=== PATIENT | male | born 1935 | race Caucasian/White ===

== ENCOUNTER 2016-10-23 12:46 | Inpatient (IN) | payer OTHER ==
[2016-10-23 12:52] VITALS: BMI 22.9
--- NOTE | 2016-10-23 13:26 | PDOC ---
History of Present Illness - General Chief Complaint: Pain, Acute Stated Complaint: WEAKNESS Time Seen by Provider: 10/23/16 13:25 History Source: Patient Exam Limitations: No Limitations - History of Present Illness Initial Comments: 10/23/16 13:48 Patient is a 81-year-old male with past medical history of CAD s/p stent placement in 2012 on Plavix, HLD, HTN, who presents to the emergency department today complaining of generalized weakness, and headache. Patient states his headache started on Sunday and it was a generalized headache. He states that the pain was dull and persistent. He tried taking Tylenol for his headache with little relief. Patient states he has also been feeling weak overall. Admits to fevers, chills and night sweats. He also admits to fatigue, and shortness of breath with exertion. Denies nausea, vomiting, diarrhea, constipation, chest tightness, palpitations, edema, chest pain and cough. Past History - Travel Traveled outside of the country in the last 30 days: No Close contact w/someone who was outside of country & ill: No - Past Medical History Allergies/Adverse Reactions: Allergies Allergy/AdvReac Type Severity Reaction Status Date / Time morphine Allergy Vomiting Verified 10/23/16 12:52 Penicillins Allergy Swelling Verified 10/23/16 12:52 Home Medications: Ambulatory Orders Aspirin [Luisito Chewable Aspirin] 81 mg PO DAILY 11/13/13 Clopidogrel Bisulfate [Plavix -] 75 mg PO DAILY 11/13/13 Simvastatin [Zocor -] 20 mg PO HS 11/13/13 Metoprolol Succinate [Toprol XL -] 25 mg PO DAILY 09/17/14 Esomeprazole Magnesium [Nexium 24Hr] 0 mg PO DAILY 10/23/16 Isosorbide Dinitrate [Isordil -] 0 mg PO DAILY 10/23/16 Anemia: No Asthma: No Cancer: No Cardiac Disorders: Yes (Stent placement w/ complication 02/2015) CVA: No COPD: Yes CHF: No Dementia: No Diabetes: No GI Disorders: No Disorders: No HTN: Yes Hypercholesterolemia: Yes Liver Disease: No Seizures: No Thyroid Disease: No - Surgical History Abdominal Surgery: No Appendectomy: Yes Cardiac Surgery: Yes (cardiac stent 2005 and 2014) Cholecystectomy: No Lung Surgery: No Neurologic Surgery: No Orthopedic Surgery: Yes (right knee replacement) - Psycho/Social/Smoking Cessation Hx Suicidal Ideation: No Smoking History: Former smoker Have you smoked in the past 12 months: No If you are a former smoker, when did you quit?: 30 YRS AGO Information on smoking cessation initiated: No Hx Alcohol Use: No Drug/Substance Use Hx: No Substance Use Type: Alcohol Hx Substance Use Treatment: No Review of Systems - Review of Systems Constitutional: Yes: Chills, Fever, Malaise, Night Sweats, Weakness Respiratory: Yes: SOB with Exertion. No: Cough, SOB at Rest, Wheezing Cardiac (ROS): No: Chest Pain, Edema, Lightheadedness, Palpitations, Chest Tightness ABD/GI: No: Diarrhea, Nausea, Vomiting : Yes: Burning, Dysuria. No: Frequency, Hematuria Neurological: Yes: Headache, Weakness. No: Numbness, Paresthesia, Unsteady Gait All Other Systems: Reviewed and Negative *Physical Exam - Vital Signs Last Vital Signs Temp Pulse Resp BP Pulse Ox 98.4 F 95 H 16 124/69 98 10/23/16 12:49 10/23/16 12:49 10/23/16 12:49 10/23/16 12:49 10/23/16 12:49 - Physical Exam Comments: 10/23/16 13:49 GENERAL: Well developed, well nourished. Awake and alert. No acute distress. HEENT: Normocephalic, atraumatic. PERRLA, EOMI. No conjunctival pallor. Sclera are non- icteric. Moist mucous membranes. Oropharynx is clear. NECK: Supple. Full ROM. No JVD. Carotid pulses 2+ and symmetric, without bruits. No thyromegaly. No lymphadenopathy. CARDIOVASCULAR: Regular rate and rhythm. No murmurs, rubs, or gallops. Distal pulses are 2+ and symmetric. PULMONARY: No evidence of respiratory distress. Lungs clear to auscultation bilaterally. No wheezing, rales or rhonchi. ABDOMINAL: Soft. Non-tender. Non-distended. No rebound or guarding. No organomegaly. Normoactive bowel sounds. MUSCULOSKELETAL Normal range of motion at all joints. No bony deformities or tenderness. No CVA tenderness. EXTREMITIES: No cyanosis. No clubbing. No edema. No calf tenderness. SKIN: Warm and dry. Normal capillary refill. No rashes. No jaundice. NEUROLOGICAL: Alert, awake, appropriate. Cranial nerves 2-12 intact. No deficits to light touch and temperature in face, upper extremities and lower extremities. No motor deficits in the in face, upper extremities and lower extremities. Normoreflexic in the upper and lower extremities. Normal speech. Toes are down- going bilaterally. Gait is normal without ataxia. PSYCHIATRIC: Cooperative. Good eye contact. Appropriate mood and affect. ED Treatment Course - LABORATORY CBC & Chemistry Diagram: 10/23/16 14:00 10/23/16 14:20 Medical Decision Making - Medical Decision Making 10/23/16 13:49 Patient is a 81-year-old male with past medical history of CAD s/p stent placement in 2013 on Plavix, HLD, HTN, who presents to the emergency department today complaining of generalized weakness, and headache. Patient complains of very generalized symptoms and is very vague on his duration of symptoms. Will obtain broad workup at this time. Possible neurologic component versus ACS, versus sepsis. 1.CBC, CMP, lactic acid, blood cultures, PT/INR, cardiac labs 2.EKG, fluids, chest x-ray, head CT 3.reevaluate 10/23/16 14:29 EKG shows: Sinus rhythm with occasional PVCs left axis deviation, right bundle branch block, sinus rhythm with a rate of 87, normal intervals, inverted T waves in lead 1 and aVL. CXR: Left upper lobe pneumonia. Head CT: White blood cells are elevated to 14 at this point patient is tachycardic, afebrile in Most likely sepsis due to pneumonia. Troponins are mildly elevated at 0.47, probable demand ischemia with elevated BUN and creatinine as well. We' ll give IV fluids at this time. We will repeat the troponin in 4 [address] Will consult with Dr[address] So for admission. 10/23/16 14:35 Spoke with and discussed case area and will admit patient to telemetry at this time given elevated troponin. We will start Levaquin at this time. 10/23/16 15:48 Made aware by nurse that patient had reaction to Levaquin, itching and redness at the IV site. Localized reaction, and symptoms went away once Levaquin was turned off. We will switch antibiotics to azithromycin and ceftriaxone at this time. 10/23/16 17:02 Patient complaining of chest pain at this time we'll obtain repeat EKG. Aspirin is given at this time as well as sublingual nitroglycerin. Troponin redrawn. 07/23/16 17:14 EKG is unchanged from first. Sinus tachycardia with a rate of 106 left axis deviation, right bundle branch block, occasional PVCs normal intervals. T-wave inversions in lead 1 and aVL. 10/23/16 17:28 Patient states that he is feeling much better with 1 dose of sublingual nitroglycerin *DC/Admit/Observation/Transfer Diagnosis at time of Disposition: Pneumonia Qualifiers: Pneumonia type: due to unspecified organism Laterality: left Lung location: upper lobe of lung Qualified Code(s): J18.1 - Lobar pneumonia, unspecified organism Sepsis Qualifiers: Sepsis type: sepsis due to unspecified organism Qualified Code(s): A41.9 - Sepsis, unspecified organism - Discharge Dispostion Condition at time of disposition: Stable Admit: Yes
[2016-10-23] MEDS ORDERED: SODIUM CHLORIDE 500 ML IV STA (13:50)
[2016-10-23 14:32] LABS: BASOPHIL 0.4 % (0-2.0); EOSINOPHIL 0.6 % (0-4.5); MCH 30.8 pg (25.7-33.7); MCHC 33.2 g/dl (32.0-35.9); MEAN CELL VOLUME 92.7 fl (80-96); MEAN PLT VOLUME 10.5 fl (7.5-11.1); NEUTROPHILS 85.9 % (42.8-82.8); PLATELET COUNT 152 K/MM3 (134-434); RDW 14.2 % (11.9-15.9); WHITE BLOOD COUNT 14.2 K/mm3 (4.0-10.0)
[2016-10-23 14:45] LABS: INR 1.31 (0.82-1.09); PROTHROMBIN TIME (PATIENT) 14.5 SEC (9.98-11.88)
[2016-10-23 14:53] LABS: TROPONIN I 0.47 ng/ml (0.00-0.05)
[2016-10-23 14:53] LABS: ANION GAP 11 (8-16); BILIRUBIN,TOTAL 0.7 mg/dL (0.2-1.0); CALCIUM 8.5 mg/dL (8.5-10.1); CO2 26 mmol/L (21-32); CREATININE 1.4 mg/dL (0.7-1.3); GLUCOSE,RANDOM 109 mg/dL (74-106); SGOT/AST 24 U/L (15-37); SGPT/ALT 18 U/L (12-78); TOT PROT 7.3 g/dl (6.4-8.2)
[2016-10-23 14:55] LABS: ALK PHOS 89 U/L (45-117); CPK 112 IU/L (39-308); TROPONIN I 0.46 ng/ml (0.00-0.05)
[2016-10-23] MEDS ORDERED: LEVOFLOXACIN 750 MG IVPB 150 ML IVPB ONE ×2 (15:55→16:57)
[2016-10-23] MEDS ORDERED: ONDANSETRON 4 MG/2 ML VIAL IVPB PRN (16:54)
--- NOTE | 2016-10-23 16:54 | HP ---
Admitting History and Physical - Primary Care Physician PCP: George Swenson - Admission Chief Complaint: I feel sick History of Present Illness: Mr Schwarz is a very pleasant 81 year old male who comes in complaining of feeling sick. He says it began on Sunday with a decrease in appetite. He says he started eating and drinking a lot less. Then on Sunday he said he began to feel really sick. He says he started having shortness of breath but no cough. He had lightheadedness and was swaying on walking but did not pass out or fall. He says he had fevers as high as 102. He had night sweats and soaked his bed last night. He had malaise and myalgias. He had general weakness associated with this well. He is not having chest pain. He denies nausea, vomiting, abdominal pain, diarrhea, constipation, difficulty or pain on urination, or swelling. History Source: Patient Limitations to Obtaining History: No Limitations - Past Medical History Cardiovascular: Yes: CAD - Past Surgical History Past Surgical History: Yes: Joint Replacement, Stent - Smoking History Smoking history: Former smoker Have you smoked in the past 12 months: No If you are a former smoker, when did you quit?: 30 YRS AGO - Alcohol/Substance Use Hx Alcohol Use: No History of Substance Use: reports: None - Social History Usual Living Arrangement: Yes: With Spouse ADL: Independent History of Recent Travel: No Home Medications - Allergies Allergies/Adverse Reactions: Allergies Allergy/AdvReac Type Severity Reaction Status Date / Time morphine Allergy Vomiting Verified 10/23/16 12:52 Penicillins Allergy Swelling Verified 10/23/16 12:52 - Home Medications Home Medications: Ambulatory Orders Aspirin [Luisito Chewable Aspirin] 81 mg PO DAILY 11/13/13 Clopidogrel Bisulfate [Plavix -] 75 mg PO DAILY 11/13/13 Simvastatin [Zocor -] 20 mg PO HS 11/13/13 Metoprolol Succinate [Toprol XL -] 25 mg PO DAILY 09/17/14 Esomeprazole Magnesium [Nexium 24Hr] 0 mg PO DAILY 10/23/16 Isosorbide Dinitrate [Isordil -] 0 mg PO DAILY 10/23/16 Family Disease History - Family Disease History Family Disease History: Heart Disease: Father, [place]: Mother, Brother Review of Systems Findings/Remarks: Full review of systems obtained, as per HPI and otherwise negative Physical Examination Vital Signs: Vital Signs Temperature 36.9 C 10/23/16 12:49 Pulse Rate 95 H 10/23/16 12:49 Respiratory Rate 16 10/23/16 12:49 Blood Pressure 124/69 10/23/16 12:49 O2 Sat by Pulse Oximetry (%) 98 10/23/16 12:49 Constitutional: Yes: Well Nourished, No Distress, Calm Eyes: Yes: Conjunctiva Clear, EOM Intact, PERRL Cardiovascular: Yes: Regular Rate and Rhythm. No: Gallop, Murmur, Rub Respiratory: Yes: Regular, Rales, Rhonchi. No: CTA Bilaterally, Wheezes Gastrointestinal: Yes: Normal Bowel Sounds, Soft. No: Distention, Tenderness Extremities: Yes: WNL Edema: No Labs: Laboratory Results - last 24 hr 10/23/16 10/23/16 10/23/16 14:00 14:00 14:00 WBC 14.2 H D RBC 4.67 Hgb 14.4 Hct 43.3 MCV 92.7 MCH 30.8 MCHC 33.2 RDW 14.2 Plt Count 152 MPV 10.5 Neutrophils % 85.9 H D Lymphocytes % 3.6 L D Monocytes % 9.5 Eosinophils % 0.6 D Basophils % 0.4 INR 1.31 H Sodium Potassium Chloride Carbon Dioxide Anion Gap BUN Creatinine Creat Clearance w eGFR Random Glucose Lactic Acid Calcium Total Bilirubin AST ALT Alkaline Phosphatase Creatine Kinase 112 Troponin I 0.47 H Total Protein Albumin 10/23/16 10/23/16 10/23/16 14:00 14:00 14:20 WBC RBC Hgb Hct MCV MCH MCHC RDW Plt Count MPV Neutrophils % Lymphocytes % Monocytes % Eosinophils % Basophils % INR Sodium Cancelled 137 Potassium Cancelled 4.1 Chloride Cancelled 100 Carbon Dioxide Cancelled 26 Anion Gap Cancelled 11 BUN Cancelled 25 H D Creatinine Cancelled 1.4 H D Creat Clearance w eGFR Cancelled 48.40 Random Glucose Cancelled 109 H Lactic Acid 1.6 Calcium Cancelled 8.5 Total Bilirubin Cancelled 0.7 D AST Cancelled 24 D ALT Cancelled 18 Alkaline Phosphatase Cancelled 89 D Creatine Kinase 112 Troponin I 0.46 H Total Protein Cancelled 7.3 Albumin Cancelled 3.0 L Imaging - Results Chest X-ray: Report Reviewed, Image Reviewed Cat Scan: Report Reviewed Problem List - Problems (1) Pneumonia Assessment/Plan: -patient presents with CAP -considering risk factors, needs inpatient admission with IV antibiotics -has swelling allergy to penicillin as a child, will avoid cephalosporins at this time -received levaquin in the ED, continue -lactobacillus Code(s): J18.9 - PNEUMONIA, UNSPECIFIED ORGANISM Qualifiers: Pneumonia type: due to unspecified organism Laterality: left Lung location: upper lobe of lung Qualified Code(s): J18.1 - Lobar pneumonia, unspecified organism (2) Sepsis Assessment/Plan: -as evidenced by fevers, leukocytosis, and KAROL -hydrate with IVF -continue antibiotics as above Code(s): A41.9 - SEPSIS, UNSPECIFIED ORGANISM Qualifiers: Sepsis type: sepsis due to unspecified organism Qualified Code(s): A41.9 - Sepsis, unspecified organism (3) Weakness Assessment/Plan: -suspect secondary to sepsis -CT scan of head reviewed -considering weakness and possible abnormality, will consult neurology -however very low suspicion for stroke -PT consult Code(s): R53.1 - WEAKNESS (4) Elevated troponin Assessment/Plan: -consult cardiology -suspect stress induced -will hold on heparin gtt at this time -trend Code(s): R74.8 - ABNORMAL LEVELS OF OTHER SERUM ENZYMES (5) CAD (coronary artery disease) Assessment/Plan: -continue home regimen -cardiology consult Code(s): I25.10 - ATHSCL HEART DISEASE OF [place] CORONARY ARTERY W/O ANG PCTRS (6) RAINE (acute kidney injury) Assessment/Plan: -secondary to sepsis -hydration Code(s): N17.9 - ACUTE KIDNEY FAILURE, UNSPECIFIED
[2016-10-23] MEDS ORDERED: PNEUMOC 13-VAL CONJ-DIP CRM/PF 0.5 ML DISP.SYRIN IM ONE (17:25)
[2016-10-23] MEDS ORDERED: AZITHROMYCIN IVPB 500 MG in DEXTROSE 5%-WATER - 250 ML IVPB ONE (17:26)
[2016-10-23] MEDS ORDERED: CEFTRIAXONE 1 GM in DEXTROSE 5%-WATER - 50 ML IVPB ONE (17:32)
[2016-10-23] MEDS ORDERED: ASPIRIN 81 MG CHEWABLE TABLETS PO ONE (17:43)
[2016-10-23 17:45] LABS: THYROID STIMULATING HORMONE 1.09 uIU/ml (0.358-3.74)
[2016-10-23] MEDS ORDERED: NITROGLYCERIN SUBLINGUAL 1/150 0.4 MG TAB SL ONE (17:46)
[2016-10-23] MEDS ORDERED: ASPIRIN 81 MG CHEWABLE TABLETS ONE (17:50)
[2016-10-23 19:14] LABS: TROPONIN I 0.32 ng/ml (0.00-0.05)
[2016-10-23] MEDS ORDERED: AZITHROMYCIN IVPB 250 ML IVPB ONE (19:38)
[2016-10-23] MEDS ORDERED: CEFTRIAXONE 50 ML ONE (19:39)
[2016-10-23] MEDS: HEPARIN NA (PORCINE) 5,000 UNITS/ML 1ML VIAL SQ SCH (19:46)
[2016-10-23] MEDS: ATORVASTATIN CA 10 MG TABLET (FP) PO SCH (22:47)
[2016-10-24 00:50] LABS: URINE APPEARANCE CLOUDY; URINE BILIRUBIN NEGATIVE (NEGATIVE); URINE BLOOD 2+ (NEGATIVE); URINE COLOR AMBER; URINE GLUCOSE (UA) NEGATIVE (NEGATIVE); URINE KETONE NEGATIVE (NEGATIVE); URINE LEUK ESTERASE NEGATIVE (NEGATIVE); URINE NITRITE NEGATIVE (NEGATIVE)
[2016-10-24 00:56] LABS: URINE PROTEIN 2+ (NEGATIVE)
[2016-10-24 00:58] LABS: URINE BACTERIA RARE /hpf (NONE SEEN); URINE MUCUS FEW; URINE RBC 5 /hpf (0-3); URINE WBC 3 /hpf (3-5)
[2016-10-24] MEDS: HEPARIN NA (PORCINE) 5,000 UNITS/ML 1ML VIAL SQ SCH ×3 (01:11→18:16)
[2016-10-24] MEDS: ACETAMINOPHEN 325 MG TABLET (FP) PO PRN ×2 (03:32→21:07)
[2016-10-24 08:16] LABS: BASOPHIL 0.3 % (0-2.0); EOSINOPHIL 1.5 % (0-4.5); MCH 31.1 pg (25.7-33.7); MCHC 33.8 g/dl (32.0-35.9); MEAN CELL VOLUME 91.9 fl (80-96); MEAN PLT VOLUME 10.1 fl (7.5-11.1); NEUTROPHILS 75.8 % (42.8-82.8); PLATELET COUNT 161 K/MM3 (134-434); RDW 14.1 % (11.9-15.9); WHITE BLOOD COUNT 9.7 K/mm3 (4.0-10.0)
[2016-10-24 08:23] LABS: ANION GAP 11 (8-16); CALCIUM 8.2 mg/dL (8.5-10.1); CO2 24 mmol/L (21-32); GLUCOSE,RANDOM 111 mg/dL (74-106); MAGNESIUM 2.1 mg/dL (1.8-2.4)
[2016-10-24 08:25] LABS: CREATININE 1.1 mg/dL (0.7-1.3)
--- NOTE | 2016-10-24 09:43 | CONSULT ---
Consult - text type - Consultation Consultation Note: Neurology History of Present Illness 81-year-old male with past medical history of CAD s/p stent placement in 2012 on Plavix, HLD, HTN, who presented to the emergency department complaining of generalized weakness, and headache. His headache started last Sunday, generalized, dull and persistent. He tried taking Tylenol for his headache with little relief. Patient states he has also been feeling weak overall. Admits to fevers, chills and night sweats. He also admits to fatigue, and shortness of breath with exertion. Denies nausea, vomiting, diarrhea, constipation, chest tightness, palpitations, edema, chest pain and cough. He was admitted and found to have left upper lobe PNA. He is being treated with Abx and still reports generalized fatigue but no focal weakness. CT head was completed and did not show acute changes. Past History - Travel Traveled outside of the country in the last 30 days: No Close contact w/someone who was outside of country & ill: No - Past Medical History Allergies/Adverse Reactions: Allergies Allergy/AdvReac Type Severity Reaction Status Date / Time morphine Allergy Vomiting Verified 10/23/16 12:52 Penicillins Allergy Swelling Verified 10/23/16 12:52 Home Medications: Ambulatory Orders Aspirin [Luisito Chewable Aspirin] 81 mg PO DAILY 11/13/13 Clopidogrel Bisulfate [Plavix -] 75 mg PO DAILY 11/13/13 Simvastatin [Zocor -] 20 mg PO HS 11/13/13 Metoprolol Succinate [Toprol XL -] 25 mg PO DAILY 09/17/14 Esomeprazole Magnesium [Nexium 24Hr] 0 mg PO DAILY 10/23/16 Isosorbide Dinitrate [Isordil -] 0 mg PO DAILY 10/23/16 Anemia: No Asthma: No Cancer: No Cardiac Disorders: Yes (Stent placement w/ complication 02/2015) CVA: No COPD: Yes CHF: No Dementia: No Diabetes: No GI Disorders: No Disorders: No HTN: Yes Hypercholesterolemia: Yes Liver Disease: No Seizures: No Thyroid Disease: No - Surgical History Abdominal Surgery: No Appendectomy: Yes Cardiac Surgery: Yes (cardiac stent 2005 and 2014) Cholecystectomy: No Lung Surgery: No Neurologic Surgery: No Orthopedic Surgery: Yes (right knee replacement) - Psycho/Social/Smoking Cessation Hx Suicidal Ideation: No Smoking History: Former smoker Have you smoked in the past 12 months: No If you are a former smoker, when did you quit?: 30 YRS AGO Information on smoking cessation initiated: No Hx Alcohol Use: No Drug/Substance Use Hx: No Substance Use Type: Alcohol Hx Substance Use Treatment: No Review of Systems - Review of Systems Constitutional: Yes: Chills, Fever, Malaise, Night Sweats, Weakness Respiratory: Yes: SOB with Exertion. No: Cough, SOB at Rest, Wheezing Cardiac (ROS): No: Chest Pain, Edema, Lightheadedness, Palpitations, Chest Tightness ABD/GI: No: Diarrhea, Nausea, Vomiting : Yes: Burning, Dysuria. No: Frequency, Hematuria Neurological: Yes: Headache, Weakness. No: Numbness, Paresthesia, Unsteady Gait All Other Systems: Reviewed and Negative *Physical Exam Vital Signs Temperature 98.3 F 10/24/16 06:00 Pulse Rate 86 10/24/16 06:00 Respiratory Rate 18 10/24/16 06:00 Blood Pressure 144/65 10/24/16 06:00 O2 Sat by Pulse Oximetry (%) 95 10/23/16 22:00 - Physical Exam GENERAL: Well developed, well nourished. Awake and alert. No acute distress. HEENT: Normocephalic, atraumatic. PERRLA, EOMI. No conjunctival pallor. Sclera are non- icteric. Moist mucous membranes. Oropharynx is clear. NECK: Supple. Full ROM. No JVD. Carotid pulses 2+ and symmetric, without bruits. No thyromegaly. No lymphadenopathy. CARDIOVASCULAR: Regular rate and rhythm. No murmurs, rubs, or gallops. Distal pulses are 2+ and symmetric. PULMONARY: No evidence of respiratory distress. Lungs clear to auscultation bilaterally. No wheezing, rales or rhonchi. ABDOMINAL: Soft. Non-tender. Non-distended. No rebound or guarding. No organomegaly. Normoactive bowel sounds. MUSCULOSKELETAL Normal range of motion at all joints. No bony deformities or tenderness. No CVA tenderness. EXTREMITIES: No cyanosis. No clubbing. No edema. No calf tenderness. SKIN: Warm and dry. Normal capillary refill. No rashes. No jaundice. NEUROLOGICAL: Alert, awake, appropriate. Cranial nerves 2-12 intact. No deficits to light touch and temperature in face, upper extremities and lower extremities. No motor deficits in the in face, upper extremities and lower extremities. Normoreflexic in the upper and lower extremities. Normal speech. Toes are down- going bilaterally. Gait is normal without ataxia. PSYCHIATRIC: Cooperative. Good eye contact. Appropriate mood and affect. CBCD WBC 9.7 K/mm3 (4.0-10.0) D 10/24/16 05:35 RBC 4.24 M/mm3 (4.00-5.60) 10/24/16 05:35 Hgb 13.2 GM/dL (11.7-16.9) 10/24/16 05:35 Hct 38.9 % (35.4-49) 10/24/16 05:35 MCV 91.9 fl (80-96) 10/24/16 05:35 MCHC 33.8 g/dl (32.0-35.9) 10/24/16 05:35 RDW 14.1 % (11.9-15.9) 10/24/16 05:35 Plt Count 161 K/MM3 (134-434) 10/24/16 05:35 MPV 10.1 fl (7.5-11.1) 10/24/16 05:35 CMP Sodium 139 mmol/L (136-145) 10/24/16 05:35 Potassium 3.8 mmol/L (3.5-5.1) 10/24/16 05:35 Chloride 104 mmol/L (98-107) 10/24/16 05:35 Carbon Dioxide 24 mmol/L (21-32) 10/24/16 05:35 Anion Gap 11 (8-16) 10/24/16 05:35 BUN 22 mg/dL (7-18) H 10/24/16 05:35 Creatinine 1.1 mg/dL (0.7-1.3) D 10/24/16 05:35 Creat Clearance w eGFR 48.40 (>60) 10/23/16 14:20 Calcium 8.2 mg/dL (8.5-10.1) L 10/24/16 05:35 Total Bilirubin 0.7 mg/dL (0.2-1.0) D 10/23/16 14:20 AST 24 U/L (15-37) D 10/23/16 14:20 ALT 18 U/L (12-78) 10/23/16 14:20 Alkaline Phosphatase 89 U/L (45-117) D 10/23/16 14:20 Total Protein 7.3 g/dl (6.4-8.2) 10/23/16 14:20 Albumin 3.0 g/dl (3.4-5.0) L 10/23/16 14:20 Medical Decision Making 81-year-old male with past medical history of CAD s/p stent placement in 2012 on Plavix, HLD, HTN, who presented to the emergency department complaining of generalized weakness, and headache. His headache started last Sunday, generalized, dull and persistent. He tried taking Tylenol for his headache with little relief. Patient states he has also been feeling weak overall. Found to have left upper lobe PNA. He is being treated with Abx and still reports generalized fatigue but no focal weakness. CT head was completed and did not show acute changes. Would recommend continued treatment of systemic infection, IV Abx. No focal deficits and would not require further imaging. Continued hydration recommended. For tension headache, Fioricet can be given as needed but would limit intake to once or twice a day (will defer to primary if he desires to start medication). Expect improvement as infection clears.
[2016-10-24] MEDS: LACTOBACILLUS ACIDOPHILUS 1 EACH TAB (FP) PO SCH (09:58)
[2016-10-24] MEDS: ASPIRIN 81 MG CHEWABLE TABLETS PO SCH (09:58)
[2016-10-24] MEDS: METOPROLOL SUCCINATE 25 MG TAB.SR.24H (FP) PO SCH (09:59)
[2016-10-24] MEDS: CLOPIDOGREL BISULFATE 75 MG TABLET (FP) PO SCH (09:59)
[2016-10-24] MEDS ORDERED: LEVOFLOXACIN 250 MG IVPB 50 ML IVPB SCH (10:00)
[2016-10-24] MEDS ORDERED: PNEUMOC 13-VAL CONJ-DIP CRM/PF 0.5 ML DISP.SYRIN IM ONE (11:45)
[2016-10-24] MEDS: ACETAMINOPHEN/CAFFEINE/BUTALBITAL 1 TAB PO PRN (11:58)
--- NOTE | 2016-10-24 12:59 | CON.CARD ---
Cardiology Consult (text) - Consultation Consultation Note: CC: cad/abnormal troponin 81 yo with pmhx of CAD s/p multiple PCI (most recent 2014) with chronic stable angina, mild ischemic cardiomyopathy, HTN, HL, COPD, depression p/w pna. + decreased appetite. cough, weakness, fever 102, sweats, malaise and myalgias. + dysphagia --> plan for esophogram tomorrow. no chills. nausea, vomiting, abdominal pain, diarrhea, constipation, rashes, congestion. + having shortness of breath, lightheadedness no cp. palps, orthopnea, pnd, le edema, bleeding transient neurologic symptoms. thought to have pna based on imaging. also noted to have mildly elevated troponin. at baseline has chronic stable anginal symptoms for which he uses SL nitro on average 2-3x/week --> no increase in frequency. sx's at rest/with turning in bed or with movement but can still walk up one flight of stairs without anginal symptoms. PMhx/PShx: per hpi Social hx: Former smoker Family Disease History: Heart Disease: Father, CA: Mother, Brother ROS: per hpi Ambulatory Orders Aspirin [Luisito Chewable Aspirin] 81 mg PO DAILY 11/13/13 Clopidogrel Bisulfate [Plavix -] 75 mg PO DAILY 11/13/13 Simvastatin [Zocor -] 20 mg PO HS 11/13/13 Metoprolol Succinate [Toprol XL -] 25 mg PO DAILY 09/17/14 Esomeprazole Magnesium [Nexium 24Hr] 0 mg PO DAILY 10/23/16 Isosorbide Dinitrate [Isordil -] 30 mg PO DAILY 10/23/16 also recently restarted ranexa [address] aparicio. Current Medications Acetaminophen (Tylenol -) 650 mg PO Q4H PRN PRN Reason: FEVER OR PAIN Last Admin: 10/24/16 03:32 Dose: 650 mg Acetaminophen/Butalbital/Caffeine (Fioricet -) 1 tablet PO Q6H PRN PRN Reason: HEADACHE Last Admin: 10/24/16 11:58 Dose: 1 tablet Aspirin (Asa -) 81 mg PO DAILY [facility] Last Admin: 10/24/16 09:58 Dose: 81 mg Atorvastatin Calcium (Lipitor -) 10 mg PO HS [facility] Last Admin: 10/23/16 22:47 Dose: 10 mg Clopidogrel Bisulfate (Plavix -) 75 mg PO DAILY [facility] Last Admin: 10/24/16 09:59 Dose: 75 mg Heparin Sodium (Porcine) (Heparin -) 5,000 unit SQ Q8H-IV [facility] Last Admin: 10/24/16 09:59 Dose: 5,000 unit Azithromycin (Zithromax 500mg Ivpb (Pre-Docked)) 250 mls @ 250 mls/hr IVPB DAILY [facility] Lactobacillus Acidophilus (Bacid -) 1 tab PO DAILY [facility] Last Admin: 10/24/16 09:58 Dose: 1 tab Metoprolol Succinate (Toprol Xl -) 25 mg PO DAILY [facility] Last Admin: 10/24/16 09:59 Dose: 25 mg Vital Signs - 24 hr 10/23/16 10/23/16 10/24/16 17:14 22:00 02:00 Temperature 99.4 F 100.1 F H Pulse Rate 65 98 H 91 H Respiratory 18 18 18 Rate Blood Pressure 153/92 158/77 95/60 O2 Sat by Pulse 97 95 Oximetry (%) 10/24/16 10/24/16 06:00 08:05 Temperature 98.3 F 98.2 F Pulse Rate 86 82 Respiratory 18 16 Rate Blood Pressure 144/65 134/72 O2 Sat by Pulse Oximetry (%) Intake & Output 10/22/16 10/23/16 10/24/16 10/25/16 07:59 07:59 07:59 07:59 Intake Total 610 Output Total 600 Balance 10 Weight 160 lb nad, calm jvd flat, neck supple bibasilar crackles, nl effort RRR nl s1, s2 no mrg + bs soft nt nd ext without e/c/c + dp/pt aaox3 no carotid bruits CBC, BMP 10/24/16 05:35 10/24/16 05:35 Laboratory Tests 10/23/16 10/23/16 10/23/16 14:00 14:00 14:20 Creatinine 1.4 H D Lactic Acid 1.6 Magnesium Creatine Kinase 112 112 Troponin I 0.47 H 0.46 H TSH 1.09 10/23/16 10/24/16 17:45 05:35 Creatinine Lactic Acid Magnesium 2.1 Creatine Kinase 78 Troponin I 0.32 H D TSH tele: sr, pv's ekg: reviewed. no acute ischemic changes. [facility] 02/23: patent mRCA stent (mild ISR); 30-50% dRCA; 80-90% pLAD--BMS (covered stent after perf'd with PTCA); 30-50% mLAD bridge; 30-50% D1; 30-50% OM1; 30-50 % prox Ramus; (PTCA OF LAD COMPLICATED BY PERF--COVERED STENT PLACED, OCCLUDING THE DIAG--LARGE TROPONIN LEAK WITH SMALL RWMA ON ECHO THEN) [facility] 04/27 (pers): no STs; large, fixed anteroapical defect; small inferoapical defect partially reversible c/w vito-infarct ischemia in LAD territory; severe HK of mid and apical AW, and apex akinetic; EF 41% Echo 03/2016: 1. The left ventricular size is normal. 2. Overall left ventricular systolic function appears mildly reduced, with a visually estimated EF of 45%. 3. The diastolic filling pattern indicates impaired relaxation. Normal LA pressure. 4. Apical inferior, apical lateral, and apical anterior segments appear hypokinetic. Mid anterior wall is not well seen, and appears possibly hypokinetic in the available images. 5. The right ventricle is normal in size and function. 6. Left atrium is normal size by volume. 7. [id number] mitral regurgitation is present. 81 yo with pmhx of CAD s/p multiple PCI (most recent 2014) with chronic stable angina, mild ischemic cardiomyopathy, HTN, HL, COPD, depression p/w pna. CAD - s/p JOAO to mid RCA 11/15 ISR of JOAO treated with second JOAO 06/16. Most recent PCI of LAD was complicated by perf --> BMS placed occluding the diag. - intermediate troponin elevation, flat trend. No anginal symptoms. ekg without acute ischemic changes. No concern for ACS at this time. - con't ranexa, imdur, statin, bb, dapt. intoleratnt of acei. - lyte repletion prn. Mild ischemic cardiomyopathy - EF mildly reduced (45%) wiht apical wma's. no clinical chf. con't bb. intolerant of acei. HTN - labile here, overall reasonable control for age. monitor hl - on statin pre-op clearance - dysphagia evaluation ongoing, possible need for intervention - rcri 2 with advanced age/reasonable exercise capacity. estimated vito- operative cardiovascular risk for this low risk procedure is intermediate. Last JOAO was placed 2014 therefore plavix may be held for procedure, but should continue on un-interrupted aspirin. - stable from CV perspective. no further testing required prior to intervention. PNA - ongoing mgm't per pmd/pulm
--- NOTE | 2016-10-24 13:00 | PN ---
Teaching Attending Note Name of Resident: Jose Guadalupe Martines ATTENDING PHYSICIAN STATEMENT I saw and evaluated the patient. I reviewed the resident's note and discussed the case with the resident. I agree with the resident's findings and plan as documented. SUBJECTIVE: fever chills to Sunday no cough vomiting one time difficulty swallowing 12 pound weight loss persistent headache for last 3 weeks pen allergy - blows up levaquin given in ED with redness and itching of arm no recent antibiotics OBJECTIVE: Vital Signs Period Temp Pulse Resp BP Sys/Garcia Pulse Ox Last 24 Hr 98.2 F-100.1 F 65-98 16-18 95-158/60-92 95-97 neck supple cor-rrr lungs clear abd soft, diffuse discomfort to palpation ext no edema CBC, BMP 10/24/16 05:35 10/24/16 05:35 ASSESSMENT AND PLAN: CAP severe pen allergy levaquin allergy positive troponins weight loss/difficulty swallowing chest ct to evaluate pneumonia/ r/o malignancy vancomycin/zithromax d/w Dr Swenson
--- NOTE | 2016-10-24 13:07 | PN ---
Progress Note, Physician Chief Complaint: Weakness and some coughing. History of Present Illness: Patient with a past history of ASHD S/P stenting and right knee replacement with revision comes to the ER Sunday with complaints of several days of weakness , fevers,headache,loss of appetite and dysphagia with coughing. No Hemoptysis. ER evaluation revealed ELÍAS infiltrate and mildly increased Troponin levels.Initial WBC 14,000. He had Penicillin allergy and during an infusion of IV Levaquin had pruritus of the arm.He is being seen by ID andPulmonary and Cardiology MD's. ? weight loss of 12lbs but I will check office weight on his last visit. - Current Medication List Current Medications: Active Medications Acetaminophen (Tylenol -) 650 mg PO Q4H PRN PRN Reason: FEVER OR PAIN Last Admin: 10/24/16 03:32 Dose: 650 mg Acetaminophen/Butalbital/Caffeine (Fioricet -) 1 tablet PO Q6H PRN PRN Reason: HEADACHE Last Admin: 10/24/16 11:58 Dose: 1 tablet Aspirin (Asa -) 81 mg PO DAILY [facility] Last Admin: 10/24/16 09:58 Dose: 81 mg Atorvastatin Calcium (Lipitor -) 10 mg PO HS [facility] Last Admin: 10/23/16 22:47 Dose: 10 mg Clopidogrel Bisulfate (Plavix -) 75 mg PO DAILY [facility] Last Admin: 10/24/16 09:59 Dose: 75 mg Heparin Sodium (Porcine) (Heparin -) 5,000 unit SQ Q8H-IV [facility] Last Admin: 10/24/16 09:59 Dose: 5,000 unit Azithromycin (Zithromax 500mg Ivpb (Pre-Docked)) 250 mls @ 250 mls/hr IVPB DAILY [facility] Lactobacillus Acidophilus (Bacid -) 1 tab PO DAILY [facility] Last Admin: 10/24/16 09:58 Dose: 1 tab Metoprolol Succinate (Toprol Xl -) 25 mg PO DAILY [facility] Last Admin: 10/24/16 09:59 Dose: 25 mg - Objective Vital Signs: Vital Signs Temperature 98.2 F 10/24/16 08:05 Pulse Rate 82 10/24/16 08:05 Respiratory Rate 16 10/24/16 08:05 Blood Pressure 134/72 10/24/16 08:05 O2 Sat by Pulse Oximetry (%) 95 10/23/16 22:00 Constitutional: Yes: Calm Eyes: Yes: Conjunctiva Clear Cardiovascular: Yes: Regular Rate and Rhythm Respiratory: Yes: Diminished. No: Rales Gastrointestinal: Yes: Soft. No: Tenderness Genitourinary: No: Martinez Present Edema: No Integumentary: No: Bruising Neurological: Yes: Alert, Oriented Labs: CBC, BMP 10/24/16 05:35 10/24/16 05:35 INR, PTT INR 1.31 (0.82-1.09) H 10/23/16 14:00 - ....Imaging Chest X-ray: Report Reviewed Problem List - Problems (1) Pneumonia Assessment/Plan: ELÍAS infiltrate; now on Antibiotics; Seen by ID and Pulmonary MD's. CAT chest ordered. Code(s): J18.9 - PNEUMONIA, UNSPECIFIED ORGANISM Qualifiers: Pneumonia type: due to unspecified organism Laterality: left Lung location: upper lobe of lung Qualified Code(s): J18.1 - Lobar pneumonia, unspecified organism (2) CAD (coronary artery disease) Assessment/Plan: Await F/U Cardiology MD for advice on elevated troponins. Code(s): I25.10 - ATHSCL HEART DISEASE OF [place] CORONARY ARTERY W/O ANG PCTRS (3) Elevated troponin Assessment/Plan: Await visit from Cardiology Hx Coronary artery stents. Code(s): R74.8 - ABNORMAL LEVELS OF OTHER SERUM ENZYMES (4) Dysphagia Assessment/Plan: Recently even had difficulty swallowing water; GI consult placed. Code(s): R13.10 - DYSPHAGIA, UNSPECIFIED
--- NOTE | 2016-10-24 13:14 | CON.PULM ---
Consult Consult Specialty:: PULMONARY Referred by:: Dr. Swenson Reason for Consultation:: pneumonia - History of Present Illness Chief Complaint: fevers History of Present Illness: 81yo male with h/o HTN, hyperlipidemia, CAD s/p stent placement who presents with generalized weakness, malaise x 4 days. He reports subjective and recorded fevers, chills and sweats. Reports nausea, vomiting and abdominal pain. No shortness of breath or wheezing but mild nonproductive cough. No sick contacts or recent travel. Does report a decreased appetite and weight loss. Last hospitalization was in 2012 when he had his stent placed and has not been on antibiotics recently. He reports swelling from penicillins and received levaquin in the ER yesterday with developing rash. He is a remote smoker, quit 30 years ago and is a retired loan servicing officer. Has always been PPD negative during his career. - History Source History Provided By: Patient, Medical Record Limitations to Obtaining History: No Limitations - Past Medical History Cardio/Vascular: Yes: CAD, HTN - Past Surgical History Past Surgical History: Yes: Joint Replacement, Stent - Alcohol/Substance Use Hx Alcohol Use: No History of Substance Use: reports: None - Smoking History Smoking history: Former smoker Have you smoked in the past 12 months: No If you are a former smoker, when did you quit?: 30 YRS AGO - Social History ADL: Independent History of Recent Travel: No Home Medications - Allergies Allergies/Adverse Reactions: Allergies Allergy/AdvReac Type Severity Reaction Status Date / Time levofloxacin [From Levaquin] Allergy Intermediate rash and Verified 10/24/16 12: 40 itching in arm of infusion morphine Allergy Vomiting Verified 10/23/16 12:52 Penicillins Allergy Swelling Verified 10/23/16 12:52 - Home Medications Home Medications: Ambulatory Orders Aspirin [Luisito Chewable Aspirin] 81 mg PO DAILY 11/13/13 Clopidogrel Bisulfate [Plavix -] 75 mg PO DAILY 11/13/13 Simvastatin [Zocor -] 20 mg PO HS 11/13/13 Metoprolol Succinate [Toprol XL -] 25 mg PO DAILY 09/17/14 Esomeprazole Magnesium [Nexium 24Hr] 0 mg PO DAILY 10/23/16 Isosorbide Dinitrate [Isordil -] 0 mg PO DAILY 10/23/16 Family Disease History - Family Disease History Family Disease History: Heart Disease: Father, CA: Mother, Brother Review of Systems - Review of Systems Constitutional: reports: Chills, Fever, Loss of Appetite, Malaise, Night Sweats , Weakness Eyes: denies: Recent Change in Vision HENT: denies: Nasal Congestion, Throat Pain Neck: denies: Stiffness, Tenderness Cardiovascular: denies: Chest Pain, Edema, Palpitations, Shortness of Breath Respiratory: reports: Cough. denies: Hemoptysis, SOB, SOB on Exertion, Wheezing Gastrointestinal: reports: Abdominal Pain, Nausea, Vomiting Genitourinary: denies: Dysuria, Hematuria Neurological: reports: Headache. denies: Dizziness Physical Exam Vital Sings: Vital Signs Temperature 98.2 F 10/24/16 08:05 Pulse Rate 82 10/24/16 08:05 Respiratory Rate 16 10/24/16 08:05 Blood Pressure 134/72 10/24/16 08:05 O2 Sat by Pulse Oximetry (%) 95 10/23/16 22:00 Constitutional: Yes: Calm Eyes: Yes: Conjunctiva Clear, EOM Intact HENT: Yes: Atraumatic, Normocephalic Neck: Yes: Supple, Trachea Midline Cardiovascular: Yes: Regular Rate and Rhythm Respiratory: Yes: Regular, Rales (left sided) ...Clubbing: No Gastrointestinal: Yes: Normal Bowel Sounds, Soft. No: Tenderness Edema: No Neurological: Yes: Alert, Oriented Labs: CBC, BMP 10/24/16 05:35 10/24/16 05:35 Imaging - Results Chest X-ray: Report Reviewed, Image Reviewed (left upper lobe infiltrate/ consolidation) Problem List - Problems (1) Pneumonia Code(s): J18.9 - PNEUMONIA, UNSPECIFIED ORGANISM Qualifiers: Pneumonia type: due to unspecified organism Laterality: left Lung location: upper lobe of lung Qualified Code(s): J18.1 - Lobar pneumonia, unspecified organism (2) RAINE (acute kidney injury) Code(s): N17.9 - ACUTE KIDNEY FAILURE, UNSPECIFIED (3) CAD (coronary artery disease) Code(s): I25.10 - ATHSCL HEART DISEASE OF [place] CORONARY ARTERY W/O ANG PCTRS (4) Elevated troponin Code(s): R74.8 - ABNORMAL LEVELS OF OTHER SERUM ENZYMES (5) Sepsis Code(s): A41.9 - SEPSIS, UNSPECIFIED ORGANISM Qualifiers: Sepsis type: sepsis due to unspecified organism Qualified Code(s): A41.9 - Sepsis, unspecified organism Assessment/Plan Pneumonia Sepsis +Troponins likely Demand Ischemia CAD HTN Hypercholesterolemia - IV antibiotics - f/u cultures - urinary antigens - received IVF - monitor urine output, creatinine - for CT chest noncontrast - DVT prophylaxis Thank you for this consult Leonid Bello MD
--- NOTE | 2016-10-24 13:50 | CONSULT ---
Consultation: REQUESTING PROVIDER: CONSULT REQUEST: We have been asked to medically evaluate this patient for ( specify). HISTORY OF PRESENT ILLNESS: 81 yo M with a history of CAD s/p stent placement in 2012 on plavix, admitted with complaints of nausea, weakness and generalized severe headache since . He took motrin and tylenol with no relief. He also complains of Fatigue, feeling tired, fevers, chills and night sweats that also started around the same time. He states he lost 12 pounds in the past month. He also has had difficulty swallowing solids and liquids the past week. When he drinks water, he feels as if it gets stuck in his throat. He denies chest pain, diarrhea, constipation and cough. - Past Medical History Cardio/Vascular: Yes: CAD, HTN Plantar fasciitis - Past Surgical History Past Surgical History: Yes: Joint Replacement, Stent - Alcohol/Substance Use Hx Alcohol Use: No History of Substance Use: reports: None - Smoking History Smoking history: Former smoker Have you smoked in the past 12 months: No If you are a former smoker, when did you quit?: 30 YRS AGO Family History - Brother with colon cancer -Brother with CAD - Social History ADL: Independent History of Recent Travel: No Allergies: Penecillin, morphine, levofloxacin REVIEW OF SYSTEMS: CONSTITUTIONAL: + fever, chills, diaphoresis, generalized weakness, malaise, weight change, and loss of appetite. HEENT: difficulty swallowing Absent: rhinorrhea, nasal congestion, throat pain, throat swelling, mouth swelling, ear pain, eye pain, visual changes CARDIOVASCULAR: Absent: chest pain, syncope, palpitations, irregular heart rate, lightheadedness , peripheral edema RESPIRATORY: Absent: cough, shortness of breath, dyspnea with exertion, orthopnea, wheezing, stridor, hemoptysis GASTROINTESTINAL: Absent: abdominal pain, abdominal distension, nausea, vomiting, diarrhea, constipation, melena, hematochezia GENITOURINARY: Absent: dysuria, frequency, urgency, hesitancy, hematuria, flank pain, genital pain MUSCULOSKELETAL: Absent: myalgia, arthralgia, joint swelling, back pain, neck pain SKIN: Absent: rash, itching, pallor HEMATOLOGIC/IMMUNOLOGIC: Absent: easy bleeding, easy bruising, lymphadenopathy, frequent infections ENDOCRINE: 12 pound weight loss Absent: unexplained weight gain, heat intolerance, cold intolerance NEUROLOGIC: severe headache Absent: focal weakness or paresthesias, dizziness, unsteady gait, seizure, mental status changes, bladder or bowel incontinence PSYCHIATRIC: Absent: anxiety, depression, suicidal or homicidal ideation, hallucinations. PHYSICAL EXAMINATION Vital Signs - 24 hr 10/23/16 10/23/16 10/24/16 17:14 22:00 02:00 Temperature 99.4 F 100.1 F H Pulse Rate 65 98 H 91 H Respiratory 18 18 18 Rate Blood Pressure 153/92 158/77 95/60 O2 Sat by Pulse 97 95 Oximetry (%) 10/24/16 10/24/16 06:00 08:05 Temperature 98.3 F 98.2 F Pulse Rate 86 82 Respiratory 18 16 Rate Blood Pressure 144/65 134/72 O2 Sat by Pulse Oximetry (%) GENERAL: Awake, alert, and fully oriented, in no acute distress. HEAD: Normal with no signs of trauma. EYES: Pupils equal, round and reactive to light, extraocular movements intact, sclera anicteric, conjunctiva clear. No lid lag. EARS, NOSE, THROAT: oropharynx clear without exudates. Moist mucous membranes. NECK: supple without lymphadenopathy, JVD, or masses. LUNGS: Breath sounds equal, clear to auscultation bilaterally. No wheezes, and no crackles. No accessory muscle use. HEART: Regular rate and rhythm, normal S1 and S2 without murmur, rub or gallop. ABDOMEN: Tenderness in all quadrants, Soft, not distended, normoactive bowel sounds, no guarding, no rebound, no masses. No hepatomegaly or splenomegaly. UPPER EXTREMITIES: 2+ pulses, warm, well-perfused. No cyanosis. No clubbing. Cap refill <2 seconds. No peripheral edema. LOWER EXTREMITIES: 2+ pulses, warm, well-perfused. No calf tenderness. No peripheral edema. NEUROLOGICAL: Cranial nerves II-XII intact. Normal speech. Normal gait. PSYCHIATRIC: Cooperative. Good eye contact. Appropriate mood and affect. SKIN: Warm, dry, normal turgor, no rashes or lesions noted. Laboratory Results - last 24 hr 10/23/16 10/23/16 10/24/16 16:17 17:45 05:35 WBC 9.7 D RBC 4.24 Hgb 13.2 Hct 38.9 MCV 91.9 MCH 31.1 MCHC 33.8 RDW 14.1 Plt Count 161 MPV 10.1 Neutrophils % 75.8 Lymphocytes % 8.5 D Monocytes % 13.9 H Eosinophils % 1.5 D Basophils % 0.3 PTT (Actin FS) Sodium Potassium Chloride Carbon Dioxide Anion Gap BUN Creatinine Random Glucose Calcium Magnesium Creatine Kinase 78 Troponin I 0.32 H D Urine Color Gwendolyn Urine Appearance Cloudy Urine pH 5.0 Ur Specific Linneus >= 1.030 H Urine Protein 2+ H Urine Glucose (UA) Negative Urine Ketones Negative Urine Blood 2+ H Urine Nitrite Negative Urine Bilirubin Negative Urine Urobilinogen 2.0 Ur Leukocyte Esterase Negative Urine RBC 5 Urine WBC 3 Ur Epithelial Cells Rare Urine Bacteria Rare Urine Mucus Few 10/24/16 10/24/16 05:35 05:35 WBC RBC Hgb Hct MCV MCH MCHC RDW Plt Count MPV Neutrophils % Lymphocytes % Monocytes % Eosinophils % Basophils % PTT (Actin FS) 29.9 Sodium 139 Potassium 3.8 Chloride 104 Carbon Dioxide 24 Anion Gap 11 BUN 22 H Creatinine 1.1 D Random Glucose 111 H Calcium 8.2 L Magnesium 2.1 Creatine Kinase Troponin I Urine Color Urine Appearance Urine pH Ur Specific Linneus Urine Protein Urine Glucose (UA) Urine Ketones Urine Blood Urine Nitrite Urine Bilirubin Urine Urobilinogen Ur Leukocyte Esterase Urine RBC Urine WBC Ur Epithelial Cells Urine Bacteria Urine Mucus Active Medications Generic Name Dose Route Start Last Admin Trade Name Puneet PRN Reason Stop Dose Admin Acetaminophen 650 mg 10/23/16 16:54 10/24/16 03:32 Tylenol - PO 650 mg Q4H PRN Administration FEVER OR PAIN Acetaminophen/Butalbital/Caffeine 1 tablet 10/24/16 11:00 10/24/16 11:58 Fioricet - PO 1 tablet Q6H PRN Administration HEADACHE Aspirin 81 mg 10/24/16 10:00 10/24/16 09:58 Asa - PO 81 mg DAILY [facility] Administration Atorvastatin Calcium 10 mg 10/23/16 22:00 10/23/16 22:47 Lipitor - PO 10 mg HS [facility] Administration Clopidogrel Bisulfate 75 mg 10/24/16 10:00 10/24/16 09:59 Plavix - PO 75 mg DAILY [facility] Administration Heparin Sodium (Porcine) 5,000 unit 10/23/16 18:00 10/24/16 09:59 Heparin - SQ 5,000 unit Q8H-IV [facility] Administration Azithromycin 250 mls @ 250 mls/hr 10/24/16 12:45 Zithromax 500mg Ivpb (Pre-Docked) IVPB DAILY [facility] Lactobacillus Acidophilus 1 tab 10/24/16 10:00 10/24/16 09:58 Bacid - PO 1 tab DAILY [facility] Administration Metoprolol Succinate 25 mg 10/24/16 10:00 10/24/16 09:59 Toprol Xl - PO 25 mg DAILY [facility] Administration Vancomycin HCl 1,000 mg 10/24/16 14:00 Vancomycin (Pre-Docked) IVPB DAILY@1400 [facility] Protocol ASSESSMENT/PLAN: 1) CAP - Chest CT w/o contrast to evaluate pneumonia and r/o malignancy -Start Vancomycin and Azithromycin (allergic to Levaquin and penicillin) -Weight loss, dysphagia Chelsea Martines MD Dispo: We will continue to follow the patient. Thank you for this consultative opportunity. Visit type - Emergency Visit Emergency Visit: No - New Patient This patient is new to me today: Yes Date on this admission: 10/24/16 - Critical Care Critical Care patient: No
[2016-10-24] MEDS: AZITHROMYCIN IVPB 250 ML IVPB SCH (14:15)
[2016-10-24] MEDS: VANCOMYCIN 1 GRAM (PRE-DOCKED) 1,000 MG/250 ML BAG IVPB SCH (14:16)
--- NOTE | 2016-10-24 16:35 | CON.GI ---
Consult Consult Specialty:: GI Referred by:: Dr. George Swenson Reason for Consultation:: Dysphagia - History of Present Illness Chief Complaint: "I had alot of things going on" History of Present Illness: 81M admitted through [facility] ER yesterday foir evaluation of headache, nausea, lightheadedness and diminished appetite. This all started to occur this past sunday and progressed through the weekend. His called Dr. Swenson Sunday prompting Mr. Schwarz's ER visit. Prior to this, he was in his usual state of health. He described his dysphagia as "water not wanting to stay down and a strange feeling when it went down". He alludes to an intentional 10 pound weight loss over the last month (trying to lose weight given that his granddaughter is getting ). He denies vomiting, change in bowel habits, dysphagia to food, difficulty swallowing or choking when swallowing, change in bowel habits, rectal bleeding, melena, change in stool caliber. He tells me that he may have been "coughing a little more of late" He has never had an upper endoscopy. He has had colonoscopies in the past and follows with Dr. Kim. His last colonoscopy performed by Dr. Kim was about 8 years ago and he believes that it was "Ok". Mr. Schwarz does allude to possibly having been told of colon polyps in the past. Two of his four brothers from colon cancer complications. During his hospitalization, it appears as though he had a reaction to levaquin (rash/SOB) developed chest pain at that time that was relieved by NTG. Troponins are elevated as well and he is being evaluated by cardiology, pulmonary and neurology. He has been able to eat while admitted. CXR reveals a possible ELÍAS consolidation in the lung. - Past Medical History Cardio/Vascular: Yes: CAD, HTN Gastrointestinal: Yes: GERD Musculoskeletal: Yes: Other (plantar fasciitis) - Past Surgical History Past Surgical History: Yes: Appendectomy, Joint Replacement (right knee), Stent - Alcohol/Substance Use Hx Alcohol Use: No History of Substance Use: reports: None - Smoking History Smoking history: Former smoker Have you smoked in the past 12 months: No If you are a former smoker, when did you quit?: 30 YRS AGO - Social History Usual Living Arrangement: With Spouse ADL: Independent Place of : [facility] History of Recent Travel: No Home Medications - Allergies Allergies/Adverse Reactions: Allergies Allergy/AdvReac Type Severity Reaction Status Date / Time levofloxacin [From Levaquin] Allergy Intermediate rash and Verified 10/24/16 12: 40 itching in arm of infusion morphine Allergy Vomiting Verified 10/23/16 12:52 Penicillins Allergy Swelling Verified 10/23/16 12:52 - Home Medications Home Medications: Ambulatory Orders Aspirin [Luisito Chewable Aspirin] 81 mg PO DAILY 11/13/13 Clopidogrel Bisulfate [Plavix -] 75 mg PO DAILY 11/13/13 Simvastatin [Zocor -] 20 mg PO HS 11/13/13 Metoprolol Succinate [Toprol XL -] 25 mg PO DAILY 09/17/14 Esomeprazole Magnesium [Nexium 24Hr] 0 mg PO DAILY 10/23/16 Isosorbide Dinitrate [Isordil -] 0 mg PO DAILY 10/23/16 Family Disease History - Family Disease History Family Disease History: Heart Disease: Father (: 79: Obesity/CAD), CA: Mother (: 80: DM II complications), Brother (2 from colon cancer 1 from DM comps, 1 from [place]), Other: Mother, Brother Review of Systems - Review of Systems Constitutional: reports: Loss of Appetite, Malaise. denies: Chills, Fever, Unintentional Wgt. Loss (10 pound weight loss over the last month through daily exercise at a gym and dietary modifications) HENT: reports: Difficult Swallowing Cardiovascular: reports: Chest Pain Respiratory: reports: Cough. denies: SOB Gastrointestinal: reports: Dysphagia, Nausea. denies: Abdominal Pain, Constipation, Diarrhea, Indigestion, Melena, Rectal Bleeding, Vomiting Neurological: reports: Headache, Weakness. denies: Confusion Physical Exam-GI Vital Signs: Vital Signs Temperature 99.2 F 10/24/16 15:49 Pulse Rate 70 10/24/16 15:49 Respiratory Rate 16 10/24/16 15:49 Blood Pressure 143/70 10/24/16 15:49 O2 Sat by Pulse Oximetry (%) 95 10/24/16 09:00 Constitutional: Yes: Calm Eyes: No: Sclera Icterus Cardiovascular: Yes: Regular Rate and Rhythm Respiratory: Yes: Rhonchi (right lung base) Gastrointestinal Inspection: Yes: Scars (RLQ scar). No: Distention ...Auscultate: Yes: Normoactive Bowel Sounds ...Palpate: No: Hepatomegaly, Splenomegaly, Tenderness ...Percussion: No: Tympanitic ...Rectal Exam: Yes: Guaiac Negative (dark brown stool), Other (2 + prostate). No: Mass Edema: No (No LE edema) Neurological: Yes: Alert, Oriented Labs: CBC, BMP 10/24/16 05:35 10/24/16 05:35 INR, PTT INR 1.31 (0.82-1.09) H 10/23/16 14:00 Imaging - Results Chest X-ray: Report Reviewed Problem List - Problems (1) Dysphagia Assessment/Plan: Sounds to be new in onset from this past sunday: For esophagram / UGIS in AM Prior to invasive testing, would need cardiac clearance and Plavix would need to be held for 5 days. If there is significant pathology such as an esophageal stricture requiring possible dilation, aspirin would need to be held as well for 7 days. Code(s): R13.10 - DYSPHAGIA, UNSPECIFIED (2) Family history of colon cancer Assessment/Plan: Strong family history with two siblings. When acute issues are resolved, would advise follow-up with Dr. Kim to discuss screening colonoscopy. Code(s): Z80.0 - FAMILY HISTORY OF MALIGNANT NEOPLASM OF DIGESTIVE ORGANS
[2016-10-24 20:41] LABS: URINE APPEARANCE SLCLOUDY; URINE BILIRUBIN NEGATIVE (NEGATIVE); URINE BLOOD 1+ (NEGATIVE); URINE COLOR DKYELLOW; URINE GLUCOSE (UA) NEGATIVE (NEGATIVE); URINE KETONE NEGATIVE (NEGATIVE); URINE LEUK ESTERASE NEGATIVE (NEGATIVE); URINE NITRITE NEGATIVE (NEGATIVE); URINE UROBILINOGEN 4.0 E.U/dl mg/dL (0.2-1.0)
[2016-10-24 20:56] LABS: URINE PROTEIN 1+ (NEGATIVE)
[2016-10-24] MEDS: ATORVASTATIN CA 10 MG TABLET (FP) PO SCH (21:07)
[2016-10-24 21:45] LABS: URINE BACTERIA RARE /hpf (NONE SEEN); URINE MUCUS RARE; URINE RBC 2 /hpf (0-3); URINE WBC 1 /hpf (3-5)
[2016-10-25] MEDS: HEPARIN NA (PORCINE) 5,000 UNITS/ML 1ML VIAL SQ SCH ×3 (02:00→17:40)
[2016-10-25 07:56] LABS: MCH 31.3 pg (25.7-33.7); MCHC 33.7 g/dl (32.0-35.9); MEAN PLT VOLUME 9.9 fl (7.5-11.1); PLATELET COUNT 213 K/MM3 (134-434); WHITE BLOOD COUNT 7.9 K/mm3 (4.0-10.0)
[2016-10-25 08:39] LABS: ANION GAP 10 (8-16); CALCIUM 8.5 mg/dL (8.5-10.1); CO2 26 mmol/L (21-32); CREATININE 1.2 mg/dL (0.7-1.3); GLUCOSE,RANDOM 109 mg/dL (74-106)
--- NOTE | 2016-10-25 08:56 | PN ---
Progress Note, Physician Chief Complaint: Occ. coughing; no hemoptysis. History of Present Illness: Patient admitted for weakness, cough and dysphagia is on IV antibiotics and was seen by ID, PUlmonary, Gi and Cardiology MD's. Awaiting CAT chest report and GI series. Walking no SOB or chest pain overnight. - Current Medication List Current Medications: Active Medications Acetaminophen (Tylenol -) 650 mg PO Q4H PRN PRN Reason: FEVER OR PAIN Last Admin: 10/24/16 21:07 Dose: 650 mg Acetaminophen/Butalbital/Caffeine (Fioricet -) 1 tablet PO Q6H PRN PRN Reason: HEADACHE Last Admin: 10/24/16 11:58 Dose: 1 tablet Aspirin (Asa -) 81 mg PO DAILY [facility] Last Admin: 10/24/16 09:58 Dose: 81 mg Atorvastatin Calcium (Lipitor -) 10 mg PO HS [facility] Last Admin: 10/24/16 21:07 Dose: 10 mg Clopidogrel Bisulfate (Plavix -) 75 mg PO DAILY [facility] Last Admin: 10/24/16 09:59 Dose: 75 mg Heparin Sodium (Porcine) (Heparin -) 5,000 unit SQ Q8H-IV [facility] Last Admin: 10/25/16 02:00 Dose: Not Given Azithromycin (Zithromax 500mg Ivpb (Pre-Docked)) 250 mls @ 250 mls/hr IVPB DAILY [facility] Last Admin: 10/24/16 14:15 Dose: 250 mls/hr Isosorbide Mononitrate (Imdur -) 30 mg PO DAILY [facility] Lactobacillus Acidophilus (Bacid -) 1 tab PO DAILY [facility] Last Admin: 10/24/16 09:58 Dose: 1 tab Metoprolol Succinate (Toprol Xl -) 25 mg PO DAILY [facility] Last Admin: 10/24/16 09:59 Dose: 25 mg Ranolazine (Ranexa -) 500 mg PO BID [facility] Vancomycin HCl (Vancomycin (Pre-Docked)) 1,000 mg IVPB DAILY@1400 [facility] PRN Reason: Protocol Last Admin: 10/24/16 14:16 Dose: 1,000 mg - Objective Vital Signs: Vital Signs Temperature 98.4 F 10/25/16 06:57 Pulse Rate 86 10/25/16 06:57 Respiratory Rate 20 10/25/16 06:57 Blood Pressure 150/80 10/25/16 06:57 O2 Sat by Pulse Oximetry (%) 95 10/24/16 20:32 Constitutional: Yes: Calm Eyes: Yes: Conjunctiva Clear Cardiovascular: Yes: Regular Rate and Rhythm Respiratory: Yes: Diminished (a few rales at bases not ELÍAS), Rales Gastrointestinal: Yes: Soft. No: Tenderness Genitourinary: No: Martinez Present Edema: No Neurological: Yes: Alert, Oriented Labs: CBC, BMP 10/25/16 06:00 10/25/16 06:00 INR, PTT INR 1.31 (0.82-1.09) H 10/23/16 14:00 Problem List - Problems (1) Pneumonia Assessment/Plan: On IV antibiotics; await CT Chest report. Code(s): J18.9 - PNEUMONIA, UNSPECIFIED ORGANISM Qualifiers: Pneumonia type: due to unspecified organism Laterality: left Lung location: upper lobe of lung Qualified Code(s): J18.1 - Lobar pneumonia, unspecified organism (2) CAD (coronary artery disease) Assessment/Plan: Seen by Cardiology;no new RX ordered. Code(s): I25.10 - ATHSCL HEART DISEASE OF [place] CORONARY ARTERY W/O ANG PCTRS (3) Elevated troponin Assessment/Plan: Cardiology aware. Code(s): R74.8 - ABNORMAL LEVELS OF OTHER SERUM ENZYMES (4) Dysphagia Assessment/Plan: by GI MD: GI series ordered; ??endoscopy depends on the report. Code(s): R13.10 - DYSPHAGIA, UNSPECIFIED
[2016-10-25] MEDS ORDERED: POLYETHYLENE GLYCOL 3350 119 GM BTL PO ONE (08:57)
[2016-10-25] MEDS: RANOLAZINE E.R. 500 MG TABLET (FP) PO SCH ×2 (09:03→21:36)
[2016-10-25] MEDS: METOPROLOL SUCCINATE 25 MG TAB.SR.24H (FP) PO SCH (09:04)
[2016-10-25] MEDS: LACTOBACILLUS ACIDOPHILUS 1 EACH TAB (FP) PO SCH (09:04)
[2016-10-25] MEDS: AZITHROMYCIN IVPB 250 ML IVPB SCH (09:04)
[2016-10-25] MEDS: ISOSORBIDE MONONITRATE 30 MG TAB.SR.24H (FP) PO SCH (09:04)
[2016-10-25] MEDS: ASPIRIN 81 MG CHEWABLE TABLETS PO SCH (09:04)
[2016-10-25] MEDS: CLOPIDOGREL BISULFATE 75 MG TABLET (FP) PO SCH (09:04)
[2016-10-25] MEDS: ACETAMINOPHEN/CAFFEINE/BUTALBITAL 1 TAB PO PRN (09:05)
[2016-10-25 09:51] LABS: METAMYELOCYTE 2 % (0-2)
--- NOTE | 2016-10-25 09:52 | PN ---
Progress Note (short form) - Note Progress Note: Neurology History of Present Illness 81-year-old male with past medical history of CAD s/p stent placement in 2013 on Plavix, HLD, HTN, who presented to the emergency department complaining of generalized weakness, and headache. His headache started last Sunday, generalized, dull and persistent. He tried taking Tylenol for his headache with little relief. Patient states he has also been feeling weak overall. Admits to fevers, chills and night sweats. He also admits to fatigue, and shortness of breath with exertion. Denies nausea, vomiting, diarrhea, constipation, chest tightness, palpitations, edema, chest pain and cough. He was admitted and found to have left upper lobe PNA. He is being treated with Abx and still reports generalized fatigue but no focal weakness. CT head was completed and did not show acute changes. Well appearing today and on IV Abx. No new neurologic complaints. Active Medications Acetaminophen (Tylenol -) 650 mg PO Q4H PRN PRN Reason: FEVER OR PAIN Last Admin: 10/24/16 21:07 Dose: 650 mg Acetaminophen/Butalbital/Caffeine (Fioricet -) 1 tablet PO Q6H PRN PRN Reason: HEADACHE Last Admin: 10/25/16 09:05 Dose: 1 tablet Aspirin (Asa -) 81 mg PO DAILY [facility] Last Admin: 10/25/16 09:04 Dose: 81 mg Atorvastatin Calcium (Lipitor -) 10 mg PO HS [facility] Last Admin: 10/24/16 21:07 Dose: 10 mg Clopidogrel Bisulfate (Plavix -) 75 mg PO DAILY [facility] Last Admin: 10/25/16 09:04 Dose: 75 mg Heparin Sodium (Porcine) (Heparin -) 5,000 unit SQ Q8H-IV [facility] Last Admin: 10/25/16 09:04 Dose: 5,000 unit Azithromycin (Zithromax 500mg Ivpb (Pre-Docked)) 250 mls @ 250 mls/hr IVPB DAILY [facility] Last Admin: 10/25/16 09:04 Dose: 250 mls/hr Isosorbide Mononitrate (Imdur -) 30 mg PO DAILY [facility] Last Admin: 10/25/16 09:04 Dose: 30 mg Lactobacillus Acidophilus (Bacid -) 1 tab PO DAILY [facility] Last Admin: 10/25/16 09:04 Dose: 1 tab Metoprolol Succinate (Toprol Xl -) 25 mg PO DAILY [facility] Last Admin: 10/25/16 09:04 Dose: 25 mg Ranolazine (Ranexa -) 500 mg PO BID [facility] Last Admin: 10/25/16 09:03 Dose: 500 mg Vancomycin HCl (Vancomycin (Pre-Docked)) 1,000 mg IVPB DAILY@1400 [facility] PRN Reason: Protocol Last Admin: 10/24/16 14:16 Dose: 1,000 mg *Physical Exam Vital Signs Temperature 98.4 F 10/25/16 06:57 Pulse Rate 86 10/25/16 06:57 Respiratory Rate 20 10/25/16 06:57 Blood Pressure 150/80 10/25/16 06:57 O2 Sat by Pulse Oximetry (%) 95 10/24/16 20:32 Well developed, well nourished. Awake and alert. No acute distress. HEENT: Normocephalic, atraumatic. PERRLA, EOMI. No conjunctival pallor. Sclera are non- icteric. Moist mucous membranes. Oropharynx is clear. NECK: Supple. Full ROM. No JVD. Carotid pulses 2+ and symmetric, without bruits. No thyromegaly. No lymphadenopathy. CARDIOVASCULAR: Regular rate and rhythm. No murmurs, rubs, or gallops. Distal pulses are 2+ and symmetric. PULMONARY: No evidence of respiratory distress. Lungs clear to auscultation bilaterally. No wheezing, rales or rhonchi. ABDOMINAL: Soft. Non-tender. Non-distended. No rebound or guarding. No organomegaly. Normoactive bowel sounds. MUSCULOSKELETAL Normal range of motion at all joints. No bony deformities or tenderness. No CVA tenderness. EXTREMITIES: No cyanosis. No clubbing. No edema. No calf tenderness. SKIN: Warm and dry. Normal capillary refill. No rashes. No jaundice. NEUROLOGICAL: Alert, awake, appropriate. Cranial nerves 2-12 intact. No deficits to light touch and temperature in face, upper extremities and lower extremities. No motor deficits in the in face, upper extremities and lower extremities. Normoreflexic in the upper and lower extremities. Normal speech. Toes are down- going bilaterally. Gait is normal without ataxia. PSYCHIATRIC: Cooperative. Good eye contact. Appropriate mood and affect. CBCD WBC 7.9 K/mm3 (4.0-10.0) 10/25/16 06:00 RBC 4.48 M/mm3 (4.00-5.60) 10/25/16 06:00 Hgb 14.0 GM/dL (11.7-16.9) 10/25/16 06:00 Hct 41.7 % (35.4-49) 10/25/16 06:00 MCV 93.0 fl (80-96) 10/25/16 06:00 MCHC 33.7 g/dl (32.0-35.9) 10/25/16 06:00 RDW 14.0 % (11.9-15.9) 10/25/16 06:00 Plt Count 213 K/MM3 (134-434) D 10/25/16 06:00 MPV 9.9 fl (7.5-11.1) 10/25/16 06:00 CMP Sodium 138 mmol/L (136-145) 10/25/16 06:00 Potassium 3.8 mmol/L (3.5-5.1) 10/25/16 06:00 Chloride 102 mmol/L (98-107) 10/25/16 06:00 Carbon Dioxide 26 mmol/L (21-32) 10/25/16 06:00 Anion Gap 10 (8-16) 10/25/16 06:00 BUN 19 mg/dL (7-18) H 10/25/16 06:00 Creatinine 1.2 mg/dL (0.7-1.3) 10/25/16 06:00 Creat Clearance w eGFR 48.40 (>60) 10/23/16 14:20 Calcium 8.5 mg/dL (8.5-10.1) 10/25/16 06:00 Total Bilirubin 0.7 mg/dL (0.2-1.0) D 10/23/16 14:20 AST 24 U/L (15-37) D 10/23/16 14:20 ALT 18 U/L (12-78) 10/23/16 14:20 Alkaline Phosphatase 89 U/L (45-117) D 10/23/16 14:20 Total Protein 7.3 g/dl (6.4-8.2) 10/23/16 14:20 Albumin 3.0 g/dl (3.4-5.0) L 10/23/16 14:20 Medical Decision Making 81-year-old male with past medical history of CAD s/p stent placement in 2012 on Plavix, HLD, HTN, who presented to the emergency department complaining of generalized weakness, and headache. His headache started last Sunday, generalized, dull and persistent. He tried taking Tylenol for his headache with little relief. Patient states he has also been feeling weak overall. Found to have left upper lobe PNA. He is being treated with Abx and still reports generalized fatigue but no focal weakness. CT head was completed and did not show acute changes. Would recommend continued treatment of systemic infection, IV Abx. No focal deficits and would not require further imaging. Continued hydration recommended. For tension headache, Fioricet can be given as needed but would limit intake to once or twice a day (will defer to primary if he desires to start medication). Currently on Tylenol and well appearing. Continued improvement as infection clears.
--- NOTE | 2016-10-25 10:54 | PN ---
Progress Note (short form) - Note Progress Note: s: no cp sob palps dizzy o: Vital Signs Period Temp Pulse Resp BP Sys/Garcia Pulse Ox Last 24 Hr 98 F-99.7 F 70-99 16-20 118-150/67-90 95 nad, calm jvd flat, neck supple cta bl nl effort RRR nl s1, s2 no mrg + bs soft nt nd ext without e/c/c aaox3 Current Medications Generic Name Dose Route Start Last Admin Trade Name Freq PRN Reason Stop Dose Admin Acetaminophen 650 mg 10/23/16 16:54 10/24/16 21:07 Tylenol - PO 650 mg Q4H PRN Administration FEVER OR PAIN Acetaminophen/Butalbital/Caffeine 1 tablet 10/24/16 11:00 10/25/16 09:05 Fioricet - PO 1 tablet Q6H PRN Administration HEADACHE Aspirin 81 mg 10/24/16 10:00 10/25/16 09:04 Asa - PO 81 mg DAILY [facility] Administration Atorvastatin Calcium 10 mg 10/23/16 22:00 10/24/16 21:07 Lipitor - PO 10 mg HS [facility] Administration Clopidogrel Bisulfate 75 mg 10/24/16 10:00 10/25/16 09:04 Plavix - PO 75 mg DAILY [facility] Administration Heparin Sodium (Porcine) 5,000 unit 10/23/16 18:00 10/25/16 09:04 Heparin - SQ 5,000 unit Q8H-IV [facility] Administration Azithromycin 250 mls @ 250 mls/hr 10/24/16 12:45 10/25/16 09:04 Zithromax 500mg Ivpb (Pre-Docked) IVPB 250 mls/hr DAILY [facility] Administration Isosorbide Mononitrate 30 mg 10/25/16 10:00 10/25/16 09:04 Imdur - PO 30 mg DAILY [facility] Administration Lactobacillus Acidophilus 1 tab 10/24/16 10:00 10/25/16 09:04 Bacid - PO 1 tab DAILY [facility] Administration Metoprolol Succinate 25 mg 10/24/16 10:00 10/25/16 09:04 Toprol Xl - PO 25 mg DAILY [facility] Administration Ranolazine 500 mg 10/25/16 10:00 10/25/16 09:03 Ranexa - PO 500 mg BID [facility] Administration Vancomycin HCl 1,000 mg 10/24/16 14:00 10/24/16 14:16 Vancomycin (Pre-Docked) IVPB 1,000 mg DAILY@1400 [facility] Administration Protocol CBC, BMP 10/25/16 06:00 10/25/16 06:00 tele: sr, occ pvc's ekg: reviewed. no acute ischemic changes. [facility] 02/23: patent mRCA stent (mild ISR); 30-50% dRCA; 80-90% pLAD--BMS (covered stent after perf'd with PTCA); 30-50% mLAD bridge; 30-50% D1; 30-50% OM1; 30-50 % prox Ramus; (PTCA OF LAD COMPLICATED BY PERF--COVERED STENT PLACED, OCCLUDING THE DIAG--LARGE TROPONIN LEAK WITH SMALL RWMA ON ECHO THEN) [facility] 04/27 (pers): no STs; large, fixed anteroapical defect; small inferoapical defect partially reversible c/w vito-infarct ischemia in LAD territory; severe HK of mid and apical AW, and apex akinetic; EF 41% Echo 03/2016: 1. The left ventricular size is normal. 2. Overall left ventricular systolic function appears mildly reduced, with a visually estimated EF of 45%. 3. The diastolic filling pattern indicates impaired relaxation. Normal LA pressure. 4. Apical inferior, apical lateral, and apical anterior segments appear hypokinetic. Mid anterior wall is not well seen, and appears possibly hypokinetic in the available images. 5. The right ventricle is normal in size and function. 6. Left atrium is normal size by volume. 7. Euek-hq-[id number] mitral regurgitation is present. a/p: 81 yo with pmhx of CAD s/p multiple PCI (most recent 2014) with chronic stable angina, mild ischemic cardiomyopathy, HTN, HL, COPD, depression p/w pna. CAD - s/p JOAO to mid RCA 11/15 ISR of JOAO treated with second JOAO 06/16. Most recent PCI of LAD was complicated by perf --> BMS placed occluding the diag. - intermediate troponin elevation, flat trend. No anginal symptoms. ekg without acute ischemic changes. No concern for ACS at this time. - con't ranexa, imdur, statin, bb, dapt. intolerant of acei. Mild ischemic cardiomyopathy - EF mildly reduced (45%) wiht apical wma's. no clinical chf. con't bb. intolerant of acei. HTN -overall reasonable control hld - on statin pre-op clearance - dysphagia evaluation ongoing, possible need for intervention - rcri 2 with advanced age/reasonable exercise capacity. estimated vito- operative cardiovascular risk for this low risk procedure is intermediate. Last JOAO was placed 2014 therefore plavix may be held for procedure, but should continue on aspirin (although could be held if absolutely necessary). - stable from CV perspective. no further testing required prior to intervention. PNA - ongoing mgm't per pmd/pulm
--- NOTE | 2016-10-25 12:34 | PN ---
Progress Note (short form) - Note Progress Note: PULMONARY Still with intermittent chills. +nonproductive cough. CT chest showing large consolidation ELÍAS with lymphadenopathy Last Vital Signs Temp Pulse Resp BP Pulse Ox 98.4 F 86 20 150/80 95 10/25/16 06:57 10/25/16 06:57 10/25/16 06:57 10/25/16 06:57 10/24/16 20:32 Gen: NAD at rest Heart: RRR Lung: left upper rales Abd: soft, nontender Ext: no edema CBC, BMP 10/25/16 06:00 10/25/16 06:00 Active Medications Acetaminophen (Tylenol -) 650 mg PO Q4H PRN PRN Reason: FEVER OR PAIN Last Admin: 10/24/16 21:07 Dose: 650 mg Acetaminophen/Butalbital/Caffeine (Fioricet -) 1 tablet PO Q6H PRN PRN Reason: HEADACHE Last Admin: 10/25/16 09:05 Dose: 1 tablet Aspirin (Asa -) 81 mg PO DAILY [facility] Last Admin: 10/25/16 09:04 Dose: 81 mg Atorvastatin Calcium (Lipitor -) 10 mg PO HS [facility] Last Admin: 10/24/16 21:07 Dose: 10 mg Clopidogrel Bisulfate (Plavix -) 75 mg PO DAILY [facility] Last Admin: 10/25/16 09:04 Dose: 75 mg Heparin Sodium (Porcine) (Heparin -) 5,000 unit SQ Q8H-IV [facility] Last Admin: 10/25/16 09:04 Dose: 5,000 unit Azithromycin (Zithromax 500mg Ivpb (Pre-Docked)) 250 mls @ 250 mls/hr IVPB DAILY [facility] Last Admin: 10/25/16 09:04 Dose: 250 mls/hr Isosorbide Mononitrate (Imdur -) 30 mg PO DAILY [facility] Last Admin: 10/25/16 09:04 Dose: 30 mg Lactobacillus Acidophilus (Bacid -) 1 tab PO DAILY [facility] Last Admin: 10/25/16 09:04 Dose: 1 tab Metoprolol Succinate (Toprol Xl -) 25 mg PO DAILY [facility] Last Admin: 10/25/16 09:04 Dose: 25 mg Ranolazine (Ranexa -) 500 mg PO BID [facility] Last Admin: 10/25/16 09:03 Dose: 500 mg Vancomycin HCl (Vancomycin (Pre-Docked)) 1,000 mg IVPB DAILY@1400 [facility] PRN Reason: Protocol Last Admin: 10/24/16 14:16 Dose: 1,000 mg A/P Pneumonia Sepsis +Troponins likely Demand Ischemia CAD HTN Hypercholesterolemia - continue antibiotics - f/u cultures - urinary antigens negative - monitor urine output, creatinine - DVT prophylaxis - will need outpt f/u of chest imaging to ensure resolution of infiltrate Problem List - Problems (1) Pneumonia Code(s): J18.9 - PNEUMONIA, UNSPECIFIED ORGANISM Qualifiers: Pneumonia type: due to unspecified organism Laterality: left Lung location: upper lobe of lung Qualified Code(s): J18.1 - Lobar pneumonia, unspecified organism (2) RAINE (acute kidney injury) Code(s): N17.9 - ACUTE KIDNEY FAILURE, UNSPECIFIED (3) CAD (coronary artery disease) Code(s): I25.10 - ATHSCL HEART DISEASE OF [place] CORONARY ARTERY W/O ANG PCTRS (4) Elevated troponin Code(s): R74.8 - ABNORMAL LEVELS OF OTHER SERUM ENZYMES (5) Sepsis Code(s): A41.9 - SEPSIS, UNSPECIFIED ORGANISM Qualifiers: Sepsis type: sepsis due to unspecified organism Qualified Code(s): A41.9 - Sepsis, unspecified organism
[2016-10-25] MEDS: VANCOMYCIN 1 GRAM (PRE-DOCKED) 1,000 MG/250 ML BAG IVPB SCH (14:09)
--- NOTE | 2016-10-25 14:20 | PN ---
Teaching Attending Note Name of Resident: Jose Guadalupe Martines ATTENDING PHYSICIAN STATEMENT I saw and evaluated the patient. I reviewed the resident's note and discussed the case with the resident. I agree with the resident's findings and plan as documented. SUBJECTIVE: profuse sweats overnight feels better dry cough still cant eat OBJECTIVE: Vital Signs Period Temp Pulse Resp BP Sys/Garcia Pulse Ox Last 24 Hr 98 F-99.7 F 70-99 16-20 118-150/67-90 95 cor-rrr lungs decreased bs at bases abd soft,nt ext no edema ct dense ELÍAS consolidation with adenopathy Microbiology 10/24/16 19:45 Urine For Antigen Detection Legionella Antigen - Final 10/24/16 19:45 Urine For Antigen Detection Streptococcus pneumoniae Antigen (M - Final 10/23/16 16:16 Urine - Urine Clean Catch Urine Culture - Final NO GROWTH OBTAINED 10/23/16 16:16 Blood - Peripheral Venous Blood Culture - Preliminary NO GROWTH OBTAINED AFTER 24 HOURS, INCUBATION TO CONTINUE FOR 4 DAYS. 10/23/16 16:16 Blood - Peripheral Venous Blood Culture - Preliminary NO GROWTH OBTAINED AFTER 24 HOURS, INCUBATION TO CONTINUE FOR 4 DAYS. ASSESSMENT AND PLAN: CAP- continue vanco/zithromax add azactam f/u cultures gi evaluation in progress check quantiferon gold multiple antibiotics allergies
--- NOTE | 2016-10-25 16:46 | EKG ---
Test Reason : Blood Pressure : / mmHG Vent. Rate : 106 BPM Atrial Rate : 106 BPM P-R Int : 176 ms QRS Dur : 114 ms QT Int : 360 ms P-R-T Axes : 017 -65 094 degrees QTc Int : 478 ms SINUS TACHYCARDIA WITH PREMATURE ATRIAL COMPLEXES POSSIBLE LEFT ATRIAL ENLARGEMENT INCOMPLETE RIGHT BUNDLE BRANCH BLOCK LEFT ANTERIOR FASCICULAR BLOCK LEFT VENTRICULAR HYPERTROPHY CANNOT RULE OUT ANTEROSEPTAL INFARCT (CITED ON OR BEFORE 19-JAN-2016) ABNORMAL ECG WHEN COMPARED WITH ECG OF 23-OCT-2016 14:33, PREMATURE VENTRICULAR COMPLEXES ARE NO LONGER PRESENT PREMATURE ATRIAL COMPLEXES ARE NOW PRESENT Confirmed by LIVIER NORTON MD ([id number]) on 10/25/2016 4:46:13 PM Referred By: Confirmed By:LIVIER NORTON MD
--- NOTE | 2016-10-25 16:47 | EKG ---
Test Reason : Blood Pressure : / mmHG Vent. Rate : 087 BPM Atrial Rate : 087 BPM P-R Int : 186 ms QRS Dur : 128 ms QT Int : 370 ms P-R-T Axes : 020 -62 097 degrees QTc Int : 445 ms SINUS RHYTHM WITH OCCASIONAL PREMATURE VENTRICULAR COMPLEXES POSSIBLE LEFT ATRIAL ENLARGEMENT LEFT AXIS DEVIATION LEFT VENTRICULAR HYPERTROPHY WITH QRS WIDENING CANNOT RULE OUT SEPTAL INFARCT (CITED ON OR BEFORE 19-JAN-2016) ABNORMAL ECG WHEN COMPARED WITH ECG OF 19-JAN-2016 10:46, PREMATURE VENTRICULAR COMPLEXES ARE NOW PRESENT QUESTIONABLE CHANGE IN INITIAL FORCES OF SEPTAL LEADS T WAVE INVERSION LESS EVIDENT IN LATERAL LEADS Confirmed by LIVIER NORTON MD ([id number]) on 10/25/2016 4:47:25 PM Referred By: Confirmed By:LIVIER NORTON MD
[2016-10-25] MEDS: AZTREONAM 2 GM in DEXTROSE 5%-WATER - 100 ML IV SCH (17:40)
--- NOTE | 2016-10-25 18:05 | PN ---
Physical Exam: SUBJECTIVE: Patient seen and examined. Says he feels much better today except for severe chills and night sweats overnight. Denies nausea, vomiting, fatigue, and SOB. OBJECTIVE: Vital Signs Period Temp Pulse Resp BP Sys/Garcia Pulse Ox Last 24 Hr 97.8 F-99.6 F 78-99 18-20 118-154/60-90 95-96 GENERAL: The patient is awake, alert, and fully oriented, in no acute distress. HEAD: Normal with no signs of trauma. EYES: sclera anicteric, conjunctiva clear ENT: Ears normal, nares patent, oropharynx clear without exudates, moist mucous membranes. NECK: supple. LUNGS: Breath sounds equal, clear to auscultation bilaterally, no wheezes, no crackles, no accessory muscle use. HEART: Regular rate and rhythm, S1, S2 without murmur, rub or gallop. ABDOMEN: Soft, nontender, nondistended, normoactive bowel sounds, no guarding, no rebound, no hepatosplenomegaly, no masses. EXTREMITIES: 2+ pulses, warm, well-perfused, no edema. PSYCH: Normal mood, normal affect. SKIN: Warm, dry, normal turgor, no rashes or lesions noted Laboratory Results - last 24 hr 10/24/16 10/25/16 10/25/16 19:45 06:00 06:00 WBC 7.9 RBC 4.48 Hgb 14.0 Hct 41.7 MCV 93.0 MCH 31.3 MCHC 33.7 RDW 14.0 Plt Count 213 D MPV 9.9 Neutrophils % Y Neutrophils % (Manual) 76 Band Neuts % (Manual) No Result Required. Lymphocytes % Y Lymphocytes % (Manual) 12 Monocytes % (Manual) 9 Eosinophils % (Manual) 1 Other Cell Type No Result Required. Poikilocytosis No Result Required. Sodium 138 Potassium 3.8 Chloride 102 Carbon Dioxide 26 Anion Gap 10 BUN 19 H Creatinine 1.2 Random Glucose 109 H Calcium 8.5 Urine Color Dkyellow Urine Appearance Slcloudy Urine pH 5.0 Ur Specific [place] 1.020 Urine Protein 1+ H Urine Glucose (UA) Negative Urine Ketones Negative Urine Blood 1+ H Urine Nitrite Negative Urine Bilirubin Negative Urine Urobilinogen 4.0 e.u/dl Ur Leukocyte Esterase Negative Urine RBC 2 Urine WBC 1 Ur Epithelial Cells Rare Urine Bacteria Rare Urine Mucus Rare Active Medications Generic Name Dose Route Start Last Admin Trade Name Puneet PRN Reason Stop Dose Admin Acetaminophen 650 mg 10/23/16 16:54 10/24/16 21:07 Tylenol - PO 650 mg Q4H PRN Administration FEVER OR PAIN Acetaminophen/Butalbital/Caffeine 1 tablet 10/24/16 11:00 10/25/16 09:05 Fioricet - PO 1 tablet Q6H PRN Administration HEADACHE Aspirin 81 mg 10/24/16 10:00 10/25/16 09:04 Asa - PO 81 mg DAILY [facility]CA Administration Atorvastatin Calcium 10 mg 10/23/16 22:00 10/24/16 21:07 Lipitor - PO 10 mg HS [facility]ESCA Administration Clopidogrel Bisulfate 75 mg 10/24/16 10:00 10/25/16 09:04 Plavix - PO 75 mg DAILY [facility] Administration Heparin Sodium (Porcine) 5,000 unit 10/23/16 18:00 10/25/16 17:40 Heparin - SQ 5,000 unit Q8H-IV [facility]CA Administration Azithromycin 250 mls @ 250 mls/hr 10/24/16 12:45 10/25/16 09:04 Zithromax 500mg Ivpb (Pre-Docked) IVPB 250 mls/hr DAILY [facility] Administration Aztreonam 2 gm/ Dextrose 100 mls @ 100 mls/hr 10/25/16 16:30 10/25/16 17:40 IV 100 mls/hr Q8H-IV FR[facility]ESCA Administration Protocol Isosorbide Mononitrate 30 mg 10/25/16 10:00 10/25/16 09:04 Imdur - PO 30 mg DAILY [facility]CA Administration Lactobacillus Acidophilus 1 tab 10/24/16 10:00 10/25/16 09:04 Bacid - PO 1 tab DAILY [facility] Administration Metoprolol Succinate 25 mg 10/24/16 10:00 10/25/16 09:04 Toprol Xl - PO 25 mg DAILY [facility] Administration Ranolazine 500 mg 10/25/16 10:00 10/25/16 09:03 Ranexa - PO 500 mg BID [facility]CA Administration Vancomycin HCl 1,000 mg 10/24/16 14:00 10/25/16 14:09 Vancomycin (Pre-Docked) IVPB 1,000 mg DAILY@1400 FR[facility]ESCA Administration Protocol ASSESSMENT/PLAN: 1) Community Acquired Pneumonia -continue Vancomycin and Zithromax -add Azactam (multiple antibiotic allergies) -F/U cultures -quantiferon gold pending 2) Dysphagia - GI evaluation Visit type - Emergency Visit Emergency Visit: Yes ED Registration Date: 10/23/16 Care time: The patient presented to the Emergency Department on the above date and was hospitalized for further evaluation of their emergent condition. - New Patient This patient is new to me today: No - Critical Care Critical Care patient: No
[2016-10-25] MEDS ORDERED: MAGNESIUM HYDROX 2400MG/30ML ORAL SUSPENSION 30 ML CUP PO ONE (20:00)
[2016-10-25] MEDS: ACETAMINOPHEN 325 MG TABLET (FP) PO PRN (20:34)
[2016-10-25] MEDS: ATORVASTATIN CA 10 MG TABLET (FP) PO SCH (21:36)
[2016-10-26] MEDS: HEPARIN NA (PORCINE) 5,000 UNITS/ML 1ML VIAL SQ SCH ×3 (01:03→17:19)
[2016-10-26] MEDS: AZTREONAM 2 GM in DEXTROSE 5%-WATER - 100 ML IV SCH ×3 (01:03→17:18)
[2016-10-26 07:41] LABS: ANION GAP 8 (8-16); CALCIUM 8.1 mg/dL (8.5-10.1); CO2 27 mmol/L (21-32); GLUCOSE,RANDOM 106 mg/dL (74-106)
--- NOTE | 2016-10-26 08:56 | PN ---
Progress Note, Physician Chief Complaint: coughing and nite sweating. History of Present Illness: Patient still having coughing and nite sweats. CAT Chest: Extensive Pneumonia with nodule. Patient aware. Await UGI ( machine out of order). Seen by multiple consultants. Still with probable essential tremor but tolerating diet better. - Current Medication List Current Medications: Active Medications Acetaminophen (Tylenol -) 650 mg PO Q4H PRN PRN Reason: FEVER OR PAIN Last Admin: 10/25/16 20:34 Dose: 650 mg Acetaminophen/Butalbital/Caffeine (Fioricet -) 1 tablet PO Q6H PRN PRN Reason: HEADACHE Last Admin: 10/25/16 09:05 Dose: 1 tablet Aspirin (Asa -) 81 mg PO DAILY [facility] Last Admin: 10/25/16 09:04 Dose: 81 mg Atorvastatin Calcium (Lipitor -) 10 mg PO HS [facility] Last Admin: 10/25/16 21:36 Dose: 10 mg Clopidogrel Bisulfate (Plavix -) 75 mg PO DAILY [facility] Last Admin: 10/25/16 09:04 Dose: 75 mg Heparin Sodium (Porcine) (Heparin -) 5,000 unit SQ Q8H-IV [facility] Last Admin: 10/26/16 01:03 Dose: 5,000 unit Azithromycin (Zithromax 500mg Ivpb (Pre-Docked)) 250 mls @ 250 mls/hr IVPB DAILY [facility] Last Admin: 10/25/16 09:04 Dose: 250 mls/hr Aztreonam 2 gm/ Dextrose 100 mls @ 100 mls/hr IV Q8H-IV [facility] PRN Reason: Protocol Last Admin: 10/26/16 01:03 Dose: 100 mls/hr Isosorbide Mononitrate (Imdur -) 30 mg PO DAILY [facility] Last Admin: 10/25/16 09:04 Dose: 30 mg Lactobacillus Acidophilus (Bacid -) 1 tab PO DAILY [facility] Last Admin: 10/25/16 09:04 Dose: 1 tab Metoprolol Succinate (Toprol Xl -) 25 mg PO DAILY [facility] Last Admin: 10/25/16 09:04 Dose: 25 mg Ranolazine (Ranexa -) 500 mg PO BID [facility] Last Admin: 10/25/16 21:36 Dose: 500 mg Vancomycin HCl (Vancomycin (Pre-Docked)) 1,000 mg IVPB DAILY@1400 [facility] PRN Reason: Protocol Last Admin: 10/25/16 14:09 Dose: 1,000 mg - Objective Vital Signs: Vital Signs Temperature 97.4 F L 10/26/16 06:00 Pulse Rate 72 10/26/16 06:00 Respiratory Rate 20 10/26/16 06:00 Blood Pressure 101/65 10/26/16 06:00 O2 Sat by Pulse Oximetry (%) 95 10/25/16 21:00 Constitutional: Yes: Calm Eyes: Yes: Conjunctiva Clear Cardiovascular: Yes: Regular Rate and Rhythm Respiratory: Yes: Rales (at both bases) Gastrointestinal: Yes: Soft. No: Tenderness Genitourinary: No: Martinez Present Edema: No Neurological: Yes: Alert, Oriented Labs: CBC, BMP 10/25/16 06:00 10/26/16 05:35 INR, PTT INR 1.31 (0.82-1.09) H 10/23/16 14:00 - ....Imaging Cat Scan: Report Reviewed Problem List - Problems (1) Pneumonia Assessment/Plan: Extensive infiltrate on CT scan with nodule; patient aware Code(s): J18.9 - PNEUMONIA, UNSPECIFIED ORGANISM Qualifiers: Pneumonia type: due to unspecified organism Laterality: left Lung location: upper lobe of lung Qualified Code(s): J18.1 - Lobar pneumonia, unspecified organism (2) CAD (coronary artery disease) Assessment/Plan: Followed by Cardiology; no chest pain. Code(s): I25.10 - ATHSCL HEART DISEASE OF [place] CORONARY ARTERY W/O ANG PCTRS (3) Elevated troponin Code(s): R74.8 - ABNORMAL LEVELS OF OTHER SERUM ENZYMES (4) Dysphagia Assessment/Plan: Await GI series. Code(s): R13.10 - DYSPHAGIA, UNSPECIFIED
[2016-10-26] MEDS ORDERED: PT OWN MED DRAWER 7, Y5N ONE ×2 (10:16→17:18)
[2016-10-26] MEDS: ASPIRIN 81 MG CHEWABLE TABLETS PO SCH (10:20)
[2016-10-26] MEDS: RANOLAZINE E.R. 500 MG TABLET (FP) PO SCH ×2 (10:20→21:34)
[2016-10-26] MEDS: LACTOBACILLUS ACIDOPHILUS 1 EACH TAB (FP) PO SCH (10:20)
[2016-10-26] MEDS: METOPROLOL SUCCINATE 25 MG TAB.SR.24H (FP) PO SCH (10:20)
[2016-10-26] MEDS: CLOPIDOGREL BISULFATE 75 MG TABLET (FP) PO SCH (10:20)
[2016-10-26] MEDS: ISOSORBIDE MONONITRATE 30 MG TAB.SR.24H (FP) PO SCH (10:20)
--- NOTE | 2016-10-26 10:29 | PN ---
Progress Note (short form) - Note Progress Note: s: no cp sob palps dizzy o: Vital Signs Period Temp Pulse Resp BP Sys/Garcia Pulse Ox Last 24 Hr 97.4 F-100.4 F 72-87 18-20 101-144/60-82 95 nad, calm jvd flat, neck supple cta bl nl effort RRR nl s1, s2 no mrg + bs soft nt nd ext without e/c/c aaox3 Current Medications Generic Name Dose Route Start Last Admin Trade Name Freq PRN Reason Stop Dose Admin Acetaminophen 650 mg 10/23/16 16:54 10/25/16 20:34 Tylenol - PO 650 mg Q4H PRN Administration FEVER OR PAIN Acetaminophen/Butalbital/Caffeine 1 tablet 10/24/16 11:00 10/25/16 09:05 Fioricet - PO 1 tablet Q6H PRN Administration HEADACHE Aspirin 81 mg 10/24/16 10:00 10/26/16 10:20 Asa - PO 81 mg DAILY FRANCESCA Administration Atorvastatin Calcium 10 mg 10/23/16 22:00 10/25/16 21:36 Lipitor - PO 10 mg HS FRANCESCA Administration Clopidogrel Bisulfate 75 mg 10/24/16 10:00 10/26/16 10:20 Plavix - PO 75 mg DAILY FR[facility]CA Administration Heparin Sodium (Porcine) 5,000 unit 10/23/16 18:00 10/26/16 10:21 Heparin - SQ 5,000 unit Q8H-IV FR[facility]ESCA Administration Azithromycin 250 mls @ 250 mls/hr 10/24/16 12:45 10/25/16 09:04 Zithromax 500mg Ivpb (Pre-Docked) IVPB 250 mls/hr DAILY [facility]CA Administration Aztreonam 2 gm/ Dextrose 100 mls @ 100 mls/hr 10/25/16 16:30 10/26/16 01:03 IV 100 mls/hr Q8H-IV FRANCESCA Administration Protocol Isosorbide Mononitrate 30 mg 10/25/16 10:00 10/26/16 10:20 Imdur - PO 30 mg DAILY FR[facility]CA Administration Lactobacillus Acidophilus 1 tab 10/24/16 10:00 10/26/16 10:20 Bacid - PO 1 tab DAILY FR[facility]ESCA Administration Metoprolol Succinate 25 mg 10/24/16 10:00 10/26/16 10:20 Toprol Xl - PO 25 mg DAILY FRANCESCA Administration Ranolazine 500 mg 10/25/16 10:00 10/26/16 10:20 Ranexa - PO 500 mg BID FRANCESCA Administration Vancomycin HCl 1,000 mg 10/24/16 14:00 10/25/16 14:09 Vancomycin (Pre-Docked) IVPB 1,000 mg DAILY@1400 FRANCESCA Administration Protocol CBC, BMP 10/25/16 06:00 10/26/16 05:35 tele: sr, occ pvc's ekg: reviewed. no acute ischemic changes. [facility] 02/23: patent mRCA stent (mild ISR); 30-50% dRCA; 80-90% pLAD--BMS (covered stent after perf'd with PTCA); 30-50% mLAD bridge; 30-50% D1; 30-50% OM1; 30-50 % prox Ramus; (PTCA OF LAD COMPLICATED BY PERF--COVERED STENT PLACED, OCCLUDING THE DIAG--LARGE TROPONIN LEAK WITH SMALL RWMA ON ECHO THEN) [facility] 04/27 (pers): no STs; large, fixed anteroapical defect; small inferoapical defect partially reversible c/w vito-infarct ischemia in LAD territory; severe HK of mid and apical AW, and apex akinetic; EF 41% Echo 03/2016: 1. The left ventricular size is normal. 2. Overall left ventricular systolic function appears mildly reduced, with a visually estimated EF of 45%. 3. The diastolic filling pattern indicates impaired relaxation. Normal LA pressure. 4. Apical inferior, apical lateral, and apical anterior segments appear hypokinetic. Mid anterior wall is not well seen, and appears possibly hypokinetic in the available images. 5. The right ventricle is normal in size and function. 6. Left atrium is normal size by volume. 7. Onoz-sn-yquykgwe mitral regurgitation is present. a/p: 81 yo with pmhx of CAD s/p multiple PCI (most recent 2014) with chronic stable angina, mild ischemic cardiomyopathy, HTN, HL, COPD, depression p/w pna. CAD - s/p JOAO to mid RCA 11/15 ISR of JOAO treated with second JOAO 06/16. Most recent PCI of LAD was complicated by perf --> BMS placed occluding the diag. - intermediate troponin elevation, flat trend. No anginal symptoms. ekg without acute ischemic changes. No concern for ACS at this time. - con't ranexa, imdur, statin, bb, dapt. intolerant of acei. Mild ischemic cardiomyopathy - EF mildly reduced (45%) wiht apical wma's. no clinical chf. con't bb. intolerant of acei. HTN -overall reasonable control hld - on statin pre-op clearance - dysphagia evaluation ongoing, possible need for intervention - rcri 2 with advanced age/reasonable exercise capacity. estimated vito- operative cardiovascular risk for this low risk procedure is intermediate. Last JOAO was placed 2014 therefore plavix may be held for procedure, but should continue on aspirin (although could be held if absolutely necessary). - stable from CV perspective. no further testing required prior to intervention. PNA - ongoing mgm't per pmd/pulm can dc tele
--- NOTE | 2016-10-26 10:34 | PN ---
Progress Note (short form) - Note Progress Note: Neurology History of Present Illness 81-year-old male with past medical history of CAD s/p stent placement in 2013 on Plavix, HLD, HTN, who presented to the emergency department complaining of generalized weakness, and headache. His headache started last Sunday, generalized, dull and persistent. He tried taking Tylenol for his headache with little relief. Patient states he has also been feeling weak overall. Admits to fevers, chills and night sweats. He also admits to fatigue, and shortness of breath with exertion. Denies nausea, vomiting, diarrhea, constipation, chest tightness, palpitations, edema, chest pain and cough. He was admitted and found to have left upper lobe PNA. He is being treated with Abx and still reports generalized fatigue but no focal weakness. CT head was completed and did not show acute changes. Well appearing today and on IV Abx. We discussed a benign resting tremor that he has been exhibiting. He does not have bradykinesia or cogwheeling and therefore not concerned about Parkinson's. His resting tremor appears to be benign but I encouraged outpatient follow up to further monitor. Active Medications Acetaminophen (Tylenol -) 650 mg PO Q4H PRN PRN Reason: FEVER OR PAIN Last Admin: 10/25/16 20:34 Dose: 650 mg Acetaminophen/Butalbital/Caffeine (Fioricet -) 1 tablet PO Q6H PRN PRN Reason: HEADACHE Last Admin: 10/25/16 09:05 Dose: 1 tablet Aspirin (Asa -) [address] [facility] Last Admin: 10/26/16 10:20 Dose: 81 mg Atorvastatin Calcium (Lipitor -) [address] [facility] Last Admin: 10/25/16 21:36 Dose: 10 mg Clopidogrel Bisulfate (Plavix -) [address] [facility] Last Admin: 10/26/16 10:20 Dose: 75 mg Heparin Sodium (Porcine) (Heparin -) 5,000 unit SQ Q8H-IV [facility] Last Admin: 10/26/16 10:21 Dose: 5,000 unit Azithromycin (Zithromax 500mg Ivpb (Pre-Docked)) 250 mls @ 250 mls/hr IVPB DAILY [facility] Last Admin: 10/25/16 09:04 Dose: 250 mls/hr Aztreonam 2 gm/ Dextrose 100 mls @ 100 mls/hr IV Q8H-IV FR[facility]ESCA PRN Reason: Protocol Last Admin: 10/26/16 01:03 Dose: 100 mls/hr Isosorbide Mononitrate (Imdur -) [address] [facility] Last Admin: 10/26/16 10:20 Dose: 30 mg Lactobacillus Acidophilus (Bacid -) [address] [facility] Last Admin: 10/26/16 10:20 Dose: 1 tab Metoprolol Succinate (Toprol Xl -) [address] [facility] Last Admin: 10/26/16 10:20 Dose: 25 mg Ranolazine (Ranexa -) [address] [facility] Last Admin: 10/26/16 10:20 Dose: 500 mg Vancomycin HCl (Vancomycin (Pre-Docked)) 1,000 mg IVPB DAILY@1400 [facility] PRN Reason: Protocol Last Admin: 10/25/16 14:09 Dose: 1,000 mg *Physical Exam Last Vital Signs Temp Pulse Resp BP Pulse Ox 97.4 F L 72 20 101/65 95 10/26/16 06:00 10/26/16 06:00 10/26/16 06:00 10/26/16 06:00 10/25/16 21:00 Well developed, well nourished. Awake and alert. No acute distress. HEENT: Normocephalic, atraumatic. PERRLA, EOMI. No conjunctival pallor. Sclera are non- icteric. Moist mucous membranes. Oropharynx is clear. NECK: Supple. Full ROM. No JVD. Carotid pulses 2+ and symmetric, without bruits. No thyromegaly. No lymphadenopathy. CARDIOVASCULAR: Regular rate and rhythm. No murmurs, rubs, or gallops. Distal pulses are 2+ and symmetric. PULMONARY: No evidence of respiratory distress. Lungs clear to auscultation bilaterally. No wheezing, rales or rhonchi. ABDOMINAL: Soft. Non-tender. Non-distended. No rebound or guarding. No organomegaly. Normoactive bowel sounds. MUSCULOSKELETAL Normal range of motion at all joints. No bony deformities or tenderness. No CVA tenderness. EXTREMITIES: No cyanosis. No clubbing. No edema. No calf tenderness. SKIN: Warm and dry. Normal capillary refill. No rashes. No jaundice. NEUROLOGICAL: Alert, awake, appropriate. Cranial nerves 2-12 intact. No deficits to light touch and temperature in face, upper extremities and lower extremities. No motor deficits in the in face, upper extremities and lower extremities. Normoreflexic in the upper and lower extremities. Normal speech. Toes are down- going bilaterally. Gait is normal without ataxia. PSYCHIATRIC: Cooperative. Good eye contact. Appropriate mood and affect. CBCD WBC 7.9 K/mm3 (4.0-10.0) 10/25/16 06:00 RBC 4.48 M/mm3 (4.00-5.60) 10/25/16 06:00 Hgb 14.0 GM/dL (11.7-16.9) 10/25/16 06:00 Hct 41.7 % (35.4-49) 10/25/16 06:00 MCV 93.0 fl (80-96) 10/25/16 06:00 MCHC 33.7 g/dl (32.0-35.9) 10/25/16 06:00 RDW 14.0 % (11.9-15.9) 10/25/16 06:00 Plt Count 213 K/MM3 (134-434) D 10/25/16 06:00 MPV 9.9 fl (7.5-11.1) 10/25/16 06:00 CMP Sodium 139 mmol/L (136-145) 10/26/16 05:35 Potassium 4.0 mmol/L (3.5-5.1) 10/26/16 05:35 Chloride 104 mmol/L (98-107) 10/26/16 05:35 Carbon Dioxide 27 mmol/L (21-32) 10/26/16 05:35 Anion Gap 8 (8-16) 10/26/16 05:35 BUN 21 mg/dL (7-18) H 10/26/16 05:35 Creatinine 1.0 mg/dL (0.7-1.3) 10/26/16 05:35 Creat Clearance w eGFR 48.40 (>60) 10/23/16 14:20 Calcium 8.1 mg/dL (8.5-10.1) L 10/26/16 05:35 Total Bilirubin 0.7 mg/dL (0.2-1.0) D 10/23/16 14:20 AST 24 U/L (15-37) D 10/23/16 14:20 ALT 18 U/L (12-78) 10/23/16 14:20 Alkaline Phosphatase 89 U/L (45-117) D 10/23/16 14:20 Total Protein 7.3 g/dl (6.4-8.2) 10/23/16 14:20 Albumin 3.0 g/dl (3.4-5.0) L 10/23/16 14:20 Medical Decision Making 81-year-old male with past medical history of CAD s/p stent placement in 2012 on Plavix, HLD, HTN, who presented to the emergency department complaining of generalized weakness, and headache. His headache started last Sunday, generalized, dull and persistent. He tried taking Tylenol for his headache with little relief. Patient states he has also been feeling weak overall. Found to have left upper lobe PNA. He is being treated with Abx and still reports generalized fatigue but no focal weakness. CT head was completed and did not show acute changes. Would recommend continued treatment of systemic infection, IV Abx. No focal deficits and would not require further imaging. Continued hydration recommended. For tension headache, Fioricet can be given as needed but would limit intake to once or twice a day (will defer to primary if he desires to start medication). Currently on Tylenol and well appearing. Continued improvement as infection clears. Outpatient follow up for benign tremor.
--- NOTE | 2016-10-26 11:24 | PN ---
Physical Exam: SUBJECTIVE: Patient seen and examined. He says nothing has changed since yesterday. He was awaken last night because of severe night sweats. He does not report any new complaints. He denies n/v, diarrhea, fever and chest pain. OBJECTIVE: Vital Signs Period Temp Pulse Resp BP Sys/Garcia Pulse Ox Last 24 Hr 97.4 F-100.4 F 72-87 18-20 101-144/60-82 95 GENERAL: The patient is awake, alert, and fully oriented, in no acute distress. HEAD: Normal with no signs of trauma. EYES: sclera anicteric, conjunctiva clear. ENT: Ears normal, nares patent, oropharynx clear without exudates, moist mucous membranes. NECK: Trachea midline, full range of motion, supple. LUNGS: Breath sounds equal, clear to auscultation bilaterally, no wheezes, no crackles, no accessory muscle use. HEART: Regular rate and rhythm, S1, S2 without murmur, rub or gallop. ABDOMEN: Soft, nontender, nondistended, normoactive bowel sounds, no guarding, no rebound, no hepatosplenomegaly, no masses. EXTREMITIES: 2+ pulses, warm, well-perfused, no edema. PSYCH: Normal mood, normal affect. SKIN: Warm, dry, normal turgor, no rashes or lesions noted Laboratory Results - last 24 hr 10/25/16 10/26/16 06:00 05:35 Sodium 139 Potassium 4.0 Chloride 104 Carbon Dioxide 27 Anion Gap 8 BUN 21 H Creatinine 1.0 Random Glucose 106 Calcium 8.1 L Prostate Specific Ag 3.40 Active Medications Generic Name Dose Route Start Last Admin Trade Name Puneet PRN Reason Stop Dose Admin Acetaminophen 650 mg 10/23/16 16:54 10/25/16 20:34 Tylenol - PO 650 mg Q4H PRN Administration FEVER OR PAIN Acetaminophen/Butalbital/Caffeine 1 tablet 10/24/16 11:00 10/25/16 09:05 Fioricet - PO 1 tablet Q6H PRN Administration HEADACHE Aspirin 81 mg 10/24/16 10:00 10/26/16 10:20 Asa - PO 81 mg DAILY [facility] Administration Atorvastatin Calcium 10 mg 10/23/16 22:00 10/25/16 21:36 Lipitor - PO 10 mg HS FRANCESCA Administration Clopidogrel Bisulfate 75 mg 10/24/16 10:00 10/26/16 10:20 Plavix - PO 75 mg DAILY [facility] Administration Heparin Sodium (Porcine) 5,000 unit 10/23/16 18:00 10/26/16 10:21 Heparin - SQ 5,000 unit Q8H-IV FR[facility]ESCA Administration Azithromycin 250 mls @ 250 mls/hr 10/24/16 12:45 10/25/16 09:04 Zithromax 500mg Ivpb (Pre-Docked) IVPB 250 mls/hr DAILY [facility] Administration Aztreonam 2 gm/ Dextrose 100 mls @ 100 mls/hr 10/25/16 16:30 10/26/16 01:03 IV 100 mls/hr Q8H-IV FRANCESCA Administration Protocol Isosorbide Mononitrate 30 mg 10/25/16 10:00 10/26/16 10:20 Imdur - PO 30 mg DAILY [facility] Administration Lactobacillus Acidophilus 1 tab 10/24/16 10:00 10/26/16 10:20 Bacid - PO 1 tab DAILY [facility] Administration Metoprolol Succinate 25 mg 10/24/16 10:00 10/26/16 10:20 Toprol Xl - PO 25 mg DAILY [facility] Administration Ranolazine 500 mg 10/25/16 10:00 10/26/16 10:20 Ranexa - PO 500 mg BID [facility]CA Administration Vancomycin HCl 1,000 mg 10/24/16 14:00 10/25/16 14:09 Vancomycin (Pre-Docked) IVPB 1,000 mg DAILY@1400 [facility] Administration Protocol Microbiology 10/24/16 19:45 Urine For Antigen Detection Legionella Antigen - Final 10/24/16 19:45 Urine For Antigen Detection Streptococcus pneumoniae Antigen (M - Final 10/23/16 16:16 Urine - Urine Clean Catch Urine Culture - Final NO GROWTH OBTAINED 10/23/16 16:16 Blood - Peripheral Venous Blood Culture - Preliminary NO GROWTH OBTAINED AFTER 48 HOURS, INCUBATION TO CONTINUE FOR 3 DAYS. ASSESSMENT/PLAN: 1) Community Acquired Pneumonia -continue Vancomycin and Zithromax - continue Azactam (multiple antibiotic allergies) -awaiting quantiferon gold 2) Dysphagia - awaiting GI series (machine down) Visit type - Emergency Visit Emergency Visit: Yes ED Registration Date: 10/23/16 Care time: The patient presented to the Emergency Department on the above date and was hospitalized for further evaluation of their emergent condition. - New Patient This patient is new to me today: No - Critical Care Critical Care patient: No
[2016-10-26] MEDS: ACETAMINOPHEN/CAFFEINE/BUTALBITAL 1 TAB PO PRN ×2 (12:05→23:22)
--- NOTE | 2016-10-26 12:47 | PN ---
Progress Note (short form) - Note Progress Note: PULMONARY Feels about the same. Had low grade fever overnight. Still with night sweats. Last Vital Signs Temp Pulse Resp BP Pulse Ox 97.4 F L 72 20 101/65 95 10/26/16 06:00 10/26/16 06:00 10/26/16 06:00 10/26/16 06:00 10/25/16 21:00 Gen: NAD at rest Heart: RRR Lung: less left upper rales Abd: soft, nontender Ext: no edema CBC, BMP 10/25/16 06:00 10/26/16 05:35 Active Medications Acetaminophen (Tylenol -) 650 mg PO Q4H PRN PRN Reason: FEVER OR PAIN Last Admin: 10/25/16 20:34 Dose: 650 mg Acetaminophen/Butalbital/Caffeine (Fioricet -) 1 tablet PO Q6H PRN PRN Reason: HEADACHE Last Admin: 10/26/16 12:05 Dose: 1 tablet Aspirin (Asa -) 81 mg PO DAILY [facility] Last Admin: 10/26/16 10:20 Dose: 81 mg Atorvastatin Calcium (Lipitor -) 10 mg PO HS [facility] Last Admin: 10/25/16 21:36 Dose: 10 mg Clopidogrel Bisulfate (Plavix -) 75 mg PO DAILY [facility] Last Admin: 10/26/16 10:20 Dose: 75 mg Heparin Sodium (Porcine) (Heparin -) 5,000 unit SQ Q8H-IV [facility] Last Admin: 10/26/16 10:21 Dose: 5,000 unit Azithromycin (Zithromax 500mg Ivpb (Pre-Docked)) 250 mls @ 250 mls/hr IVPB DAILY [facility] Last Admin: 10/25/16 09:04 Dose: 250 mls/hr Aztreonam 2 gm/ Dextrose 100 mls @ 100 mls/hr IV Q8H-IV [facility] PRN Reason: Protocol Last Admin: 10/26/16 12:02 Dose: 100 mls/hr Isosorbide Mononitrate (Imdur -) 30 mg PO DAILY [facility] Last Admin: 10/26/16 10:20 Dose: 30 mg Lactobacillus Acidophilus (Bacid -) 1 tab PO DAILY [facility] Last Admin: 10/26/16 10:20 Dose: 1 tab Metoprolol Succinate (Toprol Xl -) 25 mg PO DAILY [facility] Last Admin: 10/26/16 10:20 Dose: 25 mg Ranolazine (Ranexa -) 500 mg PO BID [facility] Last Admin: 10/26/16 10:20 Dose: 500 mg Vancomycin HCl (Vancomycin (Pre-Docked)) 1,000 mg IVPB DAILY@1400 [facility] PRN Reason: Protocol Last Admin: 10/25/16 14:09 Dose: 1,000 mg A/P Pneumonia Sepsis +Troponins likely Demand Ischemia CAD HTN Hypercholesterolemia - continue antibiotics - f/u cultures, quantiferon gold - urinary antigens negative - monitor urine output, creatinine - DVT prophylaxis - will need outpt f/u of chest imaging to ensure resolution of infiltrate Problem List - Problems (1) Pneumonia Code(s): J18.9 - PNEUMONIA, UNSPECIFIED ORGANISM Qualifiers: Pneumonia type: due to unspecified organism Laterality: left Lung location: upper lobe of lung Qualified Code(s): J18.1 - Lobar pneumonia, unspecified organism (2) RAINE (acute kidney injury) Code(s): N17.9 - ACUTE KIDNEY FAILURE, UNSPECIFIED (3) CAD (coronary artery disease) Code(s): I25.10 - ATHSCL HEART DISEASE OF [place] CORONARY ARTERY W/O ANG PCTRS (4) Elevated troponin Code(s): R74.8 - ABNORMAL LEVELS OF OTHER SERUM ENZYMES (5) Sepsis Code(s): A41.9 - SEPSIS, UNSPECIFIED ORGANISM Qualifiers: Sepsis type: sepsis due to unspecified organism Qualified Code(s): A41.9 - Sepsis, unspecified organism
[2016-10-26] MEDS: AZITHROMYCIN IVPB 250 ML IVPB SCH (13:07)
[2016-10-26] MEDS: VANCOMYCIN 1 GRAM (PRE-DOCKED) 1,000 MG/250 ML BAG IVPB SCH (14:46)
--- NOTE | 2016-10-26 16:33 | PN ---
Teaching Attending Note Name of Resident: Jose Guadalupe Martines ATTENDING PHYSICIAN STATEMENT I saw and evaluated the patient. I reviewed the resident's note and discussed the case with the resident. I agree with the resident's findings and plan as documented. SUBJECTIVE: dry cough, no headaches eating improved sweats last night OBJECTIVE: Vital Signs Period Temp Pulse Resp BP Sys/Garcia Pulse Ox Last 24 Hr 97.4 F-100.4 F 72-89 18-20 101-147/65-82 95-96 cor-rrr lungs clear abd soft,nt ext no edema CBC, BMP 10/25/16 06:00 10/26/16 05:35 Microbiology 10/23/16 16:16 Blood - Peripheral Venous Blood Culture - Preliminary NO GROWTH OBTAINED AFTER 48 HOURS, INCUBATION TO CONTINUE FOR 3 DAYS. 10/23/16 16:16 Blood - Peripheral Venous Blood Culture - Preliminary NO GROWTH OBTAINED AFTER 48 HOURS, INCUBATION TO CONTINUE FOR 3 DAYS. 10/24/16 19:45 Urine For Antigen Detection Legionella Antigen - Final 10/24/16 19:45 Urine For Antigen Detection Streptococcus pneumoniae Antigen (M - Final 10/23/16 16:16 Urine - Urine Clean Catch Urine Culture - Final NO GROWTH OBTAINED Laboratory Tests 10/26/16 13:20 Vancomycin Pre-Dose 4.642 L ASSESSMENT AND PLAN: pneumonia- repeat cxray quant pending pen/levaquin allergy increase vancomycin dosing to bid continue azactam and zithromax esr/crp in am cxray pa/lateral
--- NOTE | 2016-10-26 17:20 | PN ---
Progress Note (short form) - Note Progress Note: Still hasn't had UGIS yet. machine not working. UGIS when able Problem List - Problems (1) Dysphagia Code(s): R13.10 - DYSPHAGIA, UNSPECIFIED (2) Family history of colon cancer Code(s): Z80.0 - FAMILY HISTORY OF MALIGNANT NEOPLASM OF DIGESTIVE ORGANS
[2016-10-26] MEDS: ATORVASTATIN CA 10 MG TABLET (FP) PO SCH (21:34)
[2016-10-27] MEDS ORDERED: PT OWN MED DRAWER 7, Y5N ONE (00:42)
[2016-10-27] MEDS: AZTREONAM 2 GM in DEXTROSE 5%-WATER - 100 ML IV SCH ×2 (01:06→11:09)
[2016-10-27] MEDS: HEPARIN NA (PORCINE) 5,000 UNITS/ML 1ML VIAL SQ SCH ×3 (01:23→18:24)
[2016-10-27] MEDS: VANCOMYCIN 1 GRAM (PRE-DOCKED) 1,000 MG/250 ML BAG IVPB SCH ×2 (01:24→14:42)
[2016-10-27 09:07] LABS: ANION GAP 11 (8-16); CALCIUM 8.2 mg/dL (8.5-10.1); CO2 25 mmol/L (21-32); CREATININE 1.1 mg/dL (0.7-1.3); GLUCOSE,RANDOM 156 mg/dL (74-106)
--- NOTE | 2016-10-27 10:03 | PN ---
Progress Note, Physician Chief Complaint: Still having nite sweats. History of Present Illness: Patient with significant infilrtate still having nite sweats. On 3 IV antibiotics. Seen by ID and Pulmonry MD's. Tolerating diet. - Current Medication List Current Medications: Active Medications Acetaminophen (Tylenol -) 650 mg PO Q4H PRN PRN Reason: FEVER OR PAIN Last Admin: 10/25/16 20:34 Dose: 650 mg Acetaminophen/Butalbital/Caffeine (Fioricet -) 1 tablet PO Q6H PRN PRN Reason: HEADACHE Last Admin: 10/26/16 23:22 Dose: 1 tablet Aspirin (Asa -) 81 mg PO DAILY [facility] Last Admin: 10/26/16 10:20 Dose: 81 mg Atorvastatin Calcium (Lipitor -) 10 mg PO HS [facility] Last Admin: 10/26/16 21:34 Dose: 10 mg Clopidogrel Bisulfate (Plavix -) 75 mg PO DAILY [facility] Last Admin: 10/26/16 10:20 Dose: 75 mg Heparin Sodium (Porcine) (Heparin -) 5,000 unit SQ Q8H-IV [facility] Last Admin: 10/27/16 01:23 Dose: 5,000 unit Azithromycin (Zithromax 500mg Ivpb (Pre-Docked)) 250 mls @ 250 mls/hr IVPB DAILY [facility] Last Admin: 10/26/16 13:07 Dose: 250 mls/hr Aztreonam 2 gm/ Dextrose 100 mls @ 100 mls/hr IV Q8H-IV [facility] PRN Reason: Protocol Last Admin: 10/27/16 01:06 Dose: 100 mls/hr Isosorbide Mononitrate (Imdur -) 30 mg PO DAILY [facility] Last Admin: 10/26/16 10:20 Dose: 30 mg Lactobacillus Acidophilus (Bacid -) 1 tab PO DAILY [facility] Last Admin: 10/26/16 10:20 Dose: 1 tab Metoprolol Succinate (Toprol Xl -) 25 mg PO DAILY [facility] Last Admin: 10/26/16 10:20 Dose: 25 mg Ranolazine (Ranexa -) 500 mg PO BID [facility] Last Admin: 10/26/16 21:34 Dose: 500 mg Vancomycin HCl (Vancomycin (Pre-Docked)) 1,000 mg IVPB Q12H [facility] PRN Reason: Protocol Last Admin: 10/27/16 01:24 Dose: 1,000 mg - Objective Vital Signs: Vital Signs Temperature 98.3 F 10/27/16 05:05 Pulse Rate 82 10/27/16 05:05 Respiratory Rate 18 10/27/16 05:05 Blood Pressure 125/81 10/27/16 05:05 O2 Sat by Pulse Oximetry (%) 94 L 10/26/16 21:00 Constitutional: Yes: Calm Eyes: Yes: Conjunctiva Clear Cardiovascular: Yes: Regular Rate and Rhythm Respiratory: Yes: Diminished, Rhonchi (rare rhonchi. No post-tussive rales.). No: Rales, Wheezes Gastrointestinal: Yes: Soft. No: Tenderness Genitourinary: No: Martinez Present Edema: No Neurological: Yes: Alert, Oriented Labs: CBC, BMP 10/25/16 06:00 10/27/16 08:30 INR, PTT INR 1.31 (0.82-1.09) H 10/23/16 14:00 Problem List - Problems (1) Pneumonia Assessment/Plan: Still not markedly improved. Eleanor waddell. On 3 antibiotics. Code(s): J18.9 - PNEUMONIA, UNSPECIFIED ORGANISM Qualifiers: Pneumonia type: due to unspecified organism Laterality: left Lung location: upper lobe of lung Qualified Code(s): J18.1 - Lobar pneumonia, unspecified organism (2) CAD (coronary artery disease) Assessment/Plan: Stable; followed by Cardiology. Code(s): I25.10 - ATHSCL HEART DISEASE OF [place] CORONARY ARTERY W/O ANG PCTRS (3) Elevated troponin Code(s): R74.8 - ABNORMAL LEVELS OF OTHER SERUM ENZYMES (4) Dysphagia Assessment/Plan: Await GI series Code(s): R13.10 - DYSPHAGIA, UNSPECIFIED
--- NOTE | 2016-10-27 10:19 | PN ---
Progress Note (short form) - Note Progress Note: Neurology History of Present Illness 81-year-old male with past medical history of CAD s/p stent placement in 2013 on Plavix, HLD, HTN, who presented to the emergency department complaining of generalized weakness, and headache. His headache started last Sunday, generalized, dull and persistent. He tried taking Tylenol for his headache with little relief. Patient states he has also been feeling weak overall. Admits to fevers, chills and night sweats. He also admits to fatigue, and shortness of breath with exertion. Denies nausea, vomiting, diarrhea, constipation, chest tightness, palpitations, edema, chest pain and cough. He was admitted and found to have left upper lobe PNA. He is being treated with Abx and still reports generalized fatigue but no focal weakness. CT head was completed and did not show acute changes. Well appearing today and on IV Abx. We discussed a benign resting tremor that he has been exhibiting. He does not have bradykinesia or cogwheeling and therefore not concerned about Parkinson's. His resting tremor appears to be benign but I encouraged outpatient follow up to further monitor. Awaiting GI series and completing Abx course, possible discharge over weekend. Active Medications Acetaminophen (Tylenol -) 650 mg PO Q4H PRN PRN Reason: FEVER OR PAIN Last Admin: 10/25/16 20:34 Dose: 650 mg Acetaminophen/Butalbital/Caffeine (Fioricet -) 1 tablet PO Q6H PRN PRN Reason: HEADACHE Last Admin: 10/26/16 23:22 Dose: 1 tablet Aspirin (Asa -) 81 mg PO DAILY [facility] Last Admin: 10/26/16 10:20 Dose: 81 mg Atorvastatin Calcium (Lipitor -) 10 mg PO HS [facility] Last Admin: 10/26/16 21:34 Dose: 10 mg Clopidogrel Bisulfate (Plavix -) 75 mg PO DAILY [facility] Last Admin: 10/26/16 10:20 Dose: 75 mg Heparin Sodium (Porcine) (Heparin -) 5,000 unit SQ Q8H-IV [facility] Last Admin: 10/27/16 01:23 Dose: 5,000 unit Azithromycin (Zithromax 500mg Ivpb (Pre-Docked)) 250 mls @ 250 mls/hr IVPB DAILY [facility] Last Admin: 10/26/16 13:07 Dose: 250 mls/hr Aztreonam 2 gm/ Dextrose 100 mls @ 100 mls/hr IV Q8H-IV [facility] PRN Reason: Protocol Last Admin: 10/27/16 01:06 Dose: 100 mls/hr Isosorbide Mononitrate (Imdur -) 30 mg PO DAILY [facility] Last Admin: 10/26/16 10:20 Dose: 30 mg Lactobacillus Acidophilus (Bacid -) 1 tab PO DAILY [facility] Last Admin: 10/26/16 10:20 Dose: 1 tab Metoprolol Succinate (Toprol Xl -) 25 mg PO DAILY [facility] Last Admin: 10/26/16 10:20 Dose: 25 mg Polyethylene Glycol (Miralax (For Daily Use) -) 17 gm PO DAILY [facility] Ranolazine (Ranexa -) 500 mg PO BID [facility] Last Admin: 10/26/16 21:34 Dose: 500 mg Vancomycin HCl (Vancomycin (Pre-Docked)) 1,000 mg IVPB Q12H [facility] PRN Reason: Protocol Last Admin: 10/27/16 01:24 Dose: 1,000 mg *Physical Exam Vital Signs Temperature 98.3 F 10/27/16 05:05 Pulse Rate 82 10/27/16 05:05 Respiratory Rate 18 10/27/16 05:05 Blood Pressure 125/81 10/27/16 05:05 O2 Sat by Pulse Oximetry (%) 94 L 10/26/16 21:00 Well developed, well nourished. Awake and alert. No acute distress. HEENT: Normocephalic, atraumatic. PERRLA, EOMI. No conjunctival pallor. Sclera are non- icteric. Moist mucous membranes. Oropharynx is clear. NECK: Supple. Full ROM. No JVD. Carotid pulses 2+ and symmetric, without bruits. No thyromegaly. No lymphadenopathy. CARDIOVASCULAR: Regular rate and rhythm. No murmurs, rubs, or gallops. Distal pulses are 2+ and symmetric. PULMONARY: No evidence of respiratory distress. Lungs clear to auscultation bilaterally. No wheezing, rales or rhonchi. ABDOMINAL: Soft. Non-tender. Non-distended. No rebound or guarding. No organomegaly. Normoactive bowel sounds. MUSCULOSKELETAL Normal range of motion at all joints. No bony deformities or tenderness. No CVA tenderness. EXTREMITIES: No cyanosis. No clubbing. No edema. No calf tenderness. SKIN: Warm and dry. Normal capillary refill. No rashes. No jaundice. NEUROLOGICAL: Alert, awake, appropriate. Cranial nerves 2-12 intact. No deficits to light touch and temperature in face, upper extremities and lower extremities. No motor deficits in the in face, upper extremities and lower extremities. Normoreflexic in the upper and lower extremities. Normal speech. Toes are down- going bilaterally. Gait is normal without ataxia. PSYCHIATRIC: Cooperative. Good eye contact. Appropriate mood and affect. CBCD WBC 7.9 K/mm3 (4.0-10.0) 10/25/16 06:00 RBC 4.48 M/mm3 (4.00-5.60) 10/25/16 06:00 Hgb 14.0 GM/dL (11.7-16.9) 10/25/16 06:00 Hct 41.7 % (35.4-49) 10/25/16 06:00 MCV 93.0 fl (80-96) 10/25/16 06:00 MCHC 33.7 g/dl (32.0-35.9) 10/25/16 06:00 RDW 14.0 % (11.9-15.9) 10/25/16 06:00 Plt Count 213 K/MM3 (134-434) D 10/25/16 06:00 MPV 9.9 fl (7.5-11.1) 10/25/16 06:00 CMP Sodium 139 mmol/L (136-145) 10/27/16 08:30 Potassium 3.8 mmol/L (3.5-5.1) 10/27/16 08:30 Chloride 103 mmol/L (98-107) 10/27/16 08:30 Carbon Dioxide 25 mmol/L (21-32) 10/27/16 08:30 Anion Gap 11 (8-16) 10/27/16 08:30 BUN 19 mg/dL (7-18) H 10/27/16 08:30 Creatinine 1.1 mg/dL (0.7-1.3) 10/27/16 08:30 Creat Clearance w eGFR 48.40 (>60) 10/23/16 14:20 Calcium 8.2 mg/dL (8.5-10.1) L 10/27/16 08:30 Total Bilirubin 0.7 mg/dL (0.2-1.0) D 10/23/16 14:20 AST 24 U/L (15-37) D 10/23/16 14:20 ALT 18 U/L (12-78) 10/23/16 14:20 Alkaline Phosphatase 89 U/L (45-117) D 10/23/16 14:20 Total Protein 7.3 g/dl (6.4-8.2) 10/23/16 14:20 Albumin 3.0 g/dl (3.4-5.0) L 10/23/16 14:20 Medical Decision Making 81-year-old male with past medical history of CAD s/p stent placement in 2012 on Plavix, HLD, HTN, who presented to the emergency department complaining of generalized weakness, and headache. His headache started last Sunday, generalized, dull and persistent. He tried taking Tylenol for his headache with little relief. Patient states he has also been feeling weak overall. Found to have left upper lobe PNA. He is being treated with Abx and still reports generalized fatigue but no focal weakness. CT head was completed and did not show acute changes. Would recommend continued treatment of systemic infection, IV Abx. No focal deficits and would not require further imaging. Continued hydration recommended. For tension headache, Fioricet can be given as needed but would limit intake to once or twice a day (will defer to primary if he desires to start medication). Currently on Tylenol and well appearing. Continued improvement as infection clears. Outpatient follow up for benign tremor.
--- NOTE | 2016-10-27 10:45 | PN ---
Physical Exam: SUBJECTIVE: Patient seen and examined. He says he feels the same and does not feel an improvement in his symptoms. Last night he experienced another event of night sweats. He has a dry cough and denies fevers, dizziness, chills, diarrhea , abdominal pain and urinary symptoms. OBJECTIVE: Vital Signs Period Temp Pulse Resp BP Sys/Garcia Pulse Ox Last 24 Hr 97.8 F-98.7 F 81-89 18-20 116-145/65-81 94-96 GENERAL: The patient is awake, alert, and fully oriented, in no acute distress. HEAD: Normal with no signs of trauma. EYES: PERRL, extraocular movements intact, sclera anicteric, conjunctiva clear. No ptosis. ENT: Ears normal, nares patent, oropharynx clear without exudates, moist mucous membranes. NECK: supple. LUNGS: Breath sounds equal, clear to auscultation bilaterally, no wheezes, no crackles, no accessory muscle use. HEART: Regular rate and rhythm, S1, S2 without murmur, rub or gallop. ABDOMEN: Soft, nontender, nondistended, normoactive bowel sounds, no guarding, no rebound, no hepatosplenomegaly, no masses. EXTREMITIES: 2+ pulses, warm, well-perfused, no edema. PSYCH: Normal mood, normal affect. SKIN: Warm, dry, normal turgor, no rashes or lesions noted Laboratory Results - last 24 hr 10/26/16 10/27/16 10/27/16 13:20 08:30 08:30 Sodium 139 Potassium 3.8 Chloride 103 Carbon Dioxide 25 Anion Gap 11 BUN 19 H Creatinine 1.1 Random Glucose 156 H D Calcium 8.2 L C-Reactive Protein 15.7 H Vancomycin Pre-Dose 4.642 L Active Medications Generic Name Dose Route Start Last Admin Trade Name Freq PRN Reason Stop Dose Admin Acetaminophen 650 mg 10/23/16 16:54 10/25/16 20:34 Tylenol - PO 650 mg Q4H PRN Administration FEVER OR PAIN Acetaminophen/Butalbital/Caffeine 1 tablet 10/24/16 11:00 10/26/16 23:22 Fioricet - PO 1 tablet Q6H PRN Administration HEADACHE Aspirin 81 mg 10/24/16 10:00 10/26/16 10:20 Asa - PO 81 mg DAILY [facility] Administration Atorvastatin Calcium 10 mg 10/23/16 22:00 10/26/16 21:34 Lipitor - PO 10 mg HS [facility] Administration Clopidogrel Bisulfate 75 mg 10/24/16 10:00 10/26/16 10:20 Plavix - PO 75 mg DAILY [facility] Administration Heparin Sodium (Porcine) 5,000 unit 10/23/16 18:00 10/27/16 01:23 Heparin - SQ 5,000 unit Q8H-IV [facility] Administration Azithromycin 250 mls @ 250 mls/hr 10/24/16 12:45 10/26/16 13:07 Zithromax 500mg Ivpb (Pre-Docked) IVPB 250 mls/hr DAILY [facility] Administration Aztreonam 2 gm/ Dextrose 100 mls @ 100 mls/hr 10/25/16 16:30 10/27/16 01:06 IV 100 mls/hr Q8H-IV [facility] Administration Protocol Isosorbide Mononitrate 30 mg 10/25/16 10:00 10/26/16 10:20 Imdur - PO 30 mg DAILY [facility] Administration Lactobacillus Acidophilus 1 tab 10/24/16 10:00 10/26/16 10:20 Bacid - PO 1 tab DAILY [facility] Administration Metoprolol Succinate 25 mg 10/24/16 10:00 10/26/16 10:20 Toprol Xl - PO 25 mg DAILY [facility] Administration Polyethylene Glycol 17 gm 10/27/16 10:15 Miralax (For Daily Use) - PO DAILY [facility] Ranolazine 500 mg 10/25/16 10:00 10/26/16 21:34 Ranexa - PO 500 mg BID [facility] Administration Vancomycin HCl 1,000 mg 10/27/16 02:00 10/27/16 01:24 Vancomycin (Pre-Docked) IVPB 1,000 mg Q12H [facility] Administration Protocol Chest X ray: Left upper lobe infiltrate may have decreased slightly. ASSESSMENT/PLAN: 1) Pneumonia -continue Vancomycin and Zithromax (Day 4) - continue Azactam (multiple antibiotic allergies) -awaiting quantiferon gold 2) Dysphagia - awaiting GI series (machine down) Visit type - Emergency Visit Emergency Visit: Yes ED Registration Date: 10/23/16 Care time: The patient presented to the Emergency Department on the above date and was hospitalized for further evaluation of their emergent condition. - New Patient This patient is new to me today: No - Critical Care Critical Care patient: No
[2016-10-27] MEDS: METOPROLOL SUCCINATE 25 MG TAB.SR.24H (FP) PO SCH (11:05)
[2016-10-27] MEDS: POLYETHYLENE GLYCOL 3350 119 GM BTL PO SCH (11:06)
[2016-10-27] MEDS: CLOPIDOGREL BISULFATE 75 MG TABLET (FP) PO SCH (11:09)
[2016-10-27] MEDS: LACTOBACILLUS ACIDOPHILUS 1 EACH TAB (FP) PO SCH (11:09)
[2016-10-27] MEDS: ASPIRIN 81 MG CHEWABLE TABLETS PO SCH (11:09)
[2016-10-27] MEDS: RANOLAZINE E.R. 500 MG TABLET (FP) PO SCH ×2 (11:09→21:02)
[2016-10-27] MEDS: ISOSORBIDE MONONITRATE 30 MG TAB.SR.24H (FP) PO SCH (11:09)
[2016-10-27] MEDS: AZITHROMYCIN IVPB 250 ML IVPB SCH (11:10)
[2016-10-27] MEDS ORDERED: MAGNESIUM HYDROX 2400MG/30ML ORAL SUSPENSION 30 ML CUP PO ONE (11:30)
--- NOTE | 2016-10-27 14:02 | PN ---
Progress Note (short form) - Note Progress Note: PULMONARY VSS/AFEBRILE SUBJECTIVE IMPROVEMENT ANICTERIC CLEAR S1S2 BS+ SOFT NO EDEMA LABS/MEDS/NOTES/IMAGING/MICRO REVIEWED A/P Pneumonia Sepsis +Troponins likely Demand Ischemia CAD HTN Hypercholesterolemia - continue antibiotics - f/u cultures, quantiferon gold - urinary antigens negative - monitor urine output, creatinine - DVT prophylaxis - will need outpt f/u of chest imaging to ensure resolution of infiltrate Problem List - Problems (1) Pneumonia Code(s): J18.9 - PNEUMONIA, UNSPECIFIED ORGANISM Qualifiers: Pneumonia type: due to unspecified organism Laterality: left Lung location: upper lobe of lung Qualified Code(s): J18.1 - Lobar pneumonia, unspecified organism (2) RAINE (acute kidney injury) Code(s): N17.9 - ACUTE KIDNEY FAILURE, UNSPECIFIED (3) CAD (coronary artery disease) Code(s): I25.10 - ATHSCL HEART DISEASE OF [place] CORONARY ARTERY W/O ANG PCTRS (4) Elevated troponin Code(s): R74.8 - ABNORMAL LEVELS OF OTHER SERUM ENZYMES (5) Sepsis Code(s): A41.9 - SEPSIS, UNSPECIFIED ORGANISM Qualifiers: Sepsis type: sepsis due to unspecified organism Qualified Code(s): A41.9 - Sepsis, unspecified organism Edouard PATRICK MD
--- NOTE | 2016-10-27 16:44 | PN ---
Teaching Attending Note Name of Resident: Jose Guadalupe Martines ATTENDING PHYSICIAN STATEMENT I saw and evaluated the patient. I reviewed the resident's note and discussed the case with the resident. I agree with the resident's findings and plan as documented. SUBJECTIVE: feels better appetite improving dry cough only OBJECTIVE: Vital Signs Period Temp Pulse Resp BP Sys/Garcia Pulse Ox Last 24 Hr 97.8 F-98.7 F 75-88 18-20 119-150/66-81 94-96 cor-rrr lungs clear abd soft,nt ext no edema CBC, BMP 10/25/16 06:00 10/27/16 08:30 Microbiology 10/26/16 13:20 Blood - Peripheral Venous TB Test (QFT) (MIGDALIA) - Preliminary 10/23/16 16:16 Blood - Peripheral Venous Blood Culture - Preliminary NO GROWTH OBTAINED AFTER 72 HOURS, INCUBATION TO CONTINUE FOR 2 DAYS. 10/23/16 16:16 Blood - Peripheral Venous Blood Culture - Preliminary NO GROWTH OBTAINED AFTER 72 HOURS, INCUBATION TO CONTINUE FOR 2 DAYS. 10/24/16 19:45 Urine For Antigen Detection Legionella Antigen - Final 10/24/16 19:45 Urine For Antigen Detection Streptococcus pneumoniae Antigen (M - Final 10/23/16 16:16 Urine - Urine Clean Catch Urine Culture - Final NO GROWTH OBTAINED ASSESSMENT AND PLAN: pneumonia pen/levaquin allergy continue vanco/azactam/zithromax quant gold extensive pneumonia- requires hospitalization for multiple iv antibiotics given allergies at least through the weekend
[2016-10-27] MEDS: AZTREONAM 2 GM in DEXTROSE 5%-WATER - 100 ML IVPB SCH (18:21)
[2016-10-27] MEDS: ACETAMINOPHEN/CAFFEINE/BUTALBITAL 1 TAB PO PRN (18:23)
[2016-10-27] MEDS: ATORVASTATIN CA 10 MG TABLET (FP) PO SCH (21:02)
[2016-10-28] MEDS ORDERED: PT OWN MED DRAWER 7, Y5N ONE ×3 (02:18→17:54)
[2016-10-28] MEDS: HEPARIN NA (PORCINE) 5,000 UNITS/ML 1ML VIAL SQ SCH ×3 (02:30→18:09)
[2016-10-28] MEDS: AZTREONAM 2 GM in DEXTROSE 5%-WATER - 100 ML IVPB SCH ×3 (02:30→18:08)
[2016-10-28] MEDS: VANCOMYCIN 1 GRAM (PRE-DOCKED) 1,000 MG/250 ML BAG IVPB SCH ×2 (02:31→15:09)
[2016-10-28] MEDS: ACETAMINOPHEN 325 MG TABLET (FP) PO PRN (02:44)
--- NOTE | 2016-10-28 08:33 | PN ---
Progress Note, Physician Chief Complaint: PNA, sob History of Present Illness: no sob or coughing (not active here) no cp here no palp, syncope - Current Medication List Current Medications: Active Medications Acetaminophen (Tylenol -) 650 mg PO Q4H PRN PRN Reason: FEVER OR PAIN Last Admin: 10/28/16 02:44 Dose: 650 mg Acetaminophen/Butalbital/Caffeine (Fioricet -) 1 tablet PO Q6H PRN PRN Reason: HEADACHE Last Admin: 10/27/16 18:23 Dose: 1 tablet Aspirin (Asa -) 81 mg PO DAILY [facility] Atorvastatin Calcium (Lipitor -) 10 mg PO HS [facility] Last Admin: 10/27/16 21:02 Dose: 10 mg Clopidogrel Bisulfate (Plavix -) 75 mg PO DAILY [facility] Heparin Sodium (Porcine) (Heparin -) 5,000 unit SQ Q8H-IV [facility] Last Admin: 10/28/16 02:30 Dose: 5,000 unit Aztreonam 2 gm/ Dextrose 100 mls @ 100 mls/hr IVPB Q8H-IV [facility] PRN Reason: Protocol Last Admin: 10/28/16 02:30 Dose: 100 mls/hr Azithromycin (Zithromax 500mg Ivpb (Pre-Docked)) 250 mls @ 250 mls/hr IVPB DAILY [facility] Isosorbide Mononitrate (Imdur -) 30 mg PO DAILY [facility] Lactobacillus Acidophilus (Bacid -) 1 tab PO DAILY [facility] Metoprolol Succinate (Toprol Xl -) 25 mg PO DAILY [facility] Polyethylene Glycol (Miralax (For Daily Use) -) 17 gm PO DAILY [facility] Last Admin: 10/27/16 11:06 Dose: 17 gm Ranolazine (Ranexa -) 500 mg PO BID [facility] Last Admin: 10/27/16 21:02 Dose: 500 mg Vancomycin HCl (Vancomycin (Pre-Docked)) 1,000 mg IVPB Q12H [facility] PRN Reason: Protocol Last Admin: 10/28/16 02:31 Dose: 1,000 mg - Objective Vital Signs: Vital Signs Temperature 98.4 F 10/28/16 06:00 Pulse Rate 81 10/28/16 06:00 Respiratory Rate 18 10/28/16 06:00 Blood Pressure 144/81 10/28/16 06:00 O2 Sat by Pulse Oximetry (%) 93 L 10/27/16 21:00 Constitutional: Yes: Well Nourished, No Distress, Calm Cardiovascular: Yes: Regular Rate and Rhythm, S1, S2. No: JVD, Gallop, Murmur Respiratory: Yes: Regular, Rales (R base). No: Accessory Muscle Use, Wheezes Extremities: No: Cold Edema: No Neurological: Yes: Alert, Oriented Psychiatric: No: Agitated Labs: CBC, BMP 10/25/16 06:00 10/27/16 08:30 INR, PTT INR 1.31 (0.82-1.09) H 10/23/16 14:00 Assessment/Plan [facility] 02/23: patent mRCA stent (mild ISR); 30-50% dRCA; 80-90% pLAD--BMS (covered stent after perf'd with PTCA); 30-50% mLAD bridge; 30-50% D1; 30-50% OM1; 30-50 % prox Ramus; (PTCA OF LAD COMPLICATED BY PERF--COVERED STENT PLACED, OCCLUDING THE DIAG--LARGE TROPONIN LEAK WITH SMALL RWMA ON ECHO THEN) [facility] 04/27 (pers): no STs; large, fixed anteroapical defect; small inferoapical defect partially reversible c/w vito-infarct ischemia in LAD territory; severe HK of mid and apical AW, and apex akinetic; EF 41% Echo 03/2016: 1. The left ventricular size is normal. 2. Overall left ventricular systolic function appears mildly reduced, with a visually estimated EF of 45%. 3. The diastolic filling pattern indicates impaired relaxation. Normal LA pressure. 4. Apical inferior, apical lateral, and apical anterior segments appear hypokinetic. Mid anterior wall is not well seen, and appears possibly hypokinetic in the available images. 5. The right ventricle is normal in size and function. 6. Left atrium is normal size by volume. 7. [id number] mitral regurgitation is present. a/p: 81 yo with pmhx of CAD s/p multiple PCI (most recent 2014) with chronic stable angina, mild ischemic cardiomyopathy, HTN, HL, COPD, depression p/w pna. dysphagia - seen by GI - plan is for UGIS when machine is repaired CAD - s/p JOAO to mid RCA 2005, then ISR of JOAO treated with second JOAO 2006. - 2014 new angina sx's, had PCI of LAD which was complicated by perf -->covered stent placed occluding the diag. - has residual chronic, stable (frequent) angina pattern since, suspect restenosis--pt has deferred cath and sx's have been stable with med mgmt - intermediate troponin elevation, flat trend, with no ischemic ecg changes and no anginal symptoms--troponins are secondary to known residual myocardial ischemic substrate, not ACS - con't imdur, metopr, statin, dapt (BB and statin doses limited by profound med intolerances in past). intolerant of acei previously. Mild ischemic cardiomyopathy - EF mildly reduced (45%) wiht apical wma's. - no clinical chf. - con't bb. intolerant of acei. HTN -controlled -same meds pre-op clearance - dysphagia evaluation ongoing, possible need for intervention - rcri 2 with advanced age/reasonable exercise capacity. estimated vito- operative cardiovascular risk for this low risk procedure is intermediate. Last JOAO was placed 2014 therefore plavix may be held for procedure, but should continue on aspirin (although could be held if absolutely necessary). - stable from CV perspective. no further testing required prior to intervention. PNA - ongoing mgm't per pulm - appears clinically stable
[2016-10-28 09:10] LABS: MCH 31.6 pg (25.7-33.7); MCHC 34.4 g/dl (32.0-35.9); MEAN PLT VOLUME 9.1 fl (7.5-11.1); PLATELET COUNT 237 K/MM3 (134-434); RDW 14.4 % (11.9-15.9); WHITE BLOOD COUNT 6.1 K/mm3 (4.0-10.0)
[2016-10-28 09:13] LABS: ANION GAP 7 (8-16); CALCIUM 8.2 mg/dL (8.5-10.1); CO2 28 mmol/L (21-32); CREATININE 1.1 mg/dL (0.7-1.3); GLUCOSE,RANDOM 93 mg/dL (74-106)
[2016-10-28] MEDS: CLOPIDOGREL BISULFATE 75 MG TABLET (FP) PO SCH (10:00)
[2016-10-28] MEDS: METOPROLOL SUCCINATE 25 MG TAB.SR.24H (FP) PO SCH (10:00)
[2016-10-28] MEDS: LACTOBACILLUS ACIDOPHILUS 1 EACH TAB (FP) PO SCH (10:00)
[2016-10-28] MEDS: RANOLAZINE E.R. 500 MG TABLET (FP) PO SCH ×2 (10:00→21:41)
[2016-10-28] MEDS: ASPIRIN 81 MG CHEWABLE TABLETS PO SCH (10:00)
[2016-10-28] MEDS: ISOSORBIDE MONONITRATE 30 MG TAB.SR.24H (FP) PO SCH (10:00)
[2016-10-28] MEDS: AZITHROMYCIN IVPB 250 ML IVPB SCH (10:02)
[2016-10-28] MEDS: POLYETHYLENE GLYCOL 3350 119 GM BTL PO SCH (10:15)
--- NOTE | 2016-10-28 11:37 | PN ---
Progress Note, Physician Chief Complaint: Still awakening at nite with bed soaking nite sweats. History of Present Illness: Patient with extensive pneumonia is still having marked bed soaking nite sweats. Coughing off and on with scant sputum production. Appetite still not back to normal and awaiting UGI ordered on 10/25. Plavix will have to be stopped temporarily if an EGD is then required. He continues on 3 IV antibiotics. Quantiferon Gold TB test in lab. - Current Medication List Current Medications: Active Medications Acetaminophen (Tylenol -) 650 mg PO Q4H PRN PRN Reason: FEVER OR PAIN Last Admin: 10/28/16 02:44 Dose: 650 mg Acetaminophen/Butalbital/Caffeine (Fioricet -) 1 tablet PO Q6H PRN PRN Reason: HEADACHE Last Admin: 10/27/16 18:23 Dose: 1 tablet Aspirin (Asa -) 81 mg PO DAILY [facility] Last Admin: 10/28/16 10:00 Dose: 81 mg Atorvastatin Calcium (Lipitor -) 10 mg PO HS [facility] Last Admin: 10/27/16 21:02 Dose: 10 mg Clopidogrel Bisulfate (Plavix -) 75 mg PO DAILY [facility] Last Admin: 10/28/16 10:00 Dose: 75 mg Heparin Sodium (Porcine) (Heparin -) 5,000 unit SQ Q8H-IV [facility] Last Admin: 10/28/16 10:00 Dose: 5,000 unit Aztreonam 2 gm/ Dextrose 100 mls @ 100 mls/hr IVPB Q8H-IV [facility] PRN Reason: Protocol Last Admin: 10/28/16 02:30 Dose: 100 mls/hr Azithromycin (Zithromax 500mg Ivpb (Pre-Docked)) 250 mls @ 250 mls/hr IVPB DAILY [facility] Last Admin: 10/28/16 10:02 Dose: 250 mls/hr Isosorbide Mononitrate (Imdur -) 30 mg PO DAILY [facility] Last Admin: 10/28/16 10:00 Dose: 30 mg Lactobacillus Acidophilus (Bacid -) 1 tab PO DAILY [facility] Last Admin: 10/28/16 10:00 Dose: 1 tab Metoprolol Succinate (Toprol Xl -) 25 mg PO DAILY [facility] Last Admin: 10/28/16 10:00 Dose: 25 mg Polyethylene Glycol (Miralax (For Daily Use) -) 17 gm PO DAILY [facility] Last Admin: 10/28/16 10:15 Dose: Not Given Ranolazine (Ranexa -) 500 mg PO BID [facility] Last Admin: 10/28/16 10:00 Dose: 500 mg Vancomycin HCl (Vancomycin (Pre-Docked)) 1,000 mg IVPB Q12H [facility] PRN Reason: Protocol Last Admin: 10/28/16 02:31 Dose: 1,000 mg - Objective Vital Signs: Vital Signs Temperature 98.4 F 10/28/16 06:00 Pulse Rate 81 10/28/16 06:00 Respiratory Rate 18 10/28/16 06:00 Blood Pressure 144/81 10/28/16 06:00 O2 Sat by Pulse Oximetry (%) 93 L 10/27/16 21:00 Constitutional: Yes: Calm Eyes: Yes: Conjunctiva Clear Cardiovascular: Yes: Regular Rate and Rhythm Respiratory: Yes: Diminished, Rhonchi (scattered rhonchi.) Gastrointestinal: Yes: Soft (Had BM) Genitourinary: No: [place] Present Edema: No Neurological: Yes: Alert, Oriented Labs: CBC, BMP 10/28/16 08:00 10/28/16 08:00 INR, PTT INR 1.31 (0.82-1.09) H 10/23/16 14:00 - ....Imaging Chest X-ray: Report Reviewed Problem List - Problems (1) Pneumonia Assessment/Plan: Still on 3 IV antibiotics and having marked nite sweats which awaken him from sleep. Code(s): J18.9 - PNEUMONIA, UNSPECIFIED ORGANISM Qualifiers: Pneumonia type: due to unspecified organism Laterality: left Lung location: upper lobe of lung Qualified Code(s): J18.1 - Lobar pneumonia, unspecified organism (2) CAD (coronary artery disease) Assessment/Plan: Followed by Cardiology with advice if EGD needed. Code(s): I25.10 - ATHSCL HEART DISEASE OF [place] CORONARY ARTERY W/O ANG PCTRS (3) Elevated troponin Assessment/Plan: evaluated by Cardiology. Code(s): R74.8 - ABNORMAL LEVELS OF OTHER SERUM ENZYMES (4) Dysphagia Assessment/Plan: Still awaiting UGI series. Appetite and swallowing somewhat improved. Code(s): R13.10 - DYSPHAGIA, UNSPECIFIED (5) BPH (benign prostatic hyperplasia) Assessment/Plan: 3.4 PSA A few RBC's in urine; to repeat. Code(s): N40.0 - BENIGN PROSTATIC HYPERPLASIA WITHOUT LOWER URINRY TRACT SYMP
[2016-10-28 12:49] LABS: TOTAL CELLS COUNTED 100
[2016-10-28 12:50] LABS: METAMYELOCYTE 3 % (0-2); MYELOCYTE 2 % (0-2)
--- NOTE | 2016-10-28 14:12 | PN ---
Progress Note (short form) - Note Progress Note: PULMONARY Feels better. +nonproductive cough. Still with night sweats. CXR yesterday shows some improvement in ELÍAS infiltrate. Last Vital Signs Temp Pulse Resp BP Pulse Ox 97.5 F L 81 20 134/92 97 10/28/16 10:00 10/28/16 10:00 10/28/16 10:00 10/28/16 10:00 10/28/16 09:00 Gen: NAD at rest Heart: RRR Lung: less left upper rales Abd: soft, nontender Ext: no edema CBC, BMP 10/28/16 08:00 10/28/16 08:00 Active Medications Acetaminophen (Tylenol -) 650 mg PO Q4H PRN PRN Reason: FEVER OR PAIN Last Admin: 10/28/16 02:44 Dose: 650 mg Acetaminophen/Butalbital/Caffeine (Fioricet -) 1 tablet PO Q6H PRN PRN Reason: HEADACHE Last Admin: 10/27/16 18:23 Dose: 1 tablet Aspirin (Asa -) 81 mg PO DAILY [facility] Last Admin: 10/28/16 10:00 Dose: 81 mg Atorvastatin Calcium (Lipitor -) 10 mg PO HS [facility] Last Admin: 10/27/16 21:02 Dose: 10 mg Clopidogrel Bisulfate (Plavix -) 75 mg PO DAILY [facility] Last Admin: 10/28/16 10:00 Dose: 75 mg Heparin Sodium (Porcine) (Heparin -) 5,000 unit SQ Q8H-IV [facility] Last Admin: 10/28/16 10:00 Dose: 5,000 unit Aztreonam 2 gm/ Dextrose 100 mls @ 100 mls/hr IVPB Q8H-IV [facility] PRN Reason: Protocol Last Admin: 10/28/16 11:30 Dose: 100 mls/hr Azithromycin (Zithromax 500mg Ivpb (Pre-Docked)) 250 mls @ 250 mls/hr IVPB DAILY [facility] Last Admin: 10/28/16 10:02 Dose: 250 mls/hr Isosorbide Mononitrate (Imdur -) 30 mg PO DAILY [facility] Last Admin: 10/28/16 10:00 Dose: 30 mg Lactobacillus Acidophilus (Bacid -) 1 tab PO DAILY [facility] Last Admin: 10/28/16 10:00 Dose: 1 tab Metoprolol Succinate (Toprol Xl -) 25 mg PO DAILY [facility] Last Admin: 10/28/16 10:00 Dose: 25 mg Polyethylene Glycol (Miralax (For Daily Use) -) 17 gm PO DAILY [facility] Last Admin: 10/28/16 10:15 Dose: Not Given Ranolazine (Ranexa -) 500 mg PO BID [facility] Last Admin: 10/28/16 10:00 Dose: 500 mg Vancomycin HCl (Vancomycin (Pre-Docked)) 1,000 mg IVPB Q12H [facility] PRN Reason: Protocol Last Admin: 10/28/16 02:31 Dose: 1,000 mg A/P Pneumonia Sepsis +Troponins likely Demand Ischemia CAD HTN Hypercholesterolemia - continue antibiotics - f/u cultures, quantiferon gold - urinary antigens negative - monitor urine output, creatinine - DVT prophylaxis - will need outpt f/u of chest imaging to ensure resolution of infiltrate Problem List - Problems (1) Pneumonia Code(s): J18.9 - PNEUMONIA, UNSPECIFIED ORGANISM Qualifiers: Pneumonia type: due to unspecified organism Laterality: left Lung location: upper lobe of lung Qualified Code(s): J18.1 - Lobar pneumonia, unspecified organism (2) RAINE (acute kidney injury) Code(s): N17.9 - ACUTE KIDNEY FAILURE, UNSPECIFIED (3) CAD (coronary artery disease) Code(s): I25.10 - ATHSCL HEART DISEASE OF [place] CORONARY ARTERY W/O ANG PCTRS (4) Elevated troponin Code(s): R74.8 - ABNORMAL LEVELS OF OTHER SERUM ENZYMES (5) Sepsis Code(s): A41.9 - SEPSIS, UNSPECIFIED ORGANISM Qualifiers: Sepsis type: sepsis due to unspecified organism Qualified Code(s): A41.9 - Sepsis, unspecified organism
[2016-10-28 15:06] LABS: URINE APPEARANCE CLEAR; URINE BILIRUBIN NEGATIVE (NEGATIVE); URINE BLOOD NEGATIVE (NEGATIVE); URINE COLOR YELLOW; URINE GLUCOSE (UA) NEGATIVE (NEGATIVE); URINE KETONE NEGATIVE (NEGATIVE); URINE LEUK ESTERASE NEGATIVE (NEGATIVE); URINE NITRITE NEGATIVE (NEGATIVE); URINE PROTEIN NEGATIVE (NEGATIVE); URINE UROBILINOGEN NEGATIVE mg/dL (0.2-1.0)
[2016-10-28 19:10] LABS: TOTAL CELLS COUNTED 100
[2016-10-28] MEDS: ATORVASTATIN CA 10 MG TABLET (FP) PO SCH (21:41)
[2016-10-28] MEDS: ACETAMINOPHEN/CAFFEINE/BUTALBITAL 1 TAB PO PRN (22:46)
[2016-10-29] MEDS: AZTREONAM 2 GM in DEXTROSE 5%-WATER - 100 ML IVPB SCH ×3 (01:47→18:19)
[2016-10-29] MEDS: VANCOMYCIN 1 GRAM (PRE-DOCKED) 1,000 MG/250 ML BAG IVPB SCH (02:31)
[2016-10-29] MEDS: HEPARIN NA (PORCINE) 5,000 UNITS/ML 1ML VIAL SQ SCH ×3 (06:43→22:37)
[2016-10-29 08:10] LABS: MCH 31.9 pg (25.7-33.7); MCHC 34.2 g/dl (32.0-35.9); MEAN CELL VOLUME 93.2 fl (80-96); MEAN PLT VOLUME 8.9 fl (7.5-11.1); PLATELET COUNT 272 K/MM3 (134-434); RDW 13.9 % (11.9-15.9)
[2016-10-29 09:05] LABS: BASOPHIL (MANUAL) 1 % (0-2.0); METAMYELOCYTE 5 % (0-2); MYELOCYTE 8 % (0-2); TOTAL CELLS COUNTED 100
[2016-10-29 09:06] LABS: PLATELET ESTIMATE ADEQUATE
[2016-10-29] MEDS ORDERED: PT OWN MED DRAWER 7, Y5N ONE ×2 (09:20→18:03)
[2016-10-29] MEDS: LACTOBACILLUS ACIDOPHILUS 1 EACH TAB (FP) PO SCH (09:23)
[2016-10-29] MEDS: RANOLAZINE E.R. 500 MG TABLET (FP) PO SCH ×2 (09:23→22:37)
[2016-10-29] MEDS: ISOSORBIDE MONONITRATE 30 MG TAB.SR.24H (FP) PO SCH (09:23)
[2016-10-29] MEDS: CLOPIDOGREL BISULFATE 75 MG TABLET (FP) PO SCH (09:23)
[2016-10-29] MEDS: ASPIRIN 81 MG CHEWABLE TABLETS PO SCH (09:23)
[2016-10-29] MEDS: POLYETHYLENE GLYCOL 3350 119 GM BTL PO SCH (09:25)
[2016-10-29] MEDS: METOPROLOL SUCCINATE 25 MG TAB.SR.24H (FP) PO SCH (09:25)
--- NOTE | 2016-10-29 10:09 | PN ---
Progress Note (short form) - Note Progress Note: not coughing but continues to have night sweats quantiferon still pending Vital Signs Period Temp Pulse Resp BP Sys/Garcia Pulse Ox Last 24 Hr 98.1 F-99.1 F 72-79 17-20 135-150/74-85 97 cor-rrr lungs decreased bs at bases abd soft,nt ext no edema CBC, BMP 10/29/16 07:10 10/28/16 08:00 Microbiology 10/23/16 16:16 Blood - Peripheral Venous Blood Culture - Final NO GROWTH AFTER 5 DAYS INCUBATION 10/23/16 16:16 Blood - Peripheral Venous Blood Culture - Final NO GROWTH AFTER 5 DAYS INCUBATION 10/26/16 13:20 Blood - Peripheral Venous TB Test (QFT) (MIGDALIA) - Preliminary 10/24/16 19:45 Urine For Antigen Detection Legionella Antigen - Final 10/24/16 19:45 Urine For Antigen Detection Streptococcus pneumoniae Antigen (M - Final 10/23/16 16:16 Urine - Urine Clean Catch Urine Culture - Final NO GROWTH OBTAINED a/p given continued night sweats, willl place in isolation- consider bronch, ? malignancy, ?afb disease quantiferon still pending no cough will need bronch if ct scan is not improved continue antibiotics vancomycin/zithromax/azactam vancomycin trough is high, adjust meds
[2016-10-29] MEDS: AZITHROMYCIN IVPB 250 ML IVPB SCH (11:01)
--- NOTE | 2016-10-29 11:02 | PN ---
Progress Note (short form) - Note Progress Note: Patient had less sweating last nite but still having a cough basically non productive.Remains on 3 IV antibiotics. WBC improved but sed rate and CRP are extremely elevated. ID MD called to tell me she would prefer respiratory isolation and repeat Chest CT. They are ordered and the patient was informed. Appetite fair; had a BM. On Exam: Vital Signs Period Temp Pulse Resp BP Sys/Garcia Pulse Ox Last 24 Hr 98.1 F-99.1 F 72-79 17-20 135-150/74-85 97 Alert Chest: scattered rhonchi on both sides today; no wheezes Cor: Reg Abd; Soft with mild suprapubic discomfort Ext: No edema Abnormal Lab Results 10/28/16 10/28/16 10/29/16 08:00 14:50 07:10 RBC 3.79 L 3.99 L Hct 34.9 L D Neutrophils % (Manual) 36 L D Monocytes % (Manual) 16 H* Eosinophils % (Manual) 6 H D 8 H Myelocytes % (Man) 8 H D LD Total Vancomycin Pre-Dose 17.942 H* D 10/29/16 07:10 RBC Hct Neutrophils % (Manual) Monocytes % (Manual) Eosinophils % (Manual) Myelocytes % (Man) LD Total 244 H Vancomycin Pre-Dose IMP: Extensive Pneumonia ASHD S/P Stent Dysphagia BPH Hypertension Gerd Plan: Repeat Chest CT. Isolation pending Quantiferon Gold test F/U Lab ?Bronchoscopy Continue current antibiotics Problem List - Problems (1) Pneumonia Code(s): J18.9 - PNEUMONIA, UNSPECIFIED ORGANISM Qualifiers: Pneumonia type: due to unspecified organism Laterality: left Lung location: upper lobe of lung Qualified Code(s): J18.1 - Lobar pneumonia, unspecified organism (2) CAD (coronary artery disease) Code(s): I25.10 - ATHSCL HEART DISEASE OF [place] CORONARY ARTERY W/O ANG PCTRS (3) Elevated troponin Code(s): R74.8 - ABNORMAL LEVELS OF OTHER SERUM ENZYMES (4) Dysphagia Code(s): R13.10 - DYSPHAGIA, UNSPECIFIED (5) BPH (benign prostatic hyperplasia) Code(s): N40.0 - BENIGN PROSTATIC HYPERPLASIA WITHOUT LOWER URINRY TRACT SYMP
--- NOTE | 2016-10-29 12:09 | PN ---
Progress Note (short form) - Note Progress Note: PULMONARY +nonproductive cough. Still with night sweats. Quantiferon gold reportedly positive. Last Vital Signs Temp Pulse Resp BP Pulse Ox 98.1 F 77 20 137/76 97 10/29/16 06:00 10/29/16 06:00 10/29/16 06:00 10/29/16 06:00 10/28/16 21:00 Gen: NAD at rest Heart: RRR Lung: less left upper rales Abd: soft, nontender Ext: no edema CBC, BMP 10/29/16 07:10 10/28/16 08:00 Active Medications Acetaminophen (Tylenol -) 650 mg PO Q4H PRN PRN Reason: FEVER OR PAIN Last Admin: 10/28/16 02:44 Dose: 650 mg Acetaminophen/Butalbital/Caffeine (Fioricet -) 1 tablet PO Q6H PRN PRN Reason: HEADACHE Last Admin: 10/28/16 22:46 Dose: 1 tablet Aspirin (Asa -) 81 mg PO DAILY [facility] Last Admin: 10/29/16 09:23 Dose: 81 mg Atorvastatin Calcium (Lipitor -) 10 mg PO HS [facility] Last Admin: 10/28/16 21:41 Dose: 10 mg Clopidogrel Bisulfate (Plavix -) 75 mg PO DAILY [facility] Last Admin: 10/29/16 09:23 Dose: 75 mg Heparin Sodium (Porcine) (Heparin -) 5,000 unit SQ TID [facility] Last Admin: 10/29/16 06:43 Dose: 5,000 unit Aztreonam 2 gm/ Dextrose 100 mls @ 100 mls/hr IVPB Q8H-IV [facility] PRN Reason: Protocol Last Admin: 10/29/16 09:23 Dose: 100 mls/hr Azithromycin (Zithromax 500mg Ivpb (Pre-Docked)) 250 mls @ 250 mls/hr IVPB DAILY [facility] Last Admin: 10/29/16 11:01 Dose: 250 mls/hr Isosorbide Mononitrate (Imdur -) 30 mg PO DAILY [facility] Last Admin: 10/29/16 09:23 Dose: 30 mg Lactobacillus Acidophilus (Bacid -) 1 tab PO DAILY [facility] Last Admin: 10/29/16 09:23 Dose: 1 tab Metoprolol Succinate (Toprol Xl -) 25 mg PO DAILY [facility] Last Admin: 10/29/16 09:25 Dose: 25 mg Polyethylene Glycol (Miralax (For Daily Use) -) 17 gm PO DAILY [facility] Last Admin: 10/29/16 09:25 Dose: 17 gm Ranolazine (Ranexa -) 500 mg PO BID [facility] Last Admin: 10/29/16 09:23 Dose: 500 mg A/P Pneumonia Sepsis +Troponins likely [place]and Ischemia CAD HTN Hypercholesterolemia - will need bronchoscopy and BAL for AFB sampling, will schedule for 10/31 - continue antibiotics, will stop azithromycin - f/u cultures, quantiferon gold final result - urinary antigens negative - monitor urine output, creatinine - DVT prophylaxis - will need outpt f/u of chest imaging to ensure resolution of infiltrate Problem List - Problems (1) Pneumonia Code(s): J18.9 - PNEUMONIA, UNSPECIFIED ORGANISM Qualifiers: Pneumonia type: due to unspecified organism Laterality: left Lung location: upper lobe of lung Qualified Code(s): J18.1 - Lobar pneumonia, unspecified organism (2) RAINE (acute kidney injury) Code(s): N17.9 - ACUTE KIDNEY FAILURE, UNSPECIFIED (3) CAD (coronary artery disease) Code(s): I25.10 - ATHSCL HEART DISEASE OF [place] CORONARY ARTERY W/O ANG PCTRS (4) Elevated troponin Code(s): R74.8 - ABNORMAL LEVELS OF OTHER SERUM ENZYMES (5) Sepsis Code(s): A41.9 - SEPSIS, UNSPECIFIED ORGANISM Qualifiers: Sepsis type: sepsis due to unspecified organism Qualified Code(s): A41.9 - Sepsis, unspecified organism
[2016-10-29] MEDS: ATORVASTATIN CA 10 MG TABLET (FP) PO SCH (22:37)
[2016-10-30] MEDS: AZTREONAM 2 GM in DEXTROSE 5%-WATER - 100 ML IVPB SCH ×3 (02:08→17:54)
[2016-10-30] MEDS: HEPARIN NA (PORCINE) 5,000 UNITS/ML 1ML VIAL SQ SCH ×2 (07:03→14:00)
[2016-10-30 09:21] LABS: MCH 31.4 pg (25.7-33.7); MCHC 34.1 g/dl (32.0-35.9); MEAN CELL VOLUME 92.2 fl (80-96); MEAN PLT VOLUME 8.6 fl (7.5-11.1); PLATELET COUNT 279 K/MM3 (134-434); RDW 13.9 % (11.9-15.9); WHITE BLOOD COUNT 6.6 K/mm3 (4.0-10.0)
[2016-10-30] MEDS ORDERED: PT OWN MED DRAWER 7, Y5N ONE ×3 (09:23→19:18)
--- NOTE | 2016-10-30 09:34 | PN ---
Progress Note (short form) - Note Progress Note: Patient worried and feels down about the nite sweats and the + Quantiferon gold test. I am delaying the AM GI series from today and he is scheduled for Bronchoscopy Sunday. Still nite sweats last nite. On Exam: Vital Signs Temp 98.1 F 10/30/16 06:00 Pulse 73 10/30/16 06:00 Resp 20 10/30/16 06:00 BP 139/74 10/30/16 06:00 Pulse Ox 97 10/29/16 21:00 Intake & Output 10/29/16 10/29/16 10/30/16 11:59 23:59 11:59 Intake Total 700 600 100 Balance 700 600 100 Weight 159 lb 9 oz 158 lb 12.8 oz Intake: IVPB 700 100 100 Oral 500 Other: Voiding Method Toilet Toilet Toilet # Unmeasured Voids Void 1 1 1 Bowel Movement Yes # Bowel Movements 1 Weight Measurement Method Standing Scale Standing Scale Alert Chest: a few rhonchi Cor Reg Abd; Increased bowels sounds IMP: Pneumonia possible AFB ASHD S/P CABG Knee Replacement Dysphagia Plan: Await F/U lab Bronchoscopy ? Start TB RX Problem List - Problems (1) Pneumonia Code(s): J18.9 - PNEUMONIA, UNSPECIFIED ORGANISM Qualifiers: Pneumonia type: due to unspecified organism Laterality: left Lung location: upper lobe of lung Qualified Code(s): J18.1 - Lobar pneumonia, unspecified organism (2) CAD (coronary artery disease) Code(s): I25.10 - ATHSCL HEART DISEASE OF [place] CORONARY ARTERY W/O ANG PCTRS (3) Elevated troponin Code(s): R74.8 - ABNORMAL LEVELS OF OTHER SERUM ENZYMES (4) Dysphagia Code(s): R13.10 - DYSPHAGIA, UNSPECIFIED (5) BPH (benign prostatic hyperplasia) Code(s): N40.0 - BENIGN PROSTATIC HYPERPLASIA WITHOUT LOWER URINRY TRACT SYMP
[2016-10-30] MEDS: METOPROLOL SUCCINATE 25 MG TAB.SR.24H (FP) PO SCH (09:56)
[2016-10-30] MEDS: ISOSORBIDE MONONITRATE 30 MG TAB.SR.24H (FP) PO SCH (09:56)
[2016-10-30] MEDS: RANOLAZINE E.R. 500 MG TABLET (FP) PO SCH ×2 (09:56→21:04)
[2016-10-30] MEDS: LACTOBACILLUS ACIDOPHILUS 1 EACH TAB (FP) PO SCH (09:56)
--- NOTE | 2016-10-30 09:56 | PN ---
Progress Note (short form) - Note Progress Note: Neurology History of Present Illness 81-year-old male with past medical history of CAD s/p stent placement in 2013 on Plavix, HLD, HTN, who presented to the emergency department complaining of generalized weakness, and headache. His headache started last Sunday, generalized, dull and persistent. He tried taking Tylenol for his headache with little relief. Patient states he has also been feeling weak overall. Admits to fevers, chills and night sweats. He also admits to fatigue, and shortness of breath with exertion. Denies nausea, vomiting, diarrhea, constipation, chest tightness, palpitations, edema, chest pain and cough. He was admitted and found to have left upper lobe PNA. He is being treated with Abx and still reports generalized fatigue but no focal weakness. CT head was completed and did not show acute changes. Well appearing today and on IV Abx. Awaiting bronchoscopy for tomorrow. Resting tremor minimal, does not have significant features of PD. Active Medications Acetaminophen (Tylenol -) 650 mg PO Q4H PRN PRN Reason: FEVER OR PAIN Last Admin: 10/28/16 02:44 Dose: 650 mg Acetaminophen/Butalbital/Caffeine (Fioricet -) 1 tablet PO Q6H PRN PRN Reason: HEADACHE Last Admin: 10/28/16 22:46 Dose: 1 tablet Aspirin (Asa -) 81 mg PO DAILY [facility] Last Admin: 10/29/16 09:23 Dose: 81 mg Atorvastatin Calcium (Lipitor -) 10 mg PO HS [facility] Last Admin: 10/29/16 22:37 Dose: 10 mg Clopidogrel Bisulfate (Plavix -) 75 mg PO DAILY [facility] Last Admin: 10/29/16 09:23 Dose: 75 mg Heparin Sodium (Porcine) (Heparin -) 5,000 unit SQ TID [facility] Last Admin: 10/30/16 07:03 Dose: 5,000 unit Aztreonam 2 gm/ Dextrose 100 mls @ 100 mls/hr IVPB Q8H-IV [facility] PRN Reason: Protocol Last Admin: 10/30/16 02:08 Dose: 100 mls/hr Isosorbide Mononitrate (Imdur -) 30 mg PO DAILY [facility] Last Admin: 10/29/16 09:23 Dose: 30 mg Lactobacillus Acidophilus (Bacid -) 1 tab PO DAILY [facility] Last Admin: 10/29/16 09:23 Dose: 1 tab Metoprolol Succinate (Toprol Xl -) 25 mg PO DAILY [facility] Last Admin: 10/29/16 09:25 Dose: 25 mg Polyethylene Glycol (Miralax (For Daily Use) -) 17 gm PO DAILY [facility] Last Admin: 10/29/16 09:25 Dose: 17 gm Ranolazine (Ranexa -) 500 mg PO BID [facility] Last Admin: 10/29/16 22:37 Dose: 500 mg *Physical Exam Vital Signs Temperature 98.1 F 10/30/16 06:00 Pulse Rate 73 10/30/16 06:00 Respiratory Rate 20 10/30/16 06:00 Blood Pressure 139/74 10/30/16 06:00 O2 Sat by Pulse Oximetry (%) 97 10/29/16 21:00 Well developed, well nourished. Awake and alert. No acute distress. HEENT: Normocephalic, atraumatic. PERRLA, EOMI. No conjunctival pallor. Sclera are non- icteric. Moist mucous membranes. Oropharynx is clear. NECK: Supple. Full ROM. No JVD. Carotid pulses 2+ and symmetric, without bruits. No thyromegaly. No lymphadenopathy. CARDIOVASCULAR: Regular rate and rhythm. No murmurs, rubs, or gallops. Distal pulses are 2+ and symmetric. PULMONARY: No evidence of respiratory distress. Lungs clear to auscultation bilaterally. No wheezing, rales or rhonchi. ABDOMINAL: Soft. Non-tender. Non-distended. No rebound or guarding. No organomegaly. Normoactive bowel sounds. MUSCULOSKELETAL Normal range of motion at all joints. No bony deformities or tenderness. No CVA tenderness. EXTREMITIES: No cyanosis. No clubbing. No edema. No calf tenderness. SKIN: Warm and dry. Normal capillary refill. No rashes. No jaundice. NEUROLOGICAL: Alert, awake, appropriate. Cranial nerves 2-12 intact. No deficits to light touch and temperature in face, upper extremities and lower extremities. No motor deficits in the in face, upper extremities and lower extremities. Normoreflexic in the upper and lower extremities. Normal speech. Toes are down- going bilaterally. Gait is normal without ataxia. PSYCHIATRIC: Cooperative. Good eye contact. Appropriate mood and affect. CBCD WBC 6.6 K/mm3 (4.0-10.0) 10/30/16 08:50 RBC 4.03 M/mm3 (4.00-5.60) 10/30/16 08:50 Hgb 12.7 GM/dL (11.7-16.9) 10/30/16 08:50 Hct 37.2 % (35.4-49) 10/30/16 08:50 MCV 92.2 fl (80-96) 10/30/16 08:50 MCHC 34.1 g/dl (32.0-35.9) 10/30/16 08:50 RDW 13.9 % (11.9-15.9) 10/30/16 08:50 Plt Count 279 K/MM3 (134-434) 10/30/16 08:50 MPV 8.6 fl (7.5-11.1) 10/30/16 08:50 CMP Sodium 140 mmol/L (136-145) 10/28/16 08:00 Potassium 4.4 mmol/L (3.5-5.1) 10/28/16 08:00 Chloride 105 mmol/L (98-107) 10/28/16 08:00 Carbon Dioxide 28 mmol/L (21-32) 10/28/16 08:00 Anion Gap 7 (8-16) L 10/28/16 08:00 BUN 19 mg/dL (7-18) H 10/28/16 08:00 Creatinine 1.1 mg/dL (0.7-1.3) 10/28/16 08:00 Creat Clearance w eGFR 48.40 (>60) 10/23/16 14:20 Calcium 8.2 mg/dL (8.5-10.1) L 10/28/16 08:00 Total Bilirubin 0.7 mg/dL (0.2-1.0) D 10/23/16 14:20 AST 24 U/L (15-37) D 10/23/16 14:20 ALT 18 U/L (12-78) 10/23/16 14:20 Alkaline Phosphatase 89 U/L (45-117) D 10/23/16 14:20 Total Protein 7.3 g/dl (6.4-8.2) 10/23/16 14:20 Albumin 3.0 g/dl (3.4-5.0) L 10/23/16 14:20 Medical Decision Making 81-year-old male with past medical history of CAD s/p stent placement in 2012 on Plavix, HLD, HTN, who presented to the emergency department complaining of generalized weakness, and headache. His headache started last Sunday, generalized, dull and persistent. He tried taking Tylenol for his headache with little relief. Patient states he has also been feeling weak overall. Found to have left upper lobe PNA. He is being treated with Abx and still reports generalized fatigue but no focal weakness. CT head was completed and did not show acute changes. Would recommend continued treatment of systemic infection, IV Abx. No focal deficits and would not require further imaging. Continued hydration recommended. For tension headache, Awaiting bronchoscopy. Reassures provided to patient as he was hopeful to have work up completed and discharged by now. On respiratory precautions. Outpatient follow up for benign tremor.
[2016-10-30 09:57] LABS: TOTAL CELLS COUNTED 100
[2016-10-30] MEDS: POLYETHYLENE GLYCOL 3350 119 GM BTL PO SCH (09:57)
[2016-10-30 09:58] LABS: METAMYELOCYTE 3 % (0-2); MYELOCYTE 12 % (0-2); PLATELET ESTIMATE ADEQUATE
--- NOTE | 2016-10-30 12:23 | PN ---
Progress Note (short form) - Note Progress Note: Awaiting esophagram Problem List - Problems (1) Dysphagia Code(s): R13.10 - DYSPHAGIA, UNSPECIFIED (2) Family history of colon cancer Code(s): Z80.0 - FAMILY HISTORY OF MALIGNANT NEOPLASM OF DIGESTIVE ORGANS
--- NOTE | 2016-10-30 13:33 | PN ---
Progress Note (short form) - Note Progress Note: PULMONARY Still with night sweats and dry cough. Last Vital Signs Temp Pulse Resp BP Pulse Ox 98.5 F 71 18 144/73 97 10/30/16 10:00 10/30/16 10:00 10/30/16 10:00 10/30/16 10:00 10/30/16 10:00 Gen: NAD at rest Heart: RRR Lung: less left upper rales Abd: soft, nontender Ext: no edema CBC, BMP 10/30/16 08:50 10/28/16 08:00 Active Medications Acetaminophen (Tylenol -) 650 mg PO Q4H PRN PRN Reason: FEVER OR PAIN Last Admin: 10/28/16 02:44 Dose: 650 mg Acetaminophen/Butalbital/Caffeine (Fioricet -) 1 tablet PO Q6H PRN PRN Reason: HEADACHE Last Admin: 10/28/16 22:46 Dose: 1 tablet Aspirin (Asa -) [address] [facility] Last Admin: 10/29/16 09:23 Dose: 81 mg Atorvastatin Calcium (Lipitor -) [address] [facility] Last Admin: 10/29/16 22:37 Dose: 10 mg Clopidogrel Bisulfate (Plavix -) [address] [facility] Last Admin: 10/29/16 09:23 Dose: 75 mg Heparin Sodium (Porcine) (Heparin -) 5,[address] [facility] Last Admin: 10/30/16 07:03 Dose: 5,000 unit Aztreonam 2 gm/ Dextrose 100 mls @ 100 mls/hr IVPB Q8H-IV [facility] PRN Reason: Protocol Last Admin: 10/30/16 09:56 Dose: 100 mls/hr Isosorbide Mononitrate (Imdur -) [address] [facility] Last Admin: 10/30/16 09:56 Dose: 30 mg Lactobacillus Acidophilus (Bacid -) [address] [facility] Last Admin: 10/30/16 09:56 Dose: 1 tab Metoprolol Succinate (Toprol Xl -) [address] [facility] Last Admin: 10/30/16 09:56 Dose: 25 mg Polyethylene Glycol (Miralax (For Daily Use) -) [address] [facility] Last Admin: 10/30/16 09:57 Dose: 17 gm Ranolazine (Ranexa -) [address] [facility] Last Admin: 10/30/16 09:56 Dose: 500 mg A/P Pneumonia Sepsis +Troponins likely Demand Ischemia CAD HTN Hypercholesterolemia - scheduled for bronchoscopy 10/31 at 10AM - NPO after midnight - continue antibiotics - f/u cultures - urinary antigens negative - monitor urine output, creatinine - DVT prophylaxis - will need outpt f/u of chest imaging to ensure resolution of infiltrate Problem List - Problems (1) Pneumonia Code(s): J18.9 - PNEUMONIA, UNSPECIFIED ORGANISM Qualifiers: Pneumonia type: due to unspecified organism Laterality: left Lung location: upper lobe of lung Qualified Code(s): J18.1 - Lobar pneumonia, unspecified organism (2) RAINE (acute kidney injury) Code(s): N17.9 - ACUTE KIDNEY FAILURE, UNSPECIFIED (3) CAD (coronary artery disease) Code(s): I25.10 - ATHSCL HEART DISEASE OF [place] CORONARY ARTERY W/O ANG PCTRS (4) Elevated troponin Code(s): R74.8 - ABNORMAL LEVELS OF OTHER SERUM ENZYMES (5) Sepsis Code(s): A41.9 - SEPSIS, UNSPECIFIED ORGANISM Qualifiers: Sepsis type: sepsis due to unspecified organism Qualified Code(s): A41.9 - Sepsis, unspecified organism
--- NOTE | 2016-10-30 17:59 | PN ---
Progress Note, Physician History of Present Illness: Awake, alert No complaints No cough/ sputum production no fever/ chills - Current Medication List Current Medications: Active Medications Acetaminophen (Tylenol -) 650 mg PO Q4H PRN PRN Reason: FEVER OR PAIN Last Admin: 10/28/16 02:44 Dose: 650 mg Acetaminophen/Butalbital/Caffeine (Fioricet -) 1 tablet PO Q6H PRN PRN Reason: HEADACHE Last Admin: 10/28/16 22:46 Dose: 1 tablet Aspirin (Asa -) 81 mg PO DAILY [facility] Last Admin: 10/29/16 09:23 Dose: 81 mg Atorvastatin Calcium (Lipitor -) 10 mg PO HS [facility] Last Admin: 10/29/16 22:37 Dose: 10 mg Clopidogrel Bisulfate (Plavix -) 75 mg PO DAILY [facility] Last Admin: 10/29/16 09:23 Dose: 75 mg Heparin Sodium (Porcine) (Heparin -) 5,000 unit SQ TID [facility] Last Admin: 10/30/16 07:03 Dose: 5,000 unit Aztreonam 2 gm/ Dextrose 100 mls @ 100 mls/hr IVPB Q8H-IV [facility] PRN Reason: Protocol Last Admin: 10/30/16 17:54 Dose: 100 mls/hr Vancomycin HCl 1,000 mg/ (Dextrose) 250 mls @ 200 mls/hr IVPB Q24H [facility] Stop: 10/31/16 17:59 Isosorbide Mononitrate (Imdur -) 30 mg PO DAILY [facility] Last Admin: 10/30/16 09:56 Dose: 30 mg Lactobacillus Acidophilus (Bacid -) 1 tab PO DAILY [facility] Last Admin: 10/30/16 09:56 Dose: 1 tab Metoprolol Succinate (Toprol Xl -) 25 mg PO DAILY [facility] Last Admin: 10/30/16 09:56 Dose: 25 mg Polyethylene Glycol (Miralax (For Daily Use) -) 17 gm PO DAILY [facility] Last Admin: 10/30/16 09:57 Dose: 17 gm Ranolazine (Ranexa -) 500 mg PO BID [facility] Last Admin: 10/30/16 09:56 Dose: 500 mg - Objective Vital Signs: Vital Signs Temperature 98 F 10/30/16 13:50 Pulse Rate 80 10/30/16 13:50 Respiratory Rate 20 10/30/16 13:50 Blood Pressure 115/60 10/30/16 13:50 O2 Sat by Pulse Oximetry (%) 97 10/30/16 10:00 Constitutional: Yes: No Distress, Cachectic Cardiovascular: Yes: Regular Rate and Rhythm, S1, S2 Respiratory: Yes: Diminished Gastrointestinal: Yes: Normal Bowel Sounds, Soft Edema: No Labs: CBC, BMP 10/30/16 08:50 10/28/16 08:00 INR, PTT INR 1.31 (0.82-1.09) H 10/23/16 14:00 Assessment/Plan Pneumonia Multiple antibiotic allergies For bronch am Continue vancomycin/ aztreonam
[2016-10-30] MEDS ORDERED: VANCOMYCIN 1 GRAM (PRE-DOCKED) 250 ML IVPB SCH (18:00)
[2016-10-30] MEDS ORDERED: INSULIN (NOVOLOG) ASPART 100 UNITS/ML 10ML VIAL ONE (19:18)
[2016-10-30] MEDS: ATORVASTATIN CA 10 MG TABLET (FP) PO SCH (21:04)
[2016-10-31] MEDS: AZTREONAM 2 GM in DEXTROSE 5%-WATER - 100 ML IVPB SCH ×4 (01:42→18:56)
[2016-10-31 07:50] LABS: MCH 30.9 pg (25.7-33.7); MCHC 33.4 g/dl (32.0-35.9); MEAN CELL VOLUME 92.6 fl (80-96); MEAN PLT VOLUME 8.5 fl (7.5-11.1); PLATELET COUNT 276 K/MM3 (134-434); RDW 14.1 % (11.9-15.9); WHITE BLOOD COUNT 8.1 K/mm3 (4.0-10.0)
[2016-10-31 08:06] LABS: INR 1.17 (0.82-1.09); PROTHROMBIN TIME (PATIENT) 12.9 SEC (9.98-11.88)
[2016-10-31 08:09] LABS: ACTIVATED PTT 29.4 SECONDS (26.9-34.4)
[2016-10-31 10:32] LABS: METAMYELOCYTE 11 % (0-2); MYELOCYTE 10 % (0-2); PLATELET ESTIMATE ADEQUATE (NORMAL); TOTAL CELLS COUNTED 100
[2016-10-31] MEDS: LACTOBACILLUS ACIDOPHILUS 1 EACH TAB (FP) PO SCH ×2 (10:46→15:31)
[2016-10-31] MEDS: ASPIRIN 81 MG CHEWABLE TABLETS PO SCH ×2 (10:46→15:32)
[2016-10-31] MEDS: POLYETHYLENE GLYCOL 3350 119 GM BTL PO SCH ×2 (10:46→15:32)
[2016-10-31] MEDS: CLOPIDOGREL BISULFATE 75 MG TABLET (FP) PO SCH ×2 (10:46→15:29)
[2016-10-31] MEDS: ISOSORBIDE MONONITRATE 30 MG TAB.SR.24H (FP) PO SCH ×2 (10:46→15:31)
[2016-10-31] MEDS: METOPROLOL SUCCINATE 25 MG TAB.SR.24H (FP) PO SCH ×2 (10:47→15:30)
[2016-10-31] MEDS: RANOLAZINE E.R. 500 MG TABLET (FP) PO SCH ×3 (10:47→21:04)
--- NOTE | 2016-10-31 10:57 | PN ---
Progress Note (short form) - Note Progress Note: Neurology History of Present Illness 81-year-old male with past medical history of CAD s/p stent placement in 2013 on Plavix, HLD, HTN, who presented to the emergency department complaining of generalized weakness, and headache. His headache started last Sunday, generalized, dull and persistent. He tried taking Tylenol for his headache with little relief. Patient states he has also been feeling weak overall. Admits to fevers, chills and night sweats. He also admits to fatigue, and shortness of breath with exertion. Denies nausea, vomiting, diarrhea, constipation, chest tightness, palpitations, edema, chest pain and cough. He was admitted and found to have left upper lobe PNA. He is being treated with Abx and still reports generalized fatigue but no focal weakness. CT head was completed and did not show acute changes. Well appearing today and on IV Abx. For bronchoscopy.. Resting tremor minimal, does not have significant features of PD. Active Medications Acetaminophen (Tylenol -) 650 mg PO Q4H PRN PRN Reason: FEVER OR PAIN Last Admin: 10/28/16 02:44 Dose: 650 mg Acetaminophen/Butalbital/Caffeine (Fioricet -) 1 tablet PO Q6H PRN PRN Reason: HEADACHE Last Admin: 10/28/16 22:46 Dose: 1 tablet Aspirin (Asa -) 81 mg PO DAILY [facility] Last Admin: 10/31/16 10:46 Dose: Not Given Atorvastatin Calcium (Lipitor -) 10 mg PO HS [facility] Last Admin: 10/30/16 21:04 Dose: 10 mg Clopidogrel Bisulfate (Plavix -) 75 mg PO DAILY [facility] Last Admin: 10/31/16 10:46 Dose: Not Given Heparin Sodium (Porcine) (Heparin -) 5,000 unit SQ TID [facility] Last Admin: 10/30/16 07:03 Dose: 5,000 unit Aztreonam 2 gm/ Dextrose 100 mls @ 100 mls/hr IVPB Q8H-IV [facility] PRN Reason: Protocol Last Admin: 10/31/16 10:46 Dose: Not Given Vancomycin HCl (Vancomycin (Pre-Docked)) 250 mls @ 166.667 mls/hr IVPB Q24H [facility] Stop: 10/31/16 17:59 Last Admin: 10/30/16 19:07 Dose: 166.667 mls/hr Isosorbide Mononitrate (Imdur -) 30 mg PO DAILY [facility] Last Admin: 10/31/16 10:46 Dose: Not Given Lactobacillus Acidophilus (Bacid -) 1 tab PO DAILY [facility] Last Admin: 10/31/16 10:46 Dose: Not Given Metoprolol Succinate (Toprol Xl -) 25 mg PO DAILY [facility] Last Admin: 10/31/16 10:47 Dose: Not Given Polyethylene Glycol (Miralax (For Daily Use) -) 17 gm PO DAILY [facility] Last Admin: 10/31/16 10:46 Dose: Not Given Ranolazine (Ranexa -) 500 mg PO BID [facility] Last Admin: 10/31/16 10:47 Dose: Not Given *Physical Exam Last Vital Signs Temp Pulse Resp BP Pulse Ox 98.2 F 74 18 127/55 97 10/31/16 06:00 10/31/16 06:00 10/31/16 06:00 10/31/16 06:00 10/31/16 09:00 Well developed, well nourished. Awake and alert. No acute distress. HEENT: Normocephalic, atraumatic. PERRLA, EOMI. No conjunctival pallor. Sclera are non- icteric. Moist mucous membranes. Oropharynx is clear. NECK: Supple. Full ROM. No JVD. Carotid pulses 2+ and symmetric, without bruits. No thyromegaly. No lymphadenopathy. CARDIOVASCULAR: Regular rate and rhythm. No murmurs, rubs, or gallops. Distal pulses are 2+ and symmetric. PULMONARY: No evidence of respiratory distress. Lungs clear to auscultation bilaterally. No wheezing, rales or rhonchi. ABDOMINAL: Soft. Non-tender. Non-distended. No rebound or guarding. No organomegaly. Normoactive bowel sounds. MUSCULOSKELETAL Normal range of motion at all joints. No bony deformities or tenderness. No CVA tenderness. EXTREMITIES: No cyanosis. No clubbing. No edema. No calf tenderness. SKIN: Warm and dry. Normal capillary refill. No rashes. No jaundice. NEUROLOGICAL: Alert, awake, appropriate. Cranial nerves 2-12 intact. No deficits to light touch and temperature in face, upper extremities and lower extremities. No motor deficits in the in face, upper extremities and lower extremities. Normoreflexic in the upper and lower extremities. Normal speech. Toes are down- going bilaterally. Gait is normal without ataxia. PSYCHIATRIC: Cooperative. Good eye contact. Appropriate mood and affect. CBCD WBC 8.1 K/mm3 (4.0-10.0) 10/31/16 06:00 RBC 4.06 M/mm3 (4.00-5.60) 10/31/16 06:00 Hgb 12.6 GM/dL (11.7-16.9) 10/31/16 06:00 Hct 37.7 % (35.4-49) 10/31/16 06:00 MCV 92.6 fl (80-96) 10/31/16 06:00 MCHC 33.4 g/dl (32.0-35.9) 10/31/16 06:00 RDW 14.1 % (11.9-15.9) 10/31/16 06:00 Plt Count 276 K/MM3 (134-434) 10/31/16 06:00 MPV 8.5 fl (7.5-11.1) 10/31/16 06:00 CMP Sodium 140 mmol/L (136-145) 10/28/16 08:00 Potassium 4.4 mmol/L (3.5-5.1) 10/28/16 08:00 Chloride 105 mmol/L (98-107) 10/28/16 08:00 Carbon Dioxide 28 mmol/L (21-32) 10/28/16 08:00 Anion Gap 7 (8-16) L 10/28/16 08:00 BUN 19 mg/dL (7-18) H 10/28/16 08:00 Creatinine 1.1 mg/dL (0.7-1.3) 10/28/16 08:00 Creat Clearance w eGFR 48.40 (>60) 10/23/16 14:20 Calcium 8.2 mg/dL (8.5-10.1) L 10/28/16 08:00 Total Bilirubin 0.7 mg/dL (0.2-1.0) D 10/23/16 14:20 AST 24 U/L (15-37) D 10/23/16 14:20 ALT 18 U/L (12-78) 10/23/16 14:20 Alkaline Phosphatase 89 U/L (45-117) D 10/23/16 14:20 Total Protein 7.3 g/dl (6.4-8.2) 10/23/16 14:20 Albumin 3.0 g/dl (3.4-5.0) L 10/23/16 14:20 Medical Decision Making 81-year-old male with past medical history of CAD s/p stent placement in 2012 on Plavix, HLD, HTN, who presented to the emergency department complaining of generalized weakness, and headache. His headache started last Sunday, generalized, dull and persistent. He tried taking Tylenol for his headache with little relief. Patient states he has also been feeling weak overall. Found to have left upper lobe PNA. He is being treated with Abx and still reports generalized fatigue but no focal weakness. CT head was completed and did not show acute changes. Would recommend continued treatment of systemic infection, IV Abx. No focal deficits and would not require further imaging. Continued hydration recommended. For tension headache, Awaiting bronchoscopy. Reassures provided to patient as he was hopeful to have work up completed and discharged by now. On respiratory precautions. Outpatient follow up for benign tremor.
[2016-10-31] MEDS ORDERED: GLYCOPYRROLATE 0.2 MG/1 ML VIAL ONE (11:21)
[2016-10-31] MEDS ORDERED: ONDANSETRON 4 MG/2 ML VIAL IVPUSH PRN (11:43)
[2016-10-31] MEDS ORDERED: ALBUTEROL SO4 0.083% IH SOL 2.5 MG/3 ML VIAL.NEB. NEB PRN (11:44)
[2016-10-31] MEDS ORDERED: LACTATED RINGERS SOLUTION 1,000 ML IV SCH (11:45)
--- NOTE | 2016-10-31 13:21 | PN ---
Progress Note (short form) - Note Progress Note: PULMONARY s/p bronchoscopy which did not show any endobronchial lesions. Last Vital Signs Temp Pulse Resp BP Pulse Ox 98.1 F 72 18 124/64 96 10/31/16 12:55 10/31/16 12:55 10/31/16 12:55 10/31/16 12:55 10/31/16 12:55 Gen: NAD at rest Heart: RRR Lung: less left upper rales Abd: soft, nontender Ext: no edema CBC, BMP 10/31/16 06:00 10/28/16 08:00 Active Medications Acetaminophen (Tylenol -) 650 mg PO Q4H PRN PRN Reason: FEVER OR PAIN Last Admin: 10/28/16 02:44 Dose: 650 mg Acetaminophen/Butalbital/Caffeine (Fioricet -) 1 tablet PO Q6H PRN PRN Reason: HEADACHE Last Admin: 10/28/16 22:46 Dose: 1 tablet Albuterol Sulfate (Ventolin 0.083% Nebulizer Soln -) 1 amp NEB Q4H PRN PRN Reason: SHORT OF BREATH/WHEEZING Last Admin: 10/31/16 11:50 Dose: 1 amp Aspirin (Asa -) 81 mg PO DAILY [facility] Last Admin: 10/31/16 10:46 Dose: Not Given Atorvastatin Calcium (Lipitor -) 10 mg PO HS [facility] Last Admin: 10/30/16 21:04 Dose: 10 mg Clopidogrel Bisulfate (Plavix -) 75 mg PO DAILY [facility] Last Admin: 10/31/16 10:46 Dose: Not Given Fentanyl (Sublimaze Injection -) 25 mcg IVPUSH [id number] PRN PRN Reason: PAIN Stop: 11/03/16 11:44 Heparin Sodium (Porcine) (Heparin -) 5,000 unit SQ TID [facility] Last Admin: 10/30/16 07:03 Dose: 5,000 unit Aztreonam 2 gm/ Dextrose 100 mls @ 100 mls/hr IVPB Q8H-IV [facility] PRN Reason: Protocol Last Admin: 10/31/16 10:46 Dose: Not Given Vancomycin HCl (Vancomycin (Pre-Docked)) 250 mls @ 166.667 mls/hr IVPB Q24H [facility] Stop: 10/31/16 17:59 Last Admin: 10/30/16 19:07 Dose: 166.667 mls/hr Lactated Ringer's (Lactated Ringers Solution) 1,000 mls @ 75 mls/hr IV [facility] Isosorbide Mononitrate (Imdur -) 30 mg PO DAILY [facility] Last Admin: 10/31/16 10:46 Dose: Not Given Lactobacillus Acidophilus (Bacid -) 1 tab PO DAILY [facility] Last Admin: 10/31/16 10:46 Dose: Not Given Metoprolol Succinate (Toprol Xl -) 25 mg PO DAILY [facility] Last Admin: 10/31/16 10:47 Dose: Not Given Ondansetron HCl (Zofran Injection) 4 mg IVPUSH Q6H PRN PRN Reason: NAUSEA AND/OR VOMITING Stop: 10/31/16 17:44 Polyethylene Glycol (Miralax (For Daily Use) -) 17 gm PO DAILY [facility] Last Admin: 10/31/16 10:46 Dose: Not Given Ranolazine (Ranexa -) 500 mg PO BID [facility] Last Admin: 10/31/16 10:47 Dose: Not Given A/P Pneumonia Sepsis +Troponins likely Demand Ischemia CAD HTN Hypercholesterolemia - continue antibiotics - f/u BAL cultures - urinary antigens negative - monitor urine output, creatinine - DVT prophylaxis - will need outpt f/u of chest imaging to ensure resolution of infiltrate Problem List - Problems (1) Pneumonia Code(s): J18.9 - PNEUMONIA, UNSPECIFIED ORGANISM Qualifiers: Pneumonia type: due to unspecified organism Laterality: left Lung location: upper lobe of lung Qualified Code(s): J18.1 - Lobar pneumonia, unspecified organism (2) RAINE (acute kidney injury) Code(s): N17.9 - ACUTE KIDNEY FAILURE, UNSPECIFIED (3) CAD (coronary artery disease) Code(s): I25.10 - ATHSCL HEART DISEASE OF [place] CORONARY ARTERY W/O ANG PCTRS (4) Elevated troponin Code(s): R74.8 - ABNORMAL LEVELS OF OTHER SERUM ENZYMES (5) Sepsis Code(s): A41.9 - SEPSIS, UNSPECIFIED ORGANISM Qualifiers: Sepsis type: sepsis due to unspecified organism Qualified Code(s): A41.9 - Sepsis, unspecified organism
--- NOTE | 2016-10-31 13:25 | PROC ---
Procedure Note Procedure: BRONCHOSCOPY NOTE After discussing the risks and benefits of the procedure, informed consent was obtained. Pt was placed under general anesthesia and intubated with size 8.0 ETT by anesthesia. [employer] video bronchoscope was passed via the ETT and the airways were examined down to the subsegmental level. The el was sharp, there were no endobronchial lesions noted in either lung. There were scattered small mucous plugs in the airways. Transbronchial biopsies and brushings were taken from the left upper lobe lingular segment under fluoroscopic guidance. The lingula was then wedged and BAL performed. Bronchoscope then withdrawn and procedure terminated. No immediate complications. Post bronchoscopy CXR without evidence of pneumothorax. Pre-op Dx: pneumonia r/o TB Post-op Dx: same Plan: - f/u BAL washings for culture and cytology - f/u pathology Leonid Bello MD
--- NOTE | 2016-10-31 13:40 | PN ---
Progress Note, Physician Chief Complaint: Mild cough but no complaints Re: Bronchoscopy done this AM. History of Present Illness: Patient with ELÍAS pneumonia had bronchoscopy this AM which did not reveal any occult lesions. Specimens and washings for AFB, C/S and cytology were obtained. The consultants feel that since his infiltrate is slowly resolving on CAT scan of chest the Quantiferon Gold + test may be a issue to be addressed but not the ultimate cause of his pneumonia. Hopefully his test this AM will solve those questions. he has tolerated the procedure well and is comfortable and in better spirits in his room. - Current Medication List Current Medications: Active Medications Acetaminophen (Tylenol -) 650 mg PO Q4H PRN PRN Reason: FEVER OR PAIN Last Admin: 10/28/16 02:44 Dose: 650 mg Acetaminophen/Butalbital/Caffeine (Fioricet -) 1 tablet PO Q6H PRN PRN Reason: HEADACHE Last Admin: 10/28/16 22:46 Dose: 1 tablet Albuterol Sulfate (Ventolin 0.083% Nebulizer Soln -) 1 amp NEB Q4H PRN PRN Reason: SHORT OF BREATH/WHEEZING Last Admin: 10/31/16 11:50 Dose: 1 amp Aspirin (Asa -) 81 mg PO DAILY [facility] Last Admin: 10/31/16 10:46 Dose: Not Given Atorvastatin Calcium (Lipitor -) 10 mg PO HS [facility] Last Admin: 10/30/16 21:04 Dose: 10 mg Clopidogrel Bisulfate (Plavix -) 75 mg PO DAILY [facility] Last Admin: 10/31/16 10:46 Dose: Not Given Fentanyl (Sublimaze Injection -) 25 mcg IVPUSH [id number] PRN PRN Reason: PAIN Stop: 11/03/16 11:44 Heparin Sodium (Porcine) (Heparin -) 5,000 unit SQ TID FRANCES[facility] Last Admin: 10/30/16 07:03 Dose: 5,000 unit Aztreonam 2 gm/ Dextrose 100 mls @ 100 mls/hr IVPB Q8H-IV FRANCESCA PRN Reason: Protocol Last Admin: 10/31/16 10:46 Dose: Not Given Vancomycin HCl (Vancomycin (Pre-Docked)) 250 mls @ 166.667 mls/hr IVPB Q24H [facility] Stop: 10/31/16 17:59 Last Admin: 10/30/16 19:07 Dose: 166.667 mls/hr Lactated Ringer's (Lactated Ringers Solution) 1,000 mls @ 75 mls/hr IV ASDIR [facility] Isosorbide Mononitrate (Imdur -) 30 mg PO DAILY [facility] Last Admin: 10/31/16 10:46 Dose: Not Given Lactobacillus Acidophilus (Bacid -) 1 tab PO DAILY [facility] Last Admin: 10/31/16 10:46 Dose: Not Given Metoprolol Succinate (Toprol Xl -) 25 mg PO DAILY [facility] Last Admin: 10/31/16 10:47 Dose: Not Given Ondansetron HCl (Zofran Injection) 4 mg IVPUSH Q6H PRN PRN Reason: NAUSEA AND/OR VOMITING Stop: 10/31/16 17:44 Polyethylene Glycol (Miralax (For Daily Use) -) 17 gm PO DAILY [facility] Last Admin: 10/31/16 10:46 Dose: Not Given Ranolazine (Ranexa -) 500 mg PO BID [facility] Last Admin: 10/31/16 10:47 Dose: Not Given - Objective Vital Signs: Vital Signs Temperature 98.4 F 10/31/16 13:00 Pulse Rate 76 10/31/16 13:00 Respiratory Rate 20 10/31/16 13:00 Blood Pressure 142/64 10/31/16 13:00 O2 Sat by Pulse Oximetry (%) 95 10/31/16 13:00 Constitutional: Yes: Calm Eyes: Yes: Conjunctiva Clear Cardiovascular: Yes: Regular Rate and Rhythm Respiratory: Yes: Diminished, Rhonchi (few scattered rhonchi.) Gastrointestinal: Yes: Soft. No: Tenderness Genitourinary: No: Martinez Present Edema: No Neurological: Yes: Alert, Oriented Labs: CBC, BMP 10/31/16 06:00 10/28/16 08:00 INR, PTT INR 1.17 (0.82-1.09) H 10/31/16 06:00 - ....Imaging Chest X-ray: Report Reviewed Problem List - Problems (1) Pneumonia Assessment/Plan: On IV antibiotics; some resolution of infiltrated on recent CT scan of chest. Code(s): J18.9 - PNEUMONIA, UNSPECIFIED ORGANISM Qualifiers: Pneumonia type: due to unspecified organism Laterality: left Lung location: upper lobe of lung Qualified Code(s): J18.1 - Lobar pneumonia, unspecified organism (2) CAD (coronary artery disease) Assessment/Plan: Followed by Cardiology Code(s): I25.10 - ATHSCL HEART DISEASE OF [place] CORONARY ARTERY W/O ANG PCTRS (3) Elevated troponin Code(s): R74.8 - ABNORMAL LEVELS OF OTHER SERUM ENZYMES (4) Dysphagia Assessment/Plan: Have delayed GI series for bronchoscopy; to reschedule. Code(s): R13.10 - DYSPHAGIA, UNSPECIFIED (5) BPH (benign prostatic hyperplasia) Assessment/Plan: PSA 3.4 Repeat urine clear. 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 Code(s): R76.12 - NONSPEC REACTION TO GAMMA INTRFRN RESPNS W/O ACTV TUBRCLOSIS
[2016-10-31] MEDS ORDERED: PT OWN MED DRAWER 7, Y5N ONE ×2 (15:15→18:52)
[2016-10-31] MEDS: LACTATED RINGERS SOLUTION 1,000 ML IV SCH (15:27)
[2016-10-31] MEDS: HEPARIN NA (PORCINE) 5,000 UNITS/ML 1ML VIAL SQ SCH (15:29)
[2016-10-31] MEDS ORDERED: MAG HYDROX/AL HYDROX/SIMETH 30 ML UNIT-DOSE CUP PO ONE (15:45)
[2016-10-31] MEDS: VANCOMYCIN 1 GRAM (PRE-DOCKED) 250 ML IVPB SCH (16:53)
[2016-10-31] MEDS: ATORVASTATIN CA 10 MG TABLET (FP) PO SCH (21:04)
[2016-10-31] MEDS: MAG HYDROX/AL HYDROX/SIMETH 30 ML UNIT-DOSE CUP PO PRN (22:41)
[2016-11-01] MEDS: AZTREONAM 2 GM in DEXTROSE 5%-WATER - 100 ML IVPB SCH ×4 (01:05→17:20)
[2016-11-01 07:32] LABS: MCH 30.5 pg (25.7-33.7); MCHC 33.2 g/dl (32.0-35.9); MEAN CELL VOLUME 91.9 fl (80-96); MEAN PLT VOLUME 8.8 fl (7.5-11.1); PLATELET COUNT 270 K/MM3 (134-434); RDW 14.1 % (11.9-15.9); WHITE BLOOD COUNT 11.3 K/mm3 (4.0-10.0)
[2016-11-01 08:10] LABS: ANION GAP 9 (8-16); CALCIUM 8.6 mg/dL (8.5-10.1); CO2 25 mmol/L (21-32); GLUCOSE,RANDOM 104 mg/dL (74-106)
--- NOTE | 2016-11-01 09:11 | PN ---
Progress Note (short form) - Note Progress Note: No nite sweats last nite but a recurrence of vomiting and he had to have cath passed for urinary retention probably based on Bronchoscopy anesthesia. Also headache but improved today. After vomiting deep cough wigth a lot of colored sputum with trace of blood. On exam: Vital Signs Temp 98.2 F 10/31/16 20:57 Pulse 97 H 10/31/16 20:57 Resp 20 10/31/16 20:57 BP 132/90 10/31/16 20:57 Pulse Ox 96 10/31/16 20:34 Intake & Output 10/31/16 10/31/16 11/01/16 11:59 23:59 11:59 Intake Total 600 1312 Output Total 1500 Balance 600 -188 Weight 158 lb 3.2 oz Intake: IV 500 402 Lactated Ringers Solution 252 1,000 ml @ 42 mls/hr IV ASDIR [facility] Rx#:[id number] IVPB 100 550 Oral 360 Output: Urine 1500 Straight Cath 1500 Other: Voiding Method Toilet # Unmeasured Voids Void 1 Bowel Movement No Weight Measurement Method Standing Scale Alert No SOB Chest:No rales heard Cor: Reg Abd: slight periumbilical tenderness Ext: No edema Abnormal Lab Results 10/31/16 11/01/16 06:00 06:00 WBC 11.3 H D RBC 3.79 L Hgb 11.6 L Hct 34.8 L Myelocytes % (Man) 10 H IMP: ELÍAS Pneumonia R/O AFB Acute Gastritis Urinary retention BPH ASHD Plan: Await decision on Esophagram/GI series which radiology has reservations on completely because of possible TB IV Antibiotics May need F/U alb Problem List - Problems (1) Pneumonia Code(s): J18.9 - PNEUMONIA, UNSPECIFIED ORGANISM Qualifiers: Pneumonia type: due to unspecified organism Laterality: left Lung location: upper lobe of lung Qualified Code(s): J18.1 - Lobar pneumonia, unspecified organism (2) CAD (coronary artery disease) Code(s): I25.10 - ATHSCL HEART DISEASE OF [place] CORONARY ARTERY W/O ANG PCTRS (3) Elevated troponin Code(s): R74.8 - ABNORMAL LEVELS OF OTHER SERUM ENZYMES (4) Dysphagia Code(s): R13.10 - DYSPHAGIA, UNSPECIFIED (5) BPH (benign prostatic hyperplasia) Code(s): N40.0 - BENIGN PROSTATIC HYPERPLASIA WITHOUT LOWER URINRY TRACT SYMP (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
[2016-11-01 09:42] LABS: BASOPHIL (MANUAL) 1 % (0-2.0); METAMYELOCYTE 3 % (0-2); PLATELET ESTIMATE ADEQUATE (NORMAL); TOTAL CELLS COUNTED 100
[2016-11-01 09:43] LABS: MYELOCYTE 5 % (0-2)
[2016-11-01] MEDS: ASPIRIN 81 MG CHEWABLE TABLETS PO SCH (09:53)
[2016-11-01] MEDS: RANOLAZINE E.R. 500 MG TABLET (FP) PO SCH ×2 (09:53→21:06)
[2016-11-01] MEDS: LACTOBACILLUS ACIDOPHILUS 1 EACH TAB (FP) PO SCH (09:53)
[2016-11-01] MEDS: CLOPIDOGREL BISULFATE 75 MG TABLET (FP) PO SCH (09:53)
[2016-11-01] MEDS: ISOSORBIDE MONONITRATE 30 MG TAB.SR.24H (FP) PO SCH (09:53)
[2016-11-01] MEDS: POLYETHYLENE GLYCOL 3350 119 GM BTL PO SCH (09:54)
[2016-11-01] MEDS: METOPROLOL SUCCINATE 25 MG TAB.SR.24H (FP) PO SCH (10:01)
--- NOTE | 2016-11-01 10:26 | PN ---
Progress Note (short form) - Note Progress Note: Neurology History of Present Illness 81-year-old male with past medical history of CAD s/p stent placement in 2013 on Plavix, HLD, HTN, who presented to the emergency department complaining of generalized weakness, and headache. His headache started last Sunday, generalized, dull and persistent. He tried taking Tylenol for his headache with little relief. Patient states he has also been feeling weak overall. Admits to fevers, chills and night sweats. He also admits to fatigue, and shortness of breath with exertion. Denies nausea, vomiting, diarrhea, constipation, chest tightness, palpitations, edema, chest pain and cough. He was admitted and found to have left upper lobe PNA. He is being treated with Abx and still reports generalized fatigue but no focal weakness. CT head was completed and did not show acute changes. Well appearing today and on IV Abx. Bronchoscopy completed. Resting tremor minimal, does not have significant features of PD. Patient was having episodic headaches and feels better this morning. Discussed increased hydration. Active Medications Acetaminophen (Tylenol -) 650 mg PO Q4H PRN PRN Reason: FEVER OR PAIN Last Admin: 10/28/16 02:44 Dose: 650 mg Acetaminophen/Butalbital/Caffeine (Fioricet -) 1 tablet PO Q6H PRN PRN Reason: HEADACHE Last Admin: 10/28/16 22:46 Dose: 1 tablet Al Hydroxide/Mg Hydroxide (Mylanta Oral Suspension -) 30 ml PO Q6H PRN PRN Reason: INDIGESTION Last Admin: 10/31/16 22:41 Dose: 30 ml Albuterol Sulfate (Ventolin 0.083% Nebulizer Soln -) 1 amp NEB Q4H PRN PRN Reason: SHORT OF BREATH/WHEEZING Last Admin: 10/31/16 11:50 Dose: 1 amp Aspirin (Asa -) 81 mg PO DAILY [facility] Last Admin: 11/01/16 09:53 Dose: 81 mg Atorvastatin Calcium (Lipitor -) 10 mg PO HS [facility] Last Admin: 10/31/16 21:04 Dose: 10 mg Clopidogrel Bisulfate (Plavix -) 75 mg PO DAILY [facility] Last Admin: 11/01/16 09:53 Dose: 75 mg Fentanyl (Sublimaze Injection -) 25 mcg IVPUSH [id number] PRN PRN Reason: PAIN Stop: 11/03/16 11:44 Heparin Sodium (Porcine) (Heparin -) 5,000 unit SQ TID [facility] Last Admin: 10/31/16 15:29 Dose: Not Given Aztreonam 2 gm/ Dextrose 100 mls @ 100 mls/hr IVPB Q8H-IV FR[facility]ESCA PRN Reason: Protocol Last Admin: 11/01/16 01:05 Dose: 100 mls/hr Lactated Ringer's (Lactated Ringers Solution) 1,000 mls @ 42 mls/hr IV ASDIR [facility] Last Admin: 10/31/16 15:27 Dose: 42 mls/hr Vancomycin HCl (Vancomycin (Pre-Docked)) 250 mls @ 200 mls/hr IVPB Q24H [facility] Last Admin: 10/31/16 16:53 Dose: 200 mls/hr Isosorbide Mononitrate (Imdur -) 30 mg PO DAILY [facility] Last Admin: 11/01/16 09:53 Dose: 30 mg Lactobacillus Acidophilus (Bacid -) 1 tab PO DAILY [facility] Last Admin: 11/01/16 09:53 Dose: 1 tab Metoprolol Succinate (Toprol Xl -) 25 mg PO DAILY [facility] Last Admin: 11/01/16 10:01 Dose: 25 mg Polyethylene Glycol (Miralax (For Daily Use) -) 17 gm PO DAILY [facility] Last Admin: 11/01/16 09:54 Dose: Not Given Ranolazine (Ranexa -) 500 mg PO BID [facility] Last Admin: 11/01/16 09:53 Dose: 500 mg *Physical Exam Last Vital Signs Temp Pulse Resp BP Pulse Ox 98.2 F 97 H 20 132/90 96 10/31/16 20:57 10/31/16 20:57 10/31/16 20:57 10/31/16 20:57 10/31/16 20:34 Well developed, well nourished. Awake and alert. No acute distress. HEENT: Normocephalic, atraumatic. PERRLA, EOMI. No conjunctival pallor. Sclera are non- icteric. Moist mucous membranes. Oropharynx is clear. NECK: Supple. Full ROM. No JVD. Carotid pulses 2+ and symmetric, without bruits. No thyromegaly. No lymphadenopathy. CARDIOVASCULAR: Regular rate and rhythm. No murmurs, rubs, or gallops. Distal pulses are 2+ and symmetric. PULMONARY: No evidence of respiratory distress. Lungs clear to auscultation bilaterally. No wheezing, rales or rhonchi. ABDOMINAL: Soft. Non-tender. Non-distended. No rebound or guarding. No organomegaly. Normoactive bowel sounds. MUSCULOSKELETAL Normal range of motion at all joints. No bony deformities or tenderness. No CVA tenderness. EXTREMITIES: No cyanosis. No clubbing. No edema. No calf tenderness. SKIN: Warm and dry. Normal capillary refill. No rashes. No jaundice. NEUROLOGICAL: Alert, awake, appropriate. Cranial nerves 2-12 intact. No deficits to light touch and temperature in face, upper extremities and lower extremities. No motor deficits in the in face, upper extremities and lower extremities. Normoreflexic in the upper and lower extremities. Normal speech. Toes are down- going bilaterally. Gait is normal without ataxia. PSYCHIATRIC: Cooperative. Good eye contact. Appropriate mood and affect. CBCD WBC 11.3 K/mm3 (4.0-10.0) H D 11/01/16 06:00 RBC 3.79 M/mm3 (4.00-5.60) L 11/01/16 06:00 Hgb 11.6 GM/dL (11.7-16.9) L 11/01/16 06:00 Hct 34.8 % (35.4-49) L 11/01/16 06:00 MCV 91.9 fl (80-96) 11/01/16 06:00 MCHC 33.2 g/dl (32.0-35.9) 11/01/16 06:00 RDW 14.1 % (11.9-15.9) 11/01/16 06:00 Plt Count 270 K/MM3 (134-434) 11/01/16 06:00 MPV 8.8 fl (7.5-11.1) 11/01/16 06:00 CMP Sodium 136 mmol/L (136-145) 11/01/16 05:35 Potassium 4.5 mmol/L (3.5-5.1) 11/01/16 05:35 Chloride 102 mmol/L (98-107) 11/01/16 05:35 Carbon Dioxide 25 mmol/L (21-32) 11/01/16 05:35 Anion Gap 9 (8-16) 11/01/16 05:35 BUN 22 mg/dL (7-18) H 11/01/16 05:35 Creatinine 1.0 mg/dL (0.7-1.3) 11/01/16 05:35 Creat Clearance w eGFR 48.40 (>60) 10/23/16 14:20 Calcium 8.6 mg/dL (8.5-10.1) 11/01/16 05:35 Total Bilirubin 0.7 mg/dL (0.2-1.0) D 10/23/16 14:20 AST 24 U/L (15-37) D 10/23/16 14:20 ALT 18 U/L (12-78) 10/23/16 14:20 Alkaline Phosphatase 89 U/L (45-117) D 10/23/16 14:20 Total Protein 7.3 g/dl (6.4-8.2) 10/23/16 14:20 Albumin 3.0 g/dl (3.4-5.0) L 10/23/16 14:20 Medical Decision Making 81-year-old male with past medical history of CAD s/p stent placement in 2012 on Plavix, HLD, HTN, who presented to the emergency department complaining of generalized weakness, and headache. His headache started last Sunday, generalized, dull and persistent. He tried taking Tylenol for his headache with little relief. Patient states he has also been feeling weak overall. Found to have left upper lobe PNA. He is being treated with Abx and still reports generalized fatigue but no focal weakness. CT head was completed and did not show acute changes. Would recommend continued treatment of systemic infection, IV Abx. No focal deficits and would not require further imaging. Continued hydration recommended. For tension headache, completed bronchoscopy. On respiratory precautions, increased hydration for headache, can take tylenol as needed, oputpatient follow up for benign tremor.
[2016-11-01] MEDS ORDERED: TAMSULOSIN HCL 0.4 MG CAP.ER.24H (FP) PO SCH (11:15)
--- NOTE | 2016-11-01 11:35 | PN ---
Progress Note (short form) - Note Progress Note: stilll with night sweats now productive cough- yellow and white- blood tinged vomiting last pm -resolved +urinary retention last night as well still with difficulty urinating today alert OOB Vital Signs Period Temp Pulse Resp BP Sys/Garcia Pulse Ox Last 24 Hr 98.1 F-98.6 F 64-97 18-32 117-150/52-90 95-100 cor-rrr lungs clear abd soft,nt ext no edema CBC, BMP 11/01/16 06:00 11/01/16 05:35 Laboratory Tests 10/26/16 10/27/16 10/27/16 13:20 08:30 08:30 ESR 115 H C-Reactive Protein 15.7 H Vancomycin Pre-Dose 4.642 L a/p s/p bronch f/u results now productive sputum, collect 3 afb continue vanco/azactam esr/crp noted ?malignancy r/o TB with positive quantiferon and upper lobe pneumonia
[2016-11-01] MEDS: HEPARIN NA (PORCINE) 5,000 UNITS/ML 1ML VIAL SQ SCH ×3 (12:10→21:06)
[2016-11-01 12:44] LABS: ERYTHROCYTE SEDIMENTATION RATE 70 mm/hr (0-20)
--- NOTE | 2016-11-01 14:30 | PN ---
Progress Note (short form) - Note Progress Note: PULMONARY STABLE POST BRONCHO NO CHANGE IN EXAM LABS/MEDS/NOTES/IMAGING/MICRO REVIEWED A/P Pneumonia vs tbc Sepsis CAD HTN Hypercholesterolemia - awaiting results of broncho - continue antibiotics - quantiferon gold positive - urinary antigens negative - monitor urine output, creatinine - DVT prophylaxis Problem List - Problems (1) Pneumonia Code(s): J18.9 - PNEUMONIA, UNSPECIFIED ORGANISM Qualifiers: Pneumonia type: due to unspecified organism Laterality: left Lung location: upper lobe of lung Qualified Code(s): J18.1 - Lobar pneumonia, unspecified organism (2) RAINE (acute kidney injury) Code(s): N17.9 - ACUTE KIDNEY FAILURE, UNSPECIFIED (3) CAD (coronary artery disease) Code(s): I25.10 - ATHSCL HEART DISEASE OF [place] CORONARY ARTERY W/O ANG PCTRS (4) Elevated troponin Code(s): R74.8 - ABNORMAL LEVELS OF OTHER SERUM ENZYMES (5) Sepsis Code(s): A41.9 - SEPSIS, UNSPECIFIED ORGANISM Qualifiers: Sepsis type: sepsis due to unspecified organism Qualified Code(s): A41.9 - Sepsis, unspecified organism Edouard PATRICK MD
[2016-11-01] MEDS: LACTATED RINGERS SOLUTION 1,000 ML IV SCH (16:29)
--- NOTE | 2016-11-01 16:35 | PATH ---
Surgical Pathology Report Patient Name: CRICKET DOVER [facility]. Rec. #: [id number] /Age/Gender: 1935 (Age: 81) / M Account: [id number] Location: 4 W TELEMETRY U Taken: 10/31/2016 Received: 10/31/2016 Reported: 11/01/2016 Physicians: Shelly Thompson M.D. Specimen(s) Received BRONCHIAL BIOPSY ELÍAS Clinical History Pneumonia, r/o tuberculosis Final Diagnosis LUNG, LEFT UPPER LOBE, BRONCHIAL BIOPSY: FRAGMENTS OF BENIGN BRONCHOPULMONARY TISSUE WITH FOCAL HEMORRHAGE. FRAGMENT OF BENIGN SKELETAL MUSCLE. NO GRANULOMAS IDENTIFIED. NO MALIGNANCY IDENTIFIED. Comment: No acid-fast bacilli identified with AFB stain; no fungal organisms identified with GMS stain. Correlations with microbiology studies are suggested. Also refer to D79-341 and J17-342. Electronically Signed Jeremy Saleh M.D. Gross Description Received in formalin, labeled "bronchial biopsy left upper lobe" are 4 fisher, irregular portions of soft tissue measuring 0.1-0.2 cm. in greatest dimension. The specimens are submitted in toto in one cassette. [facility]/10/31/2016 [facility]/10/31/2016
--- NOTE | 2016-11-01 16:36 | PATH ---
Cytology Non-Gynecological Report Patient Name: CRICKET DOVER Med. Rec. #: [id number] /Age/Gender: 1935 (Age: 81) / M Account: [id number] Location: 4 W TELEMETRY U Taken: 10/31/2016 Received: 10/31/2016 Reported: 11/01/2016 Physicians: Shelly Thompson M.D. Specimen(s) Received BRONCHIAL WASHINGS ELÍAS Clinical History Pneumonia, r/o TB Final Diagnosis LUNG, LEFT UPPER LOBE, BRONCHIAL WASHINGS: SATISFACTORY FOR EVALUATION. NO MALIGNANT CELLS IDENTIFIED. REACTIVE BRONCHIAL CELLS, MACROPHAGES AND ACUTE INFLAMMATION. NO ACID FAST BACILLI IDENTIFIED WITH AFB STAIN. NO FUNGAL ORGANISMS IDENTIFIED WITH GMS STAIN. Comment: Also refer to [id number] and [id number]. Electronically Signed Jeremy Saleh M.D. Gross Description Received is 50 cc of cloudy fluid in 50% alcohol. Two cytofunnel slides and one cell block are made.
--- NOTE | 2016-11-01 16:36 | PATH ---
Cytology Non-Gynecological Report Patient Name: CRICKET DOVER [facility]. Rec. #: [id number] /Age/Gender: 1935 (Age: 81) / M Account: [id number] Location: 4 W TELEMETRY U Taken: 10/31/2016 Received: 10/31/2016 Reported: 11/01/2016 Physicians: Shelly Thompson M.D. Specimen(s) Received BRONCHIAL BRUSHINGS ELÍAS Clinical History Pneumonia, r/o TB Final Diagnosis LUNG, LEFT UPPER LOBE, BRONCHIAL BRUSHING: SATISFACTORY FOR EVALUATION. NO MALIGNANT CELLS IDENTIFIED. REACTIVE BRONCHIAL CELLS, MACROPHAGES AND INFLAMMATORY CELLS. Comment: Also refer to [id number] and [id number]. Electronically Signed Jeremy Saleh M.D. Gross Description Received tube rashes in 50% alcohol. Two Pap stained direct smear slides are made.
[2016-11-01] MEDS: VANCOMYCIN 1 GRAM (PRE-DOCKED) 250 ML IVPB SCH (18:55)
[2016-11-01] MEDS: MAG HYDROX/AL HYDROX/SIMETH 30 ML UNIT-DOSE CUP PO PRN (20:00)
[2016-11-01] MEDS: TAMSULOSIN HCL 0.4 MG CAP.ER.24H (FP) PO SCH (21:06)
[2016-11-01] MEDS: ATORVASTATIN CA 10 MG TABLET (FP) PO SCH (21:06)
[2016-11-02] MEDS ORDERED: PT OWN MED DRAWER 7, Y5N ONE ×3 (01:17→17:33)
[2016-11-02] MEDS: AZTREONAM 2 GM in DEXTROSE 5%-WATER - 100 ML IVPB SCH ×3 (01:23→18:01)
[2016-11-02] MEDS: HEPARIN NA (PORCINE) 5,000 UNITS/ML 1ML VIAL SQ SCH ×3 (06:10→21:44)
[2016-11-02 08:14] LABS: MCH 31.3 pg (25.7-33.7); MEAN PLT VOLUME 8.7 fl (7.5-11.1); PLATELET COUNT 262 K/MM3 (134-434); RDW 14.1 % (11.9-15.9); WHITE BLOOD COUNT 8.7 K/mm3 (4.0-10.0)
[2016-11-02 08:50] LABS: ANION GAP 8 (8-16); CALCIUM 8.5 mg/dL (8.5-10.1); CO2 24 mmol/L (21-32); GLUCOSE,RANDOM 89 mg/dL (74-106)
--- NOTE | 2016-11-02 09:00 | PN ---
Progress Note (short form) - Note Progress Note: Patient needed sargent cath yesterday because of difficulty with urination post Bronchoscopy. Path report for Bronchoscopy: AFB stains negative and no malignant cells. Still GI sxs and heartburn and await UGI series as was ordered over a week ago. Sed fell from oover 100 to 70. On Exam: Vital Signs Temp 99.2 F 11/02/16 02:00 Pulse 77 11/02/16 02:00 Resp 20 11/02/16 02:00 BP 126/68 11/02/16 02:00 Pulse Ox 96 11/01/16 21:00 Intake & Output 11/01/16 11/01/16 11/02/16 11:59 23:59 11:59 Intake Total 400 550 Output Total 1000 1200 Balance -600 -650 Weight 161 lb 6.4 oz 160 lb 12.8 oz Intake: IV 500 Lactated Ringers Solution 500 1,000 ml @ 42 mls/hr IV ASDIR [facility] Rx#:[id number] IVPB 50 Oral 400 Output: Urine 1000 1200 Sargent 1000 1200 Other: Voiding Method Toilet Toilet Toilet Weight Measurement Method Standing Scale Standing Scale Alert Sad Chest: Left rales only Cor; reg Abd: Some mild Epigastric tenderness Ext: No edema Abnormal Lab Results 11/01/16 11/01/16 11/02/16 05:35 06:00 05:50 WBC 11.3 H D RBC 3.79 L 3.77 L Hgb 11.6 L Hct 34.8 L 34.7 L Myelocytes % (Man) 5 H D ESR 70 H BUN 22 H 11/02/16 05:50 WBC RBC Hgb Hct Myelocytes % (Man) ESR BUN 19 H IMP: Left Upper Lobe Pneumonia + Quantyiferon Gold test ASHD S/P stent BPH Mild depression Plan: GI series Continue IV antibiotics OOB Antidepressant Problem List - Problems (1) Pneumonia Code(s): J18.9 - PNEUMONIA, UNSPECIFIED ORGANISM Qualifiers: Pneumonia type: due to unspecified organism Laterality: left Lung location: upper lobe of lung Qualified Code(s): J18.1 - Lobar pneumonia, unspecified organism (2) CAD (coronary artery disease) Code(s): I25.10 - ATHSCL HEART DISEASE OF [place] CORONARY ARTERY W/O ANG PCTRS (3) Elevated troponin Code(s): R74.8 - ABNORMAL LEVELS OF OTHER SERUM ENZYMES (4) Dysphagia Code(s): R13.10 - DYSPHAGIA, UNSPECIFIED (5) BPH (benign prostatic hyperplasia) Code(s): N40.0 - BENIGN PROSTATIC HYPERPLASIA WITHOUT LOWER URINRY TRACT SYMP (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
[2016-11-02 09:48] LABS: METAMYELOCYTE 3 % (0-2); MYELOCYTE 8 % (0-2); PLATELET ESTIMATE ADEQUATE (NORMAL); TOTAL CELLS COUNTED 100
--- NOTE | 2016-11-02 09:54 | PN ---
Progress Note (short form) - Note Progress Note: Neurology History of Present Illness 81-year-old male with past medical history of CAD s/p stent placement in 2013 on Plavix, HLD, HTN, who presented to the emergency department complaining of generalized weakness, and headache. His headache started last Sunday, generalized, dull and persistent. He tried taking Tylenol for his headache with little relief. Patient states he has also been feeling weak overall. Admits to fevers, chills and night sweats. He also admits to fatigue, and shortness of breath with exertion. Denies nausea, vomiting, diarrhea, constipation, chest tightness, palpitations, edema, chest pain and cough. He was admitted and found to have left upper lobe PNA. He is being treated with Abx and still reports generalized fatigue but no focal weakness. CT head was completed and did not show acute changes. Well appearing today and on IV Abx. Bronchoscopy completed. Resting tremor minimal, does not have significant features of PD. Patient was having episodic headaches and feels better this morning. Discussed increased hydration. Had some difficulty with urination post procedure, required Martinez insertion. Active Medications Acetaminophen (Tylenol -) 650 mg PO Q4H PRN PRN Reason: FEVER OR PAIN Last Admin: 10/28/16 02:44 Dose: 650 mg Acetaminophen/Butalbital/Caffeine (Fioricet -) 1 tablet PO Q6H PRN PRN Reason: HEADACHE Last Admin: 10/28/16 22:46 Dose: 1 tablet Al Hydroxide/Mg Hydroxide (Mylanta Oral Suspension -) 30 ml PO Q6H PRN PRN Reason: INDIGESTION Last Admin: 11/01/16 20:00 Dose: 30 ml Albuterol Sulfate (Ventolin 0.083% Nebulizer Soln -) 1 amp NEB Q4H PRN PRN Reason: SHORT OF BREATH/WHEEZING Last Admin: 10/31/16 11:50 Dose: 1 amp Aspirin (Asa -) 81 mg PO DAILY [facility] Last Admin: 11/01/16 09:53 Dose: 81 mg Atorvastatin Calcium (Lipitor -) 10 mg PO HS [facility] Last Admin: 11/01/16 21:06 Dose: 10 mg Clopidogrel Bisulfate (Plavix -) 75 mg PO DAILY [facility] Last Admin: 11/01/16 09:53 Dose: 75 mg Escitalopram Oxalate (Lexapro -) 10 mg PO DAILY [facility] Fentanyl (Sublimaze Injection -) 25 mcg IVPUSH [id number] PRN PRN Reason: PAIN Stop: 11/03/16 11:44 Heparin Sodium (Porcine) (Heparin -) 5,000 unit SQ TID [facility] Last Admin: 11/02/16 06:10 Dose: 5,000 unit Aztreonam 2 gm/ Dextrose 100 mls @ 100 mls/hr IVPB Q8H-IV [facility] PRN Reason: Protocol Last Admin: 11/02/16 01:23 Dose: 100 mls/hr Lactated Ringer's (Lactated Ringers Solution) 1,000 mls @ 42 mls/hr IV ASDIR [facility] Last Admin: 11/01/16 16:29 Dose: Not Given Vancomycin HCl (Vancomycin (Pre-Docked)) 250 mls @ 200 mls/hr IVPB Q24H [facility] Last Admin: 11/01/16 18:55 Dose: 200 mls/hr Isosorbide Mononitrate (Imdur -) 30 mg PO DAILY [facility] Last Admin: 11/01/16 09:53 Dose: 30 mg Lactobacillus Acidophilus (Bacid -) 1 tab PO DAILY [facility] Last Admin: 11/01/16 09:53 Dose: 1 tab Metoprolol Succinate (Toprol Xl -) 25 mg PO DAILY [facility] Last Admin: 11/01/16 10:01 Dose: 25 mg Polyethylene Glycol (Miralax (For Daily Use) -) 17 gm PO DAILY [facility] Last Admin: 11/01/16 09:54 Dose: Not Given Ranolazine (Ranexa -) 500 mg PO BID [facility] Last Admin: 11/01/16 21:06 Dose: 500 mg Tamsulosin HCl (Flomax -) 0.4 mg PO BID [facility] Last Admin: 11/01/16 21:06 Dose: 0.4 mg *Physical Exam Vital Signs Temperature 99.2 F 11/02/16 02:00 Pulse Rate 77 11/02/16 02:00 Respiratory Rate 20 11/02/16 02:00 Blood Pressure 126/68 11/02/16 02:00 O2 Sat by Pulse Oximetry (%) 96 11/01/16 21:00 Well developed, well nourished. Awake and alert. No acute distress. HEENT: Normocephalic, atraumatic. PERRLA, EOMI. No conjunctival pallor. Sclera are non- icteric. Moist mucous membranes. Oropharynx is clear. NECK: Supple. Full ROM. No JVD. Carotid pulses 2+ and symmetric, without bruits. No thyromegaly. No lymphadenopathy. CARDIOVASCULAR: Regular rate and rhythm. No murmurs, rubs, or gallops. Distal pulses are 2+ and symmetric. PULMONARY: No evidence of respiratory distress. Lungs clear to auscultation bilaterally. No wheezing, rales or rhonchi. ABDOMINAL: Soft. Non-tender. Non-distended. No rebound or guarding. No organomegaly. Normoactive bowel sounds. MUSCULOSKELETAL Normal range of motion at all joints. No bony deformities or tenderness. No CVA tenderness. EXTREMITIES: No cyanosis. No clubbing. No edema. No calf tenderness. SKIN: Warm and dry. Normal capillary refill. No rashes. No jaundice. NEUROLOGICAL: Alert, awake, appropriate. Cranial nerves 2-12 intact. No deficits to light touch and temperature in face, upper extremities and lower extremities. No motor deficits in the in face, upper extremities and lower extremities. Normoreflexic in the upper and lower extremities. Normal speech. Toes are down- going bilaterally. Gait is normal without ataxia. PSYCHIATRIC: Cooperative. Good eye contact. Appropriate mood and affect. CBCD WBC 8.7 K/mm3 (4.0-10.0) 11/02/16 05:50 RBC 3.77 M/mm3 (4.00-5.60) L 11/02/16 05:50 Hgb 11.8 GM/dL (11.7-16.9) 11/02/16 05:50 Hct 34.7 % (35.4-49) L 11/02/16 05:50 MCV 92.0 fl (80-96) 11/02/16 05:50 MCHC 34.0 g/dl (32.0-35.9) 11/02/16 05:50 RDW 14.1 % (11.9-15.9) 11/02/16 05:50 Plt Count 262 K/MM3 (134-434) 11/02/16 05:50 MPV 8.7 fl (7.5-11.1) 11/02/16 05:50 CMP Sodium 138 mmol/L (136-145) 11/02/16 05:50 Potassium 4.6 mmol/L (3.5-5.1) 11/02/16 05:50 Chloride 106 mmol/L (98-107) 11/02/16 05:50 Carbon Dioxide 24 mmol/L (21-32) 11/02/16 05:50 Anion Gap 8 (8-16) 11/02/16 05:50 BUN 19 mg/dL (7-18) H 11/02/16 05:50 Creatinine 1.0 mg/dL (0.7-1.3) 11/02/16 05:50 Creat Clearance w eGFR 48.40 (>60) 10/23/16 14:20 Calcium 8.5 mg/dL (8.5-10.1) 11/02/16 05:50 Total Bilirubin 0.7 mg/dL (0.2-1.0) D 10/23/16 14:20 AST 24 U/L (15-37) D 10/23/16 14:20 ALT 18 U/L (12-78) 10/23/16 14:20 Alkaline Phosphatase 89 U/L (45-117) D 10/23/16 14:20 Total Protein 7.3 g/dl (6.4-8.2) 10/23/16 14:20 Albumin 3.0 g/dl (3.4-5.0) L 10/23/16 14:20 Medical Decision Making 81-year-old male with past medical history of CAD s/p stent placement in 2012 on Plavix, HLD, HTN, who presented to the emergency department complaining of generalized weakness, and headache. His headache started last Sunday, generalized, dull and persistent. He tried taking Tylenol for his headache with little relief. Patient states he has also been feeling weak overall. Found to have left upper lobe PNA. He is being treated with Abx and still reports generalized fatigue but no focal weakness. CT head was completed and did not show acute changes. Would recommend continued treatment of systemic infection, IV Abx. No focal deficits and would not require further imaging. Continued hydration recommended. For tension headache, completed bronchoscopy. On respiratory precautions, increased hydration for headache, can take tylenol as needed, oputpatient follow up for benign tremor.
[2016-11-02] MEDS: ASPIRIN 81 MG CHEWABLE TABLETS PO SCH (10:35)
[2016-11-02] MEDS: LACTOBACILLUS ACIDOPHILUS 1 EACH TAB (FP) PO SCH (10:35)
[2016-11-02] MEDS: TAMSULOSIN HCL 0.4 MG CAP.ER.24H (FP) PO SCH ×2 (10:36→21:44)
[2016-11-02] MEDS: ISOSORBIDE MONONITRATE 30 MG TAB.SR.24H (FP) PO SCH (10:36)
[2016-11-02] MEDS: ESCITALOPRAM OXALATE 10 MG TABLET (FP) PO SCH (10:36)
[2016-11-02] MEDS: RANOLAZINE E.R. 500 MG TABLET (FP) PO SCH ×2 (10:37→21:44)
[2016-11-02] MEDS: METOPROLOL SUCCINATE 25 MG TAB.SR.24H (FP) PO SCH (10:37)
[2016-11-02] MEDS: CLOPIDOGREL BISULFATE 75 MG TABLET (FP) PO SCH (10:37)
[2016-11-02] MEDS: POLYETHYLENE GLYCOL 3350 119 GM BTL PO SCH (10:37)
[2016-11-02] MEDS: MAG HYDROX/AL HYDROX/SIMETH 30 ML UNIT-DOSE CUP PO PRN (10:49)
--- NOTE | 2016-11-02 11:09 | PN ---
Progress Note, Physician History of Present Illness: pulmonary alert,nad,-sob, bx -granuloma,-AFB - Current Medication List Current Medications: Active Medications Acetaminophen (Tylenol -) 650 mg PO Q4H PRN PRN Reason: FEVER OR PAIN Last Admin: 10/28/16 02:44 Dose: 650 mg Acetaminophen/Butalbital/Caffeine (Fioricet -) 1 tablet PO Q6H PRN PRN Reason: HEADACHE Last Admin: 10/28/16 22:46 Dose: 1 tablet Al Hydroxide/Mg Hydroxide (Mylanta Oral Suspension -) 30 ml PO Q6H PRN PRN Reason: INDIGESTION Last Admin: 11/02/16 10:49 Dose: 30 ml Albuterol Sulfate (Ventolin 0.083% Nebulizer Soln -) 1 amp NEB Q4H PRN PRN Reason: SHORT OF BREATH/WHEEZING Last Admin: 10/31/16 11:50 Dose: 1 amp Aspirin (Asa -) 81 mg PO DAILY [facility] Last Admin: 11/02/16 10:35 Dose: 81 mg Atorvastatin Calcium (Lipitor -) 10 mg PO HS [facility] Last Admin: 11/01/16 21:06 Dose: 10 mg Clopidogrel Bisulfate (Plavix -) 75 mg PO DAILY [facility] Last Admin: 11/02/16 10:37 Dose: 75 mg Escitalopram Oxalate (Lexapro -) 10 mg PO DAILY [facility] Last Admin: 11/02/16 10:36 Dose: 10 mg Fentanyl (Sublimaze Injection -) 25 mcg IVPUSH [id number] PRN PRN Reason: PAIN Stop: 11/03/16 11:44 Heparin Sodium (Porcine) (Heparin -) 5,000 unit SQ TID [facility] Last Admin: 11/02/16 06:10 Dose: 5,000 unit Aztreonam 2 gm/ Dextrose 100 mls @ 100 mls/hr IVPB Q8H-IV [facility] PRN Reason: Protocol Last Admin: 11/02/16 10:35 Dose: 100 mls/hr Lactated Ringer's (Lactated Ringers Solution) 1,000 mls @ 42 mls/hr IV ASDIR [facility] Last Admin: 11/01/16 16:29 Dose: Not Given Vancomycin HCl (Vancomycin (Pre-Docked)) 250 mls @ 200 mls/hr IVPB Q24H [facility] Last Admin: 11/01/16 18:55 Dose: 200 mls/hr Isosorbide Mononitrate (Imdur -) 30 mg PO DAILY [facility] Last Admin: 11/02/16 10:36 Dose: 30 mg Lactobacillus Acidophilus (Bacid -) 1 tab PO DAILY [facility] Last Admin: 11/02/16 10:35 Dose: 1 tab Metoprolol Succinate (Toprol Xl -) 25 mg PO DAILY [facility] Last Admin: 11/02/16 10:37 Dose: 25 mg Polyethylene Glycol (Miralax (For Daily Use) -) 17 gm PO DAILY [facility] Last Admin: 11/02/16 10:37 Dose: Not Given Ranolazine (Ranexa -) 500 mg PO BID [facility] Last Admin: 11/02/16 10:37 Dose: 500 mg Tamsulosin HCl (Flomax -) 0.4 mg PO BID [facility] Last Admin: 11/02/16 10:36 Dose: 0.4 mg - Objective Vital Signs: Vital Signs Temperature 99.2 F 11/02/16 02:00 Pulse Rate 77 11/02/16 02:00 Respiratory Rate 20 11/02/16 02:00 Blood Pressure 126/68 11/02/16 02:00 O2 Sat by Pulse Oximetry (%) 96 11/01/16 21:00 Constitutional: Yes: Calm, Thin Eyes: Yes: WNL HENT: Yes: WNL Cardiovascular: Yes: Regular Rate and Rhythm, S1, S2 Respiratory: Yes: Diminished Gastrointestinal: Yes: Normal Bowel Sounds, Soft Extremities: Yes: WNL Edema: No Labs: CBC, BMP 11/02/16 05:50 11/02/16 05:50 INR, PTT INR 1.17 (0.82-1.09) H 10/31/16 06:00 Assessment/Plan A/P Pneumonia Sepsis +Troponins likely Demand Ischemia CAD HTN Hypercholesterolemia - continue antibiotics as peer ID - f/u BAL cultures - monitor urine output, creatinine - DVT prophylaxis DR PABLO Problem List - Problems (1) Pneumonia Code(s): J18.9 - PNEUMONIA, UNSPECIFIED ORGANISM Qualifiers: Pneumonia type: due to unspecified organism Laterality: left Lung location: upper lobe of lung Qualified Code(s): J18.1 - Lobar pneumonia, unspecified organism (2) RAINE (acute kidney injury) Code(s): N17.9 - ACUTE KIDNEY FAILURE, UNSPECIFIED (3) CAD (coronary artery disease) Code(s): I25.10 - ATHSCL HEART DISEASE OF [place] CORONARY ARTERY W/O ANG PCTRS (4) Elevated troponin Code(s): R74.8 - ABNORMAL LEVELS OF OTHER SERUM ENZYMES (5) Sepsis Code(s): A41.9 - SEPSIS, UNSPECIFIED ORGANISM Qualifiers: Sepsis type: sepsis due to unspecified organism Qualified Code(s): A41.9 - Sepsis, unspecified organism
--- NOTE | 2016-11-02 13:22 | CON.GU ---
Consult - History of Present Illness History of Present Illness: 81 yo male admitted with headache,nausea,decreased appetite. Developed acute urinary retention after recent Bronchoscopy. Has a remote h/o urinary retention , but has not required any meds in recent history and has never had a prostate procedyre. Currenlty on flomax - Past Medical History Cardio/Vascular: Yes: CAD, HTN Gastrointestinal: Yes: GERD Musculoskeletal: Yes: Other (plantar fasciitis) - Past Surgical History Past Surgical History: Yes: Appendectomy, Joint Replacement (right knee), Stent - Alcohol/Substance Use Hx Alcohol Use: No History of Substance Use: reports: None - Smoking History Smoking history: Former smoker Have you smoked in the past 12 months: No If you are a former smoker, when did you quit?: 30 YRS AGO - Social History Usual Living Arrangement: With Spouse ADL: Independent History of Recent Travel: No Home Medications - Allergies Allergies/Adverse Reactions: Allergies Allergy/AdvReac Type Severity Reaction Status Date / Time levofloxacin [From Levaquin] Allergy Intermediate rash and Verified 10/24/16 12: 40 itching in arm of infusion morphine Allergy Vomiting Verified 10/23/16 12:52 Penicillins Allergy Swelling Verified 10/23/16 12:52 - Home Medications Home Medications: Ambulatory Orders Aspirin [Luisito Chewable Aspirin] 81 mg PO DAILY 11/13/13 Clopidogrel Bisulfate [Plavix -] 75 mg PO DAILY 11/13/13 Simvastatin [Zocor -] 20 mg PO HS 11/13/13 Metoprolol Succinate [Toprol XL -] 25 mg PO DAILY 09/17/14 Esomeprazole Magnesium [Nexium 24Hr] 0 mg PO DAILY 10/23/16 Isosorbide Dinitrate [Isordil -] 0 mg PO DAILY 10/23/16 Family Disease History - Family Disease History Family Disease History: Heart Disease: Father (: 79: Obesity/CAD), CA: Mother (: 80: DM II complications), Brother (2 from colon cancer 1 from DM comps, 1 from [place]), Other: Mother, Brother Review of Systems - Review of Systems Genitourinary: reports: Other (retention) Physical Exam- Vital Signs: Vital Signs Temperature 98.7 F 11/02/16 10:00 Pulse Rate 73 11/02/16 10:10 Respiratory Rate 20 11/02/16 10:00 Blood Pressure 142/76 11/02/16 10:00 O2 Sat by Pulse Oximetry (%) 96 11/02/16 10:10 Renal/: Yes: Martinez Present (urine pink tinged) Labs: CBC, BMP 11/02/16 05:50 11/02/16 05:50 Problem List - Problems (1) Urinary retention Assessment/Plan: agree with flomax, will give voiding trial in am tomorrow Code(s): R33.9 - RETENTION OF URINE, UNSPECIFIED
[2016-11-02] MEDS: ACETAMINOPHEN/CAFFEINE/BUTALBITAL 1 TAB PO PRN (16:17)
[2016-11-02] MEDS: VANCOMYCIN 1 GRAM (PRE-DOCKED) 250 ML IVPB SCH (16:17)
[2016-11-02] MEDS: ATORVASTATIN CA 10 MG TABLET (FP) PO SCH (21:44)
[2016-11-02] MEDS: LACTATED RINGERS SOLUTION 1,000 ML IV SCH (21:44)
[2016-11-03] MEDS ORDERED: PT OWN MED DRAWER 7, Y5N ONE (00:36)
[2016-11-03] MEDS: AZTREONAM 2 GM in DEXTROSE 5%-WATER - 100 ML IVPB SCH ×2 (01:03→09:57)
[2016-11-03] MEDS: HEPARIN NA (PORCINE) 5,000 UNITS/ML 1ML VIAL SQ SCH ×3 (05:49→21:52)
--- NOTE | 2016-11-03 09:37 | PN ---
Progress Note (short form) - Note Progress Note: Patient is feeling better with no nite sweats. Preliminary results from Path Dept. from Bronchoscopy are noted and encouraging ; C/S for [facility] at [facility]. Our goal may be continuing IV antibiotics till satisfactory clearing of his pulmonary infiltrate and waiting at home for final AFB C/S. Trial of Martinez cath out today: seen by Urology MD. On Exam: Vital Signs Temp 97.9 F 11/03/16 06:09 Pulse 87 11/03/16 06:09 Resp 18 11/03/16 06:09 BP 137/74 11/03/16 06:09 Pulse Ox 95 11/02/16 21:00 Intake & Output 11/02/16 11/02/16 11/03/16 11:59 23:59 11:59 Intake Total 550 1562 634 Output Total 6510 291 1640 Balance -650 1062 -616 Weight 160 lb 12.8 oz 159 lb 6.4 oz Intake: IV 500 672 294 Lactated Ringers Solution 500 672 294 1,000 ml @ 42 mls/hr IV ASDIR [facility] Rx#:[id number] IVPB 50 350 100 Oral 540 240 Output: Urine 0739 [id number] Martinez 4813 [id number] Other: Voiding Method Toilet Toilet Toilet Bowel Movement No Weight Measurement Method Standing Scale Standing Scale Alert Few rales left side posterior mid lung field Cor reg Abd: Soft Ext: No edema Abnormal Lab Results 11/02/16 05:50 RBC 3.77 L Hct 34.7 L Myelocytes % (Man) 8 H D IMP: ELÍAS Pneumonia + Quantiferon Gold test ASHD with Stent BPH Dysphagia with normal GI series. Plan: IV antibiotics as per ID MD F/U CXR PT F/U GI MD Await AFB C/S. Problem List - Problems (1) Pneumonia Code(s): J18.9 - PNEUMONIA, UNSPECIFIED ORGANISM Qualifiers: Pneumonia type: due to unspecified organism Laterality: left Lung location: upper lobe of lung Qualified Code(s): J18.1 - Lobar pneumonia, unspecified organism (2) CAD (coronary artery disease) Code(s): I25.10 - ATHSCL HEART DISEASE OF [place] CORONARY ARTERY W/O ANG PCTRS (3) Elevated troponin Code(s): R74.8 - ABNORMAL LEVELS OF OTHER SERUM ENZYMES (4) Dysphagia Code(s): R13.10 - DYSPHAGIA, UNSPECIFIED (5) BPH (benign prostatic hyperplasia) Code(s): N40.0 - BENIGN PROSTATIC HYPERPLASIA WITHOUT LOWER URINRY TRACT SYMP (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
--- NOTE | 2016-11-03 09:46 | PN ---
Progress Note (short form) - Note Progress Note: Neurology History of Present Illness 81-year-old male with past medical history of CAD s/p stent placement in 2013 on Plavix, HLD, HTN, who presented to the emergency department complaining of generalized weakness, and headache. His headache started last Sunday, generalized, dull and persistent. He tried taking Tylenol for his headache with little relief. Patient states he has also been feeling weak overall. Admits to fevers, chills and night sweats. He also admits to fatigue, and shortness of breath with exertion. Denies nausea, vomiting, diarrhea, constipation, chest tightness, palpitations, edema, chest pain and cough. He was admitted and found to have left upper lobe PNA. He is being treated with Abx and still reports generalized fatigue but no focal weakness. CT head was completed and did not show acute changes. Well appearing today and on IV Abx. Bronchoscopy completed. Resting tremor minimal, does not have significant features of PD. Patient was having episodic headaches and feels better this morning. Discussed increased hydration. Had some difficulty with urination post procedure, required Martinez insertion. Today, remains well appearing. No acute issues. Anxious to have work up completed. Active Medications Acetaminophen (Tylenol -) 650 mg PO Q4H PRN PRN Reason: FEVER OR PAIN Last Admin: 10/28/16 02:44 Dose: 650 mg Acetaminophen/Butalbital/Caffeine (Fioricet -) 1 tablet PO Q6H PRN PRN Reason: HEADACHE Last Admin: 11/02/16 16:17 Dose: 1 tablet Al Hydroxide/Mg Hydroxide (Mylanta Oral Suspension -) 30 ml PO Q6H PRN PRN Reason: INDIGESTION Last Admin: 11/02/16 10:49 Dose: 30 ml Albuterol Sulfate (Ventolin 0.083% Nebulizer Soln -) 1 amp NEB Q4H PRN PRN Reason: SHORT OF BREATH/WHEEZING Last Admin: 10/31/16 11:50 Dose: 1 amp Aspirin (Asa -) 81 mg PO DAILY [facility] Last Admin: 11/02/16 10:35 Dose: 81 mg Atorvastatin Calcium (Lipitor -) 10 mg PO HS [facility] Last Admin: 11/02/16 21:44 Dose: 10 mg Clopidogrel Bisulfate (Plavix -) 75 mg PO DAILY [facility] Last Admin: 11/02/16 10:37 Dose: 75 mg Escitalopram Oxalate (Lexapro -) 10 mg PO DAILY [facility] Last Admin: 11/02/16 10:36 Dose: 10 mg Fentanyl (Sublimaze Injection -) 25 mcg IVPUSH [id number] PRN PRN Reason: PAIN Stop: 11/03/16 11:44 Heparin Sodium (Porcine) (Heparin -) 5,000 unit SQ TID [facility] Last Admin: 11/03/16 05:49 Dose: 5,000 unit Aztreonam 2 gm/ Dextrose 100 mls @ 100 mls/hr IVPB Q8H-IV [facility] PRN Reason: Protocol Last Admin: 11/03/16 01:03 Dose: 100 mls/hr Vancomycin HCl (Vancomycin (Pre-Docked)) 250 mls @ 200 mls/hr IVPB Q24H [facility] Last Admin: 11/02/16 16:17 Dose: 200 mls/hr Isosorbide Mononitrate (Imdur -) 30 mg PO DAILY [facility] Last Admin: 11/02/16 10:36 Dose: 30 mg Lactobacillus Acidophilus (Bacid -) 1 tab PO DAILY [facility] Last Admin: 11/02/16 10:35 Dose: 1 tab Metoprolol Succinate (Toprol Xl -) 25 mg PO DAILY [facility] Last Admin: 11/02/16 10:37 Dose: 25 mg Polyethylene Glycol (Miralax (For Daily Use) -) 17 gm PO DAILY [facility] Last Admin: 11/02/16 10:37 Dose: Not Given Ranolazine (Ranexa -) 500 mg PO BID [facility] Last Admin: 11/02/16 21:44 Dose: 500 mg Tamsulosin HCl (Flomax -) 0.4 mg PO BID [facility] Last Admin: 11/02/16 21:44 Dose: 0.4 mg *Physical Exam Last Vital Signs Temp Pulse Resp BP Pulse Ox 97.9 F 87 18 137/74 95 11/03/16 06:09 11/03/16 06:09 11/03/16 06:09 11/03/16 06:09 11/02/16 21:00 Well developed, well nourished. Awake and alert. No acute distress. HEENT: Normocephalic, atraumatic. PERRLA, EOMI. No conjunctival pallor. Sclera are non- icteric. Moist mucous membranes. Oropharynx is clear. NECK: Supple. Full ROM. No JVD. Carotid pulses 2+ and symmetric, without bruits. No thyromegaly. No lymphadenopathy. CARDIOVASCULAR: Regular rate and rhythm. No murmurs, rubs, or gallops. Distal pulses are 2+ and symmetric. PULMONARY: No evidence of respiratory distress. Lungs clear to auscultation bilaterally. No wheezing, rales or rhonchi. ABDOMINAL: Soft. Non-tender. Non-distended. No rebound or guarding. No organomegaly. Normoactive bowel sounds. MUSCULOSKELETAL Normal range of motion at all joints. No bony deformities or tenderness. No CVA tenderness. EXTREMITIES: No cyanosis. No clubbing. No edema. No calf tenderness. SKIN: Warm and dry. Normal capillary refill. No rashes. No jaundice. NEUROLOGICAL: Alert, awake, appropriate. Cranial nerves 2-12 intact. No deficits to light touch and temperature in face, upper extremities and lower extremities. No motor deficits in the in face, upper extremities and lower extremities. Normoreflexic in the upper and lower extremities. Normal speech. Toes are down- going bilaterally. Gait is normal without ataxia. PSYCHIATRIC: Cooperative. Good eye contact. Appropriate mood and affect. CBCD WBC 8.7 K/mm3 (4.0-10.0) 11/02/16 05:50 RBC 3.77 M/mm3 (4.00-5.60) L 11/02/16 05:50 Hgb 11.8 GM/dL (11.7-16.9) 11/02/16 05:50 Hct 34.7 % (35.4-49) L 11/02/16 05:50 MCV 92.0 fl (80-96) 11/02/16 05:50 MCHC 34.0 g/dl (32.0-35.9) 11/02/16 05:50 RDW 14.1 % (11.9-15.9) 11/02/16 05:50 Plt Count 262 K/MM3 (134-434) 11/02/16 05:50 MPV 8.7 fl (7.5-11.1) 11/02/16 05:50 CMP Sodium 138 mmol/L (136-145) 11/02/16 05:50 Potassium 4.6 mmol/L (3.5-5.1) 11/02/16 05:50 Chloride 106 mmol/L (98-107) 11/02/16 05:50 Carbon Dioxide 24 mmol/L (21-32) 11/02/16 05:50 Anion Gap 8 (8-16) 11/02/16 05:50 BUN 19 mg/dL (7-18) H 11/02/16 05:50 Creatinine 1.0 mg/dL (0.7-1.3) 11/02/16 05:50 Creat Clearance w eGFR 48.40 (>60) 10/23/16 14:20 Calcium 8.5 mg/dL (8.5-10.1) 11/02/16 05:50 Total Bilirubin 0.7 mg/dL (0.2-1.0) D 10/23/16 14:20 AST 24 U/L (15-37) D 10/23/16 14:20 ALT 18 U/L (12-78) 10/23/16 14:20 Alkaline Phosphatase 89 U/L (45-117) D 10/23/16 14:20 Total Protein 7.3 g/dl (6.4-8.2) 10/23/16 14:20 Albumin 3.0 g/dl (3.4-5.0) L 10/23/16 14:20 Medical Decision Making 81-year-old male with past medical history of CAD s/p stent placement in 2012 on Plavix, HLD, HTN, who presented to the emergency department complaining of generalized weakness, and headache. His headache started last Sunday, generalized, dull and persistent. He tried taking Tylenol for his headache with little relief. Patient states he has also been feeling weak overall. Found to have left upper lobe PNA. CT head was completed and did not show acute changes. Getting continued treatment of systemic infection, IV Abx. Continued hydration recommended. On respiratory precautions, increased hydration for headache, remains stable. Can take tylenol as needed, oputpatient follow up for benign tremor.
[2016-11-03] MEDS: ESCITALOPRAM OXALATE 10 MG TABLET (FP) PO SCH (09:57)
[2016-11-03] MEDS: ASPIRIN 81 MG CHEWABLE TABLETS PO SCH (09:57)
[2016-11-03] MEDS: METOPROLOL SUCCINATE 25 MG TAB.SR.24H (FP) PO SCH (09:57)
[2016-11-03] MEDS: POLYETHYLENE GLYCOL 3350 119 GM BTL PO SCH (09:58)
[2016-11-03] MEDS: RANOLAZINE E.R. 500 MG TABLET (FP) PO SCH ×2 (09:58→21:52)
[2016-11-03] MEDS: CLOPIDOGREL BISULFATE 75 MG TABLET (FP) PO SCH (09:58)
[2016-11-03] MEDS: LACTOBACILLUS ACIDOPHILUS 1 EACH TAB (FP) PO SCH (09:58)
[2016-11-03] MEDS: ISOSORBIDE MONONITRATE 30 MG TAB.SR.24H (FP) PO SCH (09:58)
[2016-11-03] MEDS: TAMSULOSIN HCL 0.4 MG CAP.ER.24H (FP) PO SCH ×2 (09:58→21:52)
--- NOTE | 2016-11-03 14:16 | PN ---
Progress Note (short form) - Note Progress Note: no sweats urinating freely minimal cough Vital Signs Period Temp Pulse Resp BP Sys/Garcia Pulse Ox Last 24 Hr 0.2 F-98.6 F 72-87 16-20 106-140/65-77 95-96 cor-rrr lungs clear abd soft,nt ext no edema CBC, BMP 11/02/16 05:50 // 05:50 sputum afb negative times 2 bal afb negative bonch biopsy no afb a/p day #11 antibiotics for pneumonia- infiltrate is improved s/p bronch-infiltrate resolving afb negative, no malignancy noted day #11 vancomycin and azactam will d/c antibiotics no need for po antibiotics on discharge no objection to d/c home with outpt f/u will d/w Dr Swenson
--- NOTE | 2016-11-03 19:14 | PN ---
Progress Note (short form) - Note Progress Note: this is an addendum from this morning's note. ID physician called saying patient is not at risk to go home off current antibiotics and does not need isolation and is not contagious. Unless fevers sweats or other complications overnight he can be discharged Sunday morning. Problem List - Problems (1) Pneumonia Code(s): J18.9 - PNEUMONIA, UNSPECIFIED ORGANISM Qualifiers: Pneumonia type: due to unspecified organism Laterality: left Lung location: upper lobe of lung Qualified Code(s): J18.1 - Lobar pneumonia, unspecified organism (2) CAD (coronary artery disease) Code(s): I25.10 - ATHSCL HEART DISEASE OF [place] CORONARY ARTERY W/O ANG PCTRS (3) Elevated troponin Code(s): R74.8 - ABNORMAL LEVELS OF OTHER SERUM ENZYMES (4) Dysphagia Code(s): R13.10 - DYSPHAGIA, UNSPECIFIED (5) BPH (benign prostatic hyperplasia) Code(s): N40.0 - BENIGN PROSTATIC HYPERPLASIA WITHOUT LOWER URINRY TRACT SYMP (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
[2016-11-03] MEDS: ATORVASTATIN CA 10 MG TABLET (FP) PO SCH (21:51)
[2016-11-04] MEDS: HEPARIN NA (PORCINE) 5,000 UNITS/ML 1ML VIAL SQ SCH (06:35)
[2016-11-04 07:52] LABS: MCH 31.3 pg (25.7-33.7); MCHC 34.3 g/dl (32.0-35.9); MEAN CELL VOLUME 91.3 fl (80-96); MEAN PLT VOLUME 8.6 fl (7.5-11.1); PLATELET COUNT 300 K/MM3 (134-434); RDW 13.9 % (11.9-15.9); WHITE BLOOD COUNT 7.9 K/mm3 (4.0-10.0)
[2016-11-04 07:55] VITALS: BP 154/67; PULSE 71; TEMP 98.4
[2016-11-04 08:07] LABS: CALCIUM 8.6 mg/dL (8.5-10.1)
[2016-11-04 08:10] LABS: ANION GAP 6 (8-16); CO2 27 mmol/L (21-32); CREATININE 0.9 mg/dL (0.7-1.3); GLUCOSE,RANDOM 91 mg/dL (74-106)
[2016-11-04 09:25] LABS: ERYTHROCYTE SEDIMENTATION RATE 70 mm/hr (0-20)
[2016-11-04 09:33] LABS: PLATELET COMMENT2 NO CLOTTING DETECTED; PLATELET ESTIMATE ADEQUATE (NORMAL); REACTIVE LYMPHOCYTES 2 % (0-80); TOTAL CELLS COUNTED 100
[2016-11-04 09:34] LABS: SMUDGE CELLS FEW
[2016-11-04] MEDS: TAMSULOSIN HCL 0.4 MG CAP.ER.24H (FP) PO SCH (09:55)
[2016-11-04] MEDS: RANOLAZINE E.R. 500 MG TABLET (FP) PO SCH (09:55)
[2016-11-04] MEDS: LACTOBACILLUS ACIDOPHILUS 1 EACH TAB (FP) PO SCH (09:55)
[2016-11-04] MEDS: ISOSORBIDE MONONITRATE 30 MG TAB.SR.24H (FP) PO SCH (09:55)
[2016-11-04] MEDS: CLOPIDOGREL BISULFATE 75 MG TABLET (FP) PO SCH (09:55)
[2016-11-04] MEDS: METOPROLOL SUCCINATE 25 MG TAB.SR.24H (FP) PO SCH (09:55)
[2016-11-04] MEDS: ASPIRIN 81 MG CHEWABLE TABLETS PO SCH (09:55)
[2016-11-04] MEDS: POLYETHYLENE GLYCOL 3350 119 GM BTL PO SCH (09:55)
[2016-11-04] MEDS: ESCITALOPRAM OXALATE 10 MG TABLET (FP) PO SCH (09:55)
--- NOTE | 2016-11-04 11:04 | DS ---
Physical Exam: SUBJECTIVE: Patient seen and examined. Uneventful overnight and afebrile/no chills. Feeling well OBJECTIVE: Vital Signs Period Temp Pulse Resp BP Sys/Garcia Pulse Ox Last 24 Hr 98 F-98.4 F 71-78 18-20 116-154/63-74 96-99 PHYSICAL EXAM GENERAL: The patient is awake, alert, and fully oriented, in no acute distress. HEAD: Normal with no signs of trauma. EYES: PERRL, extraocular movements intact, sclera anicteric, conjunctiva clear. ENT: Ears normal, nares patent, oropharynx clear without exudates, moist mucous membranes. NECK: Trachea midline, full range of motion, supple. LUNGS: Breath sounds equal, clear to auscultation bilaterally, no wheezes, no crackles, no accessory muscle use. HEART: Regular rate and rhythm, S1, S2 without murmur, rub or gallop. ABDOMEN: Soft, nontender, nondistended, normoactive bowel sounds, no guarding, no rebound, no hepatosplenomegaly, no masses. EXTREMITIES: 2+ pulses, warm, well-perfused, no edema. NEUROLOGICAL: Cranial nerves II through XII grossly intact. Normal speech, gait not observed. PSYCH: Normal mood, normal affect. SKIN: Warm, dry, normal turgor, no rashes or lesions noted. LABS Laboratory Results - last 24 hr 11/04/16 11/04/16 07:10 07:10 WBC 7.9 RBC 3.72 L Hgb 11.6 L Hct 33.9 L MCV 91.3 MCH 31.3 MCHC 34.3 RDW 13.9 Plt Count 300 MPV 8.6 Total Counted 100 Neutrophils % Y Neutrophils % (Manual) 53 Band Neuts % (Manual) 4 D Lymphocytes % Y Lymphocytes % (Manual) 26 D Monocytes % (Manual) 7 Eosinophils % (Manual) 8 H D Smudge Cells Few Platelet Estimate Adequate Platelet Comment No clotting detected ESR 70 H Sodium 138 Potassium 4.2 Chloride 105 Carbon Dioxide 27 Anion Gap 6 L BUN 16 Creatinine 0.9 Random Glucose 91 Calcium 8.6 HOSPITAL COURSE: Date of Admission:10/23/16 Date of Discharge: 11/04/16 Patient is a 81-year-old male with past medical history of CAD s/p stent placement in 2012 on Plavix, HLD, HTN, who presents to the emergency department today complaining of generalized weakness, and headache. He was admitted for further evaluation and work up of pneumonia. During his course of stay, he was followed by Pulmonary who did a bronchoscopy and washing with cx sent. No finding of TB. ID followed pt with ABT treatment course and completion. Incidently pt required a sargent for urinary retention. He has a hx of BPH. consult evaluated and sargent then d/c'd with return of urine free flow. Flomax administered. Pt now cleared to be discharged to home with his as he feels well and does not require further antibiotic use. 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 Continue regular medication but no antibiotics required as per the directions of the infectious disease physician. As you are still having some abdominal pains please followup with the dairy hand: Dr. Kim [phone]. Dr. Swenson office visit within 2 weeks Referrals: George Swenson MD [Primary Care Provider] - Jade Kim MD [Staff Physician] - Disposition: HOME - Home Medications Comprehensive Discharge Medication List: Ambulatory Orders Aspirin [Luisito Chewable Aspirin] 81 mg PO DAILY 11/13/13 Clopidogrel Bisulfate [Plavix -] 75 mg PO DAILY 11/13/13 Simvastatin [Zocor -] 20 mg PO HS 11/13/13 Metoprolol Succinate [Toprol XL -] 25 mg PO DAILY 09/17/14 Esomeprazole Magnesium [Nexium 24Hr] 0 mg PO DAILY 10/23/16 Acetaminophen [Tylenol .Regular Strength -] 650 mg PO Q4H PRN #0 tablet Escitalopram Oxalate [Lexapro -] 10 mg PO DAILY #30 tablet 11/03/16 Isosorbide Mononitrate [Imdur -] 30 mg PO DAILY #30 cap 11/03/16 Mag Hydrox/Al Hydrox/Simeth [Mylanta Oral Suspension -] 30 ml PO Q6H PRN #8 oz 11/03/16 Polyethylene Glycol 3350 [Miralax 119 gm Btl -] 17 gm PO DAILY bottle 11/03/16 Ranolazine [Ranexa -] 500 mg PO BID #60 tab 11/03/16 Tamsulosin HCl [Flomax -] 0.4 mg PO BID #30 cap 11/03/16 Problem List - Problems (1) Pneumonia Code(s): J18.9 - PNEUMONIA, UNSPECIFIED ORGANISM Qualifiers: Pneumonia type: due to unspecified organism Laterality: left Lung location: upper lobe of lung Qualified Code(s): J18.1 - Lobar pneumonia, unspecified organism This patient is new to me today: Yes Date on this admission: 11/04/16 Emergency Visit: No Critical Care patient: No - Discharge Referral Referred to [facility] No
[2016-11-08 00:10] LABS: C-ANCA <1:20 titer (Neg:<1:20); MYELOPEROXIDASE ANTIBODY <9.0 U/mL (0.0-9.0); P-ANCA <1:20 titer (Neg:<1:20); PROTEINASE-3 ANTIBODY <3.5 U/mL (0.0-3.5)
== END 2016-11-04 11:00 | disposition home or self-care (01) | DRG 853 ==
LOC: JER 12:46 → JERBED 16:06 → J4W 20:54 → J5S 10-27 10:33 → J4W 10-31 19:39
PROVIDERS: ADMIT Internal Medicine; ATTEND Internal Medicine
PROC: 0BB88ZX Excision of Left Upper Lobe Bronchus, Via Natural or Artificial Opening Endoscopic, Diagnostic (ICD-10-PCS; 2016-10-31)
PROC: 0B9G8ZX Drainage of Left Upper Lung Lobe, Via Natural or Artificial Opening Endoscopic, Diagnostic (ICD-10-PCS; principal; 2016-10-31 10:00)
DX: A41.9 Sepsis, unspecified organism (principal); J18.9 Pneumonia, unspecified organism; N17.9 Acute kidney failure, unspecified; R53.1 Weakness; E78.5 Hyperlipidemia, unspecified; N40.0 Benign prostatic hyperplasia without lower urinary tract symptoms; R13.10 Dysphagia, unspecified; K21.9 Gastro-esophageal reflux disease without esophagitis; R33.9 Retention of urine, unspecified; K29.00 Acute gastritis without bleeding; I25.5 Ischemic cardiomyopathy; Z87.891 Personal history of nicotine dependence; I25.10 Atherosclerotic heart disease of native coronary artery without angina pectoris; Z98.61 Coronary angioplasty status
CPT/HCPCS: 36415; 70450-TC; 71010-TC; 71020-TC; 71250-TC; 74220-TC; 74240-TC; 76000-TC; 80048; 80053; 81003; 81015; 82378; 83520; 83605; 83615; 83735; 84153; 84443; 84484; 85025; 85610; 85651; 85730; 86140; 86256; 86301; 86480; 87040; 87070; 87086; 87102; 87116; 87205; 87206; 87210; 87899; 88104; 88108; 88305-TC; 90670; 93005; 93010; 94010; 94760; 97116-GP; 97161-GP; 99283-25; G0480; J1644

== ENCOUNTER 2018-03-05 09:21 | Inpatient (IN) | payer OTHER ==
--- NOTE | 2018-03-05 11:25 | PDOC ---
History of Present Illness - General Chief Complaint: Shortness of Breath Stated Complaint: Respiratory Distress Time Seen by Provider: 03/05/18 10:57 - History of Present Illness Initial Comments: 03/05/18 11:27 The patient is an 82-year-old male with a past medical history significant for CAD s/p 3 stents 2005, 2012, 2014, HLD, HTN presenting to ED with cough and SOB x 3 weeks. Pt was sent to the emergency department by Dr. Swenson to r/o Pneumonia. Pt endorses productive cough thats exacerbated with lying down, with mild relief noted sitting up. Pt also endorses sore throat and chest pain. The patient denies fever, states the highest recorded temperature was to the 100.0 couple of days ago and reports having normal temperature at PCPs office yesterday. The patient reports he was tested for the flu, which was negative. Pt denies recent travel or prolonged immobilization. Denies leg swelling. Allergies: morphine, Penicillins and levofloxacin. Social history: Former smoker (quit 30 year ago) Surgical history: Joint Replacement, Stent, Appendectomy PCP: PCP: George Swenson Past History - Past Medical History Allergies/Adverse Reactions: Allergies Allergy/AdvReac Type Severity Reaction Status Date / Time levofloxacin [From Levaquin] Allergy Intermediate rash and Verified 03/05/18 09: 53 itching in arm of infusion morphine Allergy Vomiting Verified 03/05/18 09:53 Penicillins Allergy Swelling Verified 03/05/18 09:53 Home Medications: Ambulatory Orders Aspirin [Luisito Chewable Aspirin] 81 mg PO DAILY 11/13/13 Clopidogrel Bisulfate [Plavix -] 75 mg PO DAILY 11/13/13 Simvastatin [Zocor -] 25 mg PO HS 11/13/13 Metoprolol Succinate [Toprol XL -] 25 mg PO DAILY 09/17/14 Pantoprazole Sodium [Protonix] 40 mg PO DAILY 03/05/18 Anemia: No Asthma: No Cancer: No Cardiac Disorders: Yes (Stent placement w/ complication 02/2015) CVA: No COPD: Yes CHF: No Dementia: No Diabetes: No GI Disorders: No Disorders: No HTN: Yes Hypercholesterolemia: Yes Liver Disease: No Seizures: No Thyroid Disease: No - Surgical History Abdominal Surgery: No Appendectomy: Yes Cardiac Surgery: Yes (cardiac stent 2005 and 2014) Cholecystectomy: No Lung Surgery: No Neurologic Surgery: No Orthopedic Surgery: Yes (right knee replacement) - Suicide/Smoking/Psychosocial Hx Smoking History: Former smoker Have you smoked in the past 12 months: No If you are a former smoker, when did you quit?: 30 YRS AGO Information on smoking cessation initiated: No Hx Alcohol Use: No Drug/Substance Use Hx: No Substance Use Type: Alcohol Hx Substance Use Treatment: No Review of Systems - Review of Systems Comments:: 03/05/18 11:35 GENERAL/CONSTITUTIONAL: No fever or chills. No weakness. HEAD, EYES, EARS, NOSE AND THROAT: No change in vision. No ear pain or discharge. No sore throat. CARDIOVASCULAR: + chest pain, no loss of consciousness RESPIRATORY: + SOB and cough, no wheezing, or hemoptysis. GASTROINTESTINAL: No nausea, vomiting, diarrhea or constipation. GENITOURINARY: No dysuria, frequency, or change in urination. MUSCULOSKELETAL: No joint or muscle swelling or pain. No neck or back pain. SKIN: No rash NEUROLOGIC: No vertigo, no change in strength/sensation. ENDOCRINE: No increased thirst. No abnormal weight change. HEMATOLOGIC/LYMPHATIC: No anemia, easy bleeding, or history of blood clots. ALLERGIC/IMMUNOLOGIC: No hives or skin allergy. *Physical Exam - Vital Signs Last Vital Signs Temp Pulse Resp BP Pulse Ox 98.2 F 77 22 H 134/75 95 03/05/18 09:30 03/05/18 09:30 03/05/18 09:30 03/05/18 09:30 03/05/18 09:30 - Physical Exam Comments: 03/05/18 11:17 GENERAL: Awake, alert, and fully oriented, in no acute distress. HEAD: No signs of trauma EYES: PERRLA, EOMI, sclera anicteric, conjunctiva clear ENT: Auricles normal inspection, hearing grossly normal, nares patent, oropharynx clear without exudates. Moist mucosa NECK: Nontender, no stepoffs, Normal ROM, supple, no lymphadenopathy, JVD, or masses LUNGS: + bibasilar rales HEART: Regular rate and rhythm, normal S1 and S2, no murmurs, rubs or gallops ABDOMEN: Soft, nontender, normoactive bowel sounds. No guarding, no rebound. No masses EXTREMITIES: Normal range of motion, no edema. No clubbing or cyanosis. No cords, erythema, or tenderness NEUROLOGICAL: Cranial nerves II through XII intact. 5/5 strength and sensation in all extremities, Normal speech, normal gait, normal cerebellar function SKIN: Warm, Dry, normal turgor, no rashes or lesions noted. Moderate Sedation - Procedure Monitoring Vital Signs: Procedure Monitoring Vital Signs Temperature 98.2 F 03/05/18 09:30 Pulse Rate 77 03/05/18 09:30 Respiratory Rate 22 H 03/05/18 09:30 Blood Pressure 134/75 03/05/18 09:30 O2 Sat by Pulse Oximetry (%) 95 03/05/18 09:30 Heart Score/ECG Review - ECG Impressions Comment:: 03/05/18 11:36 NSR, no VERNELL/STDs, TWIs in lateral leads (new in V4-V6 since last EKG), 1st degree AV block ED Treatment Course - LABORATORY CBC & Chemistry Diagram: 03/08/18 07:00 03/08/18 07:00 - RADIOLOGY Radiology Studies Ordered: Category Date Time Status CHEST PA & LAT [RAD] Stat Radiology 03/05/18 11:05 Ordered Medical Decision Making - Critical Care Time Total Critical Care Time (minutes): 45 Critical Care Statement: The care of this patient involved high complexity decision making to prevent further life threatening deterioration of the patient 's condition and/or to evaluate & treat vital organ system(s) failure or risk of failure. - Medical Decision Making 03/05/18 11:17 82 M with SOB and cough x 3 weeks. Pt endorses orthopnea and has bibasilar rales on exam. Consistent with possible new CHF. Pt also with new lateral TWIs on EKG, concerning for ACS. Will also evaluate for PNA. - Labs, BNP, trop - CXR 03/05/18 14:17 Labs notable for increased BNP CXR shows increased lung markings, ?consolidation R lung base Will initiate abx for possible PNA as well as diurese 03/05/18 14:42 Pt admitted to hospitalist *DC/Admit/Observation/Transfer Diagnosis at time of Disposition: PNA (pneumonia) - Discharge Dispostion Decision to Admit order: Yes - Referrals - Patient Instructions - Post Discharge Activity - Attestations Physician Attestion: 03/05/18 14:43 I, Dr. Orestes Reis MD, attest that this document has been prepared under my direction and personally reviewed by me in its entirety. I further attest, that it accurately reflects all work, treatment, procedures and medical decision -making performed by me.
[2018-03-05 11:41] LABS: BASO % 1.2 % (0-2.0); EOS % 5.5 % (0-4.5); HEMATOCRIT 38.3 % (35.4-49); HEMOGLOBIN 13.6 GM/dL (11.7-16.9); LYMPH % 15.9 % (8-40); MCH 32.3 pg (25.7-33.7); MCHC 35.4 g/dl (32.0-35.9); MEAN CELL VOLUME 91.3 fl (80-96); MONO % 10.1 % (3.8-10.2); NEUT % 67.3 % (42.8-82.8); PLATELET COUNT 215 K/MM3 (134-434); RDW 13.6 % (11.9-15.9); WHITE BLOOD COUNT 7.9 K/mm3 (4.0-10.0)
[2018-03-05 12:02] LABS: ALBUMIN 3.2 g/dl (3.4-5.0); ALK PHOS 68 U/L (45-117); ANION GAP 7 MMOL/L (8-16); BILIRUBIN,TOTAL 0.5 mg/dL (0.2-1); BLOOD UREA NITROGEN 22 mg/dL (7-18); CALCIUM 8.8 mg/dL (8.5-10.1); CHLORIDE 109 mmol/L (98-107); CO2 24 mmol/L (21-32); CREATININE 1.1 mg/dL (0.55-1.3); GLUCOSE,RANDOM 107 mg/dL (74-106); POTASSIUM 4.3 mmol/L (3.5-5.1); SGOT/AST 25 U/L (15-37); SGPT/ALT 19 U/L (13-61); SODIUM 139 mmol/L (136-145); TOT PROT 6.8 g/dl (6.4-8.2)
[2018-03-05 12:04] LABS: N-TERMINAL BNP 1693.4 pg/ml (5-450)
[2018-03-05 12:56] LABS: ACANTHOCYTES 0; ANISOCYTOSIS 0; HELMET CELLS 0; HOWELL-JOLLY BODIES 0; MACROCYTOSIS 0; OVALOCYTE 0; PLATELET ESTIMATE NORMAL; ROULEAU 0; SICKELED CELLS 0; TARGET CELLS 0; TEAR DROP CELLS 0; TOXIC GRANULATION 0
[2018-03-05] MEDS ORDERED: FUROSEMIDE 40 MG/4 ML INJECTABLE VIAL IVPUSH ONE (14:18)
[2018-03-05] MEDS ORDERED: AZITHROMYCIN IVPB 500 MG in DEXTROSE 5%-WATER - 250 ML IVPB ONE (14:19)
[2018-03-05] MEDS ORDERED: FUROSEMIDE 40 MG/4 ML INJECTABLE VIAL ONE (14:53)
[2018-03-05] MEDS ORDERED: AZITHROMYCIN IVPB 500 MG/250 ML BAG IVPB ONE (14:53)
--- NOTE | 2018-03-05 15:09 | HP ---
CHIEF COMPLAINT: Cough and SOB x 3 weeks PCP: Dr. Swenson Cardiology: Dr. Latham HISTORY OF PRESENT ILLNESS: Patient is an 82 year old male presented to the ED accompanied with his with the chief complaint of " SOB and cough x 3 weeks". As per the patient, he was apparently well until 3 weeks ago, then developed SOB even at rest. No orthopnea or PND. States he has been coughing up whitish phlegm now turning into yellowish color. Had a fever of 100 F at home couple of days ago , saw his PCP yesterday who mentioned he might have pneumonia and recommended to come to the ED for further evaluation. Patient states he also has lower abdominal pain might be related to vigourous coughing. No sick contacts. Denies palpitations, chills, rigors, sweating, headache, numbness, no urinary complaints. Bowel habit normal. Sleep disturbed due to cough. Appetite decreased since illness. ER course was notable for: (1) Afebrile, BNP 1693 (2) CXR; QUestionable right lung base atelectasis vs infiltrate (3) IV Azithromycin, IV Lasix 40mg Recent Travel: None PAST MEDICAL HISTORY: HTN, HLD, CAD s/p stents in 2012, GERD, pneumonia PAST SURGICAL HISTORY: Right knee replacement, appendectomy, CAD s/p stent Social History: Smoking: Quit 30 yrs ago, smoked for 10 yrs about 2 pack/day Alcohol: Occasional, last drink was a week ago Drugs: Denies Family History: Non contributory Allergies levofloxacin [From Levaquin] Allergy (Intermediate, Verified 03/05/18 09:53) rash and itching in arm of infusion palpitations morphine Allergy (Verified 03/05/18 09:53) Vomiting Penicillins Allergy (Verified 03/05/18 09:53) Swelling HOME MEDICATIONS: Home Medications Medication Instructions Recorded Aspirin [Luisito Chewable Aspirin] 81 mg PO DAILY 11/13/13 Clopidogrel Bisulfate [Plavix -] 75 mg PO DAILY 11/13/13 Simvastatin [Zocor -] 25 mg PO HS 11/13/13 Metoprolol Succinate [Toprol XL -] 25 mg PO DAILY 09/17/14 Pantoprazole Sodium [Protonix] 40 mg PO DAILY 03/05/18 REVIEW OF SYSTEMS CONSTITUTIONAL: Absent: fever, chills, diaphoresis, generalized weakness, malaise, loss of appetite, weight change HEENT: Absent: rhinorrhea, nasal congestion, throat pain, throat swelling, difficulty swallowing, mouth swelling, ear pain, eye pain, visual changes CARDIOVASCULAR: Absent: chest pain, syncope, palpitations, irregular heart rate, lightheadedness , peripheral edema RESPIRATORY: Present: cough, shortness of breath, dyspnea with exertion, Absent: orthopnea, wheezing, stridor, hemoptysis GASTROINTESTINAL: Absent: abdominal pain, abdominal distension, nausea, vomiting, diarrhea, constipation, melena, hematochezia GENITOURINARY: Absent: dysuria, frequency, urgency, hesitancy, hematuria, flank pain, genital pain MUSCULOSKELETAL: Absent: myalgia, arthralgia, joint swelling, back pain, neck pain SKIN: Absent: rash, itching, pallor HEMATOLOGIC/IMMUNOLOGIC: Absent: easy bleeding, easy bruising, lymphadenopathy, frequent infections ENDOCRINE: Absent: unexplained weight gain, unexplained weight loss, heat intolerance, cold intolerance NEUROLOGIC: Absent: headache, focal weakness or paresthesias, dizziness, unsteady gait, seizure, mental status changes, bladder or bowel incontinence PSYCHIATRIC: Absent: anxiety, depression, suicidal or homicidal ideation, hallucinations. PHYSICAL EXAMINATION Vital Signs - 24 hr 03/05/18 03/05/18 09:30 10:25 Temperature 98.2 F Pulse Rate 77 Respiratory 22 H Rate Blood Pressure 134/75 O2 Sat by Pulse 95 96 Oximetry (%) GENERAL: Elderly male, lying in bed, coughing, Awake, alert, and fully oriented , in no acute distress. HEAD: Normal with no signs of trauma. EYES: EOM intact, no pallor or icterus. . EARS, NOSE, THROAT: Ears normal. Moist mucous membranes. NECK: Supple. LUNGS: B/L breath sounds equal. Crackles R> L. Occasional wheeze. HEART: Regular rate and rhythm, normal S1 and S2 with soft systolic murmur, rub or gallop. ABDOMEN: Soft, tenderness in the lower quadrants, BS +, no organomegaly. MUSCULOSKELETAL: Normal range of motion at all joints. No bony deformities or tenderness. No CVA tenderness. UPPER EXTREMITIES: 2+ pulses, warm, well-perfused. No cyanosis. No clubbing. No peripheral edema. LOWER EXTREMITIES: 2+ pulses, warm, well-perfused. No calf tenderness. Trace pitting edema. NEUROLOGICAL: No facial droop, power 5/5 in all ext. Sensation intact. Cranial nerves II-XII intact. Normal speech. Gait not observed. PSYCHIATRIC: Cooperative. Good eye contact. Appropriate mood and affect. SKIN: Warm, dry, normal turgor, no rashes or lesions noted, normal capillary refill. Laboratory Results - last 24 hr 03/05/18 03/05/18 03/05/18 11:22 11:22 11:29 WBC 7.9 RBC 4.20 Hgb 13.6 Hct 38.3 MCV 91.3 MCH 32.3 MCHC 35.4 RDW 13.6 Plt Count 215 D MPV 9.0 Absolute Neuts (auto) 5.3 Neutrophils % 67.3 Neutrophils % (Manual) 63.0 Band Neutrophils % 2.0 Lymphocytes % 15.9 D Lymphocytes % (Manual) 15.0 D Monocytes % 10.1 Monocytes % (Manual) 7 Eosinophils % 5.5 H D Eosinophils % (Manual) 11.0 H Basophils % 1.2 D Basophils % (Manual) 0.0 Myelocytes % (Man) 2 D Promyelocytes % (Man) 0 Blast Cells % (Manual) 0 Nucleated RBC % 0 Metamyelocytes 0 D Hypochromia 0 Toxic Granulation 0 Dohle Bodies 0 Platelet Estimate Normal Polychromasia 0 Poikilocytosis 0 Basophilic Stippling 0 Anisocytosis 0 Microcytosis 0 Macrocytosis 0 Spherocytes 0 Sickle Cells 0 Target Cells 0 Tear Drop Cells 0 Ovalocytes 0 Stomatocytes 0 Helmet Cells 0 Frank-[place] Bodies 0 [place] Rings 0 Bronson Cells 0 Acanthocytes (Spur) 0 Rouleaux 0 Fragmented RBCs 0 Schistocytes 0 Sodium 139 Potassium 4.3 Chloride 109 H Carbon Dioxide 24 Anion Gap 7 L BUN 22 H Creatinine 1.1 Creat Clearance w eGFR > 60 Random Glucose 107 H Calcium 8.8 Total Bilirubin 0.5 AST 25 ALT 19 Alkaline Phosphatase 68 Creatine Kinase 88 Troponin I 0.02 B-Natriuretic Peptide 1693.4 H Total Protein 6.8 Albumin 3.2 L Echo 03/2016: 1. The left ventricular size is normal. 2. Overall left ventricular systolic function appears mildly reduced, with a visually estimated EF of 45%. 3. The diastolic filling pattern indicates impaired relaxation. Normal LA pressure. 4. Apical inferior, apical lateral, and apical anterior segments appear hypokinetic. Mid anterior wall is not well seen, and appears possibly hypokinetic in the available images. 5. The right ventricle is normal in size and function. 6. Left atrium is normal size by volume. 7. [id number] mitral regurgitation is present. ASSESSMENT/PLAN: Patient is an 82 year old male with significant past medical history of HTN, HLD , CAD s/p stents in 2012, GERD, pneumonia presented to the ED accompanied with his with the chief complaint of " SOB and cough x 3 weeks". # Community acquired pneumonia c/o SOB, productive cough now yellowish sputum, CXR shows RLL infiltrate vs atelectasis Admit to Med/graham obs Patient is allergic to Levaquin, Penicillin (anaphylaxis), will treat with IV Azithromycin and IV Doxycycline. Albuterol nebs PRN Blood cultures pending R/O flu, urine for legionella Ag ordered CXR in AM # SOB could have been due to CHF exacerbation BNP: 1693 Symptoms improved with IV Lasix 40mg given in the ED Will continue PO Lasix 40mg daily. Cardiology consult requested () I's and O's Daily Weight # CAD s/p stents (2012) Continue aspirin and plavix # HLD Continue Atorvastatin # HTN controlled Continue Metoprolol 25 mg PO daily # FEN Not on IV fluids, was diuresed in the ED with improvemnt Electrolytes WNL Soft diet (hx of dysphagia, can advance diet if tolerated) # Prophylaxis For DVT: On Lovenox 40 sq, early ambulation. For GI On protonix # Code Status: Full Code # Dispo:Admit in Med-Surg. Duration of stay likely 1-2 days. Illness, Investigation and Plan of care explained to the patient and his . They verbalized understanding. Case discussed with Dr. Walter. Visit type - Emergency Visit Emergency Visit: Yes ED Registration Date: 03/05/18 Care time: The patient presented to the Emergency Department on the above date and was hospitalized for further evaluation of their emergent condition. - New Patient This patient is new to me today: Yes Date on this admission: 03/05/18 - Critical Care Critical Care patient: No
--- NOTE | 2018-03-05 16:54 | EKG ---
Test Reason : Blood Pressure : / mmHG Vent. Rate : 069 BPM Atrial Rate : 069 BPM P-R Int : 232 ms QRS Dur : 128 ms QT Int : 416 ms P-R-T Axes : 033 -66 159 degrees QTc Int : 445 ms SINUS RHYTHM WITH 1ST DEGREE A-V BLOCK LEFT AXIS DEVIATION LEFT VENTRICULAR HYPERTROPHY WITH QRS WIDENING CANNOT RULE OUT SEPTAL INFARCT (CITED ON OR BEFORE 19-JAN-2016) T WAVE ABNORMALITY, CONSIDER LATERAL ISCHEMIA ABNORMAL ECG WHEN COMPARED WITH ECG OF 23-OCT-2016 17:55, SIGNIFICANT CHANGES HAVE OCCURRED Confirmed by MD Sandip, ([id number]) on 03/05/2018 4:53:44 PM Referred By: Confirmed By:Daniel Oropeza MD
[2018-03-05] MEDS ORDERED: ALBUTEROL SO4 0.083% IH SOL 2.5 MG/3 ML VIAL.NEB. NEB PRN (16:56)
--- NOTE | 2018-03-05 18:01 | PN ---
Teaching Attending Note Name of Resident: Yanira Pena ATTENDING PHYSICIAN STATEMENT I saw and evaluated the patient. I reviewed the resident's note and discussed the case with the resident. I agree with the resident's findings and plan as documented. SUBJECTIVE: patient is doing well, he has no complaint besides the cough, he denied any fever or chills today. patient stated that he saw his PCP who told him that he is developing pneumonia OBJECTIVE: aaox3 s1 and s2 rrr lungs good air entry, clear to auscultation on the left side, but wheezing and crackles heard over the right lower lobe ASSESSMENT AND PLAN: plan: admit patient to med/surg start the patient on CAP coverage - doxycycline 100mg IVPB Twice a day, azithromycin 500mg daily monitor QTc for the patient obtain an echocardiogram for the patient due to the elevated BNP c/w home medication start the patient on PO furosemide 40mg daily consult cardiology patient has a history of CAD s/p stent placement, he has been on clopidogrel and aspirin for the past few years
[2018-03-05 20:04] VITALS: BMI 22.9
[2018-03-05] MEDS: DOXYCYCLINE INJECTION 100 MG in DEXTROSE 5%-WATER - 100 ML IVPB SCH (21:48)
[2018-03-05] MEDS: ATORVASTATIN CA 10 MG TABLET (FP) PO SCH (21:49)
[2018-03-06 07:29] LABS: BASO % 1.2 % (0-2.0); EOS % 4.5 % (0-4.5); HEMATOCRIT 40.3 % (35.4-49); HEMOGLOBIN 13.4 GM/dL (11.7-16.9); LYMPH % 16.5 % (8-40); MCH 30.8 pg (25.7-33.7); MCHC 33.3 g/dl (32.0-35.9); MEAN CELL VOLUME 92.4 fl (80-96); MEAN PLT VOLUME 9.2 fl (7.5-11.1); MONO % 10.3 % (3.8-10.2); NEUT % 67.5 % (42.8-82.8); PLATELET COUNT 216 K/MM3 (134-434); RBC 4.37 M/mm3 (4.00-5.60); RDW 13.4 % (11.9-15.9); WHITE BLOOD COUNT 7.9 K/mm3 (4.0-10.0)
[2018-03-06 07:59] LABS: ANION GAP 10 MMOL/L (8-16); BLOOD UREA NITROGEN 23 mg/dL (7-18); CALCIUM 8.7 mg/dL (8.5-10.1); CHLORIDE 103 mmol/L (98-107); CO2 25 mmol/L (21-32); CREATININE 1.1 mg/dL (0.55-1.3); GLUCOSE,RANDOM 100 mg/dL (74-106); MAGNESIUM 1.9 mg/dL (1.8-2.4); PHOSPHOROUS 3.7 mg/dL (2.5-4.9); POTASSIUM 3.9 mmol/L (3.5-5.1); SODIUM 138 mmol/L (136-145)
--- NOTE | 2018-03-06 08:49 | PN ---
Progress Note (short form) - Note Progress Note: Dr. So to document today. Clinically Acute Pneumonia but CXR noted. PH Pneumonia; ?AFB consideration in past. ?Pulm MD or CT scan
[2018-03-06] MEDS ORDERED: FUROSEMIDE 40 MG TABLET (FP) PO SCH (10:00)
[2018-03-06] MEDS ORDERED: PT OWN MED DRAWER 7, Y5N ONE ×2 (10:00→21:06)
[2018-03-06] MEDS: metoPROLOL SUCCINATE 25 MG TAB.SR.24H (FP) PO SCH (10:10)
[2018-03-06] MEDS: PANTOPRAZOLE 40 MG TABLET (FP) PO SCH (10:10)
[2018-03-06] MEDS: CLOPIDOGREL BISULFATE 75 MG TABLET (FP) PO SCH (10:10)
[2018-03-06] MEDS: DOXYCYCLINE INJECTION 100 MG in DEXTROSE 5%-WATER - 100 ML IVPB SCH ×2 (10:10→21:12)
[2018-03-06] MEDS: ASPIRIN 81 MG CHEWABLE TABLETS PO SCH (10:10)
[2018-03-06] MEDS: ENOXAPARIN NA (PORCINE) 40 MG/0.4 ML DISP.SYRIN SQ SCH (10:26)
[2018-03-06 10:34] LABS: ANISOCYTOSIS 1+; MACROCYTOSIS 1+; PLATELET ESTIMATE NORMAL
[2018-03-06] MEDS: AZITHROMYCIN IVPB 250 MG in DEXTROSE 5%-WATER - 250 ML IVPB SCH (11:32)
--- NOTE | 2018-03-06 12:06 | CON.CARD ---
Consult Consult Specialty:: Cardiology Referred by:: Saray Reason for Consultation:: elevated BNP - History of Present Illness Chief Complaint: short of breath History of Present Illness: 82M h/o HTN, HLD, CAD s/p stents 2012 p/w dyspnea, cough for 3 weeks, temp 100 F at home. In the ER BNP 1693, CXR possible infiltrate. Started on abx, given IV lasix 40 mg x 1, being treated for PNA. Sees Dr. Latham for cardio. - Past Medical History Cardio/Vascular: Yes: CAD, HTN Gastrointestinal: Yes: GERD Musculoskeletal: Yes: Other (plantar fasciitis) - Past Surgical History Past Surgical History: Yes: Appendectomy, Joint Replacement (right knee), Stent - Alcohol/Substance Use Hx Alcohol Use: No History of Substance Use: reports: None - Smoking History Smoking history: Former smoker Have you smoked in the past 12 months: No If you are a former smoker, when did you quit?: 30 YRS AGO - Social History Usual Living Arrangement: With Spouse ADL: Independent History of Recent Travel: No Home Medications - Allergies Allergies/Adverse Reactions: Allergies Allergy/AdvReac Type Severity Reaction Status Date / Time levofloxacin [From Levaquin] Allergy Intermediate rash and Verified 03/05/18 09: 53 itching in arm of infusion morphine Allergy Vomiting Verified 03/05/18 09:53 Penicillins Allergy Swelling Verified 03/05/18 09:53 - Home Medications Home Medications: Ambulatory Orders Aspirin [Luisito Chewable Aspirin] 81 mg PO DAILY 11/13/13 Clopidogrel Bisulfate [Plavix -] 75 mg PO DAILY 11/13/13 Simvastatin [Zocor -] 25 mg PO HS 11/13/13 Metoprolol Succinate [Toprol XL -] 25 mg PO DAILY 09/17/14 Pantoprazole Sodium [Protonix] 40 mg PO DAILY 03/05/18 Family Disease History - Family Disease History Family Disease History: Heart Disease: Father (: 79: Obesity/CAD), CA: Mother (: 80: DM II complications), Brother (2 from colon cancer 1 from DM comps, 1 from [place]), Other: Mother, Brother Review of Systems - Review of Systems Constitutional: reports: No Symptoms Eyes: reports: No Symptoms HENT: reports: No Symptoms Neck: reports: No Symptoms Cardiovascular: reports: No Symptoms Respiratory: reports: Cough Gastrointestinal: reports: No Symptoms Genitourinary: reports: No Symptoms Musculoskeletal: reports: No Symptoms Integumentary: reports: No Symptoms Neurological: reports: No Symptoms Endocrine: reports: No Symptoms Hematology/Lymphatic: reports: No Symptoms Psychiatric: reports: No Symptoms Vital Signs: Vital Signs Temperature 98.4 F 03/05/18 19:51 Pulse Rate 79 03/05/18 19:51 Respiratory Rate 18 03/05/18 19:51 Blood Pressure 150/76 03/05/18 19:51 O2 Sat by Pulse Oximetry (%) 94 L 03/05/18 19:51 Constitutional: Yes: No Distress, Calm Eyes: Yes: Conjunctiva Clear, EOM Intact HENT: Yes: Atraumatic, Normocephalic Neck: Yes: Supple, Trachea Midline Respiratory: Yes: Regular, CTA Bilaterally Gastrointestinal: Yes: Normal Bowel Sounds, Soft Cardiovascular: Yes: Regular Rate and Rhythm JVD: No Carotid Bruit: No Heart Sounds: Yes: S1, S2 Musculoskeletal: No: Back Pain Extremities: No: Cold Edema: No Peripheral Pulses WNL: Yes Peripheral Pulses: 2+ Left Carotid, 2+ Right Carotid, 2+ Left Doralis Pedis, 2+ Right Dorsalis Pedis Neurological: Yes: Alert, Oriented Psychiatric: Yes: Alert, Oriented - Other Data Labs, Other Data: CBC, BMP 03/06/18 06:30 03/06/18 06:30 Troponin, BNP 03/05/18 11:29 Troponin I 0.02 B-Natriuretic Peptide 1693.4 H Troponin, BNP 03/05/18 11:29 Troponin I 0.02 B-Natriuretic Peptide 1693.4 H Assessment/Plan EKG: sinus, LVH, TWI I, aVL, V4-6 LHC 02/23: patent mRCA stent (mild ISR); 30-50% dRCA; 80-90% pLAD--BMS (covered stent after perf'd with PTCA); 30-50% mLAD bridge; 30-50% D1; 30-50% OM1; 30-50 % prox Ramus; (PTCA OF LAD COMPLICATED BY PERF--COVERED STENT PLACED, OCCLUDING THE DIAG--LARGE TROPONIN LEAK WITH SMALL RWMA ON ECHO THEN) MIBI 04/27 (pers): no STs; large, fixed anteroapical defect; small inferoapical defect partially reversible c/w vito-infarct ischemia in LAD territory; severe HK of mid and apical AW, and apex akinetic; EF 41% Echo 03/2016: 1. The left ventricular size is normal. 2. Overall left ventricular systolic function appears mildly reduced, with a visually estimated EF of 45%. 3. The diastolic filling pattern indicates impaired relaxation. Normal LA pressure. 4. Apical inferior, apical lateral, and apical anterior segments appear hypokinetic. Mid anterior wall is not well seen, and appears possibly hypokinetic in the available images. 5. The right ventricle is normal in size and function. 6. Left atrium is normal size by volume. 7. Ogtw-ls-wxwiovzy mitral regurgitation is present. 81 yo with pmhx of CAD s/p multiple PCI (most recent 2014) with chronic stable angina, mild ischemic cardiomyopathy, HTN, HL, COPD, depression p/w sob sob - likely 2/2 PNA - on abx per primary CAD - s/p JOAO to mid RCA 11/15 ISR of JOAO treated with second JOAO 06/16. Most recent PCI of LAD was complicated by perf --> BMS placed occluding the diag. - con't statin, bb, dapt (per patient was advised to be on dapt indefinitely). intolerant of acei. Mild ischemic cardiomyopathy - EF mildly reduced (45%) with apical wma's noted on echo 03/2016 - received lasix 40 mg IV x 1 in ER, now on lasix 40 mg PO daily - not on lasix at home - BNP 1600 however patient appears euvolemic currently, stop lasix, monitor - repeat echo pending - con't bb. intolerant of acei. HTN - continue bb, stable hl - on statin
--- NOTE | 2018-03-06 13:41 | ECHO ---
Version: 1 Name: CRICKET DOVER Exam: Adult Echocardiogram Study Date: 03/06/2018, 11:13 AM Age: 82 Years MMode/2D Measurements & Calculations IVSd: 0.87 cm LVIDs: 3.7 cm LVIDd: 5.2 cm LVPWd: 0.98 cm Ao root diam: 3.1 cm LA dimension: 3.3 cm Doppler Measurements & Calculations MV E max fabrizio: 49.5 cm/sec Med E/e': 14.2 MV A max fabrizio: 107.7 cm/sec Med Peak E' Fabrizio: 3.5 cm/sec MV E/A: 0.46 Lat E/e': 8.9 Lat Peak E' Fabrizio: 5.5 cm/sec Procedure A two-dimensional transthoracic echocardiogram with color flow and Doppler was performed. The study was technically difficult with many images being suboptimal in quality. Left Ventricle The left ventricle is grossly normal size. The left ventricular ejection fraction is normal. Regiona l wall motion abnormalities cannot be excluded due to limited visualization. Septal motion is consistent wi th conduction abnormality. Right Ventricle The right ventricle is not well visualized. Atria Normal left and right atrial size and function. Mitral Valve There is mild mitral valve thickening. There is no mitral valve stenosis. There is trace to mild robin ral regurgitation. Tricuspid Valve There is mild tricuspid valve thickening. There is no tricuspid stenosis. There was insufficient TR detected to calculate RV systolic pressure. Aortic Valve The aortic valve is not well visualized. No hemodynamically significant valvular aortic stenosis. No aortic regurgitation is present. Pulmonic Valve The pulmonic valve is not well visualized. Great Vessels The aortic root is normal size. Pericardium/Pleura There is no pericardial effusion. Summary Statements The study was technically difficult with many images being suboptimal in quality. The left ventricle is grossly normal size. The left ventricular ejection fraction is normal. Regional wall motion abnormalities cannot be excluded due to limited visualization. There was insufficient TR detected to calculate RV systolic pressure. Septal motion is consistent with conduction abnormality. There is trace to mild mitral regurgitation. MD Jonathan Dahl 03/06/2018, 1:41 PM Ordering Physician: Yanira Pena Performed By: Opal Delacruz
[2018-03-06 16:48] LABS: URINE APPEARANCE CLEAR; URINE BILIRUBIN NEGATIVE (<2.0 mg/dL); URINE COLOR LTYELLOW; URINE GLUCOSE (UA) NEGATIVE (NEGATIVE); URINE KETONE NEGATIVE (NEGATIVE); URINE LEUK ESTERASE NEGATIVE (NEGATIVE); URINE NITRITE NEGATIVE (NEGATIVE); URINE PROTEIN NEGATIVE (NEGATIVE); URINE UROBILINOGEN NEGATIVE mg/dL (0.2-1.0)
[2018-03-06] MEDS: guaiFENesin 200 MG/10 ML 10 ML UNIT-DOSE CUPS PO PRN ×2 (17:11→21:12)
--- NOTE | 2018-03-06 18:00 | PN ---
Physical Exam: SUBJECTIVE: Patient seen and examined at bed side this morning. States his cough and sob is the same. Denies chest pain, palpitations, abdominal pain, nausea or vomiting. No acute overnight events. OBJECTIVE: Vital Signs Period Temp Pulse Resp BP Sys/Garcia Pulse Ox Last 24 Hr 98.0 F-98.4 F 79-88 18-20 145-150/68-76 94-96 GENERAL: Elderly male, lying in bed, coughing, Awake, alert, and fully oriented , in no acute distress. HEAD: Normal with no signs of trauma. EYES: EOM intact, no pallor or icterus. . EARS, NOSE, THROAT: Ears normal. Moist mucous membranes. NECK: Supple. LUNGS: B/L breath sounds equal. Crackles R> L. Occasional wheeze. HEART: Regular rate and rhythm, normal S1 and S2 with soft systolic murmur, rub or gallop. ABDOMEN: Soft, tenderness in the lower quadrants, BS +, no organomegaly. MUSCULOSKELETAL: Normal range of motion at all joints. No bony deformities or tenderness. No CVA tenderness. UPPER EXTREMITIES: 2+ pulses, warm, well-perfused. No cyanosis. No clubbing. No peripheral edema. LOWER EXTREMITIES: 2+ pulses, warm, well-perfused. No calf tenderness. Trace pitting edema. NEUROLOGICAL: No facial droop, power 5/5 in all ext. Sensation intact. Cranial nerves II-XII intact. Normal speech. Gait not observed. PSYCHIATRIC: Cooperative. Good eye contact. Appropriate mood and affect. SKIN: Warm, dry, normal turgor, no rashes or lesions noted, normal capillary refill. Laboratory Results - last 24 hr 03/06/18 03/06/18 03/06/18 06:30 06:30 15:20 WBC 7.9 RBC 4.37 Hgb 13.4 Hct 40.3 MCV 92.4 MCH 30.8 MCHC 33.3 RDW 13.4 Plt Count 216 MPV 9.2 Absolute Neuts (auto) 5.3 Neutrophils % 67.5 Neutrophils % (Manual) 66.3 Band Neutrophils % 0.0 Lymphocytes % 16.5 Lymphocytes % (Manual) 17.4 Monocytes % 10.3 H Monocytes % (Manual) 11 H Eosinophils % 4.5 Eosinophils % (Manual) 1.0 D Basophils % 1.2 Basophils % (Manual) 2.1 H D Myelocytes % (Man) 0 D Promyelocytes % (Man) 0 Blast Cells % (Manual) 0 Nucleated RBC % 0 Metamyelocytes 0 Hypochromia 0 Platelet Estimate Normal Polychromasia 0 Poikilocytosis 0 Anisocytosis 1+ Microcytosis 0 Macrocytosis 1+ Sodium 138 Potassium 3.9 Chloride 103 Carbon Dioxide 25 Anion Gap 10 BUN 23 H Creatinine 1.1 Creat Clearance w eGFR > 60 Random Glucose 100 Calcium 8.7 Phosphorus 3.7 Magnesium 1.9 Urine Color Ltyellow Urine Appearance Clear Urine pH 5.0 Ur Specific [place] 1.011 Urine Protein Negative Urine Glucose (UA) Negative Urine Ketones Negative Urine Blood Negative Urine Nitrite Negative Urine Bilirubin Negative Urine Urobilinogen Negative Ur Leukocyte Esterase Negative Active Medications Generic Name Dose Route Start Last Admin Trade Name Freq PRN Reason Stop Dose Admin Albuterol Sulfate 1 amp 03/05/18 16:56 Ventolin 0.083% Nebulizer Soln - NEB Q4H PRN SHORT OF BREATH/WHEEZING Aspirin 81 mg 03/06/18 10:00 03/06/18 10:10 Asa - PO 81 mg DAILY FRANCESCA Administration Atorvastatin Calcium 10 mg 03/05/18 22:00 03/05/18 21:49 Lipitor - PO 10 mg HS FRANCESCA Administration Clopidogrel Bisulfate 75 mg 03/06/18 10:00 03/06/18 10:10 Plavix - PO 75 mg DAILY FRANCESCA Administration Enoxaparin Sodium 40 mg 03/06/18 10:00 03/06/18 10:26 Lovenox - SQ 40 mg DAILY FARNCESCA Administration Guaifenesin 10 ml 03/06/18 08:50 03/06/18 17:11 Robitussin - PO 10 ml Q4H PRN Administration COUGH Azithromycin 250 mg/ Dextrose 250 mls @ 250 mls/hr 03/06/18 10:00 03/06/18 11 :32 IVPB 250 mls/hr DAILY FRANCESCA Administration Doxycycline Hyclate 100 mg/ 100 mls @ 100 mls/hr 03/05/18 22:00 03/06/18 10: 10 Dextrose IVPB 100 mls/hr BID FRANCESCA Administration Metoprolol Succinate 25 mg 03/06/18 10:00 03/06/18 10:10 Toprol Xl - PO 25 mg DAILY FRANCESCA Administration Pantoprazole Sodium 40 mg 03/06/18 10:00 03/06/18 10:10 Protonix - PO 40 mg DAILY FRANCESCA Administration ASSESSMENT/PLAN: Patient is an 82 year old male with significant past medical history of HTN, HLD , CAD s/p stents in 2012, GERD, pneumonia presented to the ED accompanied with his with the chief complaint of " SOB and cough x 3 weeks". # Community acquired pneumonia c/o SOB, productive cough now yellowish sputum, CXR shows RLL infiltrate vs atelectasis Admit to Med/graham obs Patient is allergic to Levaquin, Penicillin (anaphylaxis), will treat with IV Azithromycin and IV Doxycycline. Albuterol nebs PRN Blood cultures negative R/O flu, urine for legionella Ag ordered CXR in AM CT chest ordered. # SOB could have been due to CHF exacerbation BNP: 1693 Symptoms improved with IV Lasix 40mg given in the ED Will monitor off Lasix I's and O's Daily Weight # CAD s/p stents (2012) Continue aspirin and plavix # HLD Continue Atorvastatin # HTN controlled Continue Metoprolol 25 mg PO daily # FEN Not on IV fluids, was diuresed in the ED with improvemnt Electrolytes WNL Soft diet (hx of dysphagia, can advance diet if tolerated) # Prophylaxis For DVT: On Lovenox 40 sq, early ambulation. For GI On protonix # Code Status: Full Code # Dispo:Admit in Med-Surg. Duration of stay likely 1-2 days. Illness, Investigation and Plan of care explained to the patient and his . They verbalized understanding. Case discussed with Dr. So Visit type - Emergency Visit Emergency Visit: Yes ED Registration Date: 03/05/18 Care time: The patient presented to the Emergency Department on the above date and was hospitalized for further evaluation of their emergent condition. - New Patient This patient is new to me today: No - Critical Care Critical Care patient: No - Discharge Referral Referred to [facility] No
--- NOTE | 2018-03-06 18:30 | PN ---
Teaching Attending Note Name of Resident: Yanira Pena ATTENDING PHYSICIAN STATEMENT I saw and evaluated the patient. I reviewed the resident's note and discussed the case with the resident. I agree with the resident's findings and plan as documented. SUBJECTIVE: Mr Schwarz says he is feeling better today. Shortness of breath and coughing improving. No cp or n/v. OBJECTIVE: Last Vital Signs Temp Pulse Resp BP Pulse Ox 36.7 C 88 20 145/68 96 03/06/18 08:00 03/06/18 08:00 03/06/18 08:00 03/06/18 08:00 03/06/18 08:00 Gen: nad Pulm: minimal bibasilar ronchi CV: rrr w/o m/r/g Abd: +bs, s/nt/nd Ext: no c/c/e Problem List - Problems (1) Pneumonia Assessment/Plan: -continue zithromax and doxycycline Code(s): J18.9 - PNEUMONIA, UNSPECIFIED ORGANISM Qualifiers: (2) BPH (benign prostatic hyperplasia) Assessment/Plan: -without symptoms Code(s): N40.0 - BENIGN PROSTATIC HYPERPLASIA WITHOUT LOWER URINRY TRACT SYMP Qualifiers: Lower urinary tract symptom presence: symptoms absent Qualified Code(s): N40.0 - Benign prostatic hyperplasia without lower urinary tract symptoms (3) CAD (coronary artery disease) Assessment/Plan: -appreciate cardiology assistance -quiescent -continue home regimen Code(s): I25.10 - ATHSCL HEART DISEASE OF [place] CORONARY ARTERY W/O ANG PCTRS (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
[2018-03-06] MEDS: ATORVASTATIN CA 10 MG TABLET (FP) PO SCH (21:12)
--- NOTE | 2018-03-07 09:07 | PN ---
Progress Note (short form) - Note Progress Note: Hospitalist to document today. To add Chest PT. Await sputum sample and urine antigen tests.
[2018-03-07] MEDS: PANTOPRAZOLE 40 MG TABLET (FP) PO SCH (09:36)
[2018-03-07] MEDS: CLOPIDOGREL BISULFATE 75 MG TABLET (FP) PO SCH (09:36)
[2018-03-07] MEDS: DOXYCYCLINE INJECTION 100 MG in DEXTROSE 5%-WATER - 100 ML IVPB SCH (09:36)
[2018-03-07] MEDS: guaiFENesin 200 MG/10 ML 10 ML UNIT-DOSE CUPS PO PRN ×3 (09:36→19:33)
[2018-03-07] MEDS: metoPROLOL SUCCINATE 25 MG TAB.SR.24H (FP) PO SCH (09:36)
[2018-03-07] MEDS: ASPIRIN 81 MG CHEWABLE TABLETS PO SCH (09:36)
[2018-03-07] MEDS: AZITHROMYCIN IVPB 250 MG in DEXTROSE 5%-WATER - 250 ML IVPB SCH (10:46)
[2018-03-07] MEDS: ENOXAPARIN NA (PORCINE) 40 MG/0.4 ML DISP.SYRIN SQ SCH (10:46)
[2018-03-07] MEDS: predniSONE 20 MG TABLET (UD) PO SCH (10:52)
[2018-03-07] MEDS: ALBUTEROL SO4 2.5/IPRATROPIUM 0.5 INH SOL 3 ML VIAL.NEB. NEB SCH ×3 (11:07→20:41)
--- NOTE | 2018-03-07 11:47 | PN ---
Progress Note (short form) - Note Progress Note: s: no cp palps dizzy; +cough and sob o: Vital Signs Period Temp Pulse Resp BP Sys/Garcia Pulse Ox Last 24 Hr 97.3 F-98.7 F 75-89 17-20 120-148/68-85 95-97 Constitutional: Yes: No Distress, Calm Eyes: Yes: Conjunctiva Clear Respiratory: Yes: Regular, scattered rhonchi, nl eff Gastrointestinal: Yes: Normal Bowel Sounds, Soft Cardiovascular: Yes: Regular Rate and Rhythm JVD: No Heart Sounds: Yes: S1, S2 Musculoskeletal: No: Back Pain Extremities: No: Cold Edema: No Peripheral Pulses: 2+ Left Carotid, 2+ Right Carotid, 2+ Left Doralis Pedis, 2+ Right Dorsalis Pedis Neurological: Yes: Alert, Oriented Current Medications Generic Name Dose Route Start Last Admin Trade Name Freq PRN Reason Stop Dose Admin Albuterol Sulfate 1 amp 03/05/18 16:56 Ventolin 0.083% Nebulizer Soln - NEB Q4H PRN SHORT OF BREATH/WHEEZING Albuterol/Ipratropium 1 amp 03/07/18 12:00 03/07/18 11:07 Duoneb - NEB 1 amp RQID FRANCESCA Administration Aspirin 81 mg 03/06/18 10:00 03/07/18 09:36 Asa - PO 81 mg DAILY FRANCESCA Administration Atorvastatin Calcium 10 mg 03/05/18 22:00 03/06/18 21:12 Lipitor - PO 10 mg HS FRANCESCA Administration Clopidogrel Bisulfate 75 mg 03/06/18 10:00 03/07/18 09:36 Plavix - PO 75 mg DAILY FRANCESCA Administration Enoxaparin Sodium 40 mg 03/06/18 10:00 03/07/18 10:46 Lovenox - SQ 40 mg DAILY FRANCESCA Administration Guaifenesin 10 ml 03/06/18 08:50 03/07/18 09:36 Robitussin - PO 10 ml Q4H PRN Administration COUGH Azithromycin 250 mg/ Dextrose 250 mls @ 250 mls/hr 03/06/18 10:00 03/07/18 10 :46 IVPB 250 mls/hr DAILY FRANCESCA Administration Doxycycline Hyclate 100 mg/ 100 mls @ 100 mls/hr 03/05/18 22:00 03/07/18 09: 36 Dextrose IVPB 100 mls/hr BID FRANCESCA Administration Metoprolol Succinate 25 mg 03/06/18 10:00 03/07/18 09:36 Toprol Xl - PO 25 mg DAILY FRANCESCA Administration Pantoprazole Sodium 40 mg 03/06/18 10:00 03/07/18 09:36 Protonix - PO 40 mg DAILY FRANCESCA Administration Prednisone 60 mg 03/07/18 10:45 03/07/18 10:52 Deltasone - PO 60 mg DAILY FRANCESCA Administration CBC, BMP 03/06/18 06:30 03/06/18 06:30 Assessment/Plan EKG: sinus, LVH, TWI I, aVL, V4-6 LHC 02/23: patent mRCA stent (mild ISR); 30-50% dRCA; 80-90% pLAD--BMS (covered stent after perf'd with PTCA); 30-50% mLAD bridge; 30-50% D1; 30-50% OM1; 30-50 % prox Ramus; (PTCA OF LAD COMPLICATED BY PERF--COVERED STENT PLACED, OCCLUDING THE DIAG--LARGE TROPONIN LEAK WITH SMALL RWMA ON ECHO THEN) MIBI 04/27 (pers): no STs; large, fixed anteroapical defect; small inferoapical defect partially reversible c/w vito-infarct ischemia in LAD territory; severe HK of mid and apical AW, and apex akinetic; EF 41% Echo 03/2016: 1. The left ventricular size is normal. 2. Overall left ventricular systolic function appears mildly reduced, with a visually estimated EF of 45%. 3. The diastolic filling pattern indicates impaired relaxation. Normal LA pressure. 4. Apical inferior, apical lateral, and apical anterior segments appear hypokinetic. Mid anterior wall is not well seen, and appears possibly hypokinetic in the available images. 5. The right ventricle is normal in size and function. 6. Left atrium is normal size by volume. 7. Pvty-lf-hrmxgvlb mitral regurgitation is present. echo 02/2018: nl lv, rv tds, no sig valve path 81 yo with pmhx of CAD s/p multiple PCI (most recent 2014) with chronic stable angina, mild ischemic cardiomyopathy, HTN, HL, COPD, depression p/w sob sob, pna - likely 2/2 PNA - on abx per primary - echo unremarkable CAD - s/p JOAO to mid RCA 11/15 ISR of JOAO treated with second JOAO 06/16. Most recent PCI of LAD was complicated by perf --> BMS placed occluding the diag. - nl lvef -con't statin, bb, dapt (per patient was advised to be on dapt indefinitely). intolerant of acei. Mild ischemic cardiomyopathy -EF mildly reduced (45%) with apical wma's noted on echo 03/2016-->echo here with nl lvef - received lasix 40 mg IV x 1 in ER, now on lasix 40 mg PO daily - not on lasix at home - BNP 1600 however patient appears euvolemic currently, stop lasix, monitor - con't bb. intolerant of acei. HTN - continue bb, stable hld - on statin
--- NOTE | 2018-03-07 14:34 | PN ---
Progress Note (short form) - Note Progress Note: ID Consult dictated Community acquired RLL pneumonia Hx + Quantiferon TB w/u in 2017 negative Major PCN allergy Obtain sputum c/s Empiric vancomycin/ aztreonam
--- NOTE | 2018-03-07 15:03 | PN ---
Teaching Attending Note Name of Resident: Yanira Pena ATTENDING PHYSICIAN STATEMENT I saw and evaluated the patient. I reviewed the resident's note and discussed the case with the resident. I agree with the resident's findings and plan as documented. SUBJECTIVE: Mr Schwarz says he is feeling terrible today. Says he is short of breath and worsening cough. No cp or n/v. OBJECTIVE: Last Vital Signs Temp Pulse Resp BP Pulse Ox 36.8 C 87 18 139/74 95 03/07/18 14:36 03/07/18 14:36 03/07/18 09:00 03/07/18 14:36 03/07/18 09:00 Gen: nad Pulm: bibasilar ronchi, louder on right CV: rrr w/o m/r/g Abd: +bs, s/nt/nd Ext: no c/c/e CBC, BMP 03/06/18 06:30 03/06/18 06:30 Plan (1) Pneumonia Assessment/Plan: -noted on CT scan -worsening today -ID consult -on empiric aztreonam and vancomycin -daily prednisone Code(s): J18.9 - PNEUMONIA, UNSPECIFIED ORGANISM Qualifiers: (2) BPH (benign prostatic hyperplasia) Assessment/Plan: -without symptoms Code(s): N40.0 - BENIGN PROSTATIC HYPERPLASIA WITHOUT LOWER URINRY TRACT SYMP Qualifiers: Lower urinary tract symptom presence: symptoms absent Qualified Code(s): N40.0 - Benign prostatic hyperplasia without lower urinary tract symptoms (3) CAD (coronary artery disease) Assessment/Plan: -appreciate cardiology assistance -quiescent -continue home regimen Code(s): I25.10 - ATHSCL HEART DISEASE OF [place] CORONARY ARTERY W/O ANG PCTRS (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 Problem List - Problems (1) Pneumonia Code(s): J18.9 - PNEUMONIA, UNSPECIFIED ORGANISM Qualifiers: (2) BPH (benign prostatic hyperplasia) Code(s): N40.0 - BENIGN PROSTATIC HYPERPLASIA WITHOUT LOWER URINRY TRACT SYMP Qualifiers: Lower urinary tract symptom presence: symptoms absent Qualified Code(s): N40.0 - Benign prostatic hyperplasia without lower urinary tract symptoms (3) CAD (coronary artery disease) Code(s): I25.10 - ATHSCL HEART DISEASE OF [place] CORONARY ARTERY W/O ANG PCTRS (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
[2018-03-07] MEDS: VANCOMYCIN 1 GRAM (PRE-DOCKED) 1,000 MG/250 ML BAG IVPB SCH (15:11)
--- NOTE | 2018-03-07 15:18 | CON.PULM ---
Consult Consult Specialty:: PULM/CCM Referred by:: EYAD Reason for Consultation:: SOB / PNA - History of Present Illness Chief Complaint: SOB History of Present Illness: 82 M, well known to me from the office. GOLD stage 3 COPD due to prolonged smoking history. 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 Had (-) sputum AFB at the time. S/P bronchscopy with (-) AFB as well. Admitted via the ER due to progressive SOB and cough x 3 weeks. No travel history or sick contacts. No hemoptysis or night sweats. CT chest: new RLL infiltrates - History Source History Provided By: Patient Limitations to Obtaining History: No Limitations - Past Medical History Cardio/Vascular: Yes: CAD, HTN Pulmonary: Yes: Bronchitis, COPD, Pneumonia. No: O2 Dependent, Previously Intubated, Pulmonary Embolus, Pulmonary Fibrosis, Sleep Apnea Gastrointestinal: Yes: GERD Musculoskeletal: Yes: Other (plantar fasciitis) - Past Surgical History Past Surgical History: Yes: Appendectomy, Joint Replacement (right knee), Stent - Alcohol/Substance Use Hx Alcohol Use: No History of Substance Use: reports: None - Smoking History Smoking history: Former smoker Have you smoked in the past 12 months: No If you are a former smoker, when did you quit?: 30 YRS AGO - Social History Usual Living Arrangement: With Spouse ADL: Independent History of Recent Travel: No Home Medications - Allergies Allergies/Adverse Reactions: Allergies Allergy/AdvReac Type Severity Reaction Status Date / Time levofloxacin [From Levaquin] Allergy Intermediate rash and Verified 03/05/18 09: 53 itching in arm of infusion morphine Allergy Vomiting Verified 03/05/18 09:53 Penicillins Allergy Swelling Verified 03/05/18 09:53 - Home Medications Home Medications: Ambulatory Orders Aspirin [Luisito Chewable Aspirin] 81 mg PO DAILY 11/13/13 Clopidogrel Bisulfate [Plavix -] 75 mg PO DAILY 11/13/13 Simvastatin [Zocor -] 25 mg PO HS 11/13/13 Metoprolol Succinate [Toprol XL -] 25 mg PO DAILY 09/17/14 Pantoprazole Sodium [Protonix] 40 mg PO DAILY 03/05/18 Family Disease History - Family Disease History Family Disease History: Heart Disease: Father (: 79: Obesity/CAD), CA: Mother (: 80: DM II complications), Brother (2 from colon cancer 1 from DM comps, 1 from [place]), Other: Mother, Brother Review of Systems - Review of Systems Constitutional: reports: Lethargy, Loss of Appetite, Malaise. denies: Chills, Fever, Night Sweats, Unintentional Wgt. Loss Eyes: reports: No Symptoms HENT: reports: No Symptoms Neck: reports: No Symptoms Cardiovascular: reports: Chest Pain, Shortness of Breath. denies: Edema, Palpitations Respiratory: reports: Cough, SOB, SOB on Exertion. denies: Hemoptysis, Snoring , Wheezing Gastrointestinal: reports: No Symptoms Genitourinary: reports: No Symptoms Breasts: reports: No Symptoms Reported Musculoskeletal: reports: No Symptoms Integumentary: reports: No Symptoms Neurological: reports: No Symptoms Endocrine: reports: No Symptoms Hematology/Lymphatic: reports: No Symptoms Psychiatric: reports: No Symptoms Physical Exam Vital Sings: Vital Signs Temperature 98.3 F 03/07/18 14:36 Pulse Rate 87 03/07/18 14:36 Respiratory Rate 18 03/07/18 09:00 Blood Pressure 139/74 03/07/18 14:36 O2 Sat by Pulse Oximetry (%) 95 03/07/18 09:00 Constitutional: Yes: No Distress, Thin Eyes: Yes: Conjunctiva Clear, EOM Intact HENT: Yes: Atraumatic, Normocephalic Neck: Yes: Supple, Trachea Midline Cardiovascular: Yes: Regular Rate and Rhythm Respiratory: Yes: Cough, Diminished, On Nasal O2, Rhonchi, SOB, SOB on Exertion , Tachypnea. No: Accessory Muscle Use, Rales, Stridor, Wheezes ...Inspection: Yes: WNL ...Clubbing: No Gastrointestinal: Yes: Normal Bowel Sounds, Soft Renal/: Yes: WNL Musculoskeletal: Yes: WNL Extremities: Yes: WNL Edema: No Peripheral Pulses WNL: Yes Integumentary: Yes: WNL Neurological: Yes: WNL, Alert, Oriented ...Motor Strength: WNL Psychiatric: Yes: WNL, Alert, Oriented Labs: CBC, BMP 03/06/18 06:30 03/06/18 06:30 Imaging - Results Chest X-ray: Report Reviewed, Image Reviewed Cat Scan: Report Reviewed, Image Reviewed Problem List - Problems (1) COPD (chronic obstructive pulmonary disease) Code(s): J44.9 - CHRONIC OBSTRUCTIVE PULMONARY DISEASE, UNSPECIFIED (2) Pneumonia Code(s): J18.9 - PNEUMONIA, UNSPECIFIED ORGANISM Qualifiers: (3) BPH (benign prostatic hyperplasia) Code(s): N40.0 - BENIGN PROSTATIC HYPERPLASIA WITHOUT LOWER URINRY TRACT SYMP Qualifiers: Lower urinary tract symptom presence: symptoms absent Qualified Code(s): N40.0 - Benign prostatic hyperplasia without lower urinary tract symptoms (4) CAD (coronary artery disease) Code(s): I25.10 - ATHSCL HEART DISEASE OF [place] CORONARY ARTERY W/O ANG PCTRS (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 Dr Bassett
--- NOTE | 2018-03-07 16:14 | PN ---
Physical Exam: SUBJECTIVE: Patient seen and examined at bed side this morning. Still coughing up phlegm. Denies chest pain, sob, palpitation, abdominal pain, nausea or vomiting. No acute overnight events. OBJECTIVE: Vital Signs Period Temp Pulse Resp BP Sys/Garcia Pulse Ox Last 24 Hr 97.3 F-98.7 F 75-89 17-20 120-148/68-85 95-97 GENERAL: Elderly male, lying in bed, coughing, Awake, alert, and fully oriented , in no acute distress. HEAD: Normal with no signs of trauma. EYES: EOM intact, no pallor or icterus. . EARS, NOSE, THROAT: Ears normal. Moist mucous membranes. NECK: Supple. LUNGS: B/L breath sounds equal. Crackles R> L. Occasional wheeze. HEART: Regular rate and rhythm, normal S1 and S2 with soft systolic murmur, rub or gallop. ABDOMEN: Soft, tenderness in the lower quadrants, BS +, no organomegaly. MUSCULOSKELETAL: Normal range of motion at all joints. No bony deformities or tenderness. No CVA tenderness. UPPER EXTREMITIES: 2+ pulses, warm, well-perfused. No cyanosis. No clubbing. No peripheral edema. LOWER EXTREMITIES: 2+ pulses, warm, well-perfused. No calf tenderness. Trace pitting edema. NEUROLOGICAL: No facial droop, power 5/5 in all ext. Sensation intact. Cranial nerves II-XII intact. Normal speech. Gait not observed. PSYCHIATRIC: Cooperative. Good eye contact. Appropriate mood and affect. SKIN: Warm, dry, normal turgor, no rashes or lesions noted, normal capillary refill. Laboratory Results - last 24 hr 03/06/18 15:20 Urine Color Ltyellow Urine Appearance Clear Urine pH 5.0 Ur Specific Brun[place] 1.011 Urine Protein Negative Urine Glucose (UA) Negative Urine Ketones Negative Urine Blood Negative Urine Nitrite Negative Urine Bilirubin Negative Urine Urobilinogen Negative Ur Leukocyte Esterase Negative Active Medications Generic Name Dose Route Start Last Admin Trade Name Freq PRN Reason Stop Dose Admin Albuterol Sulfate 1 amp 03/05/18 16:56 Ventolin 0.083% Nebulizer Soln - NEB Q4H PRN SHORT OF BREATH/WHEEZING Albuterol/Ipratropium 1 amp 03/07/18 12:00 03/07/18 11:07 Duoneb - NEB 1 amp RQID FRANCESCA Administration Aspirin 81 mg 03/06/18 10:00 03/07/18 09:36 Asa - PO 81 mg DAILY FRANCESCA Administration Atorvastatin Calcium 10 mg 03/05/18 22:00 03/06/18 21:12 Lipitor - PO 10 mg HS FRANCESCA Administration Clopidogrel Bisulfate 75 mg 03/06/18 10:00 03/07/18 09:36 Plavix - PO 75 mg DAILY FRANCESCA Administration Enoxaparin Sodium 40 mg 03/06/18 10:00 03/07/18 10:46 Lovenox - SQ 40 mg DAILY FRANCESCA Administration Guaifenesin 10 ml 03/06/18 08:50 03/07/18 13:47 Robitussin - PO 10 ml Q4H PRN Administration COUGH Vancomycin HCl 1,000 mg in 250 mls @ 166.667 mls/hr 03/07/18 14:45 03/07/18 15:11 Vancomycin (Pre-Docked) IVPB 166.667 mls/hr Q12H FRANCESCA Administration Protocol Aztreonam 1 gm/ Dextrose 50 mls @ 100 mls/hr 03/07/18 14:45 IVPB Q8H-IV FRANCESCA Protocol Metoprolol Succinate 25 mg 03/06/18 10:00 03/07/18 09:36 Toprol Xl - PO 25 mg DAILY FRANCESCA Administration Pantoprazole Sodium 40 mg 03/06/18 10:00 03/07/18 09:36 Protonix - PO 40 mg DAILY FRANCESCA Administration Prednisone 60 mg 03/07/18 10:45 03/07/18 10:52 Deltasone - PO 60 mg DAILY FRANCESCA Administration 03/06/18: In comparison to a previous CT study of 10/29/2016 interval development of a right posterior basilar infiltrate is seen. Note is also made of development of mild bronchial wall thickening in association with minimal to mild bronchiectasis within the left lower chest and right middle lobe. There has been interval resolution of a left upper lobe infiltrate. Centrilobular emphysema is again noted which is probably mild to moderate. Stable 1.7 cm left adrenal adenoma. Biochemical evaluation is suggested if not previously performed. Cholelithiasis. Stable chronic moderate L1 and minimal to mild T11 vertebral body compression fractures. ASSESSMENT/PLAN: Patient is an 82 year old male with significant past medical history of HTN, HLD , CAD s/p stents in 2012, GERD, pneumonia presented to the ED accompanied with his with the chief complaint of " SOB and cough x 3 weeks". # Community acquired pneumonia Still has productive cough. Sputum cx pending Blood cultures, urine for legionella nega Abx changed to IV Vancomycin and IV Aztreonam Day 1 CT chest reviewed, report as above. Continue Albuterol/ duoneb nebs Started on Predniosone 60mg PO daily # R/O TB Concerned for TB in the past,(bronch done on 10/31/17) which did not show any endobronchial lesions. AFB sputum x 3 ordered Appreciate pulmonary recommendations # SOB could have been due to CHF exacerbation BNP: 1693 Symptoms improved with IV Lasix 40mg given in the ED Will monitor off Lasix I's and O's Daily Weight # CAD s/p stents (2012) Continue aspirin and plavix # HLD Continue Atorvastatin # HTN controlled Continue Metoprolol 25 mg PO daily # FEN Not on IV fluids, was diuresed in the ED with improvemnt Electrolytes WNL Soft diet (hx of dysphagia, can advance diet if tolerated) # Prophylaxis For DVT: On Lovenox 40 sq, early ambulation. For GI On protonix # Code Status: Full Code # Dispo:Admit in Med-Surg. Duration of stay unknown. Illness, Investigation and Plan of care explained to the patient and his . They verbalized understanding. Case discussed with Dr. So Visit type - Emergency Visit Emergency Visit: Yes ED Registration Date: 03/07/18 Care time: The patient presented to the Emergency Department on the above date and was hospitalized for further evaluation of their emergent condition. - New Patient This patient is new to me today: No - Critical Care Critical Care patient: No - Discharge Referral Referred to [facility] Med P.C.: No
[2018-03-07] MEDS: AZTREONAM 1 GM in DEXTROSE 5%-WATER - 50 ML IVPB SCH ×2 (16:24→21:26)
--- NOTE | 2018-03-07 16:29 | CONS ---
DATE OF CONSULTATION: 03/07/2018 INFECTIOUS DISEASE CONSULTATION HISTORY OF PRESENT ILLNESS: The patient is an 82-year-old male evaluated for right lower lobe pneumonia. He reports developing worsening shortness of breath for the past 3 weeks. It has been associated with a cough productive of yellowish sputum and pleuritic-type chest pain. In addition, the patient complained of sore throat. He presented to the hospital, where a CAT scan of the chest was performed and showed a new right lower lobe pneumonia. In addition, he had a bullous lesion in the right apex, which appears stable compared to previous CAT scans. He was empirically treated with Zithromax and doxycycline. Concern was raised about the possibility of tuberculosis in light of a positive QuantiFERON. 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 He reports having a positive PPD. However, he has not recall for INH prophylaxis. He was hospitalized with pneumonia in October 2016. At that time he underwent a bronchoscopy. Three sputums AFBs were negative for smear and culture. Presently he is awake and alert. He complains of a productive cough. He does not complain of shortness of breath at rest. No reported high-grade fever, shaking chills, night sweats or weight loss. PAST MEDICAL HISTORY: Positive for COPD, coronary artery disease, hypertension, hyperlipidemia, BPH. PAST SURGICAL HISTORY: Status post coronary artery stent, appendectomy. ALLERGIES: PENICILLIN, LEVAQUIN, MORPHINE. THE PATIENT REPORTS DEVELOPING SHORTNESS OF BREATH WITH PENICILLIN AND A LOCALIZED PRURITIC RASH WITH LEVAQUIN. He has tolerated Azactam in the past. MEDICATIONS: Include Zithromax, doxycycline, prednisone, Lovenox, Ventolin, Toprol, Lipitor, aspirin, Plavix, Protonix. SOCIAL HISTORY: He is a former smoker, stopped approximately 30 years ago. He worked in a correctional facility. He lives at home with his significant other. He denies any ill contacts. Last influenza vaccine was 2017. REVIEW OF SYSTEMS: Neurologic: No loss of consciousness, seizure activity, focal weakness. Cardiac: Negative for chest pain or palpitations. Respiratory: As per HPI. Gastrointestinal: Negative for vomiting or diarrhea. Genitourinary: Negative for urinary tract infection. LABORATORY DATA: White count 7.9, hematocrit 40.3, platelet count 216. Creatinine is 1.1. Urine Legionella antigen negative. Urinalysis negative. PHYSICAL EXAMINATION: General: He is awake and alert. He is in no acute distress. Breathing is nonlabored. Vital Signs: Temperature 98.7, blood pressure 136/85, pulse 79 and regular, respirations 18 per minute. HEENT: Sclerae anicteric. Oropharynx negative. Neck: Supple. Cardiac: Heart sounds S1, S2. Lungs: Rales at the bases bilaterally. Abdomen: Soft and nontender. Extremities: Negative for edema. IMPRESSION: 1. Community-acquired right lower lobe pneumonia. 2. HISTORY OF MAJOR PENICILLIN ALLERGY. 3. History of positive QuantiFERON with negative tuberculosis workup. PLAN: Would treat for community-acquired pathogens in this patient with PENICILLIN ALLERGY with vancomycin and Azactam. He does not require isolation for tuberculosis or further workup for tuberculosis. The case was discussed with Pulmonary and CAT scans reviewed with same. The case was discussed with the patient's family present at the time of examination. Thank you for the kind referral. EDWARD GALEANO M.D. [id number]
[2018-03-07] MEDS ORDERED: PT OWN MED DRAWER 7, Y5N ONE (21:03)
[2018-03-07] MEDS: ATORVASTATIN CA 10 MG TABLET (FP) PO SCH (21:13)
[2018-03-08] MEDS: AZTREONAM 1 GM in DEXTROSE 5%-WATER - 50 ML IVPB SCH ×3 (02:02→17:28)
[2018-03-08] MEDS: VANCOMYCIN 1 GRAM (PRE-DOCKED) 1,000 MG/250 ML BAG IVPB SCH ×2 (02:29→14:04)
[2018-03-08] MEDS: ALBUTEROL SO4 2.5/IPRATROPIUM 0.5 INH SOL 3 ML VIAL.NEB. NEB SCH ×3 (07:25→15:30)
[2018-03-08 08:11] LABS: HEMOGLOBIN 13.1 GM/dL (11.7-16.9); MCH 32.1 pg (25.7-33.7); MCHC 34.5 g/dl (32.0-35.9); MEAN CELL VOLUME 93.1 fl (80-96); MEAN PLT VOLUME 9.3 fl (7.5-11.1); PLATELET COUNT 204 K/MM3 (134-434); RBC 4.09 M/mm3 (4.00-5.60); RDW 13.2 % (11.9-15.9); WHITE BLOOD COUNT 10.5 K/mm3 (4.0-10.0)
[2018-03-08 08:30] LABS: ANION GAP 9 MMOL/L (8-16); BLOOD UREA NITROGEN 23 mg/dL (7-18); CALCIUM 8.5 mg/dL (8.5-10.1); CHLORIDE 104 mmol/L (98-107); CO2 24 mmol/L (21-32); CREATININE 1.2 mg/dL (0.55-1.3); GLUCOSE,RANDOM 117 mg/dL (74-106); POTASSIUM 3.9 mmol/L (3.5-5.1); SODIUM 137 mmol/L (136-145)
[2018-03-08] MEDS: ENOXAPARIN NA (PORCINE) 40 MG/0.4 ML DISP.SYRIN SQ SCH (09:18)
[2018-03-08] MEDS: metoPROLOL SUCCINATE 25 MG TAB.SR.24H (FP) PO SCH (09:19)
[2018-03-08] MEDS: ASPIRIN 81 MG CHEWABLE TABLETS PO SCH (09:19)
[2018-03-08] MEDS: guaiFENesin 200 MG/10 ML 10 ML UNIT-DOSE CUPS PO PRN ×3 (09:19→19:57)
[2018-03-08] MEDS: CLOPIDOGREL BISULFATE 75 MG TABLET (FP) PO SCH (09:19)
[2018-03-08] MEDS: PANTOPRAZOLE 40 MG TABLET (FP) PO SCH (09:19)
[2018-03-08] MEDS: predniSONE 20 MG TABLET (UD) PO SCH (09:19)
--- NOTE | 2018-03-08 09:30 | PN ---
Progress Note (short form) - Note Progress Note: Dr. So/GERARDO Riddle to document today. W/U with PULM MDand ID appreciated. New antibiotics noted.
[2018-03-08] MEDS ORDERED: POLYETHYLENE GLYCOL 3350 119 GM BTL PO ONE (09:38)
--- NOTE | 2018-03-08 11:59 | PN ---
Progress Note (short form) - Note Progress Note: s: no cp palps dizzy; +cough and sob, less today o: Vital Signs Period Temp Pulse Resp BP Sys/Garcia Pulse Ox Last 24 Hr 97.9 F-98.6 F 82-96 18-20 130-153/70-82 94-96 Constitutional: Yes: No Distress, Calm Eyes: Yes: Conjunctiva Clear Respiratory: Yes: Regular, scattered rhonchi, nl eff Gastrointestinal: Yes: Normal Bowel Sounds, Soft Cardiovascular: Yes: Regular Rate and Rhythm JVD: No Heart Sounds: Yes: S1, S2 Musculoskeletal: No: Back Pain Extremities: No: Cold Edema: No Peripheral Pulses: 2+ Left Carotid, 2+ Right Carotid, 2+ Left Doralis Pedis, 2+ Right Dorsalis Pedis Neurological: Yes: Alert, Oriented Current Medications Generic Name Dose Route Start Last Admin Trade Name Freq PRN Reason Stop Dose Admin Albuterol Sulfate 1 amp 03/05/18 16:56 Ventolin 0.083% Nebulizer Soln - NEB Q4H PRN SHORT OF BREATH/WHEEZING Albuterol/Ipratropium 1 amp 03/07/18 12:00 03/08/18 11:15 Duoneb - NEB Not Given RQID FRANCESCA Aspirin 81 mg 03/06/18 10:00 03/08/18 09:19 Asa - PO 81 mg DAILY FRANCESCA Administration Atorvastatin Calcium 10 mg 03/05/18 22:00 03/07/18 21:13 Lipitor - PO 10 mg HS FRANCESCA Administration Clopidogrel Bisulfate 75 mg 03/06/18 10:00 03/08/18 09:19 Plavix - PO 75 mg DAILY FRANCESCA Administration Enoxaparin Sodium 40 mg 03/06/18 10:00 03/08/18 09:18 Lovenox - SQ 40 mg DAILY FRANCESCA Administration Guaifenesin 10 ml 03/06/18 08:50 03/08/18 09:19 Robitussin - PO 10 ml Q4H PRN Administration COUGH Vancomycin HCl 1,000 mg in 250 mls @ 166.667 mls/hr 03/07/18 14:45 03/08/18 02:29 Vancomycin (Pre-Docked) IVPB 166.667 mls/hr Q12H FRANCESCA Administration Protocol Aztreonam 1 gm/ Dextrose 50 mls @ 100 mls/hr 03/07/18 14:45 03/08/18 09:19 IVPB 100 mls/hr Q8H-IV FRANCESCA Administration Protocol Metoprolol Succinate 25 mg 03/06/18 10:00 03/08/18 09:19 Toprol Xl - PO 25 mg DAILY FRANCESCA Administration Pantoprazole Sodium 40 mg 03/06/18 10:00 03/08/18 09:19 Protonix - PO 40 mg DAILY FRANCESCA Administration Prednisone 60 mg 03/07/18 10:45 03/08/18 09:19 Deltasone - PO 60 mg DAILY FRANCESCA Administration CBC, BMP 03/08/18 07:00 03/08/18 07:00 Assessment/Plan EKG: sinus, LVH, TWI I, aVL, V4-6 LHC 02/23: patent mRCA stent (mild ISR); 30-50% dRCA; 80-90% pLAD--BMS (covered stent after perf'd with PTCA); 30-50% mLAD bridge; 30-50% D1; 30-50% OM1; 30-50 % prox Ramus; (PTCA OF LAD COMPLICATED BY PERF--COVERED STENT PLACED, OCCLUDING THE DIAG--LARGE TROPONIN LEAK WITH SMALL RWMA ON ECHO THEN) MIBI 04/27 (pers): no STs; large, fixed anteroapical defect; small inferoapical defect partially reversible c/w vito-infarct ischemia in LAD territory; severe HK of mid and apical AW, and apex akinetic; EF 41% Echo 03/2016: 1. The left ventricular size is normal. 2. Overall left ventricular systolic function appears mildly reduced, with a visually estimated EF of 45%. 3. The diastolic filling pattern indicates impaired relaxation. Normal LA pressure. 4. Apical inferior, apical lateral, and apical anterior segments appear hypokinetic. Mid anterior wall is not well seen, and appears possibly hypokinetic in the available images. 5. The right ventricle is normal in size and function. 6. Left atrium is normal size by volume. 7. [id number] mitral regurgitation is present. echo 02/2018: nl lv, rv tds, no sig valve path 81 yo with pmhx of CAD s/p multiple PCI (most recent 2014) with chronic stable angina, mild ischemic cardiomyopathy, HTN, HL, COPD, depression p/w sob sob, pna - likely 2/2 PNA - abx per primary/ID, sxs improving - echo unremarkable CAD - s/p JOAO to mid RCA 11/15 ISR of JOAO treated with second JOAO 06/16. Most recent PCI of LAD was complicated by perf --> BMS placed occluding the diag. - nl lvef -con't statin, bb, dapt (per patient was advised to be on dapt indefinitely). intolerant of acei. Mild ischemic cardiomyopathy -EF mildly reduced (45%) with apical wma's noted on echo 03/2016-->echo here with nl lvef - received lasix 40 mg IV x 1 in ER, now on lasix 40 mg PO daily - not on lasix at home - BNP 1600 however patient appears euvolemic currently, stop lasix, monitor - con't bb. intolerant of acei. HTN - continue bb, stable hld - on statin
--- NOTE | 2018-03-08 12:16 | PN ---
Progress Note (short form) - Note Progress Note: PULMONARY AWAKE/ALERT LESS COUGH PATIENT REPORTS SHAKES AND THROAT DISCOMFORT DURING NEB TREATMENT HE HAS REFUSED FURTHER TREATMENTS VSS/AFEBRILE ANICTERIC RIGHT BASE CRACKLES S1S2 BS+ NO EDEMA LABS/MEDS/IMAGES/REVIEWED - Problems (1) COPD (chronic obstructive pulmonary disease) Code(s): J44.9 - CHRONIC OBSTRUCTIVE PULMONARY DISEASE, UNSPECIFIED (2) Pneumonia Code(s): J18.9 - PNEUMONIA, UNSPECIFIED ORGANISM Qualifiers: (3) BPH (benign prostatic hyperplasia) Code(s): N40.0 - BENIGN PROSTATIC HYPERPLASIA WITHOUT LOWER URINRY TRACT SYMP Qualifiers: Lower urinary tract symptom presence: symptoms absent Qualified Code(s): N40.0 - Benign prostatic hyperplasia without lower urinary tract symptoms (4) CAD (coronary artery disease) Code(s): I25.10 - ATHSCL HEART DISEASE OF [place] CORONARY ARTERY W/O ANG PCTRS (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
--- NOTE | 2018-03-08 16:43 | PN ---
Progress Note, Physician History of Present Illness: Became shaky when receiving nebullizer treatment Tolerated antibiotics + productive cough No fever/ chills - Current Medication List Current Medications: Active Medications Albuterol Sulfate (Ventolin 0.083% Nebulizer Soln -) 1 amp NEB Q4H PRN PRN Reason: SHORT OF BREATH/WHEEZING Albuterol/Ipratropium (Duoneb -) 1 amp NEB RQID [facility] Last Admin: 03/08/18 15:30 Dose: Not Given Aspirin (Asa -) 81 mg PO DAILY [facility] Last Admin: 03/08/18 09:19 Dose: 81 mg Atorvastatin Calcium (Lipitor -) 10 mg PO HS [facility] Last Admin: 03/07/18 21:13 Dose: 10 mg Clopidogrel Bisulfate (Plavix -) 75 mg PO DAILY [facility] Last Admin: 03/08/18 09:19 Dose: 75 mg Enoxaparin Sodium (Lovenox -) 40 mg SQ DAILY [facility] Last Admin: 03/08/18 09:18 Dose: 40 mg Guaifenesin (Robitussin -) 10 ml PO Q4H PRN PRN Reason: COUGH Last Admin: 03/08/18 14:18 Dose: 10 ml Vancomycin HCl (Vancomycin (Pre-Docked)) 1,000 mg in 250 mls @ 166.667 mls/hr IVPB Q12H [facility]; Protocol Last Admin: 03/08/18 14:04 Dose: 166.667 mls/hr Aztreonam 1 gm/ Dextrose 50 mls @ 100 mls/hr IVPB Q8H-IV FRANCESCA; Protocol Last Admin: 03/08/18 09:19 Dose: 100 mls/hr Metoprolol Succinate (Toprol Xl -) 25 mg PO DAILY [facility] Last Admin: 03/08/18 09:19 Dose: 25 mg Pantoprazole Sodium (Protonix -) 40 mg PO DAILY [facility] Last Admin: 03/08/18 09:19 Dose: 40 mg Prednisone (Deltasone -) 60 mg PO DAILY [facility] Last Admin: 03/08/18 09:19 Dose: 60 mg - Objective Vital Signs: Vital Signs Temperature 97.9 F 03/08/18 08:40 Pulse Rate 82 03/08/18 08:40 Respiratory Rate 18 03/08/18 08:40 Blood Pressure 144/70 03/08/18 08:40 O2 Sat by Pulse Oximetry (%) 94 L 03/08/18 08:40 Constitutional: Yes: No Distress, Thin Eyes: Yes: Conjunctiva Clear Cardiovascular: Yes: Regular Rate and Rhythm, S1, S2 Respiratory: Yes: Other (+ crepitations at bases) Gastrointestinal: Yes: Normal Bowel Sounds, Soft. No: Tenderness Edema: No Labs: CBC, BMP 03/08/18 07:00 03/08/18 07:00 Assessment/Plan RLL community acquired pneumonia Hx + Quantiferon Multiple antibiotic allergies Await c/s Continue empiric vancomycin /aztreonam
--- NOTE | 2018-03-08 16:59 | PN ---
Teaching Attending Note Name of Resident: Yanira Pena ATTENDING PHYSICIAN STATEMENT I saw and evaluated the patient. I reviewed the resident's note and discussed the case with the resident. I agree with the resident's findings and plan as documented. SUBJECTIVE: Mr Schwarz said he had an episode of anxiety with shaking after albuterol yesterday. However today he is feeling well. Denies cp, sob, n/v. OBJECTIVE: Last Vital Signs Temp Pulse Resp BP Pulse Ox 36.6 C 82 18 144/70 94 L 03/08/18 08:40 03/08/18 08:40 03/08/18 08:40 03/08/18 08:40 03/08/18 08:40 Gen: nad Pulm: slight bibasilar ronchi CV: rrr w/o m/r/g Abd: +bs, s/nt/nd Ext: no c/c/e CBC, BMP 03/08/18 07:00 03/08/18 07:00 ASSESSMENT AND PLAN: (1) Pneumonia Assessment/Plan: -improved today -ID note reviewed -on empiric aztreonam and vancomycin -daily prednisone Code(s): J18.9 - PNEUMONIA, UNSPECIFIED ORGANISM Qualifiers: (2) BPH (benign prostatic hyperplasia) Assessment/Plan: -without symptoms Code(s): N40.0 - BENIGN PROSTATIC HYPERPLASIA WITHOUT LOWER URINRY TRACT SYMP Qualifiers: Lower urinary tract symptom presence: symptoms absent Qualified Code(s): N40.0 - Benign prostatic hyperplasia without lower urinary tract symptoms (3) CAD (coronary artery disease) Assessment/Plan: -appreciate cardiology assistance -quiescent -continue home regimen Code(s): I25.10 - ATHSCL HEART DISEASE OF [place] CORONARY ARTERY W/O ANG PCTRS (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 Problem List - Problems (1) Pneumonia Code(s): J18.9 - PNEUMONIA, UNSPECIFIED ORGANISM Qualifiers: (2) BPH (benign prostatic hyperplasia) Code(s): N40.0 - BENIGN PROSTATIC HYPERPLASIA WITHOUT LOWER URINRY TRACT SYMP Qualifiers: Lower urinary tract symptom presence: symptoms absent Qualified Code(s): N40.0 - Benign prostatic hyperplasia without lower urinary tract symptoms (3) CAD (coronary artery disease) Code(s): I25.10 - ATHSCL HEART DISEASE OF [place] CORONARY ARTERY W/O ANG PCTRS (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
--- NOTE | 2018-03-08 18:00 | PN ---
Physical Exam: SUBJECTIVE: Patient seen and examined at bed side this morning. States his cough is getting better. Denies chest pain, sob, palpitation, abdominal pain, nausea or vomiting. Last evening, he complained of shaking soon after the albuterol treatment, vitals were stable at that time and symptoms resolved spontaneously. OBJECTIVE: Vital Signs Period Temp Pulse Resp BP Sys/Garcia Pulse Ox Last 24 Hr 97.9 F-98.6 F 82-96 18-20 130-153/70-82 94-96 GENERAL: Elderly male, lying in bed, coughing, Awake, alert, and fully oriented , in no acute distress. HEAD: Normal with no signs of trauma. EYES: EOM intact, no pallor or icterus. . EARS, NOSE, THROAT: Ears normal. Moist mucous membranes. NECK: Supple. LUNGS: B/L breath sounds equal. Crackles R> L. Occasional wheeze. HEART: Regular rate and rhythm, normal S1 and S2 with soft systolic murmur, rub or gallop. ABDOMEN: Soft, tenderness in the lower quadrants, BS +, no organomegaly. MUSCULOSKELETAL: Normal range of motion at all joints. No bony deformities or tenderness. No CVA tenderness. UPPER EXTREMITIES: 2+ pulses, warm, well-perfused. No cyanosis. No clubbing. No peripheral edema. LOWER EXTREMITIES: 2+ pulses, warm, well-perfused. No calf tenderness. Trace pitting edema. NEUROLOGICAL: No facial droop, power 5/5 in all ext. Sensation intact. Cranial nerves II-XII intact. Normal speech. Gait not observed. PSYCHIATRIC: Cooperative. Good eye contact. Appropriate mood and affect. SKIN: Warm, dry, normal turgor, no rashes or lesions noted, normal capillary refill. Laboratory Results - last 24 hr 03/08/18 03/08/18 07:00 07:00 WBC 10.5 H RBC 4.09 Hgb 13.1 Hct 38.0 MCV 93.1 MCH 32.1 MCHC 34.5 RDW 13.2 Plt Count 204 MPV 9.3 Sodium 137 Potassium 3.9 Chloride 104 Carbon Dioxide 24 Anion Gap 9 BUN 23 H Creatinine 1.2 Creat Clearance w eGFR 57.68 Random Glucose 117 H Calcium 8.5 Active Medications Generic Name Dose Route Start Last Admin Trade Name Freq PRN Reason Stop Dose Admin Aspirin 81 mg 03/06/18 10:00 03/08/18 09:19 Asa - PO 81 mg DAILY [facility] Administration Atorvastatin Calcium 10 mg 03/05/18 22:00 03/07/18 21:13 Lipitor - PO 10 mg HS [facility] Administration Clopidogrel Bisulfate 75 mg 03/06/18 10:00 03/08/18 09:19 Plavix - PO 75 mg DAILY [facility] Administration Enoxaparin Sodium 40 mg 03/06/18 10:00 03/08/18 09:18 Lovenox - SQ 40 mg DAILY [facility] Administration Guaifenesin 10 ml 03/06/18 08:50 03/08/18 14:18 Robitussin - PO 10 ml Q4H PRN Administration COUGH Vancomycin HCl 1,000 mg in 250 mls @ 166.667 mls/hr 03/07/18 14:45 03/08/18 14:04 Vancomycin (Pre-Docked) IVPB 166.667 mls/hr Q12H [facility] Administration Protocol Aztreonam 1 gm/ Dextrose 50 mls @ 100 mls/hr 03/07/18 14:45 03/08/18 17:28 IVPB 100 mls/hr Q8H-IV [facility] Administration Protocol Metoprolol Succinate 25 mg 03/06/18 10:00 03/08/18 09:19 Toprol Xl - PO 25 mg DAILY [facility] Administration Pantoprazole Sodium 40 mg 03/06/18 10:00 03/08/18 09:19 Protonix - PO 40 mg DAILY [facility] Administration Prednisone 60 mg 03/07/18 10:45 03/08/18 09:19 Deltasone - PO 60 mg DAILY [facility] Administration ASSESSMENT/PLAN: Patient is an 82 year old male with significant past medical history of HTN, HLD , CAD s/p stents in 2012, GERD, pneumonia presented to the ED accompanied with his with the chief complaint of " SOB and cough x 3 weeks". # Community acquired pneumonia Cough has improved. Continue IV Vancomycin and IV Aztreonam Day 2 Blood cultures, urine for legionella nega CT chest reviewed, report as above. Albuterol/ duoneb nebs discontinued due to tachycardia. Started on Predniosone 60mg PO daily # R/O TB Concerned for TB in the past,(bronch done on 10/31/17) which did not show any endobronchial lesions. AFB sputum x 3 result pending Appreciate pulmonary recommendations # SOB could have been due to CHF exacerbation BNP: 1693 monitor off Lasix I's and O's Daily Weight # CAD s/p stents (2012) Continue aspirin and plavix # HLD Continue Atorvastatin # HTN controlled Continue Metoprolol 25 mg PO daily # FEN Not on IV fluids, was diuresed in the ED with improvemnt Electrolytes WNL Soft diet (hx of dysphagia, can advance diet if tolerated) # Prophylaxis For DVT: On Lovenox 40 sq, early ambulation. For GI On protonix # Code Status: Full Code # Dispo:Admit in Med-Surg. D/c planning if patient feels better in AM. Illness, Investigation and Plan of care explained to the patient and his . They verbalized understanding. Case discussed with Dr. So Problem List - Problems (1) COPD (chronic obstructive pulmonary disease) Code(s): J44.9 - CHRONIC OBSTRUCTIVE PULMONARY DISEASE, UNSPECIFIED (2) Pneumonia Code(s): J18.9 - PNEUMONIA, UNSPECIFIED ORGANISM Qualifiers: (3) BPH (benign prostatic hyperplasia) Code(s): N40.0 - BENIGN PROSTATIC HYPERPLASIA WITHOUT LOWER URINRY TRACT SYMP Qualifiers: Lower urinary tract symptom presence: symptoms absent Qualified Code(s): N40.0 - Benign prostatic hyperplasia without lower urinary tract symptoms (4) CAD (coronary artery disease) Code(s): I25.10 - ATHSCL HEART DISEASE OF [place] CORONARY ARTERY W/O ANG PCTRS (5) Dysphagia Code(s): R13.10 - DYSPHAGIA, UNSPECIFIED (6) Sepsis Code(s): A41.9 - SEPSIS, UNSPECIFIED ORGANISM Qualifiers: Sepsis type: sepsis due to unspecified organism Qualified Code(s): A41.9 - Sepsis, unspecified organism (7) Weakness Code(s): R53.1 - WEAKNESS Visit type - Emergency Visit Emergency Visit: Yes ED Registration Date: 03/07/18 Care time: The patient presented to the Emergency Department on the above date and was hospitalized for further evaluation of their emergent condition. - New Patient This patient is new to me today: No - Critical Care Critical Care patient: No - Discharge Referral Referred to [facility] Med P.C.: No
[2018-03-08] MEDS: ATORVASTATIN CA 10 MG TABLET (FP) PO SCH (21:42)
[2018-03-09] MEDS ORDERED: PT OWN MED DRAWER 7, Y5N ONE ×3 (00:03→16:47)
[2018-03-09] MEDS: AZTREONAM 1 GM in DEXTROSE 5%-WATER - 50 ML IVPB SCH ×3 (01:02→19:17)
[2018-03-09] MEDS: VANCOMYCIN 1 GRAM (PRE-DOCKED) 1,000 MG/250 ML BAG IVPB SCH ×2 (01:49→15:59)
[2018-03-09 08:22] LABS: HEMATOCRIT 39.7 % (35.4-49); MCH 30.3 pg (25.7-33.7); MCHC 32.8 g/dl (32.0-35.9); MEAN CELL VOLUME 92.6 fl (80-96); MEAN PLT VOLUME 9.5 fl (7.5-11.1); PLATELET COUNT 210 K/MM3 (134-434); RBC 4.29 M/mm3 (4.00-5.60); RDW 13.1 % (11.9-15.9); WHITE BLOOD COUNT 12.1 K/mm3 (4.0-10.0)
--- NOTE | 2018-03-09 08:55 | PN ---
Progress Note (short form) - Note Progress Note: reports feeling improved today still coughing white sputum Vital Signs Period Temp Pulse Resp BP Sys/Garcia Pulse Ox Last 24 Hr 97.6 F-98.2 F 76-80 16-20 138-153/70-92 97 cor-rrr lungs crackles right base abd soft,nt ext no edema CBC, BMP 03/09/18 07:15 03/09/18 07:15 Microbiology 03/05/18 15:18 Blood - Peripheral Venous Blood Culture - Preliminary NO GROWTH OBTAINED AFTER 72 HOURS, INCUBATION TO CONTINUE FOR 2 DAYS. 03/05/18 15:18 Blood - Peripheral Venous Blood Culture - Preliminary NO GROWTH OBTAINED AFTER 72 HOURS, INCUBATION TO CONTINUE FOR 2 DAYS. 03/07/18 09:00 Sputum - Expectorated Gram Stain - Final 03/07/18 09:00 Sputum - Expectorated Sputum Culture - Preliminary NORMAL RESPIRATORY VALDEZ 03/07/18 08:30 Urine For Antigen Detection Legionella Antigen - Final 03/07/18 08:30 Urine For Antigen Detection Streptococcus pneumoniae Antigen (M - Final a/p right basilar pneumonia multiple antibiotic allergies continue vanco/azactam vanco trough today- ordered +quantiferon
[2018-03-09 09:39] LABS: BLOOD UREA NITROGEN 23 mg/dL (7-18); CHLORIDE 104 mmol/L (98-107); GLUCOSE,RANDOM 91 mg/dL (74-106); POTASSIUM 4.2 mmol/L (3.5-5.1); SODIUM 138 mmol/L (136-145)
[2018-03-09 09:40] LABS: ANION GAP 8 MMOL/L (8-16); CALCIUM 8.7 mg/dL (8.5-10.1); CO2 26 mmol/L (21-32)
[2018-03-09] MEDS: ENOXAPARIN NA (PORCINE) 40 MG/0.4 ML DISP.SYRIN SQ SCH (10:12)
[2018-03-09] MEDS: predniSONE 20 MG TABLET (UD) PO SCH (10:12)
[2018-03-09] MEDS: ASPIRIN 81 MG CHEWABLE TABLETS PO SCH (10:13)
[2018-03-09] MEDS: metoPROLOL SUCCINATE 25 MG TAB.SR.24H (FP) PO SCH (10:13)
[2018-03-09] MEDS: PANTOPRAZOLE 40 MG TABLET (FP) PO SCH (10:13)
[2018-03-09] MEDS: CLOPIDOGREL BISULFATE 75 MG TABLET (FP) PO SCH (10:13)
[2018-03-09] MEDS: guaiFENesin 200 MG/10 ML 10 ML UNIT-DOSE CUPS PO PRN ×2 (10:20→16:01)
--- NOTE | 2018-03-09 11:39 | PN ---
Progress Note (short form) - Note Progress Note: PULMONARY AWAKE/ALERT LESS COUGH PATIENT REPORTS SHAKES AND THROAT DISCOMFORT DURING NEB TREATMENT HE HAS REFUSED FURTHER TREATMENTS VSS/AFEBRILE ANICTERIC RIGHT BASE CRACKLES S1S2 BS+ NO EDEMA LABS/MEDS/IMAGES/REVIEWED - Problems (1) COPD (chronic obstructive pulmonary disease) Code(s): J44.9 - CHRONIC OBSTRUCTIVE PULMONARY DISEASE, UNSPECIFIED (2) Pneumonia Code(s): J18.9 - PNEUMONIA, UNSPECIFIED ORGANISM Qualifiers: (3) BPH (benign prostatic hyperplasia) Code(s): N40.0 - BENIGN PROSTATIC HYPERPLASIA WITHOUT LOWER URINRY TRACT SYMP Qualifiers: Lower urinary tract symptom presence: symptoms absent Qualified Code(s): N40.0 - Benign prostatic hyperplasia without lower urinary tract symptoms (4) CAD (coronary artery disease) Code(s): I25.10 - ATHSCL HEART DISEASE OF [place] CORONARY ARTERY W/O ANG PCTRS (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
--- NOTE | 2018-03-09 12:57 | PN ---
Progress Note, Physician Chief Complaint: Mr Schwarz says he is feeling better but complains of cough. No cp, sob, n/v. - Current Medication List Current Medications: Active Medications Aspirin (Asa -) 81 mg PO DAILY [facility] Last Admin: 03/09/18 10:13 Dose: 81 mg Atorvastatin Calcium (Lipitor -) 10 mg PO HS [facility] Last Admin: 03/08/18 21:42 Dose: 10 mg Clopidogrel Bisulfate (Plavix -) 75 mg PO DAILY [facility] Last Admin: 03/09/18 10:13 Dose: 75 mg Enoxaparin Sodium (Lovenox -) 40 mg SQ DAILY [facility] Last Admin: 03/09/18 10:12 Dose: 40 mg Guaifenesin (Robitussin -) 10 ml PO Q4H PRN PRN Reason: COUGH Last Admin: 03/09/18 10:20 Dose: 10 ml Vancomycin HCl (Vancomycin (Pre-Docked)) 1,000 mg in 250 mls @ 166.667 mls/hr IVPB Q12H [facility]; Protocol Last Admin: 03/09/18 01:49 Dose: 166.667 mls/hr Aztreonam 1 gm/ Dextrose 50 mls @ 100 mls/hr IVPB Q8H-IV [facility]; Protocol Last Admin: 03/09/18 10:14 Dose: 100 mls/hr Metoprolol Succinate (Toprol Xl -) 25 mg PO DAILY [facility] Last Admin: 03/09/18 10:13 Dose: 25 mg Pantoprazole Sodium (Protonix -) 40 mg PO DAILY [facility] Last Admin: 03/09/18 10:13 Dose: 40 mg Prednisone (Deltasone -) 60 mg PO DAILY [facility] Last Admin: 03/09/18 10:12 Dose: 60 mg - Objective Vital Signs: Vital Signs Temperature 36.4 C 03/09/18 08:07 Pulse Rate 80 03/09/18 08:07 Respiratory Rate 16 03/09/18 08:07 Blood Pressure 150/90 03/09/18 08:07 O2 Sat by Pulse Oximetry (%) 97 03/09/18 09:00 Constitutional: Yes: Well Nourished, No Distress, Calm Cardiovascular: Yes: Regular Rate and Rhythm. No: Gallop, Murmur, Rub Respiratory: Yes: Regular, CTA Bilaterally, Cough. No: Rales, Rhonchi, Wheezes Gastrointestinal: Yes: Normal Bowel Sounds, Soft. 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 Assessment/Plan (1) Pneumonia Assessment/Plan: -continues to improve but still with cough -case d/w pulmonary -ID note reviewed -on empiric aztreonam and vancomycin -decrease prednisone to 40mg tomorrow Code(s): J18.9 - PNEUMONIA, UNSPECIFIED ORGANISM Qualifiers: (2) BPH (benign prostatic hyperplasia) Assessment/Plan: -without symptoms Code(s): N40.0 - BENIGN PROSTATIC HYPERPLASIA WITHOUT LOWER URINRY TRACT SYMP Qualifiers: Lower urinary tract symptom presence: symptoms absent Qualified Code(s): N40.0 - Benign prostatic hyperplasia without lower urinary tract symptoms (3) CAD (coronary artery disease) Assessment/Plan: -appreciate cardiology assistance -quiescent -continue home regimen Code(s): I25.10 - ATHSCL HEART DISEASE OF [place] CORONARY ARTERY W/O ANG PCTRS (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
[2018-03-09] MEDS: ATORVASTATIN CA 10 MG TABLET (FP) PO SCH (21:05)
[2018-03-10] MEDS ORDERED: PT OWN MED DRAWER 7, Y5N ONE ×4 (01:48→18:18)
[2018-03-10] MEDS: AZTREONAM 1 GM in DEXTROSE 5%-WATER - 50 ML IVPB SCH ×3 (01:59→18:19)
[2018-03-10] MEDS: VANCOMYCIN 1 GRAM (PRE-DOCKED) 1,000 MG/250 ML BAG IVPB SCH ×2 (02:32→15:45)
[2018-03-10 07:46] LABS: BASO % 0.9 % (0-2.0); EOS % 0.7 % (0-4.5); HEMATOCRIT 36.5 % (35.4-49); HEMOGLOBIN 13.1 GM/dL (11.7-16.9); MCH 32.5 pg (25.7-33.7); MCHC 35.8 g/dl (32.0-35.9); MEAN CELL VOLUME 90.8 fl (80-96); MEAN PLT VOLUME 9.5 fl (7.5-11.1); MONO % 8.8 % (3.8-10.2); NEUT % 71.6 % (42.8-82.8); PLATELET COUNT 219 K/MM3 (134-434); RBC 4.02 M/mm3 (4.00-5.60); RDW 13.2 % (11.9-15.9); WHITE BLOOD COUNT 11.1 K/mm3 (4.0-10.0)
[2018-03-10 08:35] LABS: ANION GAP 8 MMOL/L (8-16); BLOOD UREA NITROGEN 20 mg/dL (7-18); CALCIUM 8.7 mg/dL (8.5-10.1); CHLORIDE 104 mmol/L (98-107); CO2 25 mmol/L (21-32); GLUCOSE,RANDOM 93 mg/dL (74-106); MAGNESIUM 2.2 mg/dL (1.8-2.4); PHOSPHOROUS 2.9 mg/dL (2.5-4.9); POTASSIUM 3.9 mmol/L (3.5-5.1); SODIUM 138 mmol/L (136-145)
[2018-03-10] MEDS: ENOXAPARIN NA (PORCINE) 40 MG/0.4 ML DISP.SYRIN SQ SCH (09:45)
[2018-03-10] MEDS: predniSONE 20 MG TABLET (UD) PO SCH (09:46)
[2018-03-10] MEDS: CLOPIDOGREL BISULFATE 75 MG TABLET (FP) PO SCH (09:46)
[2018-03-10] MEDS: PANTOPRAZOLE 40 MG TABLET (FP) PO SCH (09:46)
[2018-03-10] MEDS: metoPROLOL SUCCINATE 25 MG TAB.SR.24H (FP) PO SCH (09:48)
[2018-03-10] MEDS: ASPIRIN 81 MG CHEWABLE TABLETS PO SCH (09:48)
[2018-03-10] MEDS: guaiFENesin 200 MG/10 ML 10 ML UNIT-DOSE CUPS PO PRN ×2 (09:52→22:46)
[2018-03-10 10:36] LABS: ANISOCYTOSIS 0; MACROCYTOSIS 0; PLATELET ESTIMATE NORMAL
--- NOTE | 2018-03-10 13:15 | PN ---
Progress Note, Physician Chief Complaint: Mr Schwarz still complains of productive cough. Denies cp, sob, n/v. - Current Medication List Current Medications: Active Medications Aspirin (Asa -) 81 mg PO DAILY [facility] Last Admin: 03/10/18 09:48 Dose: 81 mg Atorvastatin Calcium (Lipitor -) 10 mg PO HS [facility] Last Admin: 03/09/18 21:05 Dose: 10 mg Clopidogrel Bisulfate (Plavix -) 75 mg PO DAILY [facility] Last Admin: 03/10/18 09:46 Dose: 75 mg Enoxaparin Sodium (Lovenox -) 40 mg SQ DAILY [facility] Last Admin: 03/10/18 09:45 Dose: 40 mg Guaifenesin (Robitussin -) 10 ml PO Q4H PRN PRN Reason: COUGH Last Admin: 03/10/18 09:52 Dose: 10 ml Vancomycin HCl (Vancomycin (Pre-Docked)) 1,000 mg in 250 mls @ 166.667 mls/hr IVPB Q12H [facility]; Protocol Last Admin: 03/10/18 02:32 Dose: 166.667 mls/hr Aztreonam 1 gm/ Dextrose 50 mls @ 100 mls/hr IVPB Q8H-IV [facility]; Protocol Last Admin: 03/10/18 09:45 Dose: 100 mls/hr Metoprolol Succinate (Toprol Xl -) 25 mg PO DAILY [facility] Last Admin: 03/10/18 09:48 Dose: 25 mg Pantoprazole Sodium (Protonix -) 40 mg PO DAILY [facility] Last Admin: 03/10/18 09:46 Dose: 40 mg Prednisone (Deltasone -) 40 mg PO DAILY [facility] Last Admin: 03/10/18 09:46 Dose: 40 mg - Objective Vital Signs: Vital Signs Temperature 37.0 C 03/10/18 05:52 Pulse Rate 69 03/10/18 05:52 Respiratory Rate 18 03/10/18 05:52 Blood Pressure 136/79 03/10/18 05:52 O2 Sat by Pulse Oximetry (%) 96 03/09/18 21:00 Constitutional: Yes: Well Nourished, No Distress, Calm Cardiovascular: Yes: Regular Rate and Rhythm. No: Gallop, Murmur, Rub Respiratory: Yes: Regular, Cough. No: Rales, Rhonchi, Wheezes Gastrointestinal: Yes: Normal Bowel Sounds, Soft. 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 Assessment/Plan (1) Pneumonia Assessment/Plan: -cough remains, otherwise without complaint -case d/w pulmonary -ID note reviewed -on empiric aztreonam and vancomycin -continue prednisone 40mg day 1 Code(s): J18.9 - PNEUMONIA, UNSPECIFIED ORGANISM Qualifiers: (2) BPH (benign prostatic hyperplasia) Assessment/Plan: -without symptoms Code(s): N40.0 - BENIGN PROSTATIC HYPERPLASIA WITHOUT LOWER URINRY TRACT SYMP Qualifiers: Lower urinary tract symptom presence: symptoms absent Qualified Code(s): N40.0 - Benign prostatic hyperplasia without lower urinary tract symptoms (3) CAD (coronary artery disease) Assessment/Plan: -appreciate cardiology assistance -quiescent -continue home regimen Code(s): I25.10 - ATHSCL HEART DISEASE OF [place] CORONARY ARTERY W/O ANG PCTRS (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
--- NOTE | 2018-03-10 13:17 | PN ---
Progress Note (short form) - Note Progress Note: PULMONARY AWAKE/ALERT LESS COUGH PATIENT REPORTS SHAKES AND THROAT DISCOMFORT DURING NEB TREATMENT HE HAS REFUSED FURTHER TREATMENTS VSS/AFEBRILE ANICTERIC RIGHT BASE CRACKLES S1S2 BS+ NO EDEMA LABS/MEDS/IMAGES/REVIEWED - Problems (1) COPD (chronic obstructive pulmonary disease) Code(s): J44.9 - CHRONIC OBSTRUCTIVE PULMONARY DISEASE, UNSPECIFIED (2) Pneumonia Code(s): J18.9 - PNEUMONIA, UNSPECIFIED ORGANISM Qualifiers: (3) BPH (benign prostatic hyperplasia) Code(s): N40.0 - BENIGN PROSTATIC HYPERPLASIA WITHOUT LOWER URINRY TRACT SYMP Qualifiers: Lower urinary tract symptom presence: symptoms absent Qualified Code(s): N40.0 - Benign prostatic hyperplasia without lower urinary tract symptoms (4) CAD (coronary artery disease) Code(s): I25.10 - ATHSCL HEART DISEASE OF [place] CORONARY ARTERY W/O ANG PCTRS (5) Positive QuantiFERON-TB Gold test Code(s): R76.12 - NONSPEC REACTION TO GAMMA INTRFRN RESPNS W/O ACTV TUBRCLOSIS Assessment/Plan ABX per ID for CABP Daily Prednisone BD prn if patient permits Sputum culture negative Urine antigens are negative Continued smoking cessation Will follow Edouard PATRICK MD
[2018-03-10] MEDS: ATORVASTATIN CA 10 MG TABLET (FP) PO SCH (22:47)
[2018-03-11] MEDS: AZTREONAM 1 GM in DEXTROSE 5%-WATER - 50 ML IVPB SCH ×3 (01:28→17:25)
[2018-03-11] MEDS: VANCOMYCIN 1 GRAM (PRE-DOCKED) 1,000 MG/250 ML BAG IVPB SCH ×2 (02:27→14:37)
[2018-03-11 07:40] LABS: EOS % 1.8 % (0-4.5); HEMATOCRIT 36.5 % (35.4-49); LYMPH % 18.6 % (8-40); MCH 30.1 pg (25.7-33.7); MEAN CELL VOLUME 91.3 fl (80-96); MEAN PLT VOLUME 9.2 fl (7.5-11.1); MONO % 10.2 % (3.8-10.2); NEUT % 68.4 % (42.8-82.8); PLATELET COUNT 215 K/MM3 (134-434); RBC 3.99 M/mm3 (4.00-5.60); RDW 13.4 % (11.9-15.9); WHITE BLOOD COUNT 11.6 K/mm3 (4.0-10.0)
[2018-03-11 08:08] LABS: ANION GAP 5 MMOL/L (8-16); BLOOD UREA NITROGEN 21 mg/dL (7-18); CALCIUM 8.4 mg/dL (8.5-10.1); CHLORIDE 107 mmol/L (98-107); CO2 28 mmol/L (21-32); GLUCOSE,RANDOM 80 mg/dL (74-106); MAGNESIUM 2.2 mg/dL (1.8-2.4); POTASSIUM 4.1 mmol/L (3.5-5.1); SODIUM 139 mmol/L (136-145)
[2018-03-11] MEDS ORDERED: PT OWN MED DRAWER 7, Y5N ONE ×4 (09:48→17:02)
--- NOTE | 2018-03-11 09:52 | PN ---
Progress Note (short form) - Note Progress Note: Dr. So to document today. ? will IV antibiotics need to be continued before home. Still coughing with cloudy sputum.
[2018-03-11] MEDS: predniSONE 20 MG TABLET (UD) PO SCH (09:56)
[2018-03-11] MEDS: ASPIRIN 81 MG CHEWABLE TABLETS PO SCH (09:56)
[2018-03-11] MEDS: PANTOPRAZOLE 40 MG TABLET (FP) PO SCH (09:57)
[2018-03-11] MEDS: metoPROLOL SUCCINATE 25 MG TAB.SR.24H (FP) PO SCH (09:57)
[2018-03-11] MEDS: CLOPIDOGREL BISULFATE 75 MG TABLET (FP) PO SCH (09:57)
[2018-03-11] MEDS: ENOXAPARIN NA (PORCINE) 40 MG/0.4 ML DISP.SYRIN SQ SCH (09:57)
[2018-03-11] MEDS: guaiFENesin 200 MG/10 ML 10 ML UNIT-DOSE CUPS PO PRN (10:08)
[2018-03-11 10:28] LABS: ANISOCYTOSIS 0; MACROCYTOSIS 0; PLATELET ESTIMATE NORMAL
--- NOTE | 2018-03-11 14:19 | PN ---
Progress Note, Physician History of Present Illness: pulmonary alert,feeling better,less dyspneic,+ cough - Current Medication List Current Medications: Active Medications Aspirin (Asa -) 81 mg PO DAILY [facility] Last Admin: 03/11/18 09:56 Dose: 81 mg Atorvastatin Calcium (Lipitor -) 10 mg PO HS [facility] Last Admin: 03/10/18 22:47 Dose: 10 mg Clopidogrel Bisulfate (Plavix -) 75 mg PO DAILY [facility] Last Admin: 03/11/18 09:57 Dose: 75 mg Enoxaparin Sodium (Lovenox -) 40 mg SQ DAILY [facility] Last Admin: 03/11/18 09:57 Dose: 40 mg Guaifenesin (Robitussin -) 10 ml PO Q4H PRN PRN Reason: COUGH Last Admin: 03/11/18 10:08 Dose: 10 ml Vancomycin HCl (Vancomycin (Pre-Docked)) 1,000 mg in 250 mls @ 166.667 mls/hr IVPB Q12H [facility]; Protocol Last Admin: 03/11/18 02:27 Dose: 166.667 mls/hr Aztreonam 1 gm/ Dextrose 50 mls @ 100 mls/hr IVPB Q8H-IV [facility]; Protocol Last Admin: 03/11/18 09:56 Dose: 100 mls/hr Metoprolol Succinate (Toprol Xl -) 25 mg PO DAILY [facility] Last Admin: 03/11/18 09:57 Dose: 25 mg Pantoprazole Sodium (Protonix -) 40 mg PO DAILY [facility] Last Admin: 03/11/18 09:57 Dose: 40 mg Prednisone (Deltasone -) 40 mg PO DAILY [facility] Last Admin: 03/11/18 09:56 Dose: 40 mg - Objective Vital Signs: Vital Signs Temperature 97.5 F L 03/11/18 10:00 Pulse Rate 83 03/11/18 10:00 Respiratory Rate 18 03/11/18 10:00 Blood Pressure 144/73 03/11/18 10:00 O2 Sat by Pulse Oximetry (%) 97 03/10/18 21:00 Constitutional: Yes: Well Nourished, Calm Eyes: Yes: WNL HENT: Yes: WNL Neck: Yes: WNL Cardiovascular: Yes: Regular Rate and Rhythm, S1, S2 Respiratory: Yes: Rales (few basilar crackles) Gastrointestinal: Yes: Normal Bowel Sounds, Soft Extremities: Yes: WNL Edema: No Labs: CBC, BMP 03/11/18 06:50 03/11/18 06:50 Assessment/Plan - Problems (1) COPD (chronic obstructive pulmonary disease) Code(s): J44.9 - CHRONIC OBSTRUCTIVE PULMONARY DISEASE, UNSPECIFIED (2) Pneumonia Code(s): J18.9 - PNEUMONIA, UNSPECIFIED ORGANISM Qualifiers: (3) BPH (benign prostatic hyperplasia) Code(s): N40.0 - BENIGN PROSTATIC HYPERPLASIA WITHOUT LOWER URINRY TRACT SYMP Qualifiers: Lower urinary tract symptom presence: symptoms absent Qualified Code(s): N40.0 - Benign prostatic hyperplasia without lower urinary tract symptoms (4) CAD (coronary artery disease) Code(s): I25.10 - ATHSCL HEART DISEASE OF [place] CORONARY ARTERY W/O ANG PCTRS (5) Positive QuantiFERON-TB Gold test Code(s): R76.12 - NONSPEC REACTION TO GAMMA INTRFRN RESPNS W/O ACTV TUBRCLOSIS Assessment/Plan ABX per ID Prednisone BD prn if patient permits antitussives DR PABLO
--- NOTE | 2018-03-11 14:46 | PN ---
Physical Exam: SUBJECTIVE: Patient seen and examined at bed side this morning. states his cough still persists. Denies chest pain, sob, palpitation, abdominal pain, nausea or vomiting. No acute overnight events. OBJECTIVE: Vital Signs Period Temp Pulse Resp BP Sys/Garcia Pulse Ox Last 24 Hr 97.5 F-98.7 F 73-88 18-20 125-144/63-73 97 GENERAL: Elderly male, lying in bed, coughing, Awake, alert, and fully oriented , in no acute distress. HEAD: Normal with no signs of trauma. EYES: EOM intact, no pallor or icterus. . EARS, NOSE, THROAT: Ears normal. Moist mucous membranes. NECK: Supple. LUNGS: B/L breath sounds equal. Crackles R> L. No wheeze. HEART: Regular rate and rhythm, normal S1 and S2 with soft systolic murmur, rub or gallop. ABDOMEN: Soft, tenderness in the lower quadrants, BS +, no organomegaly. MUSCULOSKELETAL: Normal range of motion at all joints. No bony deformities or tenderness. No CVA tenderness. UPPER EXTREMITIES: 2+ pulses, warm, well-perfused. No cyanosis. No clubbing. No peripheral edema. LOWER EXTREMITIES: 2+ pulses, warm, well-perfused. No calf tenderness. Trace pitting edema. NEUROLOGICAL: No facial droop, power 5/5 in all ext. Sensation intact. Cranial nerves II-XII intact. Normal speech. Gait not observed. PSYCHIATRIC: Cooperative. Good eye contact. Appropriate mood and affect. SKIN: Warm, dry, normal turgor, no rashes or lesions noted, normal capillary refill. Laboratory Results - last 24 hr 03/11/18 03/11/18 06:50 06:50 WBC 11.6 H RBC 3.99 L Hgb 12.0 Hct 36.5 MCV 91.3 MCH 30.1 MCHC 33.0 RDW 13.4 Plt Count 215 MPV 9.2 Absolute Neuts (auto) 7.9 Neutrophils % 68.4 Neutrophils % (Manual) 66.7 Band Neutrophils % 0.0 Lymphocytes % 18.6 Lymphocytes % (Manual) 19.2 Monocytes % 10.2 Monocytes % (Manual) 5 Eosinophils % 1.8 D Eosinophils % (Manual) 1.0 D Basophils % 1.0 Basophils % (Manual) 1.0 D Myelocytes % (Man) 4 H D Promyelocytes % (Man) 0 Blast Cells % (Manual) 0 Nucleated RBC % 0 Metamyelocytes 3 H D Hypochromia 0 Platelet Estimate Normal Polychromasia 0 Poikilocytosis 0 Anisocytosis 0 Microcytosis 0 Macrocytosis 0 Sodium 139 Potassium 4.1 Chloride 107 Carbon Dioxide 28 Anion Gap 5 L BUN 21 H Creatinine 1.0 Creat Clearance w eGFR > 60 Random Glucose 80 Calcium 8.4 L Phosphorus 3.0 Magnesium 2.2 Active Medications Generic Name Dose Route Start Last Admin Trade Name Freq PRN Reason Stop Dose Admin Aspirin 81 mg 03/06/18 10:00 03/11/18 09:56 Asa - PO 81 mg DAILY FRANCESCA Administration Atorvastatin Calcium 10 mg 03/05/18 22:00 03/10/18 22:47 Lipitor - PO 10 mg HS FRANCESCA Administration Clopidogrel Bisulfate 75 mg 03/06/18 10:00 03/11/18 09:57 Plavix - PO 75 mg DAILY FRANCESCA Administration Enoxaparin Sodium 40 mg 03/06/18 10:00 03/11/18 09:57 Lovenox - SQ 40 mg DAILY FRANCESCA Administration Guaifenesin 10 ml 03/06/18 08:50 03/11/18 10:08 Robitussin - PO 10 ml Q4H PRN Administration COUGH Vancomycin HCl 1,000 mg in 250 mls @ 166.667 mls/hr 03/07/18 14:45 03/11/18 14:37 Vancomycin (Pre-Docked) IVPB 166.667 mls/hr Q12H FRANCESCA Administration Protocol Aztreonam 1 gm/ Dextrose 50 mls @ 100 mls/hr 03/07/18 14:45 03/11/18 09:56 IVPB 100 mls/hr Q8H-IV FRANCESCA Administration Protocol Metoprolol Succinate 25 mg 03/06/18 10:00 03/11/18 09:57 Toprol Xl - PO 25 mg DAILY FR[facility]ESCA Administration Pantoprazole Sodium 40 mg 03/06/18 10:00 03/11/18 09:57 Protonix - PO 40 mg DAILY FR[facility]CA Administration Prednisone 40 mg 03/10/18 10:00 03/11/18 09:56 Deltasone - PO 40 mg DAILY FRANCESCA Administration ASSESSMENT/PLAN: Patient is an 82 year old male with significant past medical history of HTN, HLD , CAD s/p stents in 2012, GERD, pneumonia presented to the ED accompanied with his with the chief complaint of " SOB and cough x 3 weeks". # Community acquired pneumonia Cough still persists. Continue IV Vancomycin 1000 mg BID and IV Aztreonam Day 5 Blood cultures, urine for legionella negative Albuterol/ duoneb nebs discontinued due to tachycardia. On steroid taper Predniosone 40mg PO daily # R/O TB Concerned for TB in the past,(bronch done on 10/31/17) which did not show any endobronchial lesions. AFB sputum x 3 result pending Appreciate pulmonary recommendations # SOB could have been due to CHF exacerbation Less likely in CHF. monitor off Lasix I's and O's Daily Weight # CAD s/p stents (2012) Continue aspirin and plavix # HLD Continue Atorvastatin # HTN controlled Continue Metoprolol 25 mg PO daily # FEN Not on IV fluids Electrolytes WNL Soft diet (hx of dysphagia, can advance diet if tolerated) # Prophylaxis For DVT: On Lovenox 40 sq, early ambulation. For GI On protonix # Code Status: Full Code # Dispo:Admit in Med-Surg. D/c planning but patient's symptoms are not getting better, will monitor. Illness, Investigation and Plan of care explained to the patient and his . They verbalized understanding. Case discussed with Dr. So Problem List - Problems (1) COPD (chronic obstructive pulmonary disease) Code(s): J44.9 - CHRONIC OBSTRUCTIVE PULMONARY DISEASE, UNSPECIFIED (2) Pneumonia Code(s): J18.9 - PNEUMONIA, UNSPECIFIED ORGANISM Qualifiers: (3) BPH (benign prostatic hyperplasia) Code(s): N40.0 - BENIGN PROSTATIC HYPERPLASIA WITHOUT LOWER URINRY TRACT SYMP Qualifiers: Lower urinary tract symptom presence: symptoms absent Qualified Code(s): N40.0 - Benign prostatic hyperplasia without lower urinary tract symptoms (4) CAD (coronary artery disease) Code(s): I25.10 - ATHSCL HEART DISEASE OF [place] CORONARY ARTERY W/O ANG PCTRS (5) Dysphagia Code(s): R13.10 - DYSPHAGIA, UNSPECIFIED (6) Sepsis Code(s): A41.9 - SEPSIS, UNSPECIFIED ORGANISM Qualifiers: Sepsis type: sepsis due to unspecified organism Qualified Code(s): A41.9 - Sepsis, unspecified organism (7) Weakness Code(s): R53.1 - WEAKNESS Visit type - Emergency Visit Emergency Visit: Yes ED Registration Date: 03/07/18 Care time: The patient presented to the Emergency Department on the above date and was hospitalized for further evaluation of their emergent condition. - New Patient This patient is new to me today: No - Critical Care Critical Care patient: No - Discharge Referral Referred to [facility] Med P.C.: No
--- NOTE | 2018-03-11 15:14 | PN ---
Teaching Attending Note Name of Resident: Yanira Pena ATTENDING PHYSICIAN STATEMENT I saw and evaluated the patient. I reviewed the resident's note and discussed the case with the resident. I agree with the resident's findings and plan as documented. SUBJECTIVE: Mr Schwarz complains of severe cough and shortness of breath. No cp or n/v. OBJECTIVE: Last Vital Signs Temp Pulse Resp BP Pulse Ox 36.9 C 77 18 112/70 97 03/11/18 16:10 03/11/18 16:10 03/11/18 16:10 03/11/18 16:10 03/10/18 21:00 Gen: nad Pulm: bibasilar crackles without wheezing CV: rrr w/o m/r/g Abd: +bs, s/nt/nd Ext: no c/c/e CBC, BMP 03/11/18 06:50 03/11/18 06:50 ASSESSMENT AND PLAN: (1) Pneumonia Assessment/Plan: -cough remains, otherwise without complaint -ID note reviewed -on empiric aztreonam and vancomycin -continue prednisone 40mg day 2 Code(s): J18.9 - PNEUMONIA, UNSPECIFIED ORGANISM Qualifiers: (2) BPH (benign prostatic hyperplasia) Assessment/Plan: -without symptoms Code(s): N40.0 - BENIGN PROSTATIC HYPERPLASIA WITHOUT LOWER URINRY TRACT SYMP Qualifiers: Lower urinary tract symptom presence: symptoms absent Qualified Code(s): N40.0 - Benign prostatic hyperplasia without lower urinary tract symptoms (3) CAD (coronary artery disease) Assessment/Plan: -appreciate cardiology assistance -quiescent -continue home regimen Code(s): I25.10 - ATHSCL HEART DISEASE OF [place] CORONARY ARTERY W/O ANG PCTRS (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 Problem List - Problems (1) Pneumonia Code(s): J18.9 - PNEUMONIA, UNSPECIFIED ORGANISM Qualifiers: (2) BPH (benign prostatic hyperplasia) Code(s): N40.0 - BENIGN PROSTATIC HYPERPLASIA WITHOUT LOWER URINRY TRACT SYMP Qualifiers: Lower urinary tract symptom presence: symptoms absent Qualified Code(s): N40.0 - Benign prostatic hyperplasia without lower urinary tract symptoms (3) CAD (coronary artery disease) Code(s): I25.10 - ATHSCL HEART DISEASE OF [place] CORONARY ARTERY W/O ANG PCTRS (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
--- NOTE | 2018-03-11 15:23 | PN ---
Progress Note (short form) - Note Progress Note: s: no cp palps dizzy; +cough and sob, less today o: Vital Signs Period Temp Pulse Resp BP Sys/Garcia Pulse Ox Last 24 Hr 97.5 F-98.7 F 73-88 18-20 125-144/63-73 97 Constitutional: Yes: No Distress, Calm Eyes: Yes: Conjunctiva Clear Respiratory: Yes: cta bl nl eff Gastrointestinal: Yes: Normal Bowel Sounds, Soft Cardiovascular: Yes: Regular Rate and Rhythm JVD: No Heart Sounds: Yes: S1, S2 Musculoskeletal: No: Back Pain Extremities: No: Cold Edema: No Peripheral Pulses: 2+ Left Carotid, 2+ Right Carotid, 2+ Left Doralis Pedis, 2+ Right Dorsalis Pedis Neurological: Yes: Alert, Oriented Current Medications Generic Name Dose Route Start Last Admin Trade Name Freq PRN Reason Stop Dose Admin Aspirin 81 mg 03/06/18 10:00 03/11/18 09:56 Asa - PO 81 mg DAILY FRANCESCA Administration Atorvastatin Calcium 10 mg 03/05/18 22:00 03/10/18 22:47 Lipitor - PO 10 mg HS FRANCESCA Administration Clopidogrel Bisulfate 75 mg 03/06/18 10:00 03/11/18 09:57 Plavix - PO 75 mg DAILY FRANCESCA Administration Enoxaparin Sodium 40 mg 03/06/18 10:00 03/11/18 09:57 Lovenox - SQ 40 mg DAILY FRANCESCA Administration Guaifenesin 10 ml 03/06/18 08:50 03/11/18 10:08 Robitussin - PO 10 ml Q4H PRN Administration COUGH Vancomycin HCl 1,000 mg in 250 mls @ 166.667 mls/hr 03/07/18 14:45 03/11/18 14:37 Vancomycin (Pre-Docked) IVPB 166.667 mls/hr Q12H FRANCESCA Administration Protocol Aztreonam 1 gm/ Dextrose 50 mls @ 100 mls/hr 03/07/18 14:45 03/11/18 09:56 IVPB 100 mls/hr Q8H-IV FRANCESCA Administration Protocol Metoprolol Succinate 25 mg 03/06/18 10:00 03/11/18 09:57 Toprol Xl - PO 25 mg DAILY FRANCESCA Administration Pantoprazole Sodium 40 mg 03/06/18 10:00 03/11/18 09:57 Protonix - PO 40 mg DAILY FRANCESCA Administration Prednisone 40 mg 03/10/18 10:00 03/11/18 09:56 Deltasone - PO 40 mg DAILY FRANCESCA Administration CBC, BMP 03/11/18 06:50 03/11/18 06:50 Assessment/Plan EKG: sinus, LVH, TWI I, aVL, V4-6 LHC 02/23: patent mRCA stent (mild ISR); 30-50% dRCA; 80-90% pLAD--BMS (covered stent after perf'd with PTCA); 30-50% mLAD bridge; 30-50% D1; 30-50% OM1; 30-50 % prox Ramus; (PTCA OF LAD COMPLICATED BY PERF--COVERED STENT PLACED, OCCLUDING THE DIAG--LARGE TROPONIN LEAK WITH SMALL RWMA ON ECHO THEN) MIBI 04/27 (pers): no STs; large, fixed anteroapical defect; small inferoapical defect partially reversible c/w vito-infarct ischemia in LAD territory; severe HK of mid and apical AW, and apex akinetic; EF 41% Echo 03/2016: 1. The left ventricular size is normal. 2. Overall left ventricular systolic function appears mildly reduced, with a visually estimated EF of 45%. 3. The diastolic filling pattern indicates impaired relaxation. Normal LA pressure. 4. Apical inferior, apical lateral, and apical anterior segments appear hypokinetic. Mid anterior wall is not well seen, and appears possibly hypokinetic in the available images. 5. The right ventricle is normal in size and function. 6. Left atrium is normal size by volume. 7. Rcmr-rm-puvycygm mitral regurgitation is present. echo 02/2018: nl lv, rv tds, no sig valve path 81 yo with pmhx of CAD s/p multiple PCI (most recent 2014) with chronic stable angina, mild ischemic cardiomyopathy, HTN, HL, COPD, depression p/w sob sob, pna - likely 2/2 PNA - abx per primary/ID, sxs improving - echo unremarkable CAD - s/p JOAO to mid RCA 11/15 ISR of JOAO treated with second JOAO 06/16. Most recent PCI of LAD was complicated by perf --> BMS placed occluding the diag. - nl lvef -con't statin, bb, dapt (per patient was advised to be on dapt indefinitely). intolerant of acei. Mild ischemic cardiomyopathy -EF mildly reduced (45%) with apical wma's noted on echo 03/2016-->echo here with nl lvef - received lasix 40 mg IV x 1 in ER, now on lasix 40 mg PO daily - not on lasix at home - BNP 1600 however patient appears euvolemic currently, stop lasix, monitor - con't bb. intolerant of acei. HTN - continue bb, stable hld - on statin
[2018-03-11] MEDS: ATORVASTATIN CA 10 MG TABLET (FP) PO SCH (21:28)
[2018-03-12] MEDS ORDERED: PT OWN MED DRAWER 7, Y5N ONE ×4 (02:04→18:01)
[2018-03-12] MEDS: AZTREONAM 1 GM in DEXTROSE 5%-WATER - 50 ML IVPB SCH ×3 (02:07→18:04)
[2018-03-12] MEDS: VANCOMYCIN 1 GRAM (PRE-DOCKED) 1,000 MG/250 ML BAG IVPB SCH ×2 (02:47→13:44)
[2018-03-12 07:32] LABS: HEMATOCRIT 37.9 % (35.4-49); HEMOGLOBIN 12.5 GM/dL (11.7-16.9); MCH 30.6 pg (25.7-33.7); MEAN CELL VOLUME 92.6 fl (80-96); MEAN PLT VOLUME 9.5 fl (7.5-11.1); PLATELET COUNT 213 K/MM3 (134-434); RBC 4.09 M/mm3 (4.00-5.60); RDW 13.7 % (11.9-15.9); WHITE BLOOD COUNT 10.9 K/mm3 (4.0-10.0)
[2018-03-12] MEDS: ASPIRIN 81 MG CHEWABLE TABLETS PO SCH (09:32)
[2018-03-12] MEDS: PANTOPRAZOLE 40 MG TABLET (FP) PO SCH (09:32)
[2018-03-12] MEDS: guaiFENesin 200 MG/10 ML 10 ML UNIT-DOSE CUPS PO PRN (09:32)
[2018-03-12] MEDS: predniSONE 20 MG TABLET (UD) PO SCH (09:32)
[2018-03-12] MEDS: metoPROLOL SUCCINATE 25 MG TAB.SR.24H (FP) PO SCH (09:32)
[2018-03-12] MEDS: CLOPIDOGREL BISULFATE 75 MG TABLET (FP) PO SCH (09:32)
[2018-03-12] MEDS: ENOXAPARIN NA (PORCINE) 40 MG/0.4 ML DISP.SYRIN SQ SCH (09:32)
--- NOTE | 2018-03-12 10:32 | PN ---
Progress Note, Physician Chief Complaint: sob, cough History of Present Illness: sob better. cough persists, frequent, phlegmy no cp here (stable cp at home of late) no palpit, leg swelling - Current Medication List Current Medications: Active Medications Aspirin (Asa -) 81 mg PO DAILY [facility] Last Admin: 03/12/18 09:32 Dose: 81 mg Atorvastatin Calcium (Lipitor -) 10 mg PO HS [facility] Last Admin: 03/11/18 21:28 Dose: 10 mg Clopidogrel Bisulfate (Plavix -) 75 mg PO DAILY [facility] Last Admin: 03/12/18 09:32 Dose: 75 mg Enoxaparin Sodium (Lovenox -) 40 mg SQ DAILY [facility] Last Admin: 03/12/18 09:32 Dose: 40 mg Guaifenesin (Robitussin -) 10 ml PO Q4H PRN PRN Reason: COUGH Last Admin: 03/12/18 09:32 Dose: 10 ml Vancomycin HCl (Vancomycin (Pre-Docked)) 1,000 mg in 250 mls @ 166.667 mls/hr IVPB Q12H [facility]; Protocol Last Admin: 03/12/18 02:47 Dose: 166.667 mls/hr Aztreonam 1 gm/ Dextrose 50 mls @ 100 mls/hr IVPB Q8H-IV [facility]; Protocol Last Admin: 03/12/18 02:07 Dose: 100 mls/hr Metoprolol Succinate (Toprol Xl -) 25 mg PO DAILY [facility] Last Admin: 03/12/18 09:32 Dose: 25 mg Pantoprazole Sodium (Protonix -) 40 mg PO DAILY [facility] Last Admin: 03/12/18 09:32 Dose: 40 mg Prednisone (Deltasone -) 40 mg PO DAILY [facility] Last Admin: 03/12/18 09:32 Dose: 40 mg - Objective Vital Signs: Vital Signs Temperature 98.0 F 03/12/18 09:00 Pulse Rate 77 03/12/18 09:00 Respiratory Rate 20 03/12/18 09:00 Blood Pressure 142/73 03/12/18 09:00 O2 Sat by Pulse Oximetry (%) 93 L 03/11/18 21:00 Constitutional: Yes: Well Nourished, No Distress, Calm Cardiovascular: Yes: Regular Rate and Rhythm, S1, S2. No: Gallop, Murmur Respiratory: Yes: Regular, CTA Bilaterally. No: Accessory Muscle Use, Rales, Wheezes Extremities: No: Cold Edema: No Neurological: Yes: Alert, Oriented Psychiatric: No: Agitated Labs: CBC, BMP 03/12/18 06:30 03/11/18 06:50 Assessment/Plan EKG: sinus, LVH, TWI I, aVL, V4-6 LHC 02/23: patent mRCA stent (mild ISR); 30-50% dRCA; 80-90% pLAD--BMS (covered stent after perf'd with PTCA); 30-50% mLAD bridge; 30-50% D1; 30-50% OM1; 30-50 % prox Ramus; (PTCA OF LAD COMPLICATED BY PERF--COVERED STENT PLACED, OCCLUDING THE DIAG--LARGE TROPONIN LEAK WITH SMALL RWMA ON ECHO THEN) MIBI 04/27 (pers): no STs; large, fixed anteroapical defect; small inferoapical defect partially reversible c/w vito-infarct ischemia in LAD territory; severe HK of mid and apical AW, and apex akinetic; EF 41% Echo 03/2016: 1. The left ventricular size is normal. 2. Overall left ventricular systolic function appears mildly reduced, with a visually estimated EF of 45%. 3. The diastolic filling pattern indicates impaired relaxation. Normal LA pressure. 4. Apical inferior, apical lateral, and apical anterior segments appear hypokinetic. Mid anterior wall is not well seen, and appears possibly hypokinetic in the available images. 5. The right ventricle is normal in size and function. 6. Left atrium is normal size by volume. 7. Vxfo-ua-cyfljyfh mitral regurgitation is present. echo 02/2018: nl lv, rv tds, no sig valve path 81 yo with pmhx of CAD s/p multiple PCI (most recent 2014) with chronic stable angina, mild ischemic cardiomyopathy, HTN, HL, COPD, depression p/w sob PNA, copd, ? bronchitis - abx, airways tx/steroids per pulm CAD - s/p JOAO to mid RCA 11/15 ISR of JOAO treated with second JOAO 06/16. Most recent PCI of LAD was complicated by perf --> BMS placed occluding the diag. - nl lvef -con't statin, bb, dapt (per patient was advised to be on dapt indefinitely). intolerant of acei. Mild ischemic cardiomyopathy -EF mildly reduced (45%) with apical wma's noted on echo 03/2016-->echo here with nl lvef - received lasix 40 mg IV x 1 in ER, now on lasix 40 mg PO daily - not on lasix at home - BNP 1600 however patient appears euvolemic. holding lasix - con't bb. intolerant of acei. HTN - coverall controlled reasonably well - same meds
--- NOTE | 2018-03-12 11:05 | PN ---
Progress Note (short form) - Note Progress Note: Dr. So to document today. Still coughing quite a bit with cloudy sputum. Afebrile. Chest PT ordered but ? receiving. On IV antibiotics. Decreased Prednisone to 30mg a day.
--- NOTE | 2018-03-12 11:52 | PN ---
Progress Note (short form) - Note Progress Note: PULMONARY AWAKE/ALERT LESS COUGH VSS/AFEBRILE ANICTERIC RIGHT BASE CRACKLES S1S2 BS+ NO EDEMA LABS/MEDS/IMAGES/REVIEWED - Problems (1) COPD (chronic obstructive pulmonary disease) Code(s): J44.9 - CHRONIC OBSTRUCTIVE PULMONARY DISEASE, UNSPECIFIED (2) Pneumonia Code(s): J18.9 - PNEUMONIA, UNSPECIFIED ORGANISM Qualifiers: (3) BPH (benign prostatic hyperplasia) Code(s): N40.0 - BENIGN PROSTATIC HYPERPLASIA WITHOUT LOWER URINRY TRACT SYMP Qualifiers: Lower urinary tract symptom presence: symptoms absent Qualified Code(s): N40.0 - Benign prostatic hyperplasia without lower urinary tract symptoms (4) CAD (coronary artery disease) Code(s): I25.10 - ATHSCL HEART DISEASE OF [place] CORONARY ARTERY W/O ANG PCTRS (5) Positive QuantiFERON-TB Gold test Code(s): R76.12 - NONSPEC REACTION TO GAMMA INTRFRN RESPNS W/O ACTV TUBRCLOSIS Assessment/Plan ABX per ID for CABP Daily Prednisone BD prn if patient permits Sputum culture negative Sputum AFB pending Urine antigens are negative Continued smoking cessation Will follow Edouard PATRICK MD
--- NOTE | 2018-03-12 13:32 | PN ---
Progress Note, Physician Chief Complaint: Mr Schwarz still complains of productive cough but improved. No cp, sob, n/v. - Current Medication List Current Medications: Active Medications Aspirin (Asa -) 81 mg PO DAILY [facility] Last Admin: 03/12/18 09:32 Dose: 81 mg Atorvastatin Calcium (Lipitor -) 10 mg PO HS [facility] Last Admin: 03/11/18 21:28 Dose: 10 mg Clopidogrel Bisulfate (Plavix -) 75 mg PO DAILY [facility] Last Admin: 03/12/18 09:32 Dose: 75 mg Enoxaparin Sodium (Lovenox -) 40 mg SQ DAILY [facility] Last Admin: 03/12/18 09:32 Dose: 40 mg Guaifenesin (Robitussin -) 10 ml PO Q4H PRN PRN Reason: COUGH Last Admin: 03/12/18 09:32 Dose: 10 ml Vancomycin HCl (Vancomycin (Pre-Docked)) 1,000 mg in 250 mls @ 166.667 mls/hr IVPB Q12H [facility]; Protocol Last Admin: 03/12/18 02:47 Dose: 166.667 mls/hr Aztreonam 1 gm/ Dextrose 50 mls @ 100 mls/hr IVPB Q8H-IV [facility]; Protocol Last Admin: 03/12/18 10:46 Dose: 100 mls/hr Metoprolol Succinate (Toprol Xl -) 25 mg PO DAILY [facility] Last Admin: 03/12/18 09:32 Dose: 25 mg Pantoprazole Sodium (Protonix -) 40 mg PO DAILY [facility] Last Admin: 03/12/18 09:32 Dose: 40 mg Prednisone (Deltasone -) 30 mg PO DAILY [facility] - Objective Vital Signs: Vital Signs Temperature 36.7 C 03/12/18 09:00 Pulse Rate 77 03/12/18 09:00 Respiratory Rate 20 03/12/18 09:00 Blood Pressure 142/73 03/12/18 09:00 O2 Sat by Pulse Oximetry (%) 93 L 03/12/18 09:00 Constitutional: Yes: Well Nourished, No Distress, Calm Cardiovascular: Yes: Regular Rate and Rhythm. No: Gallop, Murmur, Rub Respiratory: Yes: Regular, CTA Bilaterally, Rhonchi. No: On Nasal O2, Rales, Wheezes Gastrointestinal: Yes: Normal Bowel Sounds, Soft. 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 Assessment/Plan (1) Pneumonia Assessment/Plan: -cough remains, otherwise without complaint -ID note reviewed -on empiric aztreonam and vancomycin -prednisone decreased to 30mg daily Code(s): J18.9 - PNEUMONIA, UNSPECIFIED ORGANISM Qualifiers: (2) BPH (benign prostatic hyperplasia) Assessment/Plan: -without symptoms Code(s): N40.0 - BENIGN PROSTATIC HYPERPLASIA WITHOUT LOWER URINRY TRACT SYMP Qualifiers: Lower urinary tract symptom presence: symptoms absent Qualified Code(s): N40.0 - Benign prostatic hyperplasia without lower urinary tract symptoms (3) CAD (coronary artery disease) Assessment/Plan: -appreciate cardiology assistance -quiescent -continue home regimen Code(s): I25.10 - ATHSCL HEART DISEASE OF [place] CORONARY ARTERY W/O ANG PCTRS (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
[2018-03-12] MEDS: ATORVASTATIN CA 10 MG TABLET (FP) PO SCH (21:36)
[2018-03-13] MEDS: AZTREONAM 1 GM in DEXTROSE 5%-WATER - 50 ML IVPB SCH ×3 (02:05→17:37)
[2018-03-13] MEDS ORDERED: PT OWN MED DRAWER 7, Y5N ONE (02:33)
[2018-03-13] MEDS: VANCOMYCIN 1 GRAM (PRE-DOCKED) 1,000 MG/250 ML BAG IVPB SCH ×2 (02:37→14:17)
[2018-03-13 07:27] LABS: BASO % 0.6 % (0-2.0); EOS % 1.7 % (0-4.5); HEMATOCRIT 36.8 % (35.4-49); HEMOGLOBIN 12.2 GM/dL (11.7-16.9); LYMPH % 17.7 % (8-40); MCH 30.6 pg (25.7-33.7); MCHC 33.2 g/dl (32.0-35.9); MEAN CELL VOLUME 92.3 fl (80-96); MEAN PLT VOLUME 9.6 fl (7.5-11.1); MONO % 8.2 % (3.8-10.2); NEUT % 71.8 % (42.8-82.8); PLATELET COUNT 202 K/MM3 (134-434); RBC 3.99 M/mm3 (4.00-5.60); RDW 13.5 % (11.9-15.9); WHITE BLOOD COUNT 10.5 K/mm3 (4.0-10.0)
[2018-03-13 07:46] LABS: ANION GAP 6 MMOL/L (8-16); BLOOD UREA NITROGEN 26 mg/dL (7-18); CHLORIDE 106 mmol/L (98-107); CO2 27 mmol/L (21-32); GLUCOSE,RANDOM 84 mg/dL (74-106); MAGNESIUM 2.1 mg/dL (1.8-2.4); PHOSPHOROUS 3.4 mg/dL (2.5-4.9); POTASSIUM 3.9 mmol/L (3.5-5.1); SODIUM 139 mmol/L (136-145)
--- NOTE | 2018-03-13 08:34 | PN ---
Progress Note (short form) - Note Progress Note: Hospitalist/USED [employer] Venkatesh to document today. Await F/U ID Re: possible ? oral Rx.
[2018-03-13 10:35] LABS: ANISOCYTOSIS 1+; MACROCYTOSIS 1+; PLATELET ESTIMATE NORMAL
[2018-03-13] MEDS: predniSONE 20 MG TABLET (UD) PO SCH (11:08)
[2018-03-13] MEDS: ENOXAPARIN NA (PORCINE) 40 MG/0.4 ML DISP.SYRIN SQ SCH (11:08)
[2018-03-13] MEDS: CLOPIDOGREL BISULFATE 75 MG TABLET (FP) PO SCH (11:08)
[2018-03-13] MEDS: ASPIRIN 81 MG CHEWABLE TABLETS PO SCH (11:08)
[2018-03-13] MEDS: metoPROLOL SUCCINATE 25 MG TAB.SR.24H (FP) PO SCH (11:08)
[2018-03-13] MEDS: PANTOPRAZOLE 40 MG TABLET (FP) PO SCH (11:08)
--- NOTE | 2018-03-13 11:16 | PN ---
Progress Note (short form) - Note Progress Note: Chief Complaint: sob, cough History of Present Illness: complains of cough. no chest pain, sob, dizziness, lightheadedness Current Medications Aspirin (Asa -) 81 mg PO DAILY [facility] Last Admin: 03/13/18 11:08 Dose: 81 mg Atorvastatin Calcium (Lipitor -) 10 mg PO HS [facility] Last Admin: 03/12/18 21:36 Dose: 10 mg Clopidogrel Bisulfate (Plavix -) 75 mg PO DAILY [facility] Last Admin: 03/13/18 11:08 Dose: 75 mg Enoxaparin Sodium (Lovenox -) 40 mg SQ DAILY [facility] Last Admin: 03/13/18 11:08 Dose: 40 mg Guaifenesin (Robitussin -) 10 ml PO Q4H PRN PRN Reason: COUGH Last Admin: 03/12/18 09:32 Dose: 10 ml Vancomycin HCl (Vancomycin (Pre-Docked)) 1,000 mg in 250 mls @ 166.667 mls/hr IVPB Q12H [facility]; Protocol Last Admin: 03/13/18 02:37 Dose: 166.667 mls/hr Aztreonam 1 gm/ Dextrose 50 mls @ 100 mls/hr IVPB Q8H-IV [facility]; Protocol Last Admin: 03/13/18 11:08 Dose: 100 mls/hr Metoprolol Succinate (Toprol Xl -) 25 mg PO DAILY [facility] Last Admin: 03/13/18 11:08 Dose: 25 mg Pantoprazole Sodium (Protonix -) 40 mg PO DAILY [facility] Last Admin: 03/13/18 11:08 Dose: 40 mg Prednisone (Deltasone -) 30 mg PO DAILY [facility] Last Admin: 03/13/18 11:08 Dose: 30 mg Vital Signs Period Temp Pulse Resp BP Sys/Garcia Pulse Ox Last 24 Hr 97.6 F-98.3 F 68-78 18-18 119-139/60-83 93 Constitutional: Yes: Well Nourished, No Distress, Calm Cardiovascular: Yes: Regular Rate and Rhythm, S1, S2. No: Gallop, Murmur Respiratory: Yes: Regular, CTA Bilaterally. No: Accessory Muscle Use, Rales, Wheezes Extremities: No: Cold Edema: No Neurological: Yes: Alert, Oriented Psychiatric: No: Agitated Assessment/Plan EKG: sinus, LVH, TWI I, aVL, V4-6 C 02/23: patent mRCA stent (mild ISR); 30-50% dRCA; 80-90% pLAD--BMS (covered stent after perf'd with PTCA); 30-50% mLAD bridge; 30-50% D1; 30-50% OM1; 30-50 % prox Ramus; (PTCA OF LAD COMPLICATED BY PERF--COVERED STENT PLACED, OCCLUDING THE DIAG--LARGE TROPONIN LEAK WITH SMALL RWMA ON ECHO THEN) MIBI 04/27 (pers): no STs; large, fixed anteroapical defect; small inferoapical defect partially reversible c/w vito-infarct ischemia in LAD territory; severe HK of mid and apical AW, and apex akinetic; EF 41% Echo 03/2016: 1. The left ventricular size is normal. 2. Overall left ventricular systolic function appears mildly reduced, with a visually estimated EF of 45%. 3. The diastolic filling pattern indicates impaired relaxation. Normal LA pressure. 4. Apical inferior, apical lateral, and apical anterior segments appear hypokinetic. Mid anterior wall is not well seen, and appears possibly hypokinetic in the available images. 5. The right ventricle is normal in size and function. 6. Left atrium is normal size by volume. 7. [id number] mitral regurgitation is present. echo 02/2018: nl lv, rv tds, no sig valve path 81 yo with pmhx of CAD s/p multiple PCI (most recent 2014) with chronic stable angina, mild ischemic cardiomyopathy, HTN, HL, COPD, depression p/w sob PNA, copd, ? bronchitis - abx, airways tx/steroids per pulm CAD - s/p JOAO to mid RCA 11/15 ISR of JOAO treated with second JOAO 06/16. Most recent PCI of LAD was complicated by perf --> BMS placed occluding the diag. - nl lvef -con't statin, bb, dapt (per patient was advised to be on dapt indefinitely). intolerant of acei. Mild ischemic cardiomyopathy -EF mildly reduced (45%) with apical wma's noted on echo 03/2016-->echo here with nl lvef - received lasix 40 mg IV x 1 in ER, was on lasix 40 mg PO daily - not on lasix at home - BNP 1600 however patient appears euvolemic. holding lasix - con't bb. intolerant of acei. HTN - coverall controlled reasonably well - same meds
--- NOTE | 2018-03-13 12:10 | PN ---
Progress Note, Physician History of Present Illness: Seated in bed C/O cough, whitish sputum No c/o chest pain/ dyspnea No fever/ chills Afebrile with WBC 10.5 on steroids BC (-) Sputum normal hector Legionella/ pneumococcal ag (-) - Current Medication List Current Medications: Active Medications Aspirin (Asa -) 81 mg PO DAILY [facility] Last Admin: 03/13/18 11:08 Dose: 81 mg Atorvastatin Calcium (Lipitor -) 10 mg PO HS [facility] Last Admin: 03/12/18 21:36 Dose: 10 mg Clopidogrel Bisulfate (Plavix -) 75 mg PO DAILY [facility] Last Admin: 03/13/18 11:08 Dose: 75 mg Enoxaparin Sodium (Lovenox -) 40 mg SQ DAILY [facility] Last Admin: 03/13/18 11:08 Dose: 40 mg Guaifenesin (Robitussin -) 10 ml PO Q4H PRN PRN Reason: COUGH Last Admin: 03/12/18 09:32 Dose: 10 ml Vancomycin HCl (Vancomycin (Pre-Docked)) 1,000 mg in 250 mls @ 166.667 mls/hr IVPB Q12H [facility]; Protocol Last Admin: 03/13/18 02:37 Dose: 166.667 mls/hr Aztreonam 1 gm/ Dextrose 50 mls @ 100 mls/hr IVPB Q8H-IV [facility]; Protocol Last Admin: 03/13/18 11:08 Dose: 100 mls/hr Metoprolol Succinate (Toprol Xl -) 25 mg PO DAILY [facility] Last Admin: 03/13/18 11:08 Dose: 25 mg Pantoprazole Sodium (Protonix -) 40 mg PO DAILY [facility] Last Admin: 03/13/18 11:08 Dose: 40 mg Prednisone (Deltasone -) 30 mg PO DAILY [facility] Last Admin: 03/13/18 11:08 Dose: 30 mg - Objective Vital Signs: Vital Signs Temperature 98.0 F 03/13/18 06:00 Pulse Rate 75 03/13/18 06:00 Respiratory Rate 18 03/12/18 18:00 Blood Pressure 139/83 03/13/18 06:00 O2 Sat by Pulse Oximetry (%) 93 L 03/12/18 22:00 Constitutional: Yes: No Distress Eyes: Yes: Conjunctiva Clear Cardiovascular: Yes: Regular Rate and Rhythm, S1, S2 Respiratory: Yes: Other (+ crackles at bases bilaterally L >R) Gastrointestinal: Yes: Normal Bowel Sounds, Soft. No: Tenderness Labs: CBC, BMP 03/13/18 06:30 03/13/18 06:30 Assessment/Plan RLL community acquired pneumonia Hx + Quantiferon Multiple antibiotic allergies Day#7 antibiotics No objection to discharge off antibiotics nexr 24h
--- NOTE | 2018-03-13 12:26 | PN ---
Progress Note (short form) - Note Progress Note: PULMONARY Still with persistent cough. No fevers or chills. Vital Signs Period Temp Pulse Resp BP Sys/Garcia Pulse Ox Last 24 Hr 97.6 F-98.3 F 68-78 18-18 119-139/60-83 93 Gen: NAD at rest Heart: RRR Lung: right base rales Abd: soft, nontender Ext: no edema CBC, BMP 03/13/18 06:30 03/13/18 06:30 Active Medications Aspirin (Asa -) 81 mg PO DAILY [facility] Last Admin: 03/13/18 11:08 Dose: 81 mg Atorvastatin Calcium (Lipitor -) 10 mg PO HS [facility] Last Admin: 03/12/18 21:36 Dose: 10 mg Clopidogrel Bisulfate (Plavix -) 75 mg PO DAILY [facility] Last Admin: 03/13/18 11:08 Dose: 75 mg Enoxaparin Sodium (Lovenox -) 40 mg SQ DAILY [facility] Last Admin: 03/13/18 11:08 Dose: 40 mg Guaifenesin (Robitussin -) 10 ml PO Q4H PRN PRN Reason: COUGH Last Admin: 03/12/18 09:32 Dose: 10 ml Vancomycin HCl (Vancomycin (Pre-Docked)) 1,000 mg in 250 mls @ 166.667 mls/hr IVPB Q12H [facility]; Protocol Last Admin: 03/13/18 02:37 Dose: 166.667 mls/hr Aztreonam 1 gm/ Dextrose 50 mls @ 100 mls/hr IVPB Q8H-IV [facility]; Protocol Last Admin: 03/13/18 11:08 Dose: 100 mls/hr Metoprolol Succinate (Toprol Xl -) 25 mg PO DAILY [facility] Last Admin: 03/13/18 11:08 Dose: 25 mg Pantoprazole Sodium (Protonix -) 40 mg PO DAILY [facility] Last Admin: 03/13/18 11:08 Dose: 40 mg Prednisone (Deltasone -) 30 mg PO DAILY [facility] Last Admin: 03/13/18 11:08 Dose: 30 mg A/P Pneumonia Acute COPD Exacerbation CAD LV Systolic Dysfunction HTN Hyperlipidemia - continue antibiotics - prednisone taper - inhaled bronchodilators - cough suppressants - O2 to keep SpO2 >90% - DVT prophylaxis
[2018-03-13] MEDS: guaiFENesin 200 MG/10 ML 10 ML UNIT-DOSE CUPS PO PRN (12:29)
--- NOTE | 2018-03-13 17:19 | PN ---
Teaching Attending Note Name of Resident: Yanira Pena ATTENDING PHYSICIAN STATEMENT I saw and evaluated the patient. I reviewed the resident's note and discussed the case with the resident. I agree with the resident's findings and plan as documented with exceptions below. SUBJECTIVE: Patient seen and examined. breathing improved, still with cough, overall better. OBJECTIVE: Vital Signs Period Temp Pulse Resp BP Sys/Garcia Pulse Ox Last 24 Hr 97.6 F-98.3 F 68-82 18-20 128-155/60-86 93-96 Intake & Output 03/10/18 03/11/18 03/12/18 03/13/18 23:59 23:59 23:59 23:59 Intake Total 2550 1350 1350 1050 Balance 2550 1350 1350 1050 General: sitting in bed, having lunch Chest; right basilar rales, occasional rhonchi ABdomen;Soft, ND Extremities: no edema Home Medications Medication Instructions Recorded Aspirin [Luisito Chewable Aspirin] 81 mg PO DAILY 11/13/13 Clopidogrel Bisulfate [Plavix -] 75 mg PO DAILY 11/13/13 Simvastatin [Zocor -] 25 mg PO HS 11/13/13 Metoprolol Succinate [Toprol XL -] 25 mg PO DAILY 09/17/14 Pantoprazole Sodium [Protonix] 40 mg PO DAILY 03/05/18 Active Medications Aspirin (Asa -) 81 mg PO DAILY [facility] Last Admin: 03/13/18 11:08 Dose: 81 mg Atorvastatin Calcium (Lipitor -) 10 mg PO HS [facility] Last Admin: 03/12/18 21:36 Dose: 10 mg Clopidogrel Bisulfate (Plavix -) 75 mg PO DAILY [facility] Last Admin: 03/13/18 11:08 Dose: 75 mg Enoxaparin Sodium (Lovenox -) 40 mg SQ DAILY [facility] Last Admin: 03/13/18 11:08 Dose: 40 mg Guaifenesin (Robitussin -) 10 ml PO Q4H PRN PRN Reason: COUGH Last Admin: 03/13/18 12:29 Dose: 10 ml Vancomycin HCl (Vancomycin (Pre-Docked)) 1,000 mg in 250 mls @ 166.667 mls/hr IVPB Q12H [facility]; Protocol Last Admin: 03/13/18 14:17 Dose: 166.667 mls/hr Aztreonam 1 gm/ Dextrose 50 mls @ 100 mls/hr IVPB Q8H-IV [facility]; Protocol Last Admin: 03/13/18 11:08 Dose: 100 mls/hr Metoprolol Succinate (Toprol Xl -) 25 mg PO DAILY [facility] Last Admin: 03/13/18 11:08 Dose: 25 mg Pantoprazole Sodium (Protonix -) 40 mg PO DAILY [facility] Last Admin: 03/13/18 11:08 Dose: 40 mg Prednisone (Deltasone -) 30 mg PO DAILY [facility] Last Admin: 03/13/18 11:08 Dose: 30 mg Abnormal Lab Results 03/13/18 03/13/18 06:30 06:30 WBC 10.5 H RBC 3.99 L Anion Gap 6 L BUN 26 H Calcium 8.0 L Microbiology 03/11/18 18:15 Sputum - Expectorated Direct Acid Fast Bacilli Smear - Final 03/05/18 15:18 Blood - Peripheral Venous Blood Culture - Final NO GROWTH AFTER 5 DAYS INCUBATION 03/05/18 15:18 Blood - Peripheral Venous Blood Culture - Final NO GROWTH AFTER 5 DAYS INCUBATION 03/07/18 09:00 Sputum - Expectorated Gram Stain - Final 03/07/18 09:00 Sputum - Expectorated Sputum Culture - Final NORMAL RESPIRATORY VALDEZ 03/07/18 08:30 Urine For Antigen Detection Legionella Antigen - Final 03/07/18 08:30 Urine For Antigen Detection Streptococcus pneumoniae Antigen (M - Final ASSESSMENT AND PLAN: 82 year old male with significant past medical history of HTN, HLD, CAD s/p stents in 2013, GERD, pneumonia presented to the ED accompanied with his with the chief complaint of " SOB and cough x 3 weeks". -RLL CAP -Acute bronchitis -Acute COPD exacerbation -LV systolic dysfunction -HTN -HLD -CAD s/p PCI 2012 Plan: improved Aztreonam/vancomycin day 6. ID input noted. Prednisone taper Monitor off lasix COntinue ASA/plavix/statin/metoprolol. Home oxygen needs assessment. dispo d/c in 24 hours if no new concerns. Plan discussed with patient in detail, all questions answered.
--- NOTE | 2018-03-13 17:55 | PN ---
Physical Exam: SUBJECTIVE: Patient seen and examined at bed side this morning. States his cough still persists and is frustrated, wants to go home. OBJECTIVE: Vital Signs Period Temp Pulse Resp BP Sys/Garcia Pulse Ox Last 24 Hr 97.6 F-98.3 F 68-82 18-20 128-155/60-86 93-96 GENERAL: Elderly male, lying in bed, coughing, Awake, alert, and fully oriented , in no acute distress. HEAD: Normal with no signs of trauma. EYES: EOM intact, no pallor or icterus. . EARS, NOSE, THROAT: Ears normal. Moist mucous membranes. NECK: Supple. LUNGS: B/L breath sounds equal. Crackles R> L. No wheeze. HEART: Regular rate and rhythm, normal S1 and S2 with soft systolic murmur, rub or gallop. ABDOMEN: Soft, tenderness in the lower quadrants, BS +, no organomegaly. MUSCULOSKELETAL: Normal range of motion at all joints. No bony deformities or tenderness. No CVA tenderness. UPPER EXTREMITIES: 2+ pulses, warm, well-perfused. No cyanosis. No clubbing. No peripheral edema. LOWER EXTREMITIES: 2+ pulses, warm, well-perfused. No calf tenderness. Trace pitting edema. NEUROLOGICAL: No facial droop, power 5/5 in all ext. Sensation intact. Cranial nerves II-XII intact. Normal speech. Gait not observed. PSYCHIATRIC: Cooperative. Good eye contact. Appropriate mood and affect. SKIN: Warm, dry, normal turgor, no rashes or lesions noted. Laboratory Results - last 24 hr 03/13/18 03/13/18 06:30 06:30 WBC 10.5 H RBC 3.99 L Hgb 12.2 Hct 36.8 MCV 92.3 MCH 30.6 MCHC 33.2 RDW 13.5 Plt Count 202 MPV 9.6 Absolute Neuts (auto) 7.5 Neutrophils % 71.8 Neutrophils % (Manual) 61.5 Band Neutrophils % 0.0 Lymphocytes % 17.7 Lymphocytes % (Manual) 19.8 Monocytes % 8.2 Monocytes % (Manual) 7 Eosinophils % 1.7 Eosinophils % (Manual) 1.0 Basophils % 0.6 Basophils % (Manual) 0.0 Myelocytes % (Man) 2 D Promyelocytes % (Man) 0 Blast Cells % (Manual) 0 Nucleated RBC % 0 Metamyelocytes 0 D Hypochromia 0 Platelet Estimate Normal Polychromasia 0 Poikilocytosis 2+ Anisocytosis 1+ Microcytosis 0 Macrocytosis 1+ Sodium 139 Potassium 3.9 Chloride 106 Carbon Dioxide 27 Anion Gap 6 L BUN 26 H Creatinine 1.0 Creat Clearance w eGFR > 60 Random Glucose 84 Calcium 8.0 L Phosphorus 3.4 Magnesium 2.1 Active Medications Generic Name Dose Route Start Last Admin Trade Name Freq PRN Reason Stop Dose Admin Aspirin 81 mg 03/06/18 10:00 03/13/18 11:08 Asa - PO 81 mg DAILY [facility] Administration Atorvastatin Calcium 10 mg 03/05/18 22:00 03/12/18 21:36 Lipitor - PO 10 mg HS [facility] Administration Clopidogrel Bisulfate 75 mg 03/06/18 10:00 03/13/18 11:08 Plavix - PO 75 mg DAILY [facility] Administration Enoxaparin Sodium 40 mg 03/06/18 10:00 03/13/18 11:08 Lovenox - SQ 40 mg DAILY [facility] Administration Guaifenesin 10 ml 03/06/18 08:50 03/13/18 12:29 Robitussin - PO 10 ml Q4H PRN Administration COUGH Vancomycin HCl 1,000 mg in 250 mls @ 166.667 mls/hr 03/07/18 14:45 03/13/18 14:17 Vancomycin (Pre-Docked) IVPB 166.667 mls/hr Q12H [facility] Administration Protocol Aztreonam 1 gm/ Dextrose 50 mls @ 100 mls/hr 03/07/18 14:45 03/13/18 17:37 IVPB 100 mls/hr Q8H-IV [facility] Administration Protocol Metoprolol Succinate 25 mg 03/06/18 10:00 03/13/18 11:08 Toprol Xl - PO 25 mg DAILY [facility] Administration Pantoprazole Sodium 40 mg 03/06/18 10:00 03/13/18 11:08 Protonix - PO 40 mg DAILY [facility] Administration Prednisone 30 mg 03/12/18 11:06 03/13/18 11:08 Deltasone - PO 30 mg DAILY [facility] Administration ASSESSMENT/PLAN: Patient is an 82 year old male with significant past medical history of HTN, HLD , CAD s/p stents in 2012, GERD, pneumonia presented to the ED accompanied with his with the chief complaint of " SOB and cough x 3 weeks". # Community acquired pneumonia Cough still persists. Completed 7days of Vanc and Aztreonam (has PCN Allergy), d/w Dr. Guzman, possibility of d/c abx tomorrow. Blood cultures, urine for legionella negative Albuterol/ duoneb nebs discontinued due to tachycardia. On steroid taper Predniosone 30mg PO daily Will order pre and post ex sat measurements in AM # R/O TB Concerned for TB in the past,(bronch done on 10/31/17) which did not show any endobronchial lesions. AFB smear x 3 negative, cultures pending. Appreciate pulmonary recommendations # SOB could have been due to CHF exacerbation Less likely in CHF. monitor off Lasix I's and O's Daily Weight # CAD s/p stents (2012) Continue aspirin and plavix # HLD Continue Atorvastatin # HTN controlled Continue Metoprolol 25 mg PO daily # FEN Not on IV fluids Electrolytes WNL Soft diet (hx of dysphagia, can advance diet if tolerated) # Prophylaxis For DVT: On Lovenox 40 sq, early ambulation. For GI On protonix # Code Status: Full Code # Dispo:Admit in Med-Surg. D/c planning Illness, Investigation and Plan of care explained to the patient and his . They verbalized understanding. Case discussed with Dr. Roche. Problem List - Problems (1) COPD (chronic obstructive pulmonary disease) Code(s): J44.9 - CHRONIC OBSTRUCTIVE PULMONARY DISEASE, UNSPECIFIED (2) Pneumonia Code(s): J18.9 - PNEUMONIA, UNSPECIFIED ORGANISM Qualifiers: (3) BPH (benign prostatic hyperplasia) Code(s): N40.0 - BENIGN PROSTATIC HYPERPLASIA WITHOUT LOWER URINRY TRACT SYMP Qualifiers: Lower urinary tract symptom presence: symptoms absent Qualified Code(s): N40.0 - Benign prostatic hyperplasia without lower urinary tract symptoms (4) CAD (coronary artery disease) Code(s): I25.10 - ATHSCL HEART DISEASE OF [place] CORONARY ARTERY W/O ANG PCTRS (5) Dysphagia Code(s): R13.10 - DYSPHAGIA, UNSPECIFIED (6) Sepsis Code(s): A41.9 - SEPSIS, UNSPECIFIED ORGANISM Qualifiers: Sepsis type: sepsis due to unspecified organism Qualified Code(s): A41.9 - Sepsis, unspecified organism (7) Weakness Code(s): R53.1 - WEAKNESS Visit type - Emergency Visit Emergency Visit: Yes ED Registration Date: 03/07/18 Care time: The patient presented to the Emergency Department on the above date and was hospitalized for further evaluation of their emergent condition. - New Patient This patient is new to me today: No - Critical Care Critical Care patient: No - Discharge Referral Referred to [facility] Med [facility] No
[2018-03-13] MEDS: ATORVASTATIN CA 10 MG TABLET (FP) PO SCH (22:29)
[2018-03-14] MEDS: AZTREONAM 1 GM in DEXTROSE 5%-WATER - 50 ML IVPB SCH ×3 (02:00→17:47)
[2018-03-14] MEDS ORDERED: PT OWN MED DRAWER 7, Y5N ONE ×3 (02:35→17:45)
[2018-03-14] MEDS: VANCOMYCIN 1 GRAM (PRE-DOCKED) 1,000 MG/250 ML BAG IVPB SCH ×2 (02:38→14:39)
--- NOTE | 2018-03-14 08:41 | PN ---
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 Feels better with less coughing. Seen by ID MD; ? home with or without PO antibiotics?
[2018-03-14] MEDS: predniSONE 20 MG TABLET (UD) PO SCH (09:48)
[2018-03-14] MEDS: metoPROLOL SUCCINATE 25 MG TAB.SR.24H (FP) PO SCH (09:48)
[2018-03-14] MEDS: ENOXAPARIN NA (PORCINE) 40 MG/0.4 ML DISP.SYRIN SQ SCH (09:48)
[2018-03-14] MEDS: CLOPIDOGREL BISULFATE 75 MG TABLET (FP) PO SCH (09:48)
[2018-03-14] MEDS: PANTOPRAZOLE 40 MG TABLET (FP) PO SCH (09:48)
[2018-03-14] MEDS: ASPIRIN 81 MG CHEWABLE TABLETS PO SCH (09:48)
[2018-03-14] MEDS: guaiFENesin 200 MG/10 ML 10 ML UNIT-DOSE CUPS PO PRN ×2 (09:52→16:21)
[2018-03-14 09:57] VITALS: BP 140/87
--- NOTE | 2018-03-14 10:38 | PN ---
Progress Note (short form) - Note Progress Note: PULMONARY Cough improved today. Denies shortness of breath or chest pain. No fevers or chills. Vital Signs Period Temp Pulse Resp BP Sys/Garcia Pulse Ox Last 24 Hr 97.3 F-98.4 F 60-87 18-20 128-155/60-87 94-96 Gen: NAD at rest Heart: RRR Lung: right base rales Abd: soft, nontender Ext: no edema CBC, BMP 03/13/18 06:30 03/13/18 06:30 Active Medications Aspirin (Asa -) 81 mg PO DAILY [facility] Last Admin: 03/14/18 09:48 Dose: 81 mg Atorvastatin Calcium (Lipitor -) 10 mg PO HS [facility] Last Admin: 03/13/18 22:29 Dose: 10 mg Clopidogrel Bisulfate (Plavix -) 75 mg PO DAILY [facility] Last Admin: 03/14/18 09:48 Dose: 75 mg Enoxaparin Sodium (Lovenox -) 40 mg SQ DAILY [facility] Last Admin: 03/14/18 09:48 Dose: 40 mg Guaifenesin (Robitussin -) 10 ml PO Q4H PRN PRN Reason: COUGH Last Admin: 03/14/18 09:52 Dose: 10 ml Vancomycin HCl (Vancomycin (Pre-Docked)) 1,000 mg in 250 mls @ 166.667 mls/hr IVPB Q12H [facility]; Protocol Last Admin: 03/14/18 02:38 Dose: 166.667 mls/hr Aztreonam 1 gm/ Dextrose 50 mls @ 100 mls/hr IVPB Q8H-IV [facility]; Protocol Last Admin: 03/14/18 09:48 Dose: 100 mls/hr Metoprolol Succinate (Toprol Xl -) 25 mg PO DAILY [facility] Last Admin: 03/14/18 09:48 Dose: 25 mg Pantoprazole Sodium (Protonix -) 40 mg PO DAILY [facility] Last Admin: 03/14/18 09:48 Dose: 40 mg Prednisone (Deltasone -) 30 mg PO DAILY [facility] Last Admin: 03/14/18 09:48 Dose: 30 mg A/P Pneumonia Acute COPD Exacerbation CAD LV Systolic Dysfunction HTN Hyperlipidemia - continue antibiotics - prednisone taper - inhaled bronchodilators - cough suppressants - O2 to keep SpO2 >90% - DVT prophylaxis - will need outpt f/u of CXR in 6-8 weeks to ensure resolution of infiltrate - can be discharged home from pulmonary standpoint
--- NOTE | 2018-03-14 14:14 | DS ---
Physical Exam: SUBJECTIVE: Patient seen and examined at bed side this morning. States he feels better, cough has improved. Denies chest pain, sob, palpitation, abdominal pain , nausea or vomiting. No acute overnight events. OBJECTIVE: Vital Signs Period Temp Pulse Resp BP Sys/Garcia Pulse Ox Last 24 Hr 97.3 F-98.4 F 60-87 18-20 128-155/70-87 94-96 PHYSICAL EXAM GENERAL: Elderly male, lying in bed, coughing, Awake, alert, and fully oriented , in no acute distress. HEAD: Normal with no signs of trauma. EYES: EOM intact, no pallor or icterus. . EARS, NOSE, THROAT: Ears normal. Moist mucous membranes. NECK: Supple. LUNGS: B/L breath sounds equal. Crackles R> L. No wheeze. HEART: Regular rate and rhythm, normal S1 and S2 with soft systolic murmur, rub or gallop. ABDOMEN: Soft, tenderness in the lower quadrants, BS +, no organomegaly. MUSCULOSKELETAL: Normal range of motion at all joints. No bony deformities or tenderness. No CVA tenderness. UPPER EXTREMITIES: 2+ pulses, warm, well-perfused. No cyanosis. No clubbing. No peripheral edema. LOWER EXTREMITIES: 2+ pulses, warm, well-perfused. No calf tenderness. Trace pitting edema. NEUROLOGICAL: No facial droop, power 5/5 in all ext. Sensation intact. Cranial nerves II-XII intact. Normal speech. Gait not observed. PSYCHIATRIC: Cooperative. Good eye contact. Appropriate mood and affect. SKIN: Warm, dry, normal turgor, no rashes or lesions noted. Microbiology 03/11/18 18:15 Sputum - Expectorated AFB Smear Concentration - Final 03/11/18 18:15 Sputum - Expectorated Direct Acid Fast Bacilli Smear - Final 03/11/18 18:15 Sputum - Expectorated Mycobacterial Culture - Preliminary 03/05/18 15:18 Blood - Peripheral Venous Blood Culture - Final NO GROWTH AFTER 5 DAYS INCUBATION 03/05/18 15:18 Blood - Peripheral Venous Blood Culture - Final NO GROWTH AFTER 5 DAYS INCUBATION 03/07/18 09:00 Sputum - Expectorated Gram Stain - Final 03/07/18 09:00 Sputum - Expectorated Sputum Culture - Final NORMAL RESPIRATORY VALDEZ 03/07/18 08:30 Urine For Antigen Detection Legionella Antigen - Final 03/07/18 08:30 Urine For Antigen Detection Streptococcus pneumoniae Antigen (M - Final Imagin03/06/18 CT Chest: Right posterior basilar infiltrates. Cholelithiasis. Stable 0.6 cm and 0.2 cm left upper lobe pulmonary nodules. HOSPITAL COURSE: Date of Admission:03/07/18 Date of Discharge: 03/14/18 Patient is an 82 year old male with significant past medical history of HTN, HLD , CAD s/p stents in 2012, GERD, pneumonia presented to the ED accompanied with his with the chief complaint of " SOB and cough x 3 weeks". Admitted with the diagnosis of Community acquired pneumonia. Chest CT was done which showed Right posteriro basilar infiltrates. Was treated with IV Vancomycin and IV Aztreonam (given Penicillin allergy). Patient's symptoms has improved. Completed the course of antibiotics. Sending patient on steroid taper x 4 days and cough syrup. Recommended patient to follow up with PCP and End Touching Machine Operator and needs a repeat CXR in 6-8 weeks to see the resolution of pneumonia. Pre and post exercise oxygen saturation was measure and he was > 92 % in RA, hence doesn't require oxygen at home. TB was also ruled out. Concerned for TB in the past as well,(bronch done on 10/31) which did not show any endobronchial lesions. CAD s/p stents (2012) Continued aspirin and plavix HLD Continued Atorvastatin HTN controlled. Continued Metoprolol 25 mg PO daily Plan of care explained to the patient. He verbalized understanding. Minutes to complete discharge: 45 Discharge Summary Reason For Visit: PNA Current Active Problems Pneumonia (Acute) Condition: Improved - Instructions Diet, Activity, Other Instructions: You were admitted for the treatment of pneumonia and was given IV antibiotics. Your symptoms have improved and discharging home on PO antibiotics. Medications: Continue your home medications. Following medications have been added: Prednisone taper as follows: 20 mg daily for 2 days (03/15 and 03/16) 10 mg daily for 2 days (03/17 and 03/18), then off. Activity: As tolerated Diet: Soft diet, advance as tolerated Follow up: With End Touching Machine Operator in 6 weeks, you also need to repeat a Chest X-ray in 6-8 weeks to see the resolution of pneumonia. With Primary care physician in 1-2 weeks. If your symptoms worsen or you develop any new symptoms, please call 911 and call the doctor. Referrals: George Swenson MD [Primary Care Provider] - 1 Week Leonid Bello MD, MD [Staff Physician] - 2 Weeks Disposition: HOME - Home Medications Comprehensive Discharge Medication List: Ambulatory Orders Aspirin [Luisito Chewable Aspirin] 81 mg PO DAILY 11/13/13 Clopidogrel Bisulfate [Plavix -] 75 mg PO DAILY 11/13/13 Simvastatin [Zocor -] 25 mg PO HS 11/13/13 Metoprolol Succinate [Toprol XL -] 25 mg PO DAILY 09/17/14 Pantoprazole Sodium [Protonix] 40 mg PO DAILY 03/05/18 predniSONE [Deltasone -] See Taper PO DAILY #4 tablet 03/14/18 Problem List - Problems (1) COPD (chronic obstructive pulmonary disease) Code(s): J44.9 - CHRONIC OBSTRUCTIVE PULMONARY DISEASE, UNSPECIFIED (2) Pneumonia Code(s): J18.9 - PNEUMONIA, UNSPECIFIED ORGANISM Qualifiers: (3) BPH (benign prostatic hyperplasia) Code(s): N40.0 - BENIGN PROSTATIC HYPERPLASIA WITHOUT LOWER URINRY TRACT SYMP Qualifiers: Lower urinary tract symptom presence: symptoms absent Qualified Code(s): N40.0 - Benign prostatic hyperplasia without lower urinary tract symptoms (4) CAD (coronary artery disease) Code(s): I25.10 - ATHSCL HEART DISEASE OF [place] CORONARY ARTERY W/O ANG PCTRS (5) Dysphagia Code(s): R13.10 - DYSPHAGIA, UNSPECIFIED (6) Sepsis Code(s): A41.9 - SEPSIS, UNSPECIFIED ORGANISM Qualifiers: Sepsis type: sepsis due to unspecified organism Qualified Code(s): A41.9 - Sepsis, unspecified organism (7) Weakness Code(s): R53.1 - WEAKNESS This patient is new to me today: Yes Date on this admission: 03/14/18 Emergency Visit: No Critical Care patient: No - Discharge Referral Referred to [facility] No
[2018-03-14 14:23] VITALS: PULSE 78; TEMP 98.3
--- NOTE | 2018-03-14 14:28 | PN ---
Teaching Attending Note Name of Resident: Yanira Pena ATTENDING PHYSICIAN STATEMENT I saw and evaluated the patient. I reviewed the resident's note and discussed the case with the resident. I agree with the resident's findings and plan as documented with exceptions below. SUBJECTIVE: Patient seen and examined. breathing improved, still cough but better. No new complaints. OBJECTIVE: Vital Signs Period Temp Pulse Resp BP Sys/Garcia Pulse Ox Last 24 Hr 97.3 F-98.4 F 60-87 17-20 128-155/70-87 94-96 Intake & Output 03/11/18 03/12/18 03/13/18 03/14/18 23:59 23:59 23:59 23:59 Intake Total 1350 1350 1550 700 Balance 1350 1350 1550 700 General: lying in bed in no acute distress Chest: improved air entry, no rales or rhonchi appreciated Extremities: no edema. Home Medications Medication Instructions Recorded Aspirin [Luisito Chewable Aspirin] 81 mg PO DAILY 11/13/13 Clopidogrel Bisulfate [Plavix -] 75 mg PO DAILY 11/13/13 Simvastatin [Zocor -] 25 mg PO HS 11/13/13 Metoprolol Succinate [Toprol XL -] 25 mg PO DAILY 09/17/14 Pantoprazole Sodium [Protonix] 40 mg PO DAILY 03/05/18 Benzonatate 100 mg PO BID PRN #1 bottle 03/14/18 predniSONE [Deltasone -] See Taper PO DAILY #4 tablet 03/14/18 Microbiology 03/11/18 18:15 Sputum - Expectorated AFB Smear Concentration - Final 03/11/18 18:15 Sputum - Expectorated Direct Acid Fast Bacilli Smear - Final 03/11/18 18:15 Sputum - Expectorated Mycobacterial Culture - Preliminary 03/05/18 15:18 Blood - Peripheral Venous Blood Culture - Final NO GROWTH AFTER 5 DAYS INCUBATION 03/05/18 15:18 Blood - Peripheral Venous Blood Culture - Final NO GROWTH AFTER 5 DAYS INCUBATION 03/07/18 09:00 Sputum - Expectorated Gram Stain - Final 03/07/18 09:00 Sputum - Expectorated Sputum Culture - Final NORMAL RESPIRATORY VALDEZ 03/07/18 08:30 Urine For Antigen Detection Legionella Antigen - Final 03/07/18 08:30 Urine For Antigen Detection Streptococcus pneumoniae Antigen (M - Final ASSESSMENT AND PLAN: 82 year old male with significant past medical history of HTN, HLD, CAD s/p stents in 2013, GERD, pneumonia presented to the ED accompanied with his with the chief complaint of " dyspnea and cough x 3 weeks". -RLL CAP -Acute bronchitis -Acute COPD exacerbation -LV systolic dysfunction -HTN -HLD -CAD s/p PCI 2012 Plan: improved s/p 7 days of aztreonam/vancomycin. Doing well, no home oxygen needs.Ambulating well. Add benzonatate for cough. ID input noted. Prednisone taper to off. COntinue ASA/plavix/statin/metoprolol. Home oxygen needs assessment. dispo d/c home with outpatient PCP follow up and follow up CXR in 6-8 weeks Plan discussed with patient in detail, all questions answered.
== END 2018-03-14 18:38 | disposition home or self-care (01) | DRG 190 ==
LOC: JER 09:21 → JERBED 14:43 → J6S 18:50 → OBSVTOIN 03-07 10:25
PROVIDERS: ADMIT Internal Medicine; ATTEND Hospitalist
DX: J44.1 Chronic obstructive pulmonary disease with (acute) exacerbation (principal); J18.9 Pneumonia, unspecified organism; I25.5 Ischemic cardiomyopathy; J20.9 Acute bronchitis, unspecified; J44.0 Chronic obstructive pulmonary disease with (acute) lower respiratory infection; I10 Essential (primary) hypertension; Z95.5 Presence of coronary angioplasty implant and graft; E78.5 Hyperlipidemia, unspecified; Z88.0 Allergy status to penicillin; Z87.891 Personal history of nicotine dependence; Z96.651 Presence of right artificial knee joint; M72.2 Plantar fascial fibromatosis; N40.0 Benign prostatic hyperplasia without lower urinary tract symptoms; R76.12 Nonspecific reaction to cell mediated immunity measurement of gamma interferon antigen response without active tuberculosis
CPT/HCPCS: 36415; 71045-TC-FY; 71046-TC-FY; 71250-TC; 80048; 80053; 81003; 82550; 83735; 83880; 84100; 84484; 85025; 85027; 87040; 87070; 87116; 87205; 87206; 87899; 93005; 93010; 93306-TC; 94640; 94761; 99285-25; G0378; G0480

== ENCOUNTER 2018-07-26 17:48 | Inpatient (IN) | payer OTHER ==
[2018-07-26 17:55] VITALS: BMI 23.6
--- NOTE | 2018-07-26 17:56 | PDOC ---
Rapid Medical Evaluation Chief Complaint: Shortness of Breath Time Seen by Provider: 07/26/18 17:50 Medical Evaluation: Allergies Allergy/AdvReac Type Severity Reaction Status Date / Time levofloxacin [From Levaquin] Allergy Intermediate rash and Verified 03/05/18 09: 53 itching in arm of infusion morphine Allergy Vomiting Verified 03/05/18 09:53 Penicillins Allergy Swelling Verified 03/05/18 09:53 07/26/18 17:52 I have performed a brief in-person evaluation of this patient. The patient presents with a chief complaint of: sob.. started this am, S/P Cath 3 days ago with EF of 35%. Sent from Dr Fonseca for urgent eval. Pertinent physical exam findings: No Cp/ + SOB and leg swelling/ pain I have ordered the following: EKG, CbC/ CMP/ Card enzymes, The patient will proceed to the ED for further evaluation. 07/26/18 17:54 Discharge Disposition - Diagnosis Shortness of breath - Referrals - Patient Instructions - Post Discharge Activity
--- NOTE | 2018-07-26 18:20 | PDOC ---
History of Present Illness - General Chief Complaint: Shortness of Breath Stated Complaint: SHORTNESS OF BREATH Time Seen by Provider: 07/26/18 17:50 - History of Present Illness Initial Comments: 07/26/18 18:20 Mr. Schwarz is an 82 yo male w/ pmh of HTN, HLD, CAD s/p 4 stents (2005, , , and 3 days ago), EF 35% who presents for evaluation from cardiologists office. Patient woke up around 2:30am when phone rang and began to have shortness of breath that persisted through today. Patient was noted to be tachypneic in cardiologists office w/ RR 35 and LLL crackles appreciated. Sent to ER by gut dropper for r/o increased filling pressures / CHF. Bowling Alley Attendant reports creatinine 2 days ago 1.09 on discharge from hospital; currently receiving lasix 80 QD. Cardiology recommends evaluating creatinine and IV diuresis as needed if able. The patient denies chest pain, headache and dizziness. Denies fever, chills, nausea, vomit, diarrhea and constipation. Denies dysuria, frequency, urgency and hematuria. Past History - Past Medical History Allergies/Adverse Reactions: Allergies Allergy/AdvReac Type Severity Reaction Status Date / Time levofloxacin [From Levaquin] Allergy Intermediate rash and Verified 07/26/18 17: 52 itching in arm of infusion morphine Allergy Vomiting Verified 07/26/18 17:52 Penicillins Allergy Swelling Verified 07/26/18 17:52 Home Medications: Ambulatory Orders Aspirin [Luisito Chewable Aspirin] 81 mg PO DAILY 11/13/13 Clopidogrel Bisulfate [Plavix -] 75 mg PO DAILY 11/13/13 Simvastatin [Zocor -] 25 mg PO HS 11/13/13 Metoprolol Succinate [Toprol XL -] 25 mg PO DAILY 09/17/14 Pantoprazole Sodium [Protonix] 40 mg PO DAILY 03/05/18 Benzonatate 100 mg PO BID PRN #1 bottle 03/14/18 Anemia: No Asthma: No Cancer: No Cardiac Disorders: Yes (Stent placement w/ complication 02/2015) CVA: No COPD: Yes CHF: No Dementia: No Diabetes: No GI Disorders: No Disorders: No HTN: Yes Hypercholesterolemia: Yes Liver Disease: No Seizures: No Thyroid Disease: No - Surgical History Abdominal Surgery: No Appendectomy: Yes Cardiac Surgery: Yes (cardiac stent 2005 and 2014) Cholecystectomy: No Lung Surgery: No Neurologic Surgery: No Orthopedic Surgery: Yes (right knee replacement) - Immunization History Immunization Up to Date: Yes - Suicide/Smoking/Psychosocial Hx Smoking History: Never smoked Have you smoked in the past 12 months: No If you are a former smoker, when did you quit?: 30 YRS AGO Hx Alcohol Use: No Drug/Substance Use Hx: No Substance Use Type: Alcohol Hx Substance Use Treatment: No Review of Systems - Review of Systems Comments:: 07/26/18 18:36 GENERAL/CONSTITUTIONAL: No fever or chills. No weakness. HEAD, EYES, EARS, NOSE AND THROAT: No change in vision. No ear pain or discharge. No sore throat. CARDIOVASCULAR: +SOB as described. No chest pain RESPIRATORY: No cough, wheezing, or hemoptysis. GASTROINTESTINAL: No nausea, vomiting, diarrhea or constipation. GENITOURINARY: No dysuria, frequency, or change in urination. MUSCULOSKELETAL: No joint or muscle swelling or pain. No neck or back pain. SKIN: No rash NEUROLOGIC: No headache, vertigo, loss of consciousness, or change in strength/ sensation. ENDOCRINE: No increased thirst. No abnormal weight change HEMATOLOGIC/LYMPHATIC: No anemia, easy bleeding, or history of blood clots. ALLERGIC/IMMUNOLOGIC: No hives or skin allergy. *Physical Exam - Vital Signs Last Vital Signs Temp Pulse Resp BP Pulse Ox 98.5 F 109 H 24 H 84/41 L 98 07/26/18 17:52 07/26/18 17:52 07/26/18 17:52 07/26/18 17:52 07/26/18 17:52 - Physical Exam Comments: 07/26/18 18:36 GENERAL: Awake, alert, and fully oriented, in no acute distress HEAD: No signs of trauma, normocephalic, atraumatic EYES: PERRLA, EOMI, sclera anicteric, conjunctiva clear ENT: Auricles normal inspection, hearing grossly normal, nares patent, oropharynx clear without exudates. Moist mucosa NECK: Normal ROM, supple, no lymphadenopathy, JVD, or masses LUNGS: No distress, speaks full sentences, clear to auscultation bilaterally HEART: Regular rate and rhythm, normal S1 and S2, no murmurs, rubs or gallops, peripheral pulses normal and equal bilaterally. ABDOMEN: Soft, nontender, normoactive bowel sounds. No guarding, no rebound. No masses EXTREMITIES: Normal inspection, Normal range of motion, no edema. No clubbing or cyanosis. NEUROLOGICAL: Cranial nerves II through XII grossly intact. Normal speech, normal gait, no focal sensorimotor deficits SKIN: Warm, Dry, normal turgor, no rashes or lesions noted. ED Treatment Course - LABORATORY CBC & Chemistry Diagram: 07/26/18 18:43 07/26/18 18:43 Medical Decision Making - Medical Decision Making 07/26/18 18:38 Mr. Schwarz is an 82 yo male w/ pmh as described who presents for evaluation of shortness of breath in the setting of recent cardiac cath. Patient noted to be hypotensive upon arrival however BP normalized by provider evaluation. Patient currently pending cardiology workup. Discussed with Dr. Sierra who recommended bedside US and will come evaluate. 07/26/18 19:05 Bedside US revealed trace pericardial effusion only. No concerning large effusion noted. Cardiology at bedside. 07/26/18 19:28 EKG significant for L anterior fascicular block, T wave inversions in aVL, V2, and L ventricular hypertrophy. Discussed with cardiology and agree patient likely hypervolemic and should be admitted for cardiac monitoring and diuresis. CXR negative for acute process. 07/26/18 20:47 Patient will receive 40 IV lasix for suspected hypervolemia vs. new onset CHF treatment and be admitted for further evaluation. Discussed with hospitalist who will admit. Labs significant only for BNP as below. Laboratory Results - last 24 hr 07/26/18 07/26/18 07/26/18 18:43 18:43 18:43 WBC 10.4 H RBC 4.44 Hgb 13.9 Hct 41.0 MCV 92.5 MCH 31.4 MCHC 33.9 RDW 14.4 Plt Count 200 MPV 9.9 Absolute Neuts (auto) 8.0 Neutrophils % 76.9 Lymphocytes % 12.0 D Monocytes % 9.0 Eosinophils % 1.7 Basophils % 0.4 Nucleated RBC % 0 PT with INR 12.30 INR 1.04 Sodium 140 Potassium 4.0 Chloride 105 Carbon Dioxide 25 Anion Gap 10 BUN 27 H Creatinine 1.4 H Est GFR (CKD-EPI)AfAm 53.09 Est GFR (CKD-EPI)NonAf 45.81 Random Glucose 99 Calcium 8.8 Total Bilirubin 0.5 AST 19 ALT 20 Alkaline Phosphatase 63 Creatine Kinase 68 Troponin I 0.02 B-Natriuretic Peptide Total Protein 7.3 Albumin 3.7 07/26/18 18:43 WBC RBC Hgb Hct MCV MCH MCHC RDW Plt Count MPV Absolute Neuts (auto) Neutrophils % Lymphocytes % Monocytes % Eosinophils % Basophils % Nucleated RBC % PT with INR INR Sodium Potassium Chloride Carbon Dioxide Anion Gap BUN Creatinine Est GFR (CKD-EPI)AfAm Est GFR (CKD-EPI)NonAf Random Glucose Calcium Total Bilirubin AST ALT Alkaline Phosphatase Creatine Kinase Troponin I B-Natriuretic Peptide 2115.1 H Total Protein Albumin *DC/Admit/Observation/Transfer Diagnosis at time of Disposition: Shortness of breath Hypervolemia Qualifiers: Hypervolemia type: unspecified Qualified Code(s): E87.70 - Fluid overload, unspecified CHF (congestive heart failure) Qualifiers: Heart failure type: unspecified Heart failure chronicity: unspecified Qualified Code(s): I50.9 - Heart failure, unspecified - Discharge Dispostion Decision to Admit order: Yes - Referrals Referrals: George Swenson MD [Primary Care Provider] - - Patient Instructions - Post Discharge Activity
[2018-07-26 19:03] LABS: BASO % 0.4 % (0-2.0); EOS % 1.7 % (0-4.5); HEMOGLOBIN 13.9 GM/dL (11.7-16.9); MCH 31.4 pg (25.7-33.7); MCHC 33.9 g/dl (32.0-35.9); MEAN CELL VOLUME 92.5 fl (80-96); MEAN PLT VOLUME 9.9 fl (7.5-11.1); NEUT % 76.9 % (42.8-82.8); PLATELET COUNT 200 K/MM3 (134-434); RBC 4.44 M/mm3 (4.00-5.60); RDW 14.4 % (11.9-15.9); WHITE BLOOD COUNT 10.4 K/mm3 (4.0-10.0)
[2018-07-26 19:21] LABS: INR 1.04 (0.83-1.09); PROTHROMBIN TIME (PATIENT) 12.3 SEC (9.7-13.0)
--- NOTE | 2018-07-26 19:32 | PDOC ---
Documentation entered by Daniel Collins SCRIBE, acting as scribe for Robert Vasquez MD. Robert Vasquez MD: This documentation has been prepared by the Dennis sanabria Daniel, SCRIBE, under my direction and personally reviewed by me in its entirety. I confirm that the documentation accurately reflects all work, treatment, procedures, and medical decision making performed by me. Attending Attestation - Resident Resident Name: Tonio Bueno - ED Attending Attestation I have performed the following: I have examined & evaluated the patient, The case was reviewed & discussed with the resident, I agree w/resident's findings & plan, Exceptions are as noted - HPI HPI: 07/26/18 18:50 The patient is a 82 year old male with a past medical history of HTN, HLD, CAD ( s/p 4 stents 2005, 2012, 2014, and 07/23/18 to the LAD), and EF of 35% here today for evaluation from cardiologists office due to SOB. The patient reports that he woke up around 2:30a to the phone ringing and he began to develop shortness of breath. Pt took his lasix 80mg at 9am and went to visit Dr. Latham later in the afternoon. Dr. Latham noted the patient to be tachypneic (RR 35), have left lower lobe crackles, and was concerned for progressive CHF and sent him to the ED. At this time, pt reports feeling better since getting O2 via the nasal cannula. Patient denies headache, lightheadedness. Denies fever, chills. Denies chest pain. Denies nausea, vomiting, diarrhea, abdominal pain. Allergies: levofloxacin, morphine, penicillins PCP: George Swenson Lead Janitor: Dr. Delfin Latham - Physicial Exam PE: 07/26/18 19:26 GENERAL: Awake, alert, and fully oriented, in no acute distress EYES: PERRLA, EOMI, sclera anicteric, conjunctiva clear ENT: Oropharynx clear without exudates. Moist mucosa NECK: Normal ROM, supple, no lymphadenopathy, JVD, or masses LUNGS: Breath sounds equal, clear to auscultation bilaterally. No wheezes, and no crackles/rales HEART: Regular rate and rhythm, normal S1 and S2, no murmurs, rubs or gallops ABDOMEN: Soft, nontender, normoactive bowel sounds. No guarding, no rebound. No masses EXTREMITIES: Normal range of motion, 1+ symmetric edema to calves. No cords, erythema, or tenderness NEUROLOGICAL: Normal speech, cranial nerves intact, equal strength and sensation b/l SKIN: Warm, Dry, normal turgor, no rashes or lesions noted. - Medical Decision Making 07/26/18 19:29 82yo M with MMP including CAD, cath 3 days ago with stent to LAD lesion, EF 35% presents to the ED with progressive SOB since 2am last night. Pt sent from Dr. Latham's office after found to have crackles, was sent over to ED for urgent evaluation Vitals initially remarkable for hypotension 84/48, tachycardia 109 and tachypnea Without intervention, BP recovered to 120/74, HR 78, pt feeling better with NC Bedside sono with trace pericardial effusion. Plan for labs, XR, cards evaluation, likely observation overnight Heart Score/ECG Review #1 07/26/18 19:28 Twelve-lead EKG was performed and reviewed by me. Sinus rhythm, rate 75. First- degree AV block. Left axis deviation. No ST elevations. T wave inversions in 1 and aVL, no previous EKG to compare
[2018-07-26 19:45] LABS: ALBUMIN 3.7 g/dl (3.4-5.0); BILIRUBIN,TOTAL 0.5 mg/dL (0.2-1); CALCIUM 8.8 mg/dL (8.5-10.1); CREATININE 1.4 mg/dL (0.55-1.3); TOT PROT 7.3 g/dl (6.4-8.2)
[2018-07-26] MEDS ORDERED: FUROSEMIDE 40 MG/4 ML INJECTABLE VIAL IVPUSH ONE (19:49)
--- NOTE | 2018-07-26 19:57 | CON.CARD ---
Consult Consult Specialty:: Cardiology Referred by:: ER: Dr. Vasquez Reason for Consultation:: Dyspnea - History of Present Illness Chief Complaint: Dyspnea History of Present Illness: 82M with CAD s/p remote h/o RCA and LAD PCI and chronic angina. Underwent JOAO LAD for subtotaled ISR. Over last few days has felt gradually more SOB and orthopnea. Referred to ER by Dr. Latham for suspected CHF vs Brilinta side effect (dyspnea). In ER, felt immediately better with O2 and BNP found to be > 2K. He feels better laying at 45 degrees. Bedside portable sono in ER no pericardial effusion. CXR with ?slightly increased PVC, no rales, no edema, warm. Denies CP, palps, cough, fever, chills. - History Source History Provided By: Patient - Past Medical History Cardio/Vascular: Yes: CAD, CHF, HTN, Hyperlipdemia Pulmonary: Yes: Bronchitis, COPD, Pneumonia. No: O2 Dependent, Previously Intubated, Pulmonary Embolus, Pulmonary Fibrosis, Sleep Apnea Gastrointestinal: Yes: GERD Musculoskeletal: Yes: Other (plantar fasciitis) - Past Surgical History Past Surgical History: Yes: Appendectomy, Joint Replacement (right knee), Stent - Alcohol/Substance Use Hx Alcohol Use: No History of Substance Use: reports: None - Smoking History Smoking history: Never smoked Have you smoked in the past 12 months: No If you are a former smoker, when did you quit?: 30 YRS AGO - Social History Usual Living Arrangement: With Spouse ADL: Independent History of Recent Travel: No Home Medications - Allergies Allergies/Adverse Reactions: Allergies Allergy/AdvReac Type Severity Reaction Status Date / Time levofloxacin [From Levaquin] Allergy Intermediate rash and Verified 07/26/18 17: 52 itching in arm of infusion morphine Allergy Vomiting Verified 07/26/18 17:52 Penicillins Allergy Swelling Verified 07/26/18 17:52 - Home Medications Home Medications: Ambulatory Orders Aspirin [Luisito Chewable Aspirin] 81 mg PO DAILY 11/13/13 Clopidogrel Bisulfate [Plavix -] 75 mg PO DAILY 11/13/13 Simvastatin [Zocor -] 25 mg PO HS 11/13/13 Metoprolol Succinate [Toprol XL -] 25 mg PO DAILY 09/17/14 Pantoprazole Sodium [Protonix] 40 mg PO DAILY 03/05/18 Benzonatate 100 mg PO BID PRN #1 bottle 03/14/18 predniSONE [Deltasone -] See Taper PO DAILY #4 tablet 03/14/18 Family Disease History - Family Disease History Family Disease History: Heart Disease: Father (: 79: Obesity/CAD), CA: Mother (: 80: DM II complications), Brother (2 from colon cancer 1 from DM comps, 1 from [place]), Other: Mother, Brother Review of Systems Findings/Remarks: see HPI - Review of Systems Neck: reports: No Symptoms Cardiovascular: reports: Shortness of Breath Respiratory: reports: Orthopnea Gastrointestinal: reports: No Symptoms Genitourinary: reports: No Symptoms Musculoskeletal: reports: No Symptoms Integumentary: reports: No Symptoms Neurological: reports: No Symptoms Endocrine: reports: No Symptoms Hematology/Lymphatic: reports: No Symptoms Psychiatric: reports: No Symptoms - Risk Factors Known Risk Factors: Yes: Other (known CAD) Vital Signs: Vital Signs Temperature 98.5 F 07/26/18 17:52 Pulse Rate 109 H 07/26/18 17:52 Respiratory Rate 24 H 07/26/18 17:52 Blood Pressure 84/41 L 07/26/18 17:52 O2 Sat by Pulse Oximetry (%) 99 07/26/18 18:57 Constitutional: Yes: No Distress Eyes: Yes: Conjunctiva Clear Respiratory: Yes: CTA Bilaterally Gastrointestinal: Yes: Soft Cardiovascular: Yes: Regular Rate and Rhythm JVD: No Carotid Bruit: No PMI: Non-Displaced Heart Sounds: Yes: S1, S2 Edema: No Peripheral Pulses WNL: Yes ([facility]. [facility] art [facility] C/D/I) Neurological: Yes: Alert, Oriented ...Motor Strength: WNL - Other Data Labs, Other Data: CBC, BMP 07/26/18 18:43 07/26/18 18:43 INR, PTT INR 1.04 (0.83-1.09) 07/26/18 18:43 Troponin, BNP 07/26/18 07/26/18 18:43 18:43 Troponin I 0.02 B-Natriuretic Peptide 2115.1 H Troponin, BNP 07/26/18 07/26/18 18:43 18:43 Troponin I 0.02 B-Natriuretic Peptide 2115.1 H Sinus rhythm, rate 75. First-degree AV block. Left axis deviation. No ST elevations. T wave inversions in 1 and aVL, nonspecific Imaging - Results X-ray: Image Reviewed EKG: Image Reviewed Assessment/Plan IMP: 1. CAD, with chronic angina, prior PCIs RCA/LAD now with recent JOAO LAD for critical ISR 2. Chronic systolic CHF with LVEF 35% 3. Suspected mild acute on chronic exacerbation of systolic CHF secondary to contrast load from PCI (doubt Brilinta dyspnea side effect) 4. HTN 5. HLD REC: 1. Prior to switching off Brilinta, would give trial of IV Lasix and assess in AM. BNP is elevated, he has orthopnea: suspect early failure. 2. Daily weight, BMP, telemetry. 3. Cycle cardiac enzymes 4. Continue other home meds for now. 5. Supplimental O2 Will follow.
[2018-07-26] MEDS ORDERED: FUROSEMIDE 40 MG/4 ML INJECTABLE VIAL ONE (20:24)
--- NOTE | 2018-07-26 21:08 | HP ---
CHIEF COMPLAINT:shortness of breath PCP:Dr Swenson HISTORY OF PRESENT ILLNESS: 82 y/o male with PMH of CAD (c/p stents; most recent being 3 day ago), HTN, HLD presented to the ED with shortness of breath. Patient states that he woke up around 2;30 AM with shortness of breath that persisted throughout the night and morning, so he went to his compensation consulting manager's, Dr. Latham's office who saw hat patient was tachypneic and has some LLL crackles so he sent him to the ED. Of note, patient was started on Brillinta yesterday and was taken off Plavix. He states that he was started on lasix (80 mg) about 3 weeks ago and has been feeling great; he is able to walk up the steps in apartment with no problems and is able to walk up more steps. he denies any sick contacts or any recnt travels ER course was notable for: (1) bedside U/S done showing no pericardial effusion (2)BNP elevated to 2115 (from 1650 on last visit); trop negative (3)seen by cardio; given 40 IV lasix Recent Travel: denies PAST MEDICAL HISTORY: see above PAST SURGICAL HISTORY: stents (X4), knee replacements Social History: Smoking:former smoker; quit 30 years ago Alcohol:social alcohol use Drugs: denies Family History:father : HTN, [place] Allergies levofloxacin [From Levaquin] Allergy (Intermediate, Verified 07/26/18 17:52) rash and itching in arm of infusion palpitations morphine Allergy (Verified 07/26/18 17:52) Vomiting Penicillins Allergy (Verified 07/26/18 17:52) Swelling HOME MEDICATIONS: Home Medications Medication Instructions Recorded Aspirin [Luisito Chewable Aspirin] 81 mg PO DAILY 11/13/13 Clopidogrel Bisulfate [Plavix -] 75 mg PO DAILY 11/13/13 Simvastatin [Zocor -] 25 mg PO HS 11/13/13 Metoprolol Succinate [Toprol XL -] 25 mg PO DAILY 09/17/14 Pantoprazole Sodium [Protonix] 40 mg PO DAILY 03/05/18 Benzonatate 100 mg PO BID PRN #1 bottle 03/14/18 REVIEW OF SYSTEMS CONSTITUTIONAL: Absent: fever, chills, diaphoresis, generalized weakness, malaise, loss of appetite, weight change HEENT: Absent: rhinorrhea, nasal congestion, throat pain, throat swelling, difficulty swallowing, mouth swelling, ear pain, eye pain, visual changes CARDIOVASCULAR: Absent: chest pain, syncope, palpitations, irregular heart rate, lightheadedness , peripheral edema RESPIRATORY: Present:shortness of breath, orthopnea Absent: cough,, dyspnea with exertion, , wheezing, stridor, hemoptysis GASTROINTESTINAL: Absent: abdominal pain, abdominal distension, nausea, vomiting, diarrhea, constipation, melena, hematochezia GENITOURINARY: Absent: dysuria, frequency, urgency, hesitancy, hematuria, flank pain, genital pain MUSCULOSKELETAL: Absent: myalgia, arthralgia, joint swelling, back pain, neck pain SKIN: Absent: rash, itching, pallor HEMATOLOGIC/IMMUNOLOGIC: Absent: easy bleeding, easy bruising, lymphadenopathy, frequent infections ENDOCRINE: Absent: unexplained weight gain, unexplained weight loss, heat intolerance, cold intolerance NEUROLOGIC: Absent: headache, focal weakness or paresthesias, dizziness, unsteady gait, seizure, mental status changes, bladder or bowel incontinence PSYCHIATRIC: Absent: anxiety, depression, suicidal or homicidal ideation, hallucinations. PHYSICAL EXAMINATION Vital Signs - 24 hr 07/26/18 07/26/18 07/26/18 17:52 18:56 18:57 Temperature 98.5 F Pulse Rate 109 H Pulse Rate [ Radial] Respiratory 24 H Rate Blood Pressure 84/41 L Blood Pressure [Right] O2 Sat by Pulse 98 99 99 Oximetry (%) 07/26/18 19:55 Temperature Pulse Rate Pulse Rate [ 74 Radial] Respiratory Rate Blood Pressure Blood Pressure 118/69 [Right] O2 Sat by Pulse 98 Oximetry (%) GENERAL: Awake, alert, and fully oriented, in no acute distress. EYES: PEERLA: EOMI; no scleral icterus . NECK: no JVD: no lymphadenopathy LUNGS: CTA B/L; no rales, rhonchi or wheezing. HEART: Regular rate and rhythm, normal S1 and S2 without murmur, rub or gallop. ABDOMEN: Soft, nontender, not distended, normoactive bowel sounds, no guarding, no rebound, no masses. No hepatomegaly or splenomegaly. MUSCULOSKELETAL: Normal range of motion at all joints. No bony deformities or tenderness. No CVA tenderness. EXTREMITIES: warm; well-perfused; trace edema B/L NEUROLOGICAL: Cranial nerves II-XII intact. Normal speech. Normal gait. PSYCHIATRIC: Cooperative. Good eye contact. Appropriate mood and affect. SKIN: Warm, dry, normal turgor, no rashes or lesions noted, normal capillary refill. Laboratory Results - last 24 hr 07/26/18 07/26/18 07/26/18 18:43 18:43 18:43 WBC 10.4 H RBC 4.44 Hgb 13.9 Hct 41.0 MCV 92.5 MCH 31.4 MCHC 33.9 RDW 14.4 Plt Count 200 MPV 9.9 Absolute Neuts (auto) 8.0 Neutrophils % 76.9 Lymphocytes % 12.0 D Monocytes % 9.0 Eosinophils % 1.7 Basophils % 0.4 Nucleated RBC % 0 PT with INR 12.30 INR 1.04 Sodium 140 Potassium 4.0 Chloride 105 Carbon Dioxide 25 Anion Gap 10 BUN 27 H Creatinine 1.4 H Est GFR (CKD-EPI)AfAm 53.09 Est GFR (CKD-EPI)NonAf 45.81 Random Glucose 99 Calcium 8.8 Total Bilirubin 0.5 AST 19 ALT 20 Alkaline Phosphatase 63 Creatine Kinase 68 Troponin I 0.02 B-Natriuretic Peptide Total Protein 7.3 Albumin 3.7 Blood Type Antibody Screen 07/26/18 07/26/18 18:43 18:43 WBC RBC Hgb Hct MCV MCH MCHC RDW Plt Count MPV Absolute Neuts (auto) Neutrophils % Lymphocytes % Monocytes % Eosinophils % Basophils % Nucleated RBC % PT with INR INR Sodium Potassium Chloride Carbon Dioxide Anion Gap BUN Creatinine Est GFR (CKD-EPI)AfAm Est GFR (CKD-EPI)NonAf Random Glucose Calcium Total Bilirubin AST ALT Alkaline Phosphatase Creatine Kinase Troponin I B-Natriuretic Peptide 2115.1 H Total Protein Albumin Blood Type A POSITIVE Antibody Screen Negative ASSESSMENT/PLAN: 82 y/o male with PMH of CAD (s/p stents most recent being 3 days ago) HTN, HLD presented to the ED after being sent from his compensation consulting manager's office for worsening shortness of breath #Dyspnea likely 2/2 patients CHF given elevated BNP and orthopnea symptoms V. Brillinta side effects -already received 40mg IV lasix in ED with relief -patients most recent echo showed EF 35% -will consider giving IV 40 in the am and reasess -Dr. Sosa has been consulted; recs appreciated -will monitor daily weights -monitor i's and o's -restrict fluids #CAD -c/w ASA and Brillinta #HTN -c/w toprol 25 daily #HLD -c/w zocor F/E/N not on fluids monitor electrolytes sodium controlled diet dispo: tele-obs DVT PPX: heparin SQ Problem List - Problem (1) CHF (congestive heart failure) Code(s): I50.9 - HEART FAILURE, UNSPECIFIED Qualifiers: Heart failure type: unspecified Heart failure chronicity: unspecified Qualified Code(s): I50.9 - Heart failure, unspecified (2) Shortness of breath Code(s): R06.02 - SHORTNESS OF BREATH (3) HTN (hypertension) Code(s): I10 - ESSENTIAL (PRIMARY) HYPERTENSION (4) HLD (hyperlipidemia) Code(s): E78.5 - HYPERLIPIDEMIA, UNSPECIFIED (5) CAD (coronary artery disease) Code(s): I25.10 - ATHSCL HEART DISEASE OF [place] CORONARY ARTERY W/O ANG PCTRS Visit type - Emergency Visit Emergency Visit: Yes Care time: The patient presented to the Emergency Department on the above date and was hospitalized for further evaluation of their emergent condition. - New Patient This patient is new to me today: Yes Date on this admission: 07/26/18 - Critical Care Critical Care patient: No
--- NOTE | 2018-07-26 22:07 | PN ---
Teaching Attending Note Name of Resident: Esperanza Tuttle ATTENDING PHYSICIAN STATEMENT I saw and evaluated the patient. I reviewed the resident's note and discussed the case with the resident. I agree with the resident's findings and plan as documented. SUBJECTIVE: OBJECTIVE: ASSESSMENT AND PLAN: 82 y/o male with PMH of CAD (s/p stents most recent being 3 days ago) HTN, HLD presented to the ED after being sent from his mixer operator helper hot metal's office for worsening shortness of breath #Dyspnea acute in onset - DCHF vs medicaiton side effects c/w furosemide 40mg IV q12hrs -patients most recent echo showed EF 35% -will monitor daily weights -monitor i's and o's -restrict fluids #CAD -c/w ASA - c/w ticagrelor 90mg twice a day - c/w metoprolol succinate 25mg daily #HTN -c/w metoprolol 25mg daily - patient might benefit from ARB/ACEI due to the decrease EF #HLD -c/w simvastatin
[2018-07-26] MEDS: HEPARIN NA (PORCINE) 5,000 UNITS/ML 1ML VIAL SQ SCH (23:20)
[2018-07-26] MEDS: TICAGRELOR 90 MG TABLET PO SCH (23:22)
[2018-07-27] MEDS: HEPARIN NA (PORCINE) 5,000 UNITS/ML 1ML VIAL SQ SCH ×3 (06:17→21:19)
[2018-07-27 06:48] LABS: BASO % 0.5 % (0-2.0); EOS % 3.2 % (0-4.5); HEMATOCRIT 39.4 % (35.4-49); HEMOGLOBIN 13.3 GM/dL (11.7-16.9); LYMPH % 19.1 % (8-40); MCH 31.2 pg (25.7-33.7); MCHC 33.8 g/dl (32.0-35.9); MEAN CELL VOLUME 92.3 fl (80-96); MONO % 10.6 % (3.8-10.2); NEUT % 66.6 % (42.8-82.8); PLATELET COUNT 171 K/MM3 (134-434); RBC 4.27 M/mm3 (4.00-5.60); WHITE BLOOD COUNT 7.2 K/mm3 (4.0-10.0)
[2018-07-27 07:15] LABS: ALBUMIN 3.4 g/dl (3.4-5.0); BILIRUBIN,TOTAL 0.8 mg/dL (0.2-1); CALCIUM 8.3 mg/dL (8.5-10.1); CREATININE 1.5 mg/dL (0.55-1.3); PHOSPHOROUS 4.7 mg/dL (2.5-4.9); POTASSIUM 3.8 mmol/L (3.5-5.1); TOT PROT 6.8 g/dl (6.4-8.2)
[2018-07-27 08:12] LABS: MAGNESIUM 2.2 mg/dL (1.8-2.4)
[2018-07-27] MEDS ORDERED: PT OWN MED DRAWER 7, Y5N ONE ×2 (08:54→21:10)
[2018-07-27] MEDS: ASPIRIN 81 MG CHEWABLE TABLETS PO SCH (09:10)
[2018-07-27] MEDS: metoPROLOL SUCCINATE 25 MG TAB.SR.24H (FP) PO SCH (09:10)
[2018-07-27] MEDS: TICAGRELOR 90 MG TABLET PO SCH ×2 (09:11→21:19)
--- NOTE | 2018-07-27 09:20 | PN ---
Progress Note, Physician Chief Complaint: TELE: NSR Weight down 1 lb Feeling slightly better but still not at baseline. Mild orthopnea persists - Current Medication List Current Medications: Active Medications Aspirin (Asa -) 81 mg PO DAILY [facility] Last Admin: 07/27/18 09:10 Dose: 81 mg Heparin Sodium (Porcine) (Heparin -) 5,000 unit SQ TID [facility] Last Admin: 07/27/18 06:17 Dose: 5,000 unit Metoprolol Succinate (Toprol Xl -) 25 mg PO DAILY [facility] Last Admin: 07/27/18 09:10 Dose: 25 mg Ticagrelor (Brilinta -) 90 mg PO BID [facility] Last Admin: 07/27/18 09:11 Dose: 90 mg - Objective Vital Signs: Vital Signs Temperature 98.3 F 07/27/18 05:00 Pulse Rate 67 07/27/18 05:00 Respiratory Rate 18 07/27/18 05:00 Blood Pressure 132/67 07/27/18 05:00 O2 Sat by Pulse Oximetry (%) 95 07/27/18 05:03 Constitutional: Yes: Calm Cardiovascular: Yes: Regular Rate and Rhythm, Other (NO JVD) Respiratory: Yes: Other (faint rales at bases b/l) Gastrointestinal: Yes: Soft Edema: No (warm) Neurological: Yes: Alert, Oriented ...Motor Strength: WNL Labs: CBC, BMP 07/27/18 05:30 07/27/18 05:30 INR, PTT INR 1.04 (0.83-1.09) 07/26/18 18:43 - ....Imaging EKG: Image Reviewed Assessment/Plan IMP: 1. CAD, with chronic angina, prior PCIs RCA/LAD now with recent JOAO LAD for critical ISR 2. Chronic systolic CHF with LVEF 35% 3. Suspected mild acute on chronic exacerbation of systolic CHF secondary to contrast load from PCI (doubt Brilinta dyspnea side effect) 4. HTN 5. HLD REC: 1. Prior to switching off Brilinta, would give trial of IV Lasix : BNP is elevated, he has orthopnea: suspect early failure. 2. Daily weight, BMP, telemetry. 3. Cardiac enzymes negative x 3 4. Continue other home meds for now. 5. Supplimental O2 6. Echo
[2018-07-27] MEDS ORDERED: FUROSEMIDE 40 MG/4 ML INJECTABLE VIAL IVPUSH ONE (09:30)
--- NOTE | 2018-07-27 11:02 | EKG ---
Test Reason : Blood Pressure : / mmHG Vent. 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
[2018-07-27 12:20] LABS: ANISOCYTOSIS 0; MACROCYTOSIS 0; PLATELET ESTIMATE NORMAL
--- NOTE | 2018-07-27 15:30 | PN ---
Progress Note, Physician Chief Complaint: Mr Schwarz says he is feeling better but still has some episodes of shortness of breath. Denies cp and n/v. - Current Medication List Current Medications: Active Medications Aspirin (Asa -) 81 mg PO DAILY [facility] Last Admin: 07/27/18 09:10 Dose: 81 mg Heparin Sodium (Porcine) (Heparin -) 5,000 unit SQ TID [facility] Last Admin: 07/27/18 14:16 Dose: 5,000 unit Metoprolol Succinate (Toprol Xl -) 25 mg PO DAILY [facility] Last Admin: 07/27/18 09:10 Dose: 25 mg Ticagrelor (Brilinta -) 90 mg PO BID [facility] Last Admin: 07/27/18 09:11 Dose: 90 mg - Objective Vital Signs: Vital Signs Temperature 37.0 C 07/27/18 09:00 Pulse Rate 80 07/27/18 09:00 Respiratory Rate 18 07/27/18 09:00 Blood Pressure 145/81 07/27/18 09:00 O2 Sat by Pulse Oximetry (%) 95 07/27/18 09:00 Constitutional: Yes: Well Nourished, No Distress, Calm Cardiovascular: Yes: Regular Rate and Rhythm. No: Gallop, Murmur, Rub Respiratory: Yes: Regular, CTA Bilaterally. No: Rales, Rhonchi, Wheezes Gastrointestinal: Yes: Normal Bowel Sounds, Soft. No: Distention, Tenderness Extremities: Yes: WNL Edema: No Labs: CBC, BMP 07/27/18 05:30 07/27/18 05:30 INR, PTT INR 1.04 (0.83-1.09) 07/26/18 18:43 Problem List - Problems (1) CHF (congestive heart failure) Assessment/Plan: -appreciate cardiology assistance -continue diuresis -monitor on telemetry -ECHO per cardiology Code(s): I50.9 - HEART FAILURE, UNSPECIFIED Qualifiers: Heart failure type: systolic Heart failure chronicity: acute on chronic Qualified Code(s): I50.23 - Acute on chronic systolic (congestive) heart failure (2) HLD (hyperlipidemia) Assessment/Plan: -confirming medications -will restart statin when have accurate list Code(s): E78.5 - HYPERLIPIDEMIA, UNSPECIFIED (3) HTN (hypertension) Assessment/Plan: -continue toprol xl and lasix Code(s): I10 - ESSENTIAL (PRIMARY) HYPERTENSION (4) CAD (coronary artery disease) Assessment/Plan: -recent stent placement -continue toprol xl and brilinta Code(s): I25.10 - ATHSCL HEART DISEASE OF [place] CORONARY ARTERY W/O ANG PCTRS (5) RAINE (acute kidney injury) Assessment/Plan: -monitor Code(s): N17.9 - ACUTE KIDNEY FAILURE, UNSPECIFIED
[2018-07-28] MEDS: HEPARIN NA (PORCINE) 5,000 UNITS/ML 1ML VIAL SQ SCH ×3 (06:19→21:01)
[2018-07-28 07:10] LABS: BASO % 0.6 % (0-2.0); EOS % 3.6 % (0-4.5); HEMOGLOBIN 13.6 GM/dL (11.7-16.9); LYMPH % 21.2 % (8-40); MCH 31.5 pg (25.7-33.7); MCHC 34.1 g/dl (32.0-35.9); MEAN CELL VOLUME 92.4 fl (80-96); MEAN PLT VOLUME 10.4 fl (7.5-11.1); MONO % 9.9 % (3.8-10.2); NEUT % 64.7 % (42.8-82.8); PLATELET COUNT 167 K/MM3 (134-434); RBC 4.33 M/mm3 (4.00-5.60); RDW 13.8 % (11.9-15.9); WHITE BLOOD COUNT 7.6 K/mm3 (4.0-10.0)
[2018-07-28 07:55] LABS: CALCIUM 9.1 mg/dL (8.5-10.1); CREATININE 1.3 mg/dL (0.55-1.3); MAGNESIUM 2.5 mg/dL (1.8-2.4); PHOSPHOROUS 3.9 mg/dL (2.5-4.9); POTASSIUM 3.9 mmol/L (3.5-5.1)
[2018-07-28] MEDS ORDERED: PT OWN MED DRAWER 7, Y5N ONE ×3 (09:05→21:00)
[2018-07-28] MEDS: metoPROLOL SUCCINATE 25 MG TAB.SR.24H (FP) PO SCH (09:12)
[2018-07-28] MEDS: ASPIRIN 81 MG CHEWABLE TABLETS PO SCH (09:12)
[2018-07-28] MEDS: TICAGRELOR 90 MG TABLET PO SCH ×3 (09:16→21:00)
--- NOTE | 2018-07-28 09:53 | PN ---
Progress Note, Physician Chief Complaint: felt initially better after IV Lasix, but developed orthopnea again last night, PND sx Weight has not changed. D/W Dr. Latham, patient was responding to higher dose of Lasix as outpatient - Current Medication List Current Medications: Active Medications Aspirin (Asa -) 81 mg PO DAILY [facility] Last Admin: 07/28/18 09:12 Dose: 81 mg Heparin Sodium (Porcine) (Heparin -) 5,000 unit SQ TID [facility] Last Admin: 07/28/18 06:19 Dose: 5,000 unit Metoprolol Succinate (Toprol Xl -) 25 mg PO DAILY [facility] Last Admin: 07/28/18 09:12 Dose: 25 mg Ticagrelor (Brilinta -) 90 mg PO BID [facility] Last Admin: 07/28/18 09:41 Dose: 90 mg - Objective Vital Signs: Vital Signs Temperature 97.8 F 07/28/18 06:00 Pulse Rate 74 07/28/18 06:00 Respiratory Rate 18 07/28/18 06:00 Blood Pressure 129/76 07/28/18 06:00 O2 Sat by Pulse Oximetry (%) 98 07/28/18 05:00 Constitutional: Yes: Calm Cardiovascular: Yes: Regular Rate and Rhythm Respiratory: Yes: Other (rales L>>R) Gastrointestinal: Yes: Soft Edema: No (warm) Neurological: Yes: Alert, Oriented ...Motor Strength: WNL Labs: CBC, BMP 07/28/18 05:35 07/28/18 05:35 INR, PTT INR 1.04 (0.83-1.09) 07/26/18 18:43 Laboratory Tests 07/26/18 07/27/18 07/27/18 18:43 01:00 05:30 WBC 7.2 Hgb 13.3 Plt Count 171 Sodium Potassium BUN Creatinine Magnesium Troponin I 0.02 0.03 07/27/18 07/28/18 07/28/18 05:30 05:35 05:35 WBC 7.6 Hgb 13.6 Plt Count 167 Sodium 140 138 Potassium 3.8 3.9 BUN 30 H Creatinine 1.5 H 1.3 Magnesium 2.5 H Troponin I 0.02 - ....Imaging Chest X-ray: Pending EKG: Image Reviewed (NSR) Assessment/Plan IMP: 1. CAD, with chronic angina, prior PCIs RCA/LAD now with recent JOAO LAD for critical ISR 2. Chronic systolic CHF with LVEF 35% 3. Suspected mild acute on chronic exacerbation of systolic CHF secondary to contrast load from PCI (doubt Brilinta dyspnea side effect) 4. HTN 5. HLD REC: 1. Prior to switching off Brilinta, would give trial of IV Lasix : BNP is elevated, he has orthopnea, left basilar rales. Chest Pa/Lateral. Will increase Lasix 2. Daily weight, BMP, telemetry. 3. Cardiac enzymes negative x 3 4. Continue other home meds for now. 5. Supplimental O2 6. Echo
--- NOTE | 2018-07-28 09:58 | PN ---
Progress Note, Physician Chief Complaint: Mr Schwarz says he feels terrible, had an episode of overnight sob. Currently denies cp, sob, n/v. Anxious about breathing on exam. - Current Medication List Current Medications: Active Medications Aspirin (Asa -) 81 mg PO DAILY [facility] Last Admin: 07/28/18 09:12 Dose: 81 mg Docusate Sodium (Colace -) 100 mg PO BID [facility] Heparin Sodium (Porcine) (Heparin -) 5,000 unit SQ TID [facility] Last Admin: 07/28/18 06:19 Dose: 5,000 unit Metoprolol Succinate (Toprol Xl -) 25 mg PO DAILY [facility] Last Admin: 07/28/18 09:12 Dose: 25 mg Polyethylene Glycol (Miralax (For Daily Use) -) 17 gm PO BID [facility] Ticagrelor (Brilinta -) 90 mg PO BID [facility] Last Admin: 07/28/18 09:41 Dose: 90 mg - Objective Vital Signs: Vital Signs Temperature 36.6 C 07/28/18 06:00 Pulse Rate 74 07/28/18 06:00 Respiratory Rate 18 07/28/18 06:00 Blood Pressure 129/76 07/28/18 06:00 O2 Sat by Pulse Oximetry (%) 98 07/28/18 05:00 Constitutional: Yes: Anxious Cardiovascular: Yes: Regular Rate and Rhythm. No: Gallop, Murmur, Rub Respiratory: Yes: Regular, Rhonchi (bibasilar). No: CTA Bilaterally, Rales, Wheezes Gastrointestinal: Yes: Normal Bowel Sounds, Soft. No: Distention, Tenderness Extremities: Yes: WNL Edema: No Labs: CBC, BMP 07/28/18 05:35 07/28/18 05:35 INR, PTT INR 1.04 (0.83-1.09) 07/26/18 18:43 Problem List - Problems (1) CHF (congestive heart failure) Code(s): I50.9 - HEART FAILURE, UNSPECIFIED Qualifiers: Heart failure type: systolic Heart failure chronicity: acute on chronic Qualified Code(s): I50.23 - Acute on chronic systolic (congestive) heart failure (2) HLD (hyperlipidemia) Code(s): E78.5 - HYPERLIPIDEMIA, UNSPECIFIED (3) HTN (hypertension) Code(s): I10 - ESSENTIAL (PRIMARY) HYPERTENSION (4) CAD (coronary artery disease) Code(s): I25.10 - ATHSCL HEART DISEASE OF [place] CORONARY ARTERY W/O ANG PCTRS (5) RAINE (acute kidney injury) Code(s): N17.9 - ACUTE KIDNEY FAILURE, UNSPECIFIED Assessment/Plan (1) CHF (congestive heart failure) Assessment/Plan: -case d/w Dr Sosa -agree this is most likely CHF exacerbation -continue lasix per cardiology recommendations -patient now refusing brilinta -brilinta to be discontinued, will need plavix load and transition Code(s): I50.9 - HEART FAILURE, UNSPECIFIED Qualifiers: Heart failure type: systolic Heart failure chronicity: acute on chronic Qualified Code(s): I50.23 - Acute on chronic systolic (congestive) heart failure (2) HLD (hyperlipidemia) Assessment/Plan: -continue statin Code(s): E78.5 - HYPERLIPIDEMIA, UNSPECIFIED (3) HTN (hypertension) Assessment/Plan: -continue toprol xl and lasix Code(s): I10 - ESSENTIAL (PRIMARY) HYPERTENSION (4) CAD (coronary artery disease) Assessment/Plan: -recent stent placement -continue toprol xl -change brilinta to plavix per patient request Code(s): I25.10 - ATHSCL HEART DISEASE OF [place] CORONARY ARTERY W/O ANG PCTRS (5) RAINE (acute kidney injury) Assessment/Plan: -resolved Code(s): N17.9 - ACUTE KIDNEY FAILURE, UNSPECIFIED
[2018-07-28] MEDS: POLYETHYLENE GLYCOL 3350 119 GM BTL PO SCH ×2 (10:00→21:01)
[2018-07-28] MEDS: DOCUSATE SODIUM 100 MG CAPSULE (FP) PO SCH ×2 (11:15→21:00)
[2018-07-28] MEDS: FUROSEMIDE 40 MG/4 ML INJECTABLE VIAL IVPUSH SCH ×2 (11:15→14:24)
[2018-07-28 11:41] LABS: PLATELET ESTIMATE ADEQUATE
[2018-07-28] MEDS: SENNOSIDES 8.6MG TABLET (FP) PO SCH (21:01)
[2018-07-29] MEDS: HEPARIN NA (PORCINE) 5,000 UNITS/ML 1ML VIAL SQ SCH ×3 (05:45→23:31)
[2018-07-29] MEDS: FUROSEMIDE 40 MG/4 ML INJECTABLE VIAL IVPUSH SCH ×2 (05:45→14:46)
[2018-07-29 06:22] LABS: BASO % 0.8 % (0-2.0); EOS % 3.7 % (0-4.5); HEMATOCRIT 40.9 % (35.4-49); LYMPH % 23.5 % (8-40); MCH 31.4 pg (25.7-33.7); MCHC 34.3 g/dl (32.0-35.9); MEAN CELL VOLUME 91.6 fl (80-96); MEAN PLT VOLUME 10.2 fl (7.5-11.1); MONO % 10.2 % (3.8-10.2); NEUT % 61.8 % (42.8-82.8); PLATELET COUNT 186 K/MM3 (134-434); RBC 4.47 M/mm3 (4.00-5.60); RDW 14.1 % (11.9-15.9); WHITE BLOOD COUNT 7.1 K/mm3 (4.0-10.0)
[2018-07-29 06:48] LABS: CALCIUM 8.8 mg/dL (8.5-10.1); CREATININE 1.3 mg/dL (0.55-1.3); MAGNESIUM 2.5 mg/dL (1.8-2.4); PHOSPHOROUS 4.1 mg/dL (2.5-4.9); POTASSIUM 3.8 mmol/L (3.5-5.1)
--- NOTE | 2018-07-29 09:32 | PN ---
Progress Note, Physician Chief Complaint: Weight is down several pounds. TELE: NSR. He still complains of dyspnea with minimal exertion, although his PND has improved. History of Present Illness: CXR yest was relatively clear - Current Medication List Current Medications: Active Medications Aspirin (Asa -) 81 mg PO DAILY [facility] Last Admin: 07/28/18 09:12 Dose: 81 mg Docusate Sodium (Colace -) 100 mg PO BID [facility] Last Admin: 07/28/18 21:00 Dose: 100 mg Furosemide (Lasix Injection -) 40 mg IVPUSH BID@0600,1400 [facility] Last Admin: 07/29/18 05:45 Dose: 40 mg Heparin Sodium (Porcine) (Heparin -) 5,000 unit SQ TID [facility] Last Admin: 07/29/18 05:45 Dose: 5,000 unit Metoprolol Succinate (Toprol Xl -) 25 mg PO DAILY [facility] Last Admin: 07/28/18 09:12 Dose: 25 mg Non-Formulary Medication (Simvastatin) 25 mg PO [facility] Polyethylene Glycol (Miralax (For Daily Use) -) 17 gm PO BID [facility] Last Admin: 07/28/18 21:01 Dose: Not Given Senna (Senna -) 2 tab PO HS [facility] Last Admin: 07/28/18 21:01 Dose: 2 tab Ticagrelor (Brilinta -) 90 mg PO BID [facility] Last Admin: 07/28/18 21:00 Dose: 90 mg - Objective Vital Signs: Vital Signs Temperature 98.3 F 07/29/18 05:00 Pulse Rate 72 07/29/18 05:00 Respiratory Rate 20 07/29/18 05:00 Blood Pressure 103/62 07/29/18 05:00 O2 Sat by Pulse Oximetry (%) 99 07/29/18 05:00 Constitutional: Yes: No Distress, Calm Eyes: Yes: Conjunctiva Clear Cardiovascular: Yes: Regular Rate and Rhythm Respiratory: Yes: Other (bibasilar rales.) Gastrointestinal: Yes: Soft Edema: No Neurological: Yes: Alert, Oriented ...Motor Strength: WNL Labs: CBC, BMP 07/29/18 05:30 07/29/18 05:30 INR, PTT INR 1.04 (0.83-1.09) 07/26/18 18:43 Laboratory Tests 07/26/18 07/27/18 07/29/18 18:43 01:00 05:30 WBC 7.1 Hgb 14.0 Hct 40.9 Plt Count 186 Sodium Potassium BUN Creatinine Calcium Phosphorus Magnesium Troponin I 0.02 0.03 07/29/18 05:30 WBC Hgb Hct Plt Count Sodium 139 Potassium 3.8 BUN 35 H Creatinine 1.3 Calcium 8.8 Phosphorus 4.1 Magnesium 2.5 H Troponin I - ....Imaging Chest X-ray: Report Reviewed EKG: Image Reviewed (TELE: NSR) Assessment/Plan IMP: 1. CAD, with chronic angina, prior PCIs RCA/LAD now with recent JOAO LAD for critical ISR 2. Chronic systolic CHF with LVEF 35% 3. Suspected mild acute on chronic exacerbation of systolic CHF secondary to contrast load from PCI (doubt Brilinta dyspnea side effect) 4. HTN 5. HLD REC: 1. Prior to switching off Brilinta, would give trial of IV Lasix : BNP is elevated, he has orthopnea, rales on exam. Orthopnea improved with increase in Lasix but rales persist. Will continue diuresis. 2. Daily weight, BMP, telemetry. 3. Cardiac enzymes negative x 3 4. Continue other home meds for now. 5. Supplimental O2 6. Echo today. This does not seem to be Brilinta induced dyspnea, but if his sx do not improve after additional day of diuresis, we can always switch him to Plavix after loading.
[2018-07-29] MEDS ORDERED: PT OWN MED DRAWER 7, Y5N ONE ×2 (09:45→22:12)
--- NOTE | 2018-07-29 09:52 | PN ---
Progress Note (short form) - Note Progress Note: Hospitalist to document today. Comfortable at rest; Also hx. COPD. No edema.
[2018-07-29] MEDS: ASPIRIN 81 MG CHEWABLE TABLETS PO SCH (10:04)
[2018-07-29] MEDS: DOCUSATE SODIUM 100 MG CAPSULE (FP) PO SCH ×2 (10:04→23:31)
[2018-07-29] MEDS: metoPROLOL SUCCINATE 25 MG TAB.SR.24H (FP) PO SCH (10:04)
[2018-07-29] MEDS: TICAGRELOR 90 MG TABLET PO SCH ×2 (10:06→23:30)
[2018-07-29] MEDS: POLYETHYLENE GLYCOL 3350 119 GM BTL PO SCH ×2 (10:10→23:31)
[2018-07-29 10:59] LABS: ANISOCYTOSIS 0; MACROCYTOSIS 1+; OVALOCYTE 1+; PLATELET ESTIMATE NORMAL
--- NOTE | 2018-07-29 11:33 | PN ---
Progress Note, Physician Chief Complaint: Mr Schwarz says he is not feeling well today, says he is having dyspnea on exertion. Denies cp and n/v. - Current Medication List Current Medications: Active Medications Aspirin (Asa -) 81 mg PO DAILY [facility] Last Admin: 07/29/18 10:04 Dose: 81 mg Atorvastatin Calcium (Lipitor -) 10 mg PO HS [facility] Docusate Sodium (Colace -) 100 mg PO BID [facility] Last Admin: 07/29/18 10:04 Dose: 100 mg Furosemide (Lasix Injection -) 40 mg IVPUSH BID@0600,1400 [facility] Last Admin: 07/29/18 05:45 Dose: 40 mg Heparin Sodium (Porcine) (Heparin -) 5,000 unit SQ TID [facility] Last Admin: 07/29/18 05:45 Dose: 5,000 unit Metoprolol Succinate (Toprol Xl -) 25 mg PO DAILY [facility] Last Admin: 07/29/18 10:04 Dose: 25 mg Polyethylene Glycol (Miralax (For Daily Use) -) 17 gm PO BID [facility] Last Admin: 07/29/18 10:10 Dose: Not Given Senna (Senna -) 2 tab PO HS [facility] Last Admin: 07/28/18 21:01 Dose: 2 tab Ticagrelor (Brilinta -) 90 mg PO BID [facility] Last Admin: 07/29/18 10:06 Dose: 90 mg - Objective Vital Signs: Vital Signs Temperature 36.6 C 07/29/18 09:00 Pulse Rate 74 07/29/18 09:00 Respiratory Rate 18 07/29/18 09:00 Blood Pressure 148/72 07/29/18 09:00 O2 Sat by Pulse Oximetry (%) 99 07/29/18 05:00 Constitutional: Yes: Well Nourished, No Distress, Calm Cardiovascular: Yes: Regular Rate and Rhythm. No: Gallop, Murmur, Rub Respiratory: Yes: Regular, On Nasal O2, Rhonchi (bibasilar). No: CTA Bilaterally, Rales, Wheezes Gastrointestinal: Yes: Normal Bowel Sounds, Soft. No: Distention, Tenderness Extremities: Yes: WNL Edema: No Labs: CBC, BMP 07/29/18 05:30 07/29/18 05:30 INR, PTT INR 1.04 (0.83-1.09) 07/26/18 18:43 Problem List - Problems (1) CHF (congestive heart failure) Code(s): I50.9 - HEART FAILURE, UNSPECIFIED Qualifiers: Heart failure type: systolic Heart failure chronicity: acute on chronic Qualified Code(s): I50.23 - Acute on chronic systolic (congestive) heart failure (2) HLD (hyperlipidemia) Code(s): E78.5 - HYPERLIPIDEMIA, UNSPECIFIED (3) HTN (hypertension) Code(s): I10 - ESSENTIAL (PRIMARY) HYPERTENSION (4) CAD (coronary artery disease) Code(s): I25.10 - ATHSCL HEART DISEASE OF [place] CORONARY ARTERY W/O ANG PCTRS (5) RAINE (acute kidney injury) Code(s): N17.9 - ACUTE KIDNEY FAILURE, UNSPECIFIED Assessment/Plan (1) CHF (congestive heart failure) Assessment/Plan: -case d/w Dr Sosa, more c/w CHF exacerbation -continue diuresis with IV lasix -patient agreeable to staying on brilinta currently -patient appears improved but not euvolemic Code(s): I50.9 - HEART FAILURE, UNSPECIFIED Qualifiers: Heart failure type: systolic Heart failure chronicity: acute on chronic Qualified Code(s): I50.23 - Acute on chronic systolic (congestive) heart failure (2) HLD (hyperlipidemia) Assessment/Plan: -continue statin Code(s): E78.5 - HYPERLIPIDEMIA, UNSPECIFIED (3) HTN (hypertension) Assessment/Plan: -continue toprol xl and lasix Code(s): I10 - ESSENTIAL (PRIMARY) HYPERTENSION (4) CAD (coronary artery disease) Assessment/Plan: -recent stent placement -continue toprol xl -continue brilinta Code(s): I25.10 - ATHSCL HEART DISEASE OF [place] CORONARY ARTERY W/O ANG PCTRS (5) RANIE (acute kidney injury) Assessment/Plan: -resolved Code(s): N17.9 - ACUTE KIDNEY FAILURE, UNSPECIFIED
--- NOTE | 2018-07-29 13:26 | ECHO ---
Name: CRICKET DOVER Exam:Adult Echocardiogram Study Date: 07/29/2018 11:13 AM Age: 82 yrs Reason For Study: CHF Height: 70 in Weight: 165 lb BSA: 1.9 m2 MMode/2D Measurements & Calculations IVSd: 1.0 cm Ao root diam: 3.0 cm LVIDd: 4.5 cm LA dimension: 3.6 cm LVIDs: 3.3 cm LVPWd: 1.2 cm EDV(Teich): 92.9 ml LVOT diam: 2.0 cm ESV(Teich): 45.0 ml LAV (MOD-bp): 40.0 ml Doppler Measurements & Calculations MV E max fabrizio: 41.0 cm/sec Ao V2 max: 149.3 cm/sec MV A max fabrizio: 113.5 cm/sec Ao max P.9 mmHg MV E/A: 0.36 MV dec time: 0.08 sec JAYMIE(V,D): 1.3 cm2 LV V1 max P.7 mmHg MR max fabrizio: 359.5 cm/sec LV V1 max: 65.2 cm/sec MR max P.7 mmHg TR max fabrizio: 231.4 cm/sec PA V2 max: 101.8 cm/sec TR max P.4 mmHg PA max P.1 mmHg PI end-d fabrizio: 127.6 cm/sec Med Peak E' Fabrizio: 2.9 cm/sec Med E/e': 14.0 Lat Peak E' Fabrizio: 5.7 cm/sec Lat E/e': 7.2 Procedure The study was technically adequate with some images being suboptimal in quality. Left Ventricle The left ventricle is normal in size. Left ventricular systolic function is moderate to severely redu garett. Ejection Fraction = 35-40%. Grade I diastolic dysfunction, (abnormal relaxation pattern). Septal cassius on is consistent with conduction abnormality. Right Ventricle The right ventricle is normal in size and function. Atria Normal left and right atrial size and function. Mitral Valve There is mild mitral valve thickening. There is mild mitral regurgitation. Tricuspid Valve The tricuspid valve is not well visualized, but is grossly normal. There is trace tricuspid regurgita tion. Right ventricular systolic pressure is normal. Aortic Valve There is mild aortic sclerosis.;. The aortic valve opens well. Trace aortic regurgitation. Pulmonic Valve The pulmonic valve is not well visualized. Great Vessels The aortic root is normal size. Pericardium/Pleura There is no pericardial effusion. Interpretation Summary In comparison to previous study performed 03/06/2018, LVEF has decreased, but is similar to chronic s ystolic heart failure LVEF 35% cited by his cleaner and dyer. The left ventricle is normal in size. Left ventricular systolic function is moderate to severely reduced. Ejection Fraction = 35-40%. The right ventricle is normal in size and function. There is mild aortic sclerosis.; There is mild mitral valve thickening. Trace aortic regurgitation. Septal motion is consistent with conduction abnormality. There is trace tricuspid regurgitation. Grade I diastolic dysfunction, (abnormal relaxation pattern). There is mild mitral regurgitation. In comparison to previous study performed 03/06/2018, LVEF has decreased, but is similar to chronic s ystolic heart failure LVEF 35% cited by his cleaner and dyer. Anuel Booth MD 07/29/2018 01:25 PM
[2018-07-29] MEDS: SENNOSIDES 8.6MG TABLET (FP) PO SCH (23:31)
[2018-07-29] MEDS: ATORVASTATIN CA 10 MG TABLET (FP) PO SCH (23:31)
[2018-07-30] MEDS: HEPARIN NA (PORCINE) 5,000 UNITS/ML 1ML VIAL SQ SCH ×3 (05:31→22:02)
[2018-07-30] MEDS: FUROSEMIDE 40 MG/4 ML INJECTABLE VIAL IVPUSH SCH ×2 (05:33→14:41)
[2018-07-30 07:43] LABS: BASO % 0.5 % (0-2.0); EOS % 2.7 % (0-4.5); HEMATOCRIT 41.7 % (35.4-49); HEMOGLOBIN 14.2 GM/dL (11.7-16.9); LYMPH % 19.5 % (8-40); MCH 31.2 pg (25.7-33.7); MCHC 33.9 g/dl (32.0-35.9); MEAN CELL VOLUME 91.8 fl (80-96); MEAN PLT VOLUME 10.3 fl (7.5-11.1); MONO % 9.9 % (3.8-10.2); NEUT % 67.4 % (42.8-82.8); PLATELET COUNT 185 K/MM3 (134-434); RBC 4.55 M/mm3 (4.00-5.60); RDW 14.1 % (11.9-15.9); WHITE BLOOD COUNT 7.5 K/mm3 (4.0-10.0)
[2018-07-30 08:06] LABS: CREATININE 1.3 mg/dL (0.55-1.3); MAGNESIUM 2.3 mg/dL (1.8-2.4); POTASSIUM 3.7 mmol/L (3.5-5.1)
[2018-07-30 11:11] LABS: ANISOCYTOSIS 0; MACROCYTOSIS 0; OVALOCYTE 1+; PLATELET ESTIMATE NORMAL; TEAR DROP CELLS 1+
[2018-07-30] MEDS ORDERED: PT OWN MED DRAWER 7, Y5N ONE ×3 (11:20→21:55)
[2018-07-30] MEDS: ASPIRIN 81 MG CHEWABLE TABLETS PO SCH (11:22)
[2018-07-30] MEDS: DOCUSATE SODIUM 100 MG CAPSULE (FP) PO SCH ×2 (11:23→22:02)
[2018-07-30] MEDS: metoPROLOL SUCCINATE 25 MG TAB.SR.24H (FP) PO SCH (11:23)
[2018-07-30] MEDS: POLYETHYLENE GLYCOL 3350 119 GM BTL PO SCH ×2 (11:24→22:01)
[2018-07-30] MEDS: TICAGRELOR 90 MG TABLET PO SCH ×2 (11:26→22:02)
--- NOTE | 2018-07-30 12:01 | PN ---
Progress Note (short form) - Note Progress Note: s: sob improving, not at baseline resp status. no chest pain, palps, dizziness TELE: NSR. Current Medications Aspirin (Asa -) 81 mg PO DAILY [facility] Last Admin: 07/30/18 11:22 Dose: 81 mg Atorvastatin Calcium (Lipitor -) 10 mg PO HS [facility] Last Admin: 07/29/18 23:31 Dose: 10 mg Docusate Sodium (Colace -) 100 mg PO BID [facility] Last Admin: 07/30/18 11:23 Dose: 100 mg Furosemide (Lasix Injection -) 40 mg IVPUSH BID@0600,1400 [facility] Last Admin: 07/30/18 05:33 Dose: 40 mg Heparin Sodium (Porcine) (Heparin -) 5,000 unit SQ TID [facility] Last Admin: 07/30/18 05:31 Dose: 5,000 unit Metoprolol Succinate (Toprol Xl -) 25 mg PO DAILY [facility] Last Admin: 07/30/18 11:23 Dose: 25 mg Polyethylene Glycol (Miralax (For Daily Use) -) 17 gm PO BID [facility] Last Admin: 07/30/18 11:24 Dose: Not Given Senna (Senna -) 2 tab PO HS [facility] Last Admin: 07/29/18 23:31 Dose: 2 tab Ticagrelor (Brilinta -) 90 mg PO BID [facility] Last Admin: 07/30/18 11:26 Dose: 90 mg Vital Signs Period Temp Pulse Resp BP Sys/Garcia Pulse Ox Last 24 Hr 98.1 F-98.9 F 68-73 18-20 115-142/57-84 96-98 Constitutional: Yes: No Distress, Calm Eyes: Yes: Conjunctiva Clear Cardiovascular: Yes: Regular Rate and Rhythm Respiratory: Yes: Other (bibasilar rales.) Gastrointestinal: Yes: Soft Edema: No Neurological: Yes: Alert, Oriented ...Motor Strength: WNL - ....Imaging Chest X-ray: Report Reviewed EKG: Image Reviewed (TELE: NSR) Assessment/Plan IMP: 1. CAD, with chronic angina, prior PCIs RCA/LAD now with recent JOAO LAD for critical ISR 2. Chronic systolic CHF with LVEF 35% 3. Suspected mild acute on chronic exacerbation of systolic CHF secondary to contrast load from PCI (doubt Brilinta dyspnea side effect) 4. HTN 5. HLD REC: 1. Prior to switching off Brilinta, would continue IV lasix as dyspnea more likely CHF exac : BNP is elevated, he has orthopnea, rales on exam. Orthopnea improved with increase in Lasix, still has rales, dyspnea. Will continue diuresis. 2. Daily weight, BMP, telemetry. 3. Cardiac enzymes negative x 3 4. Continue other home meds for now. 5. Supplimental O2 6. Echo stable, EF 35% This does not seem to be Brilinta induced dyspnea, but if his sx do not improve with diuresis, we can switch him to Plavix after loading. Cont lasix for now.
--- NOTE | 2018-07-30 15:11 | PN ---
Progress Note, Physician Chief Complaint: Mr Schwarz says he is feeling better but still with dyspnea on exertion. No cp or n/v. - Current Medication List Current Medications: Active Medications Aspirin (Asa -) 81 mg PO DAILY [facility] Last Admin: 07/30/18 11:22 Dose: 81 mg Atorvastatin Calcium (Lipitor -) 10 mg PO HS [facility] Last Admin: 07/29/18 23:31 Dose: 10 mg Docusate Sodium (Colace -) 100 mg PO BID [facility] Last Admin: 07/30/18 11:23 Dose: 100 mg Furosemide (Lasix Injection -) 40 mg IVPUSH BID@0600,1400 [facility] Last Admin: 07/30/18 14:41 Dose: 40 mg Heparin Sodium (Porcine) (Heparin -) 5,000 unit SQ TID [facility] Last Admin: 07/30/18 14:44 Dose: 5,000 unit Metoprolol Succinate (Toprol Xl -) 25 mg PO DAILY [facility] Last Admin: 07/30/18 11:23 Dose: 25 mg Polyethylene Glycol (Miralax (For Daily Use) -) 17 gm PO BID [facility] Last Admin: 07/30/18 11:24 Dose: Not Given Senna (Senna -) 2 tab PO HS [facility] Last Admin: 07/29/18 23:31 Dose: 2 tab Ticagrelor (Brilinta -) 90 mg PO BID [facility] Last Admin: 07/30/18 11:26 Dose: 90 mg - Objective Vital Signs: Vital Signs Temperature 37.2 C 07/30/18 09:41 Pulse Rate 73 07/30/18 09:41 Respiratory Rate 18 07/30/18 09:41 Blood Pressure 141/84 07/30/18 09:41 O2 Sat by Pulse Oximetry (%) 98 07/30/18 09:00 Constitutional: Yes: Well Nourished, No Distress, Calm Cardiovascular: Yes: Regular Rate and Rhythm. No: Gallop, Murmur, Rub Respiratory: Yes: Regular, On Nasal O2, Rhonchi (bilateral bases, improved). No : CTA Bilaterally, Rales, Wheezes Gastrointestinal: Yes: Normal Bowel Sounds, Soft. No: Distention, Tenderness Extremities: Yes: WNL Edema: No Labs: CBC, BMP 07/30/18 06:25 07/30/18 06:25 INR, PTT INR 1.04 (0.83-1.09) 07/26/18 18:43 Problem List - Problems (1) CHF (congestive heart failure) Code(s): I50.9 - HEART FAILURE, UNSPECIFIED Qualifiers: Heart failure type: systolic Heart failure chronicity: acute on chronic Qualified Code(s): I50.23 - Acute on chronic systolic (congestive) heart failure (2) HLD (hyperlipidemia) Code(s): E78.5 - HYPERLIPIDEMIA, UNSPECIFIED (3) HTN (hypertension) Code(s): I10 - ESSENTIAL (PRIMARY) HYPERTENSION (4) CAD (coronary artery disease) Code(s): I25.10 - ATHSCL HEART DISEASE OF [place] CORONARY ARTERY W/O ANG PCTRS (5) RAINE (acute kidney injury) Code(s): N17.9 - ACUTE KIDNEY FAILURE, UNSPECIFIED Assessment/Plan (1) CHF (congestive heart failure) Assessment/Plan: -case d/w Dr Hanson -improving on IV lasix -continue diuresis Code(s): I50.9 - HEART FAILURE, UNSPECIFIED Qualifiers: Heart failure type: systolic Heart failure chronicity: acute on chronic Qualified Code(s): I50.23 - Acute on chronic systolic (congestive) heart failure (2) HLD (hyperlipidemia) Assessment/Plan: -continue statin Code(s): E78.5 - HYPERLIPIDEMIA, UNSPECIFIED (3) HTN (hypertension) Assessment/Plan: -continue toprol xl and lasix Code(s): I10 - ESSENTIAL (PRIMARY) HYPERTENSION (4) CAD (coronary artery disease) Assessment/Plan: -recent stent placement -continue toprol xl -continue brilinta Code(s): I25.10 - ATHSCL HEART DISEASE OF [place] CORONARY ARTERY W/O ANG PCTRS (5) RAINE (acute kidney injury) Assessment/Plan: -resolved Code(s): N17.9 - ACUTE KIDNEY FAILURE, UNSPECIFIED
[2018-07-30] MEDS: SENNOSIDES 8.6MG TABLET (FP) PO SCH (22:02)
[2018-07-30] MEDS: ATORVASTATIN CA 10 MG TABLET (FP) PO SCH (22:02)
[2018-07-31] MEDS: FUROSEMIDE 40 MG/4 ML INJECTABLE VIAL IVPUSH SCH (06:11)
[2018-07-31] MEDS: HEPARIN NA (PORCINE) 5,000 UNITS/ML 1ML VIAL SQ SCH ×3 (06:11→22:23)
[2018-07-31 07:30] LABS: BASO % 0.3 % (0-2.0); EOS % 0.7 % (0-4.5); HEMATOCRIT 41.1 % (35.4-49); LYMPH % 11.9 % (8-40); MCH 31.5 pg (25.7-33.7); MCHC 34.2 g/dl (32.0-35.9); MEAN PLT VOLUME 10.4 fl (7.5-11.1); NEUT % 77.1 % (42.8-82.8); PLATELET COUNT 178 K/MM3 (134-434); RBC 4.46 M/mm3 (4.00-5.60); WHITE BLOOD COUNT 9.8 K/mm3 (4.0-10.0)
[2018-07-31 07:41] LABS: CALCIUM 9.1 mg/dL (8.5-10.1); CREATININE 1.2 mg/dL (0.55-1.3); MAGNESIUM 2.5 mg/dL (1.8-2.4); PHOSPHOROUS 4.7 mg/dL (2.5-4.9); POTASSIUM 3.6 mmol/L (3.5-5.1)
--- NOTE | 2018-07-31 08:44 | PN ---
Progress Note (short form) - Note Progress Note: Hospitalist to document today. Severe pain left foot and ankle even to light touch. No erythema or injury. Uric acid added in today's lab. Vomited X1; abdomen soft.
[2018-07-31] MEDS ORDERED: PT OWN MED DRAWER 7, Y5N ONE (09:00)
[2018-07-31] MEDS: metoPROLOL SUCCINATE 25 MG TAB.SR.24H (FP) PO SCH (09:07)
[2018-07-31] MEDS: ASPIRIN 81 MG CHEWABLE TABLETS PO SCH (09:07)
[2018-07-31] MEDS: POLYETHYLENE GLYCOL 3350 119 GM BTL PO SCH ×2 (09:07→22:23)
[2018-07-31] MEDS: TICAGRELOR 90 MG TABLET PO SCH ×2 (09:07→22:22)
[2018-07-31] MEDS: DOCUSATE SODIUM 100 MG CAPSULE (FP) PO SCH ×2 (09:07→22:22)
[2018-07-31] MEDS ORDERED: ACETAMINOPHEN 325 MG TABLET (FP) PO PRN (09:53)
[2018-07-31 10:03] LABS: ANISOCYTOSIS 0; MACROCYTOSIS 0; PLATELET ESTIMATE NORMAL
--- NOTE | 2018-07-31 12:05 | PN ---
Progress Note (short form) - Note Progress Note: s:no shortness of breath. complains of foot ankle pain, nausea overnight. no chest pain, palps, dizziness TELE: NSR. Vital Signs Period Temp Pulse Resp BP Sys/Garcia Pulse Ox Last 24 Hr 98.1 F-98.9 F 68-73 18-20 115-142/57-84 96-98 Constitutional: Yes: No Distress, Calm Eyes: Yes: Conjunctiva Clear Cardiovascular: Yes: Regular Rate and Rhythm Respiratory: Yes: Other (bibasilar rales.) Gastrointestinal: Yes: Soft Edema: No Neurological: Yes: Alert, Oriented ...Motor Strength: WNL Current Medications Acetaminophen (Tylenol -) 650 mg PO Q6H PRN PRN Reason: PAIN LEVEL 1-5 Aspirin (Asa -) 81 mg PO DAILY [facility] Last Admin: 07/31/18 09:07 Dose: 81 mg Atorvastatin Calcium (Lipitor -) 10 mg PO [facility] Last Admin: 07/30/18 22:02 Dose: 10 mg Docusate Sodium (Colace -) 100 mg PO BID [facility] Last Admin: 07/31/18 09:07 Dose: 100 mg Furosemide (Lasix -) 80 mg PO DAILY [facility] Heparin Sodium (Porcine) (Heparin -) 5,000 unit SQ TID [facility] Last Admin: 07/31/18 06:11 Dose: 5,000 unit Metoprolol Succinate (Toprol Xl -) 25 mg PO DAILY [facility] Last Admin: 07/31/18 09:07 Dose: 25 mg Polyethylene Glycol (Miralax (For Daily Use) -) 17 gm PO BID [facility] Last Admin: 07/31/18 09:07 Dose: Not Given Senna (Senna -) 2 tab PO [facility] Last Admin: 07/30/18 22:02 Dose: 2 tab Ticagrelor (Brilinta -) 90 mg PO BID [facility] Last Admin: 07/31/18 09:07 Dose: 90 mg - ....Imaging Chest X-ray: Report Reviewed EKG: Image Reviewed (TELE: NSR) Assessment/Plan IMP: 1. CAD, with chronic angina, prior PCIs RCA/LAD now with recent JOAO LAD for critical ISR 2. Chronic systolic CHF with LVEF 35% 3. Suspected mild acute on chronic exacerbation of systolic CHF secondary to contrast load from PCI (doubt Brilinta dyspnea side effect) 4. HTN 5. HLD REC: - SOB resolved, Cr inc and weight stable - will change lasix to 80 mg PO daily, appears euvolemic - Echo stable, EF 35% - continue brillinta, aspirin, statin, metoprolol - workup for nausea, foot/ankle pain per primary
[2018-07-31 12:11] LABS: URIC ACID 10.2 mg/dL (2.6-7.2)
--- NOTE | 2018-07-31 13:54 | PN ---
Physical Exam: SUBJECTIVE: Patient seen and examined, breathing improved. An episode of vomiting this AM, no abdominal. Also c/o sudden onset left foot pain, tender to touch, unable to bear weight OBJECTIVE: Vital Signs Period Temp Pulse Resp BP Sys/Garcia Pulse Ox Last 24 Hr 97.8 F-99.8 F 55-76 18-20 110-153/54-72 96-99 GENERAL: AA, oriented, no acute distress Chest: decreased breath sounds all over, few basilar rales Abdomen:Soft, mild per-umbilical tenderness, no voluntary or involuntary guarding or rigidity, pos bowel sounds Extremities: left foot tenderness, no obvious swelling or erythema noted, Ankle ROm full with some foot pain Laboratory Results - last 24 hr 07/31/18 07/31/18 05:30 05:30 WBC 9.8 RBC 4.46 Hgb 14.0 Hct 41.1 MCV 92.0 MCH 31.5 MCHC 34.2 RDW 14.0 Plt Count 178 MPV 10.4 Absolute Neuts (auto) 7.6 Neutrophils % 77.1 Neutrophils % (Manual) 69.7 Band Neutrophils % 1.0 Lymphocytes % 11.9 D Lymphocytes % (Manual) 11.1 D Monocytes % 10.0 Monocytes % (Manual) 14 H D Eosinophils % 0.7 Eosinophils % (Manual) 1.0 Basophils % 0.3 Basophils % (Manual) 0.0 Myelocytes % (Man) 1 D Promyelocytes % (Man) 0 Blast Cells % (Manual) 0 Nucleated RBC % 0 Metamyelocytes 0 Hypochromia 0 Platelet Estimate Normal Polychromasia 0 Poikilocytosis 0 Anisocytosis 0 Microcytosis 0 Macrocytosis 0 Sodium 136 Potassium 3.6 Chloride 100 Carbon Dioxide 29 Anion Gap 8 BUN 37 H Creatinine 1.2 Est GFR (CKD-EPI)AfAm 63.97 Est GFR (CKD-EPI)NonAf 55.20 Random Glucose 120 H Uric Acid 10.2 H Calcium 9.1 Phosphorus 4.7 Magnesium 2.5 H Active Medications Generic Name Dose Route Start Last Admin Trade Name Freq PRN Reason Stop Dose Admin Acetaminophen 650 mg 07/31/18 09:53 Tylenol - PO Q6H PRN PAIN LEVEL 1-5 Aspirin 81 mg 07/27/18 10:00 07/31/18 09:07 Asa - PO 81 mg DAILY [facility] Administration Atorvastatin Calcium 10 mg 07/29/18 22:00 07/30/18 22:02 Lipitor - PO 10 mg HS [facility] Administration Docusate Sodium 100 mg 07/28/18 10:00 07/31/18 09:07 Colace - PO 100 mg BID [facility] Administration Furosemide 80 mg 08/01/18 10:00 Lasix - PO DAILY [facility] Heparin Sodium (Porcine) 5,000 unit 07/26/18 22:00 07/31/18 06:11 Heparin - SQ 5,000 unit TID [facility] Administration Metoprolol Succinate 25 mg 07/27/18 10:00 07/31/18 09:07 Toprol Xl - PO 25 mg DAILY [facility] Administration Polyethylene Glycol 17 gm 07/28/18 10:00 07/31/18 09:07 Miralax (For Daily Use) - PO Not Given BID [facility] Senna 2 tab 07/28/18 22:00 07/30/18 22:02 Senna - PO 2 tab HS [facility] Administration Ticagrelor 90 mg 07/26/18 22:00 07/31/18 09:07 Brilinta - PO 90 mg BID [facility] Administration Home Medications Medication Instructions Recorded Aspirin [Luisito Chewable Aspirin] 81 mg PO DAILY 11/13/13 Simvastatin [Zocor -] 25 mg PO DAILY 11/13/13 Metoprolol Succinate [Toprol XL -] 25 mg PO DAILY 09/17/14 Pantoprazole Sodium [Protonix] 40 mg PO DAILY 03/05/18 Brilinta 80 mg PO ONCE 07/26/18 K-Dur - 20 meq PO ONCE 07/26/18 Lasix 80 mg PO DAILY 07/26/18 Laboratory Results - last 24 hr 07/31/18 07/31/18 05:30 05:30 WBC 9.8 RBC 4.46 Hgb 14.0 Hct 41.1 MCV 92.0 MCH 31.5 MCHC 34.2 RDW 14.0 Plt Count 178 MPV 10.4 Absolute Neuts (auto) 7.6 Neutrophils % 77.1 Neutrophils % (Manual) 69.7 Band Neutrophils % 1.0 Lymphocytes % 11.9 D Lymphocytes % (Manual) 11.1 D Monocytes % 10.0 Monocytes % (Manual) 14 H D Eosinophils % 0.7 Eosinophils % (Manual) 1.0 Basophils % 0.3 Basophils % (Manual) 0.0 Myelocytes % (Man) 1 D Promyelocytes % (Man) 0 Blast Cells % (Manual) 0 Nucleated RBC % 0 Metamyelocytes 0 Hypochromia 0 Platelet Estimate Normal Polychromasia 0 Poikilocytosis 0 Anisocytosis 0 Microcytosis 0 Macrocytosis 0 Sodium 136 Potassium 3.6 Chloride 100 Carbon Dioxide 29 Anion Gap 8 BUN 37 H Creatinine 1.2 Est GFR (CKD-EPI)AfAm 63.97 Est GFR (CKD-EPI)NonAf 55.20 Random Glucose 120 H Uric Acid 10.2 H Calcium 9.1 Phosphorus 4.7 Magnesium 2.5 H ASSESSMENT/PLAN: 82 yom with PMhx of chronic systolic CHF, CAD s/p PCI, recent JOAO LAD, HTN, HLD , recently changed from plavix to Brilinta sent from [facility] with dyspnea -Dyspnea,likely acute on chronic systolic HF exacerbation from ?Contrast load from PCI, unlikely Brilinata related -Left foot pain, ?plantar fascitis vs gout -RAINE, suspect from CHF -CAD, with chronic angina, prior PCIs RCA/LAD now with recent JOAO LAD for critical ISR -Chronic systolic CHF with LVEF 35% -HTN -HLD Plan: Cardiology input noted, lasix changed to PO. Monitor volume status. Continue ASA/Brilinta/statin/Metoprolol Uric acid level noted. Check left foot/ankle xray. Tylenol. Trial with colchicine, Orthopedic input if a candidate for local injection. PT eval. DVTPPX heparin Dispo d/c in 24 hours if volume status/pain concerns improved. Plan discussed with patient and nursing in detail, all questions answered. Visit type - Emergency Visit Emergency Visit: Yes ED Registration Date: 07/29/18 Care time: The patient presented to the Emergency Department on the above date and was hospitalized for further evaluation of their emergent condition. - New Patient This patient is new to me today: Yes Date on this admission: 07/31/18 - Critical Care Critical Care patient: No - Discharge Referral Referred to [facility] No
[2018-07-31] MEDS ORDERED: COLCHICINE 0.6 MG CAP PO ONE (14:30)
[2018-07-31] MEDS: SENNOSIDES 8.6MG TABLET (FP) PO SCH (22:23)
[2018-07-31] MEDS: ATORVASTATIN CA 10 MG TABLET (FP) PO SCH (22:23)
[2018-07-31] MEDS ORDERED: BISMUTH SUBSALICYLATE 524 MG/30 ML UD PO ONE (22:34)
[2018-08-01] MEDS: HEPARIN NA (PORCINE) 5,000 UNITS/ML 1ML VIAL SQ SCH ×3 (06:03→21:36)
[2018-08-01 07:32] LABS: CALCIUM 8.9 mg/dL (8.5-10.1); CREATININE 1.2 mg/dL (0.55-1.3); MAGNESIUM 2.6 mg/dL (1.8-2.4); PHOSPHOROUS 3.6 mg/dL (2.5-4.9); POTASSIUM 3.5 mmol/L (3.5-5.1)
--- NOTE | 2018-08-01 08:42 | PN ---
Progress Note (short form) - Note Progress Note: Hospitalist to document today. Acute gout left ankle and foot with Uric 10.2; hardly can withstand even gentle rotation of the ankle.
--- NOTE | 2018-08-01 09:42 | CON.ORTH ---
Consult Reason for Consultation:: left ankle pain - Past Medical History Cardio/Vascular: Yes: CAD, CHF, HTN, Hyperlipdemia Pulmonary: Yes: Bronchitis, COPD, Pneumonia. No: O2 Dependent, Previously Intubated, Pulmonary Embolus, Pulmonary Fibrosis, Sleep Apnea Gastrointestinal: Yes: GERD Musculoskeletal: Yes: Other (plantar fasciitis) - Past Surgical History Past Surgical History: Yes: Appendectomy, Joint Replacement (right knee), Stent - Alcohol/Substance Use Hx Alcohol Use: No History of Substance Use: reports: None - Smoking History Smoking history: Never smoked Have you smoked in the past 12 months: No If you are a former smoker, when did you quit?: 30 YRS AGO - Social History Usual Living Arrangement: With Spouse ADL: Independent History of Recent Travel: No Home Medications - Allergies Allergies/Adverse Reactions: Allergies Allergy/AdvReac Type Severity Reaction Status Date / Time levofloxacin [From Levaquin] Allergy Intermediate rash and Verified 07/26/18 17: 52 itching in arm of infusion morphine Allergy Vomiting Verified 07/26/18 17:52 Penicillins Allergy Swelling Verified 07/26/18 17:52 - Home Medications Home Medications: Ambulatory Orders Aspirin [Luisito Chewable Aspirin] 81 mg PO DAILY 11/13/13 Simvastatin [Zocor -] 25 mg PO DAILY 11/13/13 Metoprolol Succinate [Toprol XL -] 25 mg PO DAILY 09/17/14 Pantoprazole Sodium [Protonix] 40 mg PO DAILY 03/05/18 K-Dur - 20 meq PO ONCE 07/26/18 Lasix 80 mg PO DAILY 07/26/18 Ticagrelor [Brilinta] 90 mg PO BID 07/31/18 Family Disease History - Family Disease History Family Disease History: Heart Disease: Father (: 79: Obesity/CAD), CA: Mother (: 80: DM II complications), Brother (2 from colon cancer 1 from DM comps, 1 from [place]), Other: Mother, Brother Physical Exam for Ortho Vital Signs: Vital Signs Temperature 97.5 F L 08/01/18 05:00 Pulse Rate 75 08/01/18 05:00 Respiratory Rate 20 08/01/18 05:00 Blood Pressure 143/87 08/01/18 05:00 O2 Sat by Pulse Oximetry (%) 99 07/31/18 21:00 Labs: CBC, BMP 07/31/18 05:30 08/01/18 05:30 INR, PTT INR 1.04 (0.83-1.09) 07/26/18 18:43 - Lower Extremity Ankle: Yes: Left, Limited ROM, Pain, Swelling, Tenderness, Other (nvi) Imaging - Results X-ray: Report Reviewed, Image Reviewed Assessment/Plan 82 y/o male with PMH of CAD (c/p stents), HTN, HLD admitted to hospital with shortness of breath. Pt has been c/o pain in his left ankle for the past 2 weeks. He states that the pain has increased in the past 3-4 days where he is unable to ambulate. He denies any h/o injury/trauma. Uric acid level is 10.2. a/p left ankle gout Start anti-gout meds (indocin/prednisone/colchicine) PT, wbat ROM exercises pain control will follow d/w Dr. Basilio
[2018-08-01] MEDS ORDERED: FUROSEMIDE 40 MG TABLET (FP) PO SCH ×2 (10:00)
[2018-08-01] MEDS ORDERED: predniSONE 20 MG TABLET (UD) PO SCH (10:00)
[2018-08-01] MEDS: TICAGRELOR 90 MG TABLET PO SCH ×2 (10:34→21:36)
[2018-08-01] MEDS: metoPROLOL SUCCINATE 25 MG TAB.SR.24H (FP) PO SCH (10:34)
[2018-08-01] MEDS: DOCUSATE SODIUM 100 MG CAPSULE (FP) PO SCH ×2 (10:34→21:36)
[2018-08-01] MEDS: POLYETHYLENE GLYCOL 3350 119 GM BTL PO SCH ×2 (10:34→21:37)
[2018-08-01] MEDS: ASPIRIN 81 MG CHEWABLE TABLETS PO SCH (10:34)
[2018-08-01] MEDS ORDERED: ACETAMINOPHEN 325 MG TABLET (FP) PO PRN (10:39)
--- NOTE | 2018-08-01 11:14 | PN ---
Physical Exam: SUBJECTIVE: Patient seen and examined, still with left foot pain and unable to bear weight or ambulate. breathing improved, no new concerns otherwise. OBJECTIVE: Vital Signs Period Temp Pulse Resp BP Sys/Garcia Pulse Ox Last 24 Hr 97.5 F-98.6 F 68-85 18-20 126-158/62-87 99 Intake & Output 07/29/18 07/30/18 07/31/18 08/01/18 23:59 23:59 23:59 23:59 Intake Total 320 10 400 Output Total 1400 4604 695 Balance -4576 -1665 -918 Weight 163 lb 4 oz 162 lb 162 lb 6.4 oz 161 lb GENERAL: lying in bed in no acute distress Chest: Decreased breath sounds at bases Abdomen:soft, NT, ND, pos bowel sounds Extremities: left foot tenderness, no ankle or toes swelling noted Laboratory Results - last 24 hr 07/31/18 07/31/18 08/01/18 05:30 05:30 05:30 Neutrophils % (Manual) 69.7 Band Neutrophils % 1.0 Lymphocytes % (Manual) 11.1 D Monocytes % (Manual) 14 H D Eosinophils % (Manual) 1.0 Basophils % (Manual) 0.0 Myelocytes % (Man) 1 D Promyelocytes % (Man) 0 Blast Cells % (Manual) 0 Metamyelocytes 0 Hypochromia 0 Platelet Estimate Normal Polychromasia 0 Poikilocytosis 0 Anisocytosis 0 Microcytosis 0 Macrocytosis 0 Sodium 136 137 Potassium 3.6 3.5 Chloride 100 101 Carbon Dioxide 29 28 Anion Gap 8 8 BUN 37 H 35 H Creatinine 1.2 1.2 Est GFR (CKD-EPI)AfAm 63.97 63.97 Est GFR (CKD-EPI)NonAf 55.20 55.20 Random Glucose 120 H 108 H Uric Acid 10.2 H Calcium 9.1 8.9 Phosphorus 4.7 3.6 Magnesium 2.5 H 2.6 H Active Medications Generic Name Dose Route Start Last Admin Trade Name Freq PRN Reason Stop Dose Admin Acetaminophen 650 mg 08/01/18 10:39 Tylenol - PO Q6H PRN PAIN LEVEL 1-5 Aspirin 81 mg 08/02/18 10:00 Asa - PO DAILY FRANCESCA Atorvastatin Calcium 10 mg 08/01/18 22:00 Lipitor - PO HS FRANCESCA Docusate Sodium 100 mg 08/01/18 22:00 Colace - PO BID FRANCESCA Furosemide 80 mg 08/02/18 10:00 Lasix - PO DAILY FRANCESCA Heparin Sodium (Porcine) 5,000 unit 08/01/18 14:00 Heparin - SQ TID FRANCESCA Metoprolol Succinate 25 mg 08/02/18 10:00 Toprol Xl - PO DAILY FRANCESCA Polyethylene Glycol 17 gm 08/01/18 22:00 Miralax (For Daily Use) - PO BID FRANCESCA Prednisone 40 mg 08/02/18 10:00 Deltasone - PO DAILY FRANCESCA Senna 2 tab 08/01/18 22:00 Senna - PO HS FRANCESCA Ticagrelor 90 mg 08/01/18 22:00 Brilinta - PO BID FRANCESCA Telemetry: no events Foot/Left ankle xray results noted ASSESSMENT/PLAN: 82 yom with PMhx of chronic systolic CHF, CAD s/p PCI, recent JOAO LAD, HTN, HLD , recently changed from plavix to Brilinta 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 Monitor volume status. Continue ASA/Brilinta/statin/Metoprolol D/c telemetry. Orthopedic input noted. Trial with prednisone. PT eval. DVTPPX heparin Dispo d/c in 24-48 hours if volume status/pain concerns improved. patient declines SNF or home services. Plan discussed with patient and nursing in detail, all questions answered. Visit type - Emergency Visit Emergency Visit: Yes ED Registration Date: 07/29/18 Care time: The patient presented to the Emergency Department on the above date and was hospitalized for further evaluation of their emergent condition. - New Patient This patient is new to me today: No - Critical Care Critical Care patient: No - Discharge Referral Referred to [facility] No
--- NOTE | 2018-08-01 12:08 | PN ---
Progress Note (short form) - Note Progress Note: s:no shortness of breath. complains of foot ankle pain (gout) no chest pain, palps, dizziness TELE: SR, occ pvcs Vital Signs Period Temp Pulse Resp BP Sys/Garcia Pulse Ox Last 24 Hr 97.5 F-98.6 F 68-85 18-20 126-158/62-87 99 Constitutional: Yes: No Distress, Calm Eyes: Yes: Conjunctiva Clear Cardiovascular: Yes: Regular Rate and Rhythm Respiratory: cta bl nl eff Gastrointestinal: Yes: Soft Edema: No Neurological: Yes: Alert, Oriented no jaundice diaphoresis Current Medications Generic Name Dose Route Start Last Admin Trade Name Freq PRN Reason Stop Dose Admin Acetaminophen 650 mg 08/01/18 10:39 Tylenol - PO Q6H PRN PAIN LEVEL 1-5 Al Hydroxide/Mg Hydroxide 30 ml 08/01/18 11:43 Mylanta Oral Suspension - PO Q6H PRN DYSPEPSIA Aspirin 81 mg 08/02/18 10:00 Asa - PO DAILY [facility] Atorvastatin Calcium 10 mg 08/01/18 22:00 Lipitor - PO HS [facility] Docusate Sodium 100 mg 08/01/18 22:00 Colace - PO BID FRANCESCA Furosemide 80 mg 08/02/18 10:00 Lasix - PO DAILY [facility] Heparin Sodium (Porcine) 5,000 unit 08/01/18 14:00 Heparin - SQ TID [facility] Metoprolol Succinate 25 mg 08/02/18 10:00 Toprol Xl - PO DAILY FRANCESCA Pantoprazole Sodium 40 mg 08/01/18 11:45 Protonix - PO DAILY [facility] Polyethylene Glycol 17 gm 08/01/18 22:00 Miralax (For Daily Use) - PO BID [facility] Prednisone 40 mg 08/02/18 10:00 Deltasone - PO DAILY [facility] Senna 2 tab 08/01/18 22:00 Senna - PO HS FRANCESCA Ticagrelor 90 mg 08/01/18 22:00 Brilinta - PO BID [facility] CBC, BMP 07/31/18 05:30 08/01/18 05:30 Assessment/Plan IMP: 1. CAD, with chronic angina, prior PCIs RCA/LAD now with recent JOAO LAD for critical ISR 2. Chronic systolic CHF with LVEF 35% 3. Suspected mild acute on chronic exacerbation of systolic CHF secondary to contrast load from PCI (doubt Brilinta dyspnea side effect) 4. HTN 5. HLD REC: - SOB resolved, Cr inc and weight stable - cont PO lasix 80 daily, appears euvolemic - Echo stable, EF 35% - continue brillinta, aspirin, statin, metoprolol - workup for nausea, foot/ankle pain per primary - dc tele
[2018-08-01] MEDS: PANTOPRAZOLE 40 MG TABLET (FP) PO SCH (12:18)
[2018-08-01] MEDS: MAG HYDROX/AL HYDROX/SIMETH 30 ML UNIT-DOSE CUP PO PRN ×2 (14:06→21:36)
[2018-08-01] MEDS ORDERED: PT OWN MED DRAWER 7, Y5N ONE (21:02)
[2018-08-01] MEDS ORDERED: SENNOSIDES 8.6MG TABLET (FP) PO SCH (22:00)
[2018-08-01] MEDS ORDERED: ATORVASTATIN CA 10 MG TABLET (FP) PO SCH (22:00)
[2018-08-02] MEDS: HEPARIN NA (PORCINE) 5,000 UNITS/ML 1ML VIAL SQ SCH (05:04)
[2018-08-02 07:28] LABS: CALCIUM 8.7 mg/dL (8.5-10.1); CREATININE 1.3 mg/dL (0.55-1.3); POTASSIUM 3.7 mmol/L (3.5-5.1)
[2018-08-02] MEDS: TICAGRELOR 90 MG TABLET PO SCH (09:37)
[2018-08-02] MEDS: DOCUSATE SODIUM 100 MG CAPSULE (FP) PO SCH (09:37)
[2018-08-02] MEDS: PANTOPRAZOLE 40 MG TABLET (FP) PO SCH (09:37)
[2018-08-02] MEDS: POLYETHYLENE GLYCOL 3350 119 GM BTL PO SCH (09:38)
--- NOTE | 2018-08-02 09:50 | PN ---
Progress Note (short form) - Note Progress Note: Hospitalist to document today. Some improvement on prednisone.
[2018-08-02] MEDS ORDERED: ASPIRIN 81 MG CHEWABLE TABLETS PO SCH (10:00)
[2018-08-02] MEDS ORDERED: predniSONE 20 MG TABLET (UD) PO SCH (10:00)
[2018-08-02] MEDS ORDERED: FUROSEMIDE 40 MG TABLET (FP) PO SCH (10:00)
[2018-08-02] MEDS ORDERED: metoPROLOL SUCCINATE 25 MG TAB.SR.24H (FP) PO SCH (10:00)
--- NOTE | 2018-08-02 11:09 | DS ---
Physical Exam: SUBJECTIVE: Patient seen and examined, no dyspnea. Left foot pain improved, ambulating better. No new concerns. OBJECTIVE: Vital Signs Period Temp Pulse Resp BP Sys/Garcia Pulse Ox Last 24 Hr 97.8 F-98.9 F 73-89 18-18 102-138/68-75 98 Intake & Output 07/30/18 07/31/18 08/01/18 08/02/18 23:59 23:59 23:59 23:59 Intake Total 10 400 440 0 Output Total 1675 925 300 Balance -1665 -525 140 0 Weight 162 lb 162 lb 6.4 oz 161 lb PHYSICAL EXAM GENERAL: The patient is awake, alert, and fully oriented, in no acute distress. HEAD: Normal with no signs of trauma. EYES: PERRL, extraocular movements intact, sclera anicteric, conjunctiva clear. ENT: Ears normal, nares patent, oropharynx clear without exudates, moist mucous membranes. NECK: Trachea midline, full range of motion, supple. LUNGS: Decreased air entry all over, no rales or wheezing HEART: Regular rate and rhythm, S1, S2 ABDOMEN: Soft, nontender, nondistended, normoactive bowel sounds, no guarding, no rebound, EXTREMITIES: no left foot tenderness elicited, ROM improved NEUROLOGICAL: Cranial nerves II through XII grossly intact. Normal speech, gait not observed. PSYCH: Normal mood, normal affect. SKIN: Warm, dry, normal turgor, no rashes or lesions noted. LABS Laboratory Results - last 24 hr 08/02/18 06:00 Sodium 138 Potassium 3.7 Chloride 102 Carbon Dioxide 29 Anion Gap 7 L BUN 37 H Creatinine 1.3 Est GFR (CKD-EPI)AfAm 58.07 Est GFR (CKD-EPI)NonAf 50.10 Random Glucose 111 H Calcium 8.7 2Decho: EF 35-40%, grade I diastolic dysfunction, septal motion consistent with conduction abnormality HOSPITAL COURSE: Date of Admission:07/29/18 Date of Discharge: 08/02/18 Minutes to complete discharge: 40 Discharge Summary Reason For Visit: SHORTNESS OF BREATH,CONGESTIVE HEART FAILURE, Current Active Problems CAD (coronary artery disease) (Acute) CHF (congestive heart failure) (Acute) HLD (hyperlipidemia) (Acute) HTN (hypertension) (Acute) Hypervolemia (Acute) Shortness of breath (Acute) Hospital Course: 82 yom with PMhx of chronic systolic CHF, CAD s/p PCI, recent JOAO LAD, HTN, HLD , recently changed from plavix to Brilinta sent from tire retreader's office with dyspnea. He was suspected to have acute on chronic systolic heart failure from contrast load from recent PCI rather than brilliant induced dyspnea. He was placed on IV lasix, seen by cardiology, his brillinta was continued. His symptoms improved and was transitioned to oral lasix. He had 2Decho with EF 35- 40%. He also had acute gout flare with left foot pain, failed to respond to colchicine but improved markedly on oral prednisone. He was seen by orthopedic and advised medical management. He was evaluated by physical therapy but declined rehab or home services. He will be discharged in stable condition on oral lasix and prednisone taper. Condition: Stable - Instructions Diet, Activity, Other Instructions: You were admitted with congestive heart failure and improved with lasix. You were also noted with acute gout flare and improved on prednisone and will be discharged on short prednisone taper. MEDICATIONS: Prednisone taper as follows: 40 mg daily for 2 days starting tomorrow on 08/03 and 08/04, then 30 mg daily for 2 days of 08/05 and 08/06, then 20 mg daily for 2 days on 08/07, and 08/08, then 10 mg daily for 2 days on 08/09 and 08/10, then off. Continue all your home medications as before INSTRUCTIONS: Weigh yourself daily and notify doctor if weight gain > 3 lbs in 2 days. Prednisone taper as above. FOLLOW UP: With Dr. Colindres in [address] Latham in [address] Carbajal in 1 week if foot symptoms fail to fully resolve. You are strongly encouraged physical therapy but declined home services. Please discuss with your doctor for outpatient physical therapy referral. Activities with assist and supervision and walker as needed If you notice any new trouble breathing, worsening swelling, severe pain or any new concerns, please call 911 or come to the ED. Referrals: George Swenson MD [Primary Care Provider] - Brent Orourke MD [Staff Physician] - Lei Carbajal MD [Staff Physician] - Disposition: HOME - Home Medications Comprehensive Discharge Medication List: Ambulatory Orders Aspirin [Luisito Chewable Aspirin] 81 mg PO DAILY 11/13/13 Simvastatin [Zocor -] 25 mg PO DAILY 11/13/13 Metoprolol Succinate [Toprol XL -] 25 mg PO DAILY 09/17/14 Pantoprazole Sodium [Protonix] 40 mg PO DAILY 03/05/18 Ticagrelor [Brilinta -] 90 mg PO BID 07/31/18 Acetaminophen [Tylenol .Regular Strength -] 650 mg PO Q6H PRN tablet 08/02/18 Docusate Sodium [Colace -] 100 mg PO BID PRN #10 capsule 08/02/18 Furosemide [Lasix] 80 mg PO DAILY 08/02/18 Polyethylene Glycol 3350 [Miralax 119 gm Btl -] 17 gm PO DAILY PRN #10 bottle Prednisone See Taper PO ASDIR #20 tablet 08/02/18 Sennosides [Senna -] 2 tab PO HS PRN #10 tablet 08/02/18 This patient is new to me today: No Emergency Visit: Yes ED Registration Date: 07/29/18 Care time: The patient presented to the Emergency Department on the above date and was hospitalized for further evaluation of their emergent condition. Critical Care patient: No - Discharge Referral Referred to [facility] No
[2018-08-02 11:33] VITALS: BP 148/77; PULSE 77; TEMP 98.9
== END 2018-08-02 13:00 | disposition home or self-care (01) | DRG 292 ==
LOC: JER 17:48 → JERBED 19:31 → J4W 23:11 → OBSVTOIN 07-29 10:42 → J7W 08-01 14:48
PROVIDERS: ADMIT Internal Medicine; ATTEND Hospitalist
DX: I11.0 Hypertensive heart disease with heart failure (principal); N17.9 Acute kidney failure, unspecified; I50.23 Acute on chronic systolic (congestive) heart failure; E78.5 Hyperlipidemia, unspecified; E87.70 Fluid overload, unspecified; I44.0 Atrioventricular block, first degree; K21.9 Gastro-esophageal reflux disease without esophagitis; J44.9 Chronic obstructive pulmonary disease, unspecified; M10.9 Gout, unspecified; I25.119 Atherosclerotic heart disease of native coronary artery with unspecified angina pectoris; Z87.891 Personal history of nicotine dependence; Z88.0 Allergy status to penicillin; Z96.651 Presence of right artificial knee joint; Z95.5 Presence of coronary angioplasty implant and graft
CPT/HCPCS: 36415; 71045-TC-FY; 71046-TC-FY; 73610-TC-LT-FY; 73630-TC-LT; 80048; 80053; 82550; 83735; 83880; 84100; 84484; 84550; 85025; 85610; 86850; 86900; 86901; 93005; 93010; 93306-TC; 94761; 97116-GP; 97162-GP; 99283-25; G0378; J1644